=== PATIENT | male | born 1970 | race Caucasian/White ===

== ENCOUNTER 2022-03-09 10:55 | Emergency (ER) | payer OTHER, SELFPAY ==
[2022-03-09 10:55] VITALS: BP 145/85; PULSE 110; RESP 14; TEMP 36.5; O2SAT 94
--- NOTE | 2022-03-09 12:10 | EX.ED.DYSGE1 ---
HPI History of Present Illness Chief Complaint: Abn Labs Narrative Narrative: 51-year-old male presenting for yellow eyes. He states he was talking to his boss today and she noticed that his eyes were yellow. He states that she used to work in healthcare or something. She expressed to me concern that my eyes were yellow. She recommended I go home and go to the urgent care or the emergency room. The patient admits to about 5 shots a night at least. He drinks more than that sometimes. He denies other drugs. Patient has no history of liver disease that he knows of. No history of pancreatitis. Patient is denying any sort of pain anywhere. He has felt otherwise well except for climbing stairs and feels short of breath and he has some pain in the bilateral flanks which he attributes to sleeping on the couch a lot. He is not had an injury. PFSH PFSH Home Medications levofloxacin 500 mg PO DAILY #7 tab 03/09/22 [Rx Last Taken Unknown] potassium chloride 40 meq PO DAILY #2 tab 03/09/22 [Rx Last Taken Unknown] prednisone 40 mg PO DAILY 30 Days #120 tab 03/09/22 [Rx Last Taken Unknown] Allergy/AdvReac Type Severity Reaction Status Date / Time No Known Allergies Allergy Verified 03/09/22 12:23 Social History Smoking Status: Current every day smoker tobacco type: cigarettes ROS ROS ED Constitutional Constitutional ED: Denies chills or fever(s) Eyes Eyes: Reports other Details: Scleral icterus ; Denies blurry vision or change in vision ENT ENT ED: Denies rhinorrhea or sore throat Cardiovascular Cardiovascular: Denies chest pain or palpitations Respiratory/Chest Respiratory/Chest: Reports dyspnea on exertion; Denies cough Gastrointestinal Gastrointestinal: Denies abdominal pain, nausea or vomiting Genitourinary Genitourinary ED: Denies dysuria or hematuria Musculoskeletal Musculoskeletal: Reports back pain Integumentary Denies rash Neurologic Neurologic: Denies headache(s) or weakness Psychiatric Psychiatric: Denies anxiety or depression EXAM Physical Exam Const Vital Signs: 03/09/22 10:55 03/09/22 12:21 03/09/22 13:53 Temperature 97.7 F L Temperature Source Temporal Pulse Rate 110 H 72 Respiratory Rate 14 16 Respiratory Effort Normal Non-Labored Respiratory Pattern Normal Blood Pressure 145/85 H 149/74 H Blood Pressure Mean 105 Pulse Ox 94 98 Oxygen Delivery Method Room Air Positive well nourished General Appearance ED: NAD; Negative for pallor HEENT Reports moist mucous membranes Negative for trauma Eyes PERRL and EOMs intact bilaterally General Eye ED: Yes scleral icterus Neck no lymphadenopathy and supple Resp normal respiratory effort and clear to auscultation bilaterally Cardio regular rate Rate: tachycardic GI normal to inspection, nondistended, normoactive bowel sounds Palpation: soft Back/Spine no CVA tenderness Neuro oriented x3, CN's II-XII intact bilaterally and no sensory deficits noted Sensorium / Orientation: alert Motor Exam: strength 5/5 throughout Psych mental status grossly normal Skin no rashes or lesions noted, no wounds and skin turgor normal General Skin Exam: jaundice; Negative for pallor MDM MDM MDM Narrative Medical decision making narrative: Patient presenting with scleral icterus is noted he has faint jaundice on examination as well. Patient initially admitted to drinking 5 shots per day however when his alcohol level returned at 215 he admitted he meant to say 5 glasses of liquor a day. He states he does this daily. His CBC does not show any leukocytosis. Hemoglobin hematocrit are stable. Platelets within normal 1-2 23. Renal function within normal limits and the electrolytes are fairly normal with exception of a potassium of 2.9. Patient's total bilirubin is 14.00, direct bilirubin 10.2, AST 307, ALT 61, alk phosphatase 306. Lipase normal at 202. Urinalysis without signs of infection but does show bilirubin and urobilinogen. I expressed to the patient that he would need imaging because of his painless jaundice however he states because he does not have insurance he does not want to have to pay for any CAT scan or ultrasound. I spoke with Dr. Montejo regarding this and although he states some of this could be caused by alcoholic hepatitis based on his lab work he could also have something else abnormal and did recommend imaging. I did tell him that the patient is refusing imaging and he stated that the best we could do at this point would be to start him on prednisone 40 mg p.o. daily and put him on Levaquin since he would be immune deficient after that. He will be given a supplement potassium chloride. I did sit down and discussed with him at length the multiple causes of hepatitis and that likely his alcoholism is contributing. I did talk to him this was possibly an obstructing mass in this area and that we could not know that without imaging. He expressed again to me that he does not have health insurance and he doubts to think about it for about a week. I did express to him the urgency of follow-up. I also discussed my conversation with Dr. Montejo and his recommendations. He still wants to be discharged home. He was provided with the medications. A viral hepatitis panel is pending. Patient given return precautions. Impression: 1. EtOH abuse 2. EtOH intoxication 3. Jaundice 4. Scleral icterus 5. Hyperbilirubinemia 6. Transaminitis Lab Data Attestation: I reviewed the patient's lab results. Labs: Laboratory Results - last 24 hr 03/09/22 03/09/22 03/09/22 12:20 12:20 12:20 WBC 10.7 RBC 3.25 L Hgb 12.1 L Hct 34.0 L MCV 104.6 H MCH 37.2 H MCHC 35.6 RDW Std Deviation 71.5 H RDW Coeff of Moses 18.7 H Plt Count 223 MPV 11.0 Immature Gran % (Auto) 0.700 Neut % (Auto) 81.8 H Lymph % (Auto) 9.3 L [place] % (Auto) 7.3 Eos % (Auto) 0.1 Baso % (Auto) 0.8 Absolute Neuts (auto) 8.7 H Absolute Lymphs (auto) 0.99 Nucleated RBC % 0.3 Anisocytosis 1+ Sodium 138 Potassium 2.9 L Chloride 101 Carbon Dioxide 28.0 Anion Gap 9 BUN 5 L Creatinine 0.44 L Estim Creat Clear Calc 175.21 Est GFR (MDRD) Af Amer 256 Est GFR (MDRD) Non-Af 211 BUN/Creatinine Ratio 11.2 Glucose 102 Calcium 8.6 Total Bilirubin 14.00 H Direct Bilirubin 10.82 H AST 307 H ALT 61 Alkaline Phosphatase 306 H Total Protein 7.0 Albumin 2.7 L Globulin 4.3 H Lipase 202 Urine Color Urine Clarity Urine pH Ur Specific [place] Urine Protein Urine Glucose (UA) Urine Ketones Urine Occult Blood Urine Nitrite Urine Bilirubin Urine Urobilinogen Ur Leukocyte Esterase Urine RBC Urine WBC Ur Squamous Epith Cells Urine Bacteria Urine Mucus Ethyl Alcohol 215.0 03/09/22 12:25 WBC RBC Hgb Hct MCV MCH MCHC RDW Std Deviation RDW Coeff of [place] Plt Count MPV Immature Gran % (Auto) Neut % (Auto) Lymph % (Auto) [place] % (Auto) Eos % (Auto) Baso % (Auto) Absolute Neuts (auto) Absolute Lymphs (auto) Nucleated RBC % Anisocytosis Sodium Potassium Chloride Carbon Dioxide Anion Gap BUN Creatinine Estim Creat Clear Calc Est GFR (MDRD) Af Amer Est GFR (MDRD) Non-Af BUN/Creatinine Ratio Glucose Calcium Total Bilirubin Direct Bilirubin AST ALT Alkaline Phosphatase Total Protein Albumin Globulin Lipase Urine Color Giulia Urine Clarity Clear Urine pH 6.5 Ur Specific [place] 1.015 Urine Protein 30 H Urine Glucose (UA) Normal Urine Ketones 5 H Urine Occult Blood 50 H Urine Nitrite Negative Urine Bilirubin 6 H Urine Urobilinogen 12 H Ur Leukocyte Esterase 25 H Urine RBC 0 SEEN Urine WBC 0-5 SEEN Ur Squamous Epith Cells 0 SEEN Urine Bacteria 0 SEEN Urine Mucus 0 SEEN Ethyl Alcohol Discharge Plan Triage Chief Complaint: Abn Labs ED Provider: Abdullahi Jacobs Dx/Rx/DC Orders Instructions: ED Cirrhosis, ED Hepatitis Cause Unknown ..., ED Hypokalemia, ED Potassium-Rich Foods, ED Alcohol Abuse Prescriptions: New levofloxacin 500 mg tablet 500 mg PO DAILY Qty: 7 RF: 0 prednisone 10 mg tablet 40 mg PO DAILY 30 Days Qty: 120 RF: 0 potassium chloride 20 mEq tablet extended release 40 meq PO DAILY Qty: 2 RF: 0 Primary Care Provider: Anthony Rapp Referrals: Anthony Rapp MD [Primary Care Provider] - Shreyas Montejo DO [STAFF PHYSICIAN] - As soon as possible Disposition Disposition: Home, Self Care Discharge Date/Time: 03/09/22 13:53
[2022-03-09 12:28] LABS: Absolute Lymphocyte Count 0.99 X10^3/uL (0.83-4.51); Absolute Neutrophil Count 8.7 X10^3/uL (2.0-7.7); Basophil# 0.09 X10^3/uL; Basophil% 0.8 % (0-1); Eosinophil# 0.01 X10^3/uL; Eosinophils% 0.1 % (0-5); Hemoglobin 12.1 g/dL (13.0-16.5); Lymphocyte # 0.99 X10^3/ul (0.83-4.51); Lymphocyte % 9.3 % (19-41); Mean Corp Hgb Conc 35.6 g/dL (32-36); Mean Corpuscular Hgb 37.2 pg (27.0-32.0); Mean Corpuscular Volume 104.6 fL (80-94); Monocyte# 0.78 X10^3/uL; Monocyte% 7.3 % (0-10); NRBC Flagged by Analyzer 0.3 % (0-5); Neutrophil # 8.71 X10^3/uL (2.7-7.7); Neutrophil % 81.8 % (47-70); POSITIVE MORPHOLOGY YES; Platelet Count 223 K/mm3 (150-450); RBC Distribution Width CV 18.7 % (11.6-14.6); RBC Distribution Width SD 71.5 fl (35.1-43.9); Red Blood Count 3.25 M/mm3 (4.6-6.2); White Blood Count 10.7 K/mm3 (4.4-11.0)
[2022-03-09 12:30] LABS: Bacteria 0 SEEN /hpf (None Seen); Mucous, Urine 0 SEEN /hpf (<or=2+); Red Blood Cells-Urine 0 SEEN /hpf (0-5); Squamous Epithelial Cells - UA 0 SEEN /hpf (0-5)
[2022-03-09 12:32] LABS: Color, Urine Amber (Yellow); Glucose, Dipstick Normal (Normal); Ketone-Dipstick 5 mg/dl (Negative); Leukocyte Esterase-Dipstick 25 /ul (Negative); Nitrite-Dipstick Negative (Negative); Occult Blood-Urine 50 /ul (Negative); Protein-Dipstick 30 mg/dl (Negative); Specific Gravity, Urine 1.015 (1.002-1.030); Urine Clarity Clear (Clear); Urine Urobilinogen 12 mg/dl (Normal); Urine pH 6.5 (5.0 - 8.0)
[2022-03-09 12:34] LABS: Differential Indicated SCAN CRITERIA MET
[2022-03-09 12:40] VITALS: BMI 37.9
[2022-03-09 12:44] LABS: Urine Bilirubin Dipstick 6 mg/dL (Negative)
[2022-03-09 12:45] LABS: White Blood Cells 0-5 SEEN /hpf (0-5)
[2022-03-09 12:49] LABS: Anisocytosis 1+
[2022-03-09 12:52] LABS: AST(SGOT) 307 U/L (15-37); Alanine Aminotransfer ALT/SGPT 61 U/L (16-61); Albumin, Serum 2.7 g/dL (3.2-5.0); Alkaline Phosphatase 306 U/L (45-117); Anion Gap 9 (5-15); BUN 5 mg/dL (7-18); BUN/Creat Ratio 11.2 RATIO (10-20); Bilirubin, Direct 10.82 mg/dL (0.00-0.30); Calcium,Total 8.6 mg/dL (8.5-10.1); Chloride 101 mmol/L (98-107); Creatinine, Serum 0.44 mg/dL (0.70-1.30); EST Glomerular Filtration Rate 211 mL/min (>60); Est Glom Filt Rate - Afr Amer 256 mL/min (>60); Estimated Creatinine Clearance 175.21 ml/min; Globulin 4.3 g/dL (2.2-4.2); Glucose 102 mg/dL (74-106); Lipase 202 U/L (73-393); Potassium 2.9 mmol/L (3.5-5.1); Sodium Level 138 mmol/L (136-145)
[2022-03-09 13:53] VITALS: BP 149/74; PULSE 72; RESP 16; O2SAT 98
[2022-03-10 12:08] LABS: HEPATITIS B SURFACE AG Negative (Negative); Hep C Antibodies <0.1 s/co ratio (0.0-0.9); Hepatitis A IgM Antibody Negative (Negative); Hepatitis B Core AB IgM Negative (Negative)
== END 2022-03-09 13:53 | disposition home or self-care (01) ==
PROVIDERS: Emergency Provider Student in an Organized Health Care Education/Training Program; PCP Internal Medicine; Visit Provider Student in an Organized Health Care Education/Training Program
DX: F10.129 Alcohol abuse with intoxication, unspecified (principal); R74.01 Elevation of levels of liver transaminase levels; R17 Unspecified jaundice; F17.210 Nicotine dependence, cigarettes, uncomplicated; Y90.7 Blood alcohol level of 200-239 mg/100 ml
CPT/HCPCS: 80048; 80074; 80076; 81001; 82077; 83690; 85025; 99283; A4216

== ENCOUNTER 2022-03-11 10:28 | Emergency (ER) | payer OTHER, SELFPAY ==
[2022-03-11 10:31] VITALS: BP 145/107; PULSE 136; RESP 18; TEMP 35.7; O2SAT 95; BMI 26.7
--- NOTE | 2022-03-11 10:37 | EKG12_ITS ---
Test Reason : FATIGUE Blood Pressure : / mmHG Vent. Rate : 112 BPM Atrial Rate : 112 BPM P-R Int : 142 ms QRS Dur : 074 ms QT Int : 358 ms P-R-T Axes : 047 018 036 degrees QTc Int : 488 ms Sinus tachycardia Otherwise normal ECG Confirmed by JOSEPH LIZAMA, KEVAN ([id number]), continuity editor JOEY ALEX ([id number]) on 03/14/2022 10:03:59 A M Referred By: ABELINO Confirmed By:FABIO RUIZ MD
--- NOTE | 2022-03-11 10:37 | CT_ITS ---
STUDY: CT ABDOMEN AND PELVIS WITH CONTRAST REASON FOR EXAM: Male, 51 years old. Jaundice RADIATION DOSAGE (If Supplied By Facility): CTDIvol = ( 11.99 ) mGy, DLP = ( 711.87 ) mGycm TECHNIQUE: Transaxial images were obtained from the dome of the diaphragm to the symphysis pubis without oral contrast. IV 75mL Isovue-300 was administered. Sagittal and coronal images were reconstructed. Individualized dose optimization techniques were used for this CT. COMPARISON: None. FINDINGS: The visualized lung bases are unremarkable. The visualized portions of the heart are within normal limits. Hepatomegaly. Diffuse heterogeneous appearance of the liver with areas of fatty infiltration interspersed with normal parenchyma. Normal gallbladder and extrahepatic biliary system. Normal spleen. Normal pancreas. Normal bilateral adrenal glands. Scattered nonobstructive right intrarenal calculi. Scattered nonobstructive left renal calculi. The largest calculus measures 3.8 mm and is in the upper pole calyx. Normal visualized stomach. Normal small intestine. Normal colon. The appendix is visualized and appears normal. There is scattered atherosclerotic calcification of the abdominal aorta, without a demonstrated aneurysm. Normal inferior vena cava. Normal retroperitoneum. Diffuse urinary bladder thickening although the urinary bladder is not completely distended. Scattered prostatic calcification. There is a small umbilical hernia containing fat. Bilateral inguinal regions containing fat more prominent on the right side. Normal osseous structures. CT/Abdomen/Pelvis W IV Cont ONLY IMPRESSION: Hepatomegaly and diffuse fatty infiltration with multiple areas of focal fatty sparing. Nonobstructive bilateral intrarenal calculi. Small bilateral inguinal hernias containing fat. Diffuse bladder wall thickening. Electronically Signed: Jose M Richrads MD at 11:59 EDT ,
[2022-03-11] MEDS: 0.9% Normal Saline 1,000 ML 1000 ML IV (10:57)
[2022-03-11 10:58] LABS: Absolute Lymphocyte Count 0.42 X10^3/uL (0.83-4.51); Absolute Neutrophil Count 11.7 X10^3/uL (2.0-7.7); Basophil# 0.05 X10^3/uL; Basophil% 0.4 % (0-1); Eosinophil# 0.01 X10^3/uL; Eosinophils% 0.1 % (0-5); Hemoglobin 13.1 g/dL (13.0-16.5); Lymphocyte # 0.42 X10^3/ul (0.83-4.51); Lymphocyte % 3.3 % (19-41); Mean Corp Hgb Conc 34.5 g/dL (32-36); Mean Corpuscular Hgb 36.6 pg (27.0-32.0); Mean Corpuscular Volume 106.1 fL (80-94); Mean Platelet Vol. 10.9 fl (6.2-12.0); Monocyte# 0.62 X10^3/uL; Monocyte% 4.8 % (0-10); NRBC Flagged by Analyzer 0 % (0-5); Neutrophil # 11.74 X10^3/uL (2.7-7.7); Neutrophil % 90.9 % (47-70); POSITIVE DIFFERENTIAL YES; POSITIVE MORPHOLOGY YES; Platelet Count 260 K/mm3 (150-450); RBC Distribution Width CV 17.7 % (11.6-14.6); RBC Distribution Width SD 67.8 fl (35.1-43.9); Red Blood Count 3.58 M/mm3 (4.6-6.2); White Blood Count 12.9 K/mm3 (4.4-11.0)
[2022-03-11 11:00] LABS: Differential Indicated SCAN CRITERIA MET
[2022-03-11 11:23] LABS: AST(SGOT) 235 U/L (15-37); Alanine Aminotransfer ALT/SGPT 53 U/L (16-61); Albumin, Serum 2.7 g/dL (3.2-5.0); Alkaline Phosphatase 291 U/L (45-117); Anion Gap 12 (5-15); BUN 8 mg/dL (7-18); BUN/Creat Ratio 11.2 RATIO (10-20); Bilirubin, Direct 15.56 mg/dL (0.00-0.30); Calcium,Total 9.2 mg/dL (8.5-10.1); Chloride 99 mmol/L (98-107); Creatinine, Serum 0.71 mg/dL (0.70-1.30); EST Glomerular Filtration Rate 122 mL/min (>60); Est Glom Filt Rate - Afr Amer 148 mL/min (>60); Estimated Creatinine Clearance 112.49 ml/min; Globulin 4.4 g/dL (2.2-4.2); Glucose 132 mg/dL (74-106); Lipase 159 U/L (73-393); Potassium 3.6 mmol/L (3.5-5.1); Protein, Total 7.1 g/dL (6.4-8.2); Sodium Level 134 mmol/L (136-145); Troponin-I HS 3 pg/mL (3.0-78.0)
[2022-03-11 12:27] LABS: Alcohol, Blood (Medical)-Serum < 3.0 mg/dL
[2022-03-11 12:29] VITALS: BP 152/96; PULSE 105; RESP 20; O2SAT 96
--- NOTE | 2022-03-11 12:39 | EDS_ITS ---
HPI History of Present Illness Chief Complaint: Fatigue Narrative Narrative: 51-year-old male presenting for evaluation of painless jaundice. He was seen 2 days ago for similar symptoms. At that point patient had lab work which indicated his bilirubin was extremely elevated. He did not want any imaging of his abdomen at that point. I had spoken to Dr. Montejo about it and he recommended that I put him on prednisone 40 mg p.o. daily as well as Levaquin x7 days. Patient reports he has been taking this. His potassium was slightly low the other day and he did take his potassium supplements and I provided him states that he does have some increased fatigue and worsening jaundice and scleral icterus. He has not had a drink. He does not feel like he is withdrawing. He denies abdominal pain. He states he had diarrhea the last 2 days but this is resolved. No fevers or chills. PFSH PFSH Home Medications levofloxacin 500 mg PO DAILY #7 tab 03/09/22 [Rx Last Taken Unknown] potassium chloride 40 meq PO DAILY #2 tab 03/09/22 [Rx Last Taken Unknown] prednisone 40 mg PO DAILY 30 Days #120 tab 03/09/22 [Rx Last Taken Unknown] lactulose 10 g PO BID #30 packet 03/11/22 [Rx Last Taken Unknown] prednisone 80 mg PO DAILY 30 Days #48 tab 03/11/22 [Rx Last Taken Unknown] Allergy/AdvReac Type Severity Reaction Status Date / Time No Known Allergies Allergy Verified 03/11/22 10:31 Social History Smoking Status: Current every day smoker tobacco type: cigarettes ROS ROS ED Constitutional Constitutional ED: Denies chills, fever(s) or sweats Eyes Eyes: Denies blurry vision or diplopia ENT ENT ED: Denies sore throat Cardiovascular Cardiovascular: Denies chest pain or palpitations Respiratory/Chest Respiratory/Chest: Denies dyspnea Gastrointestinal Gastrointestinal: Reports diarrhea; Denies abdominal pain, nausea or vomiting Genitourinary Genitourinary ED: Denies dysuria or hematuria Musculoskeletal Musculoskeletal: Denies arthralgias or myalgias Integumentary Reports other Details: Jaundice and scleral icterus Neurologic Neurologic: Denies headache(s) or weakness Psychiatric Psychiatric: Denies anxiety or depression Endocrine Endocrinology: Denies polydipsia or polyuria EXAM Physical Exam Const Vital Signs: 03/11/22 10:31 03/11/22 11:01 03/11/22 12:29 Temperature 96.3 F L Temperature Source Temporal Pulse Rate 136 H 105 H Respiratory Rate 18 20 H Respiratory Effort Normal Non-Labored Respiratory Pattern Normal Blood Pressure 145/107 H 152/96 H Blood Pressure Mean 119 114 Pulse Ox 95 96 Oxygen Delivery Method Room Air Room Air 03/11/22 14:00 Temperature Temperature Source Pulse Rate 92 Respiratory Rate 23 H Respiratory Effort Respiratory Pattern Blood Pressure 145/96 H Blood Pressure Mean 112 Pulse Ox 96 Oxygen Delivery Method Room Air Positive well nourished General Appearance ED: NAD; Negative for pallor HEENT Reports moist mucous membranes Negative for trauma Eyes PERRL and EOMs intact bilaterally General Eye ED: Yes scleral icterus Neck no lymphadenopathy and supple Chest Wall inspection of chest normal Resp normal respiratory effort and clear to auscultation bilaterally Cardio regular rhythm Rate: tachycardic GI normal to inspection, nondistended, normoactive bowel sounds, non-tender and non-distended Palpation: soft Neuro oriented x3, CN's II-XII intact bilaterally and no sensory deficits noted Sensorium / Orientation: alert Motor Exam: strength 5/5 throughout Psych mental status grossly normal Skin no rashes or lesions noted General Skin Exam: jaundice; Negative for pallor MDM MDM MDM Narrative Medical decision making narrative: Repeat blood work today shows patient has slight leukocytosis of 12.9. This is likely from being on the prednisone. Hemoglobin hematocrit are stable. Platelets stable at 260. Renal function and electrolytes appear to be within normal limits. Total bilirubin Has gone from 14-20.4. Direct bilirubin is now 15.56 from 10.2. Alkaline phosphatase has gone down to 291. AST is gone down to 235. Patient does have an ammonia level which is slightly elevated today at 35. EtOH is negative. Lipase within normal limits. Drug abuse screen negative after speaking with. Patient given IV fluids as he is initially tachycardic. CT of the abdomen pelvis with IV contrast is obtained and shows diffuse fatty infiltration of the liver. There is no ascites noted. Patient case was discussed with Dr. Montejo who recommended an INR which was performed and is normal at 1.4. His LDH which was also requested by Dr. Montejo is slightly elevated at 338. Lactic acid was elevated at 3.2 and the patient was given an additional liter of IV fluids. And he did not feel the patient needed to be be admitted to the hospital. He recommended increasing his prednisone to 80 mg p.o. daily and giving him lactulose 10 g p.o. twice daily. According to his moderate score prednisone would be indicated. He needs repeat blood work in a week to see if his labs are improving. He was recommended him to follow-up with Dr. Montejo. I did teacher counselor him that Dr. Montejo stated that his jaundice and scleral icterus may be present for months. Patient was given return precautions in the ER. Impression: 1. Cirrhosis 2. Hyperbilirubinemia 3. Hyperammonemia 4. History of EtOH abuse 5. Lactic acidosis 6. Elevated LDH Lab Data Attestation: I reviewed the patient's lab results. Labs: Laboratory Results - last 24 hr 03/11/22 03/11/22 03/11/22 10:30 10:50 10:50 WBC 12.9 H RBC 3.58 L Hgb 13.1 Hct 38.0 L MCV 106.1 H MCH 36.6 H MCHC 34.5 RDW Std Deviation 67.8 H RDW Coeff of Moses 17.7 H Plt Count 260 MPV 10.9 Immature Gran % (Auto) 0.500 Neut % (Auto) 90.9 H Lymph % (Auto) 3.3 L [place] % (Auto) 4.8 Eos % (Auto) 0.1 Baso % (Auto) 0.4 Absolute Neuts (auto) 11.7 H Absolute Lymphs (auto) 0.42 L Nucleated RBC % 0 PT 17.1 H INR 1.4 Sodium 134 L Potassium 3.6 Chloride 99 Carbon Dioxide 23.0 Anion Gap 12 BUN 8 Creatinine 0.71 Estim Creat Clear Calc 112.49 Est GFR (MDRD) Af Amer 148 Est GFR (MDRD) Non-Af 122 BUN/Creatinine Ratio 11.2 Glucose 132 H Lactic Acid Calcium 9.2 Total Bilirubin 20.40 H* Direct Bilirubin 15.56 H AST 235 H ALT 53 Alkaline Phosphatase 291 H Ammonia Lactate Dehydrogenase Troponin I High Sens 3 Total Protein 7.1 Albumin 2.7 L Globulin 4.4 H Lipase 159 Urine Color Urine Clarity Urine pH Ur Specific [place] Urine Protein Urine Glucose (UA) Urine Ketones Urine Occult Blood Urine Nitrite Urine Bilirubin Urine Urobilinogen Ur Leukocyte Esterase Urine RBC Urine WBC Ur Squamous Epith Cells Urine Bacteria Urine Mucus Ethyl Alcohol 03/11/22 03/11/22 03/11/22 10:50 11:45 11:45 WBC RBC Hgb Hct MCV MCH MCHC RDW Std Deviation RDW Coeff of Moses Plt Count MPV Immature Gran % (Auto) Neut % (Auto) Lymph % (Auto) [place] % (Auto) Eos % (Auto) Baso % (Auto) Absolute Neuts (auto) Absolute Lymphs (auto) Nucleated RBC % PT INR Sodium Potassium Chloride Carbon Dioxide Anion Gap BUN Creatinine Estim Creat Clear Calc Est GFR (MDRD) Af Amer Est GFR (MDRD) Non-Af BUN/Creatinine Ratio Glucose Lactic Acid Calcium Total Bilirubin Direct Bilirubin AST ALT Alkaline Phosphatase Ammonia 35.0 H Lactate Dehydrogenase 338 H Troponin I High Sens Total Protein Albumin Globulin Lipase Urine Color Urine Clarity Urine pH Ur Specific [place] Urine Protein Urine Glucose (UA) Urine Ketones Urine Occult Blood Urine Nitrite Urine Bilirubin Urine Urobilinogen Ur Leukocyte Esterase Urine RBC Urine WBC Ur Squamous Epith Cells Urine Bacteria Urine Mucus Ethyl Alcohol < 3.0 03/11/22 03/11/22 13:02 13:05 WBC RBC Hgb Hct MCV MCH MCHC RDW Std Deviation RDW Coeff of Moses Plt Count MPV Immature Gran % (Auto) Neut % (Auto) Lymph % (Auto) [place] % (Auto) Eos % (Auto) Baso % (Auto) Absolute Neuts (auto) Absolute Lymphs (auto) Nucleated RBC % PT INR Sodium Potassium Chloride Carbon Dioxide Anion Gap BUN Creatinine Estim Creat Clear Calc Est GFR (MDRD) Af Amer Est GFR (MDRD) Non-Af BUN/Creatinine Ratio Glucose Lactic Acid 3.2 H* Calcium Total Bilirubin Direct Bilirubin AST ALT Alkaline Phosphatase Ammonia Lactate Dehydrogenase Troponin I High Sens Total Protein Albumin Globulin Lipase Urine Color Giulia Urine Clarity Sl. Cloudy Urine pH 8.0 Ur Specific [place] 1.010 Urine Protein 15 H Urine Glucose (UA) Normal Urine Ketones 5 H Urine Occult Blood 25 H Urine Nitrite Negative Urine Bilirubin 6 H Urine Urobilinogen 8 H Ur Leukocyte Esterase 25 H Urine RBC 0 SEEN Urine WBC 0 SEEN Ur Squamous Epith Cells 0-5 SEEN Urine Bacteria 0 SEEN Urine Mucus 0 SEEN Ethyl Alcohol Radiography Diagnostic Testing: Clinical Impression(s) from Imaging Studies Abdomen/Pelvis CT 03/11/22 10:37 IMPRESSION: Hepatomegaly and diffuse fatty infiltration with multiple areas of focal fatty sparing. Nonobstructive bilateral intrarenal calculi. Small bilateral inguinal hernias containing fat. Diffuse bladder wall thickening. Electronically Signed: Jose M Richards MD at 11:59 EDT , Discharge Plan Triage Chief Complaint: Fatigue Other Complaint: Abd Pain ED Provider: Abdullahi Jacobs Dx/Rx/DC Orders Instructions: ED Cirrhosis Prescriptions: New lactulose 10 gram packet 10 g PO BID Qty: 30 RF: 0 prednisone 50 mg tablet 80 mg PO DAILY 30 Days Qty: 48 RF: 0 No Action levofloxacin 500 mg tablet 500 mg PO DAILY Qty: 7 RF: 0 prednisone 10 mg tablet 40 mg PO DAILY 30 Days Qty: 120 RF: 0 potassium chloride 20 mEq tablet extended release 40 meq PO DAILY Qty: 2 RF: 0 Primary Care Provider: Shreyas Montejo Referrals: Shreyas Montejo, DO [Primary Care Provider] - Disposition Disposition: Home, Self Care
[2022-03-11 13:08] LABS: Bacteria 0 SEEN /hpf (None Seen); Mucous, Urine 0 SEEN /hpf (<or=2+); Red Blood Cells-Urine 0 SEEN /hpf (0-5); White Blood Cells 0 SEEN /hpf (0-5)
[2022-03-11 13:21] LABS: Color, Urine Amber (Yellow); Glucose, Dipstick Normal (Normal); Ketone-Dipstick 5 mg/dl (Negative); Leukocyte Esterase-Dipstick 25 /ul (Negative); Nitrite-Dipstick Negative (Negative); Occult Blood-Urine 25 /ul (Negative); Protein-Dipstick 15 mg/dl (Negative); Urine Clarity Sl. Cloudy (Clear); Urine Urobilinogen 8 mg/dl (Normal)
[2022-03-11 13:31] LABS: International Normalized Ratio 1.4; Prothrombin Time (Protime)PT. 17.1 SECONDS (11.7-14.9)
[2022-03-11 13:36] LABS: Urine Bilirubin Dipstick 6 mg/dL (Negative)
[2022-03-11 13:37] LABS: Squamous Epithelial Cells - UA 0-5 SEEN /hpf (0-5)
[2022-03-11 13:40] LABS: LDH 338 U/L (87-241)
[2022-03-11 13:43] LABS: Lactic Acid 3.2 mmol/L (0.4-1.9)
[2022-03-11] MEDS: 0.9% Normal Saline 1,000 ML 999 ML IV (13:47)
[2022-03-11 14:00] VITALS: BP 145/96; PULSE 92; RESP 23; O2SAT 96
[2022-03-11 16:00] VITALS: BP 158/101; PULSE 101; RESP 18; O2SAT 94
[2022-03-11 16:09] VITALS: RESP 18
[2022-03-11 17:11] LABS: Reflex Lactate? Y
== END 2022-03-11 16:10 | disposition home or self-care (01) ==
PROVIDERS: Emergency Provider Student in an Organized Health Care Education/Training Program; PCP Internal Medicine Gastroenterology; Visit Provider Student in an Organized Health Care Education/Training Program
DX: K74.60 Unspecified cirrhosis of liver (principal); K76.0 Fatty (change of) liver, not elsewhere classified; R53.83 Other fatigue; R74.02 Elevation of levels of lactic acid dehydrogenase [LDH]; E87.2 Acidosis; F17.210 Nicotine dependence, cigarettes, uncomplicated; Z79.899 Other long term (current) drug therapy; E80.7 Disorder of bilirubin metabolism, unspecified
CPT/HCPCS: 74177; 80048; 80076; 81001; 82077; 82140; 83605; 83615; 83690; 84484; 85025; 85610; 93005; 96360; 96361; 99283; J7030; Q9967; A4216

== ENCOUNTER 2022-04-11 10:27 | Emergency (ER) | payer SELFPAY ==
[2022-04-11 10:27] VITALS: BP 121/91; PULSE 114; RESP 16; TEMP 36.5; O2SAT 97; BMI 29.1
--- NOTE | 2022-04-11 11:13 | US_ITS ---
PROCEDURE: Ultrasound guided paracentesis. INDICATION: Male, 51 years old. ascites PHYSICIAN: Alexx Dewitt DO INFORMED CONSENT: The risks, benefits, and alternatives to the procedure were explained to the patient. The specific risks of bleeding, infection, and damage to bowel were detailed and accepted. Witnessed informed consent was obtained. TECHNIQUES: The abdomen was ultrasonographically surveyed. An appropriate pocket of fluid was identified at the right lower quadrant. The skin was cleaned and prepped in the usual sterile fashion. Using ultrasound guidance, the peritoneal cavity was accessed with a 5-Chinese paracentesis needle/catheter system. The trocar was removed. A total of 3100 ml of clear yellow ascites fluid was removed from the peritoneal cavity and discarded. The catheter was removed and a sterile dressing was applied. The procedure was well tolerated. The patient was discharged in stable condition. US/Paracentesis with US IMPRESSION: Ultrasound guided therapeutic paracentesis. Electronically Signed: Alexx Dewitt, at 15:01 EDT ,
[2022-04-11 11:31] LABS: Absolute Lymphocyte Count 1.64 X10^3/uL (0.83-4.51); Absolute Neutrophil Count 12.5 X10^3/uL (2.0-7.7); Basophil# 0.07 X10^3/uL; Basophil% 0.5 % (0-1); Eosinophil# 0.12 X10^3/uL; Eosinophils% 0.8 % (0-5); Hemoglobin 12.5 g/dL (13.0-16.5); Lymphocyte # 1.64 X10^3/ul (0.83-4.51); Lymphocyte % 10.8 % (19-41); Mean Corp Hgb Conc 32.9 g/dL (32-36); Mean Corpuscular Volume 112.4 fL (80-94); Mean Platelet Vol. 9.4 fl (6.2-12.0); Monocyte# 0.85 X10^3/uL; Monocyte% 5.6 % (0-10); NRBC Flagged by Analyzer 0 % (0-5); Neutrophil # 12.48 X10^3/uL (2.7-7.7); Neutrophil % 81.7 % (47-70); Platelet Count 372 K/mm3 (150-450); RBC Distribution Width CV 12.6 % (11.6-14.6); RBC Distribution Width SD 52.3 fl (35.1-43.9); Red Blood Count 3.38 M/mm3 (4.6-6.2); White Blood Count 15.3 K/mm3 (4.4-11.0)
[2022-04-11 11:40] LABS: International Normalized Ratio 1.4; Prothrombin Time (Protime)PT. 16.7 SECONDS (11.7-14.9)
[2022-04-11 11:41] LABS: Partial Thromboplast Time 35.2 Seconds (24.1-36.2)
[2022-04-11 11:53] LABS: AST(SGOT) 83 U/L (15-37); Alanine Aminotransfer ALT/SGPT 37 U/L (16-61); Albumin, Serum 2.2 g/dL (3.2-5.0); Alkaline Phosphatase 144 U/L (45-117); Anion Gap 5 (5-15); BUN 9 mg/dL (7-18); BUN/Creat Ratio 13.6 RATIO (10-20); Calcium,Total 8.6 mg/dL (8.5-10.1); Chloride 112 mmol/L (98-107); Creatinine, Serum 0.66 mg/dL (0.70-1.30); EST Glomerular Filtration Rate 134 mL/min (>60); Est Glom Filt Rate - Afr Amer 162 mL/min (>60); Estimated Creatinine Clearance 121.02 ml/min; Globulin 3.8 g/dL (2.2-4.2); Glucose 133 mg/dL (74-106); Lipase 121 U/L (73-393); Potassium 3.7 mmol/L (3.5-5.1); Sodium Level 140 mmol/L (136-145)
[2022-04-11 13:26] VITALS: BP 132/85; BP 137/86; BP 143/91; PULSE 88; PULSE 96; RESP 18; RESP 20; O2SAT 97
--- NOTE | 2022-04-11 14:03 | RAD_ITS ---
EXAM: XR CHEST, 1 VIEW CLINICAL INDICATION: dyspnea TECHNIQUE: Frontal view of the chest. This report was created using [employer] report generation technology. COMPARISON: None. FINDINGS: LUNGS AND PLEURAL SPACES: Unremarkable. No consolidation or edema. No pneumothorax. No effusion. HEART: Unremarkable. Normal heart size. MEDIASTINUM: Central airways and mediastinal contour are unremarkable. BONES/JOINTS: Unremarkable. SOFT TISSUES: Unremarkable. RAD/Chest 1 View (Portable) IMPRESSION: No acute cardiopulmonary abnormality. Electronically Signed: Luis Peterson MD at 14:21 EDT ,
--- NOTE | 2022-04-11 14:33 | EDS_ITS ---
HPI History of Present Illness Chief Complaint: Edema Informant: patient Narrative Narrative: 51-year-old male presenting to the emergency room with dyspnea. Patient states he was in the emergency department last month and was diagnosed with cirrhosis. He was placed on some prednisone and lactulose. He states he has an upcoming appointment with Dr. Montejo from gastroenterology but not until the middle of April. He states that lately his abdomen has become swollen and is now so tense that he cannot take a deep breath. He states that he has not been able to sleep because of that. He denies any confusion. He notes his jaundice is improving. Last month's bilirubin was 20. He tells me that he has now quit drinking for the past 32 days [facility] Medical History (Updated 04/11/22 @ 14:[address] Ryan Gordon DO) Abdominal ascites Cirrhosis of liver no medical history Home Medications levofloxacin 500 mg tablet 500 mg PO DAILY #7 tabs 03/09/22 [Rx Last Taken Unknown] potassium chloride 20 mEq tablet,extended release 40 meq PO DAILY #2 tabs 03/09/22 [Rx Last Taken Unknown] prednisone 10 mg tablet 40 mg PO DAILY 1 month #120 tabs 03/09/22 [Rx Last Taken Unknown] lactulose 10 gram oral packet 10 g PO BID #30 packets 03/11/22 [Rx Last Taken Unknown] prednisone 50 mg tablet 80 mg PO DAILY 30 days #48 tabs 03/11/22 [Rx Last Taken Unknown] furosemide 20 mg tablet (Lasix) 20 mg PO BID #60 tabs 04/11/22 [Rx Last Taken Unknown] lactulose 20 gram/30 mL oral solution 20 g (30 mL) PO DAILY #900 mL 04/11/22 [Rx Last Taken Unknown] spironolactone 25 mg tablet (Aldactone) 25 mg PO BID #60 tabs 04/11/22 [Rx Last Taken Unknown] Allergy/AdvReac Type Severity Reaction Status Date / Time No Known Allergies Allergy Verified 04/11/22 10:30 Social History (Updated 04/11/22 @ 14:[address] 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 [facility] ED Constitutional Constitutional ED: Denies chills, fever(s) or weight loss Eyes Eyes: Denies change in vision or diplopia ENT ENT ED: Denies ear pain, rhinorrhea or sore throat Cardiovascular Cardiovascular: Denies chest pain, orthopnea, palpitations or racing heartbeat Respiratory/Chest Respiratory/Chest: Reports dyspnea and dyspnea on exertion; Denies cough or orthopnea Gastrointestinal Gastrointestinal: Reports abdominal pain; Denies diarrhea, nausea or vomiting Genitourinary Genitourinary ED: Denies dysuria, hematuria or urinary frequency Musculoskeletal Musculoskeletal: Denies arthralgias or myalgias Integumentary Denies abscess or rash Neurologic Neurologic: Denies headache(s) or weakness Psychiatric Psychiatric: Denies anxiety, depression, suicidal ideation or suicidal thoughts Endocrine Endocrinology: Denies polydipsia, polyphagia or polyuria Allergic/Immunologic Allergic/Immunologic ED: Denies mouth swelling, tongue swelling or urticaria EXAM Physical Exam Const Vital Signs: 04/11/22 10:27 04/11/22 11:12 04/11/22 13:26 Temperature 97.7 F L Temperature Source Temporal Pulse Rate 114 H Pulse Rate [1 (Initial Baseline)] 96 Pulse Rate [2] 96 Pulse Rate [3] 88 Respiratory Rate 16 Respiratory Rate [1 (Initial Baseline)] 20 H Respiratory Rate [2] 20 H Respiratory Rate [3] 18 Respiratory Effort Normal Non-Labored Respiratory Pattern Normal Blood Pressure 121/91 H Blood Pressure [1 (Initial Baseline)] 132/85 H Blood Pressure [2] 137/86 H Blood Pressure [3] 143/91 H Blood Pressure Mean 101 Pulse Ox 97 Oxygen Delivery Method Room Air Oxygen Delivery Method [1 (Initial Baseline)] Room Air Oxygen Delivery Method [2] Room Air Oxygen Delivery Method [3] Room Air Positive well nourished and well developed General Appearance ED: well developed HEENT Reports normocephalic, head/scalp atraumatic and moist mucous membranes Eyes PERRL and EOMs intact bilaterally General Eye ED: Yes scleral icterus Neck no lymphadenopathy, supple and no JVD Resp clear to auscultation bilaterally Resp Narrative: Patient does appear dyspneic. He is only able to take shallow breaths and cannot speak in a full sentence. Cardio regular rate, regular rhythm and no murmurs GI Inspection: abdominal distention Palpation: soft Narrative: Patient has tense abdominal ascites. Back/Spine no CVA tenderness and normal ROM Extremity normal to inspection General Extremety ED: Negative for edema General Extremity: Negative for edema Neuro oriented x3 and CN's II-XII intact bilaterally Sensorium / Orientation: alert Motor Exam: strength 5/5 throughout Psych mental status grossly normal Mood & Affect: Negative for depressed or tearful Skin no rashes or lesions noted and no wounds MDM MDM MDM Narrative Medical decision making narrative: Coags showed INR 1.4. White count 15.3 with a hemoglobin 12.5 platelet count is 372. CMP demonstrated total bilirubin of 4 with a direct bilirubin of 3.4. AST of 83 ALT of 37 alk phos 144. Lipase 121. My trepidation of the chest x- ray is no acute process. Patient underwent ultrasound-guided paracentesis. 3.1 L were removed. Case was discussed with Dr. Montejo. We are going to be starting him on Lasix Aldactone and lactulose. Return if worsening or concerns Lab Data Attestation: I reviewed the patient's lab results. Labs: Laboratory Results - last 24 hr 04/11/22 04/11/22 04/11/22 11:22 11:22 11:22 WBC 15.3 H RBC 3.38 L Hgb 12.5 L Hct 38.0 L MCV 112.4 H MCH 37.0 H MCHC 32.9 RDW Std Deviation 52.3 H RDW Coeff of Moses 12.6 Plt Count 372 MPV 9.4 Immature Gran % (Auto) 0.600 Neut % (Auto) 81.7 H Lymph % (Auto) 10.8 L [place] % (Auto) 5.6 Eos % (Auto) 0.8 Baso % (Auto) 0.5 Absolute Neuts (auto) 12.5 H Absolute Lymphs (auto) 1.64 Nucleated RBC % 0 PT 16.7 H INR 1.4 APTT 35.2 Sodium 140 Potassium 3.7 Chloride 112 H Carbon Dioxide 23.0 Anion Gap 5 BUN 9 Creatinine 0.66 L Estim Creat Clear Calc 121.02 Est GFR (MDRD) Af Amer 162 Est GFR (MDRD) Non-Af 134 BUN/Creatinine Ratio 13.6 Glucose 133 H Calcium 8.6 Total Bilirubin 4.00 H Direct Bilirubin 3.40 H AST 83 H ALT 37 Alkaline Phosphatase 144 H Total Protein 6.0 L Albumin 2.2 L Globulin 3.8 Lipase 121 Radiography Diagnostic Testing: Clinical Impression(s) from Imaging Studies Chest X-Ray 04/11/22 14:03 IMPRESSION: No acute cardiopulmonary abnormality. Electronically Signed: Luis Peterson MD at 14:21 EDT , Discharge Plan Triage Chief Complaint: Edema ED Provider: Ryan Gordon Dx/Rx/DC Orders Clinical Impression: Cirrhosis of liver, Abdominal ascites, Acute dyspnea Instructions: ED Ascites Prescriptions: New furosemide [Lasix] 20 mg tablet 20 mg PO BID Qty: 60 0RF spironolactone [Aldactone] 25 mg tablet 25 mg PO BID Qty: 60 0RF lactulose 20 gram/30 mL solution 20 g PO DAILY Qty: 900 0RF No Action levofloxacin 500 mg tablet 500 mg PO DAILY Qty: 7 0RF prednisone 10 mg tablet 40 mg PO DAILY 30 Days Qty: 120 0RF potassium chloride 20 mEq tablet extended release 40 meq PO DAILY Qty: 2 0RF lactulose 10 gram packet 10 g PO BID Qty: 30 0RF prednisone 50 mg tablet 80 mg PO DAILY 30 Days Qty: 48 0RF Primary Care Provider: Shreyas Montejo Referrals: Shreyas Montejo, DO [Primary Care Provider] - As soon as possible Disposition Disposition: Home, Self Care
[2022-04-11 14:35] VITALS: PULSE 64; RESP 20; O2SAT 97
== END 2022-04-11 14:38 | disposition home or self-care (01) ==
PROVIDERS: Emergency Provider Emergency Medicine; PCP Internal Medicine Gastroenterology; Visit Provider Emergency Medicine
DX: R18.8 Other ascites (principal); K74.60 Unspecified cirrhosis of liver; R06.00 Dyspnea, unspecified; F17.210 Nicotine dependence, cigarettes, uncomplicated
CPT/HCPCS: 49083; 71045; 80048; 80076; 83690; 85025; 85610; 85730; 99283; A4216

== ENCOUNTER → 2022-05-02 | Outpatient (CLI) | payer SELFPAY ==
[2022-05-02 11:39] LABS: Absolute Lymphocyte Count 1.84 X10^3/uL (0.83-4.51); Absolute Neutrophil Count 13.5 X10^3/uL (2.0-7.7); Basophil# 0.11 X10^3/uL; Basophil% 0.7 % (0-1); Eosinophil# 0.02 X10^3/uL; Eosinophils% 0.1 % (0-5); Hematocrit 43.4 % (40-54); Hemoglobin 14.8 g/dL (13.0-16.5); Lymphocyte # 1.84 X10^3/ul (0.83-4.51); Lymphocyte % 11.1 % (19-41); Mean Corp Hgb Conc 34.1 g/dL (32-36); Mean Corpuscular Hgb 36.1 pg (27.0-32.0); Mean Corpuscular Volume 105.9 fL (80-94); Mean Platelet Vol. 9.5 fl (6.2-12.0); Monocyte# 1.02 X10^3/uL; Monocyte% 6.2 % (0-10); NRBC Flagged by Analyzer 0 % (0-5); Neutrophil # 13.52 X10^3/uL (2.7-7.7); Neutrophil % 81.5 % (47-70); Platelet Count 338 K/mm3 (150-450); RBC Distribution Width CV 12.2 % (11.6-14.6); RBC Distribution Width SD 47.8 fl (35.1-43.9); White Blood Count 16.6 K/mm3 (4.4-11.0)
[2022-05-02 11:48] LABS: International Normalized Ratio 1.3; Prothrombin Time (Protime)PT. 15.5 SECONDS (11.7-14.9)
[2022-05-02 12:09] LABS: ALB/GLOB Ratio 0.7 RATIO (0.9-2.4); AST(SGOT) 84 U/L (15-37); Alanine Aminotransfer ALT/SGPT 34 U/L (16-61); Albumin, Serum 3.3 g/dL (3.2-5.0); Alkaline Phosphatase 154 U/L (45-117); Anion Gap 9 (5-15); BUN 8 mg/dL (7-18); BUN/Creat Ratio 10.2 RATIO (10-20); Calcium,Total 9.9 mg/dL (8.5-10.1); Chloride 97 mmol/L (98-107); Creatinine, Serum 0.79 mg/dL (0.70-1.30); EST Glomerular Filtration Rate 109 mL/min (>60); Est Glom Filt Rate - Afr Amer 132 mL/min (>60); Globulin 4.8 g/dL (2.2-4.2); Glucose 117 mg/dL (74-106); Potassium 3.9 mmol/L (3.5-5.1); Protein, Total 8.1 g/dL (6.4-8.2); Sodium Level 134 mmol/L (136-145)
[2022-05-02 17:02] LABS: Hemoglobin A1c 4.8 % (3.8-5.6)
== END | disposition home or self-care (01) ==
LOC: LAB 10:45
PROVIDERS: PCP Internal Medicine Gastroenterology; Referring Provider Nurse Practitioner Adult Health; Visit Provider Nurse Practitioner Adult Health
DX: K74.60 Unspecified cirrhosis of liver (principal); K70.10 Alcoholic hepatitis without ascites
CPT/HCPCS: 36415; 80053; 83036; 85025; 85610

== ENCOUNTER → 2022-06-13 | Outpatient (CLI) | payer SELFPAY ==
[2022-06-13 11:10] LABS: Absolute Lymphocyte Count 0.46 X10^3/uL (0.83-4.51); Absolute Neutrophil Count 13.5 X10^3/uL (2.0-7.7); Basophil# 0.02 X10^3/uL; Basophil% 0.1 % (0-1); Hematocrit 48.8 % (40-54); Hemoglobin 16.9 g/dL (13.0-16.5); Lymphocyte # 0.46 X10^3/ul (0.83-4.51); Lymphocyte % 3.1 % (19-41); Mean Corp Hgb Conc 34.6 g/dL (32-36); Mean Corpuscular Hgb 36.3 pg (27.0-32.0); Mean Corpuscular Volume 104.9 fL (80-94); Monocyte# 0.57 X10^3/uL; Monocyte% 3.9 % (0-10); NRBC Flagged by Analyzer 0 % (0-5); Neutrophil # 13.46 X10^3/uL (2.7-7.7); Neutrophil % 92.1 % (47-70); POSITIVE DIFFERENTIAL YES; Platelet Count 162 K/mm3 (150-450); RBC Distribution Width CV 15.4 % (11.6-14.6); RBC Distribution Width SD 60.2 fl (35.1-43.9); Red Blood Count 4.65 M/mm3 (4.6-6.2); White Blood Count 14.6 K/mm3 (4.4-11.0)
[2022-06-13 11:16] LABS: Differential Indicated SCAN CRITERIA MET
[2022-06-13 11:47] LABS: International Normalized Ratio 1.4; Prothrombin Time (Protime)PT. 16.6 SECONDS (11.7-14.9)
[2022-06-13 11:53] LABS: ALB/GLOB Ratio 1.1 RATIO (0.9-2.4); AST(SGOT) 58 U/L (15-37); Alanine Aminotransfer ALT/SGPT 36 U/L (16-61); Albumin, Serum 3.8 g/dL (3.2-5.0); Alkaline Phosphatase 117 U/L (45-117); Anion Gap 8 (5-15); BUN 10 mg/dL (7-18); BUN/Creat Ratio 11.8 RATIO (10-20); Calcium,Total 9.2 mg/dL (8.5-10.1); Chloride 98 mmol/L (98-107); Creatinine, Serum 0.84 mg/dL (0.70-1.30); EST Glomerular Filtration Rate 101 mL/min (>60); Est Glom Filt Rate - Afr Amer 122 mL/min (>60); Globulin 3.6 g/dL (2.2-4.2); Glucose 134 mg/dL (74-106); Potassium 3.5 mmol/L (3.5-5.1); Protein, Total 7.4 g/dL (6.4-8.2); Sodium Level 137 mmol/L (136-145)
== END | disposition home or self-care (01) ==
LOC: LAB 10:46
PROVIDERS: Referring Provider Nurse Practitioner Adult Health; Visit Provider Nurse Practitioner Adult Health
DX: K70.10 Alcoholic hepatitis without ascites (principal)
CPT/HCPCS: 36415; 80053; 85025; 85610

== ENCOUNTER → 2022-07-21 | Outpatient (CLI) | payer SELFPAY ==
--- NOTE | 2022-07-21 13:05 | US_ITS ---
STUDY: ABDOMINAL ULTRASOUND - 4 quadrants. Ascites assessment. REASON FOR VISIT: Male, 51 years old ALCOHOLIC CIRRHOSIS TECHNIQUE: Ultrasound evaluation of the 4 quadrants was performed with real-time and static meyers-scale imaging. TECHNICAL QUALITY: Adequate. COMPARISON: None. FINDINGS: No evidence of ascites. US/Abdomen Limited IMPRESSION: No evidence of ascites. Electronically Signed: Jose M Richards MD at 15:14 EDT ,
== END | disposition home or self-care (01) ==
PROVIDERS: Referring Provider Internal Medicine Gastroenterology; Visit Provider Internal Medicine Gastroenterology
DX: K70.30 Alcoholic cirrhosis of liver without ascites (principal)
CPT/HCPCS: 76705

== ENCOUNTER 2022-09-02 10:05 | Emergency (ER) | payer SELFPAY ==
[2022-09-02 10:05] VITALS: BP 113/90; PULSE 113; RESP 16; TEMP 36.6; O2SAT 98; BMI 29.5
--- NOTE | 2022-09-02 10:30 | CT_ITS ---
EXAM: CT ABDOMEN AND PELVIS WITHOUT INTRAVENOUS CONTRAST CLINICAL INDICATION: Pain -- LLQ TECHNIQUE: Helically acquired images were obtained of the abdomen and pelvis without intravenous contrast. This CT exam was performed using one or more of the following dose reduction techniques: automated exposure control, adjustment of the mA and/or kV according to patient size, and/or use of iterative reconstruction technique. This report was created using [employer] report generation technology. COMPARISON: CT Abdomen Pelvis dated mar 11 2022 FINDINGS: LOWER THORAX: Normal. Lung bases are clear. No cardiomegaly. No pericardial effusion. ABDOMEN: LIVER: Enlarged fatty liver again noted. Distended umbilical vein consistent with portal hypertension related to liver cirrhosis. GALLBLADDER AND BILE DUCTS: Normal. No calcified gallstones. No gallbladder distention or wall edema. No intra- or extrahepatic biliary ductal dilation. PANCREAS: Normal. No focal cystic mass. SPLEEN: Spleen is normal size. ADRENALS: Normal. No nodules. KIDNEYS AND URETERS: Normal size kidneys. Nonobstructive renal stones noted bilaterally. STOMACH AND BOWEL: Diverticulosis of the colon noted without evidence of acute diverticulitis. PELVIS: APPENDIX: Appendix is visualized and normal in appearance. BLADDER: Urinary bladder is contracted. REPRODUCTIVE: Unremarkable as visualized. No mass. ABDOMEN and PELVIS: INTRAPERITONEAL SPACE: Small volume ascites. No free air. BONES/JOINTS: Normal. No suspicious lytic or blastic abnormality. SOFT TISSUES: Normal. No discrete abdominal or pelvic wall hernia. VASCULATURE: Normal. Abdominal aorta is non-dilated. LYMPH NODES: Normal. No enlarged lymph nodes. CT/Abdomen/Pelvis without Cont IMPRESSION: 1. Liver cirrhosis and portal hypertension. 2. Small volume ascites. 3. Diverticulosis coli. 4. Bilateral nephrolithiasis. Electronically Signed: Luis Peterson MD at 11:13 EST ,
--- NOTE | 2022-09-02 10:31 | ED.VIS.GI ---
HPI HPI - GI History of Present Illness Chief Complaint: Abd Pain Informant: patient Narrative Narrative: Waxing waning lower abdominal pain towards the left for the past 3 days. Had a fever 3 days ago. Noting blood in his urine. Denies back pain. Denies nausea or vomiting. History of alcoholic cirrhosis diagnosis past March. He is followed by Dr. Montejo. He states he slipped on alcohol couple times since then. None recently. He had a paracentesis 6 weeks ago. No abdominal surgeries in the past. No cough. No history of kidney stones. No history of diverticulitis. No colonoscopies in the past. Denies any allergies. He is having loose stools however he is on lactulose. Prior similar symptoms: No PFSH PFSH Medical History Abdominal ascites Alcoholic cirrhosis Cirrhosis of liver Home Medications lactulose 20 gram/30 mL oral solution 20 g (30 mL) PO DAILY #900 mL 05/02/22 [Rx Last Taken Unknown] furosemide 20 mg tablet (Lasix) 20 mg PO BID #180 tabs 06/13/22 [Rx Last Taken Unknown] spironolactone 25 mg tablet (Aldactone) 25 mg PO BID #180 tabs 06/13/22 [Rx Last Taken Unknown] ciprofloxacin HCl 500 mg tablet 500 mg PO BID #20 tabs 09/02/22 [Rx Last Taken Unknown] metronidazole 500 mg tablet 500 mg PO TID #30 tabs 09/02/22 [Rx Last Taken Unknown] Allergy/AdvReac Type Severity Reaction Status Date / Time No Known Allergies Allergy Verified 09/02/22 10:05 Social History Smoking Status: Current every day smoker tobacco type: cigarettes details: Patient 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 sober [facility] ED Constitutional Constitutional ED: Reports fever(s); Denies chills or sweats Eyes Eyes: Denies change in vision ENT ENT ED: Denies dysphagia or sore throat Cardiovascular Cardiovascular: Denies chest pain, leg edema, palpitations or racing heartbeat Respiratory/Chest Respiratory/Chest: Denies cough, dyspnea or dyspnea on exertion Gastrointestinal Gastrointestinal: Reports abdominal pain and diarrhea; Denies nausea or vomiting Genitourinary Genitourinary ED: Denies dysuria, hematuria or urinary frequency Musculoskeletal Musculoskeletal: Denies back pain, extremity pain or neck pain Integumentary Denies rash or wounds Neurologic Neurologic: Denies headache(s), paresthesias or weakness EXAM Physical Exam Const Vital Signs: 09/02/22 10:05 09/02/22 12:26 09/02/22 15:07 Temperature 97.9 F Temperature Source Temporal Pulse Rate 113 H 101 H Respiratory Rate 16 16 18 Blood Pressure 113/90 H 120/87 H Blood Pressure Mean 97 Pulse Ox 98 98 Oxygen Delivery Method Room Air Positive well nourished and well developed General Appearance ED: well developed and NAD HEENT Reports moist mucous membranes normocephalic and atraumatic Eyes PERRL, EOMs intact bilaterally and conjunctivae normal General Eye ED: Yes normal appearance of both eyes Neck no lymphadenopathy and supple General: Negative for tenderness Chest Wall Chest: Negative for tenderness Resp normal respiratory effort and normal air movement Effort and Inspection: symmetric chest movement; Negative for respiratory distress Cardio regular rhythm and no murmurs Rate: tachycardic Peripheral Pulses: pulses 2+ throughout GI normal to inspection, nondistended, normoactive bowel sounds GI Narrative: Lower abdominal tenderness left lower quadrant suprapubic and mild right upper quadrant. Negative McBurney's. Negative Hedrick's. Palpation: Negative for guarding or rebound tenderness present Back/Spine no CVA tenderness and no thoracic nor lumbar tenderness Extremity normal to inspection General Extremety ED: Negative for edema or tenderness General Extremity: Negative for edema Neuro oriented x3 and no sensory deficits noted Sensorium / Orientation: awake and alert Skin no rashes or lesions noted and no wounds MDM MDM MDM Narrative Medical decision making narrative: Patient slight tachycardia on arrival afebrile tender mostly suprapubic left lower quadrant. Fever 3 days ago. Work-up initiated for possible concerns for diverticulitis versus kidney stones. Urine did note signs of infection culture sent. White count 11.1 creatinine 0.62. Lipase normal slight transaminitis with total bilirubin 3.8. INR 1.3. CT scan abdomen pelvis negative for diverticulitis notes diverticulosis with mild amount of ascites. He declined any pain medicines. Reevaluation pain slightly more lower quadrants no upper quadrant tenderness. With his cirrhosis history, is at risk for potential spontaneous bacterial peritonitis. His last paracentesis however was 5 months ago. I did speak with radiologist who read the imagings, has not enough fluids to obtain for analysis. Therefore I spoke with his GI physician Dr. Montejo, discussed his history and findings. He will be covered with Cipro and Flagyl. Patient not requiring pain medicines at this time he can be follow-up as an outpatient. His appointment in 1 week. Patient agreement with this plan of care. Discussed abstaining from alcohol especially being on Flagyl. He understands this. Return precaution discussed. All questions were answered. Lab Data Attestation: I reviewed the patient's lab results. Labs: Laboratory Results - last 24 hr 09/02/22 09/02/22 09/02/22 10:14 10:14 10:14 WBC 11.1 H RBC 4.13 L Hgb 15.7 Hct 45.5 MCV 110.2 H MCH 38.0 H MCHC 34.5 RDW Std Deviation 59.4 H RDW Coeff of Moses 14.6 Plt Count 215 MPV 9.9 Immature Gran % (Auto) 0.400 Neut % (Auto) 73.2 H Lymph % (Auto) 18.7 L [place] % (Auto) 6.1 Eos % (Auto) 0.8 Baso % (Auto) 0.8 Absolute Neuts (auto) 8.1 H Absolute Lymphs (auto) 2.08 Nucleated RBC % 0 PT 15.5 H INR 1.3 APTT 33.5 Sodium 139 Potassium 3.4 L Chloride 103 Carbon Dioxide 31.0 Anion Gap 5 BUN 5 L Creatinine 0.62 L Estim Creat Clear Calc 128.82 Est GFR (MDRD) Af Amer 173 Est GFR (MDRD) Non-Af 143 BUN/Creatinine Ratio 8.0 L Glucose 124 H Calcium 9.1 Total Bilirubin 3.80 H AST 128 H ALT 44 Alkaline Phosphatase 247 H Total Protein 6.8 Albumin 2.8 L Globulin 4.0 Albumin/Globulin Ratio 0.7 L Lipase 155 Urine Color Urine Clarity Urine pH Ur Specific [place] Urine Protein Urine Glucose (UA) Urine Ketones Urine Occult Blood Urine Nitrite Urine Bilirubin Urine Urobilinogen Ur Leukocyte Esterase Urine RBC Urine WBC Ur Squamous Epith Cells Urine Bacteria Urine Mucus 09/02/22 10:38 WBC RBC Hgb Hct MCV MCH MCHC RDW Std Deviation RDW Coeff of Moses Plt Count MPV Immature Gran % (Auto) Neut % (Auto) Lymph % (Auto) [place] % (Auto) Eos % (Auto) Baso % (Auto) Absolute Neuts (auto) Absolute Lymphs (auto) Nucleated RBC % PT INR APTT Sodium Potassium Chloride Carbon Dioxide Anion Gap BUN Creatinine Estim Creat Clear Calc Est GFR (MDRD) Af Amer Est GFR (MDRD) Non-Af BUN/Creatinine Ratio Glucose Calcium Total Bilirubin AST ALT Alkaline Phosphatase Total Protein Albumin Globulin Albumin/Globulin Ratio Lipase Urine Color [place] Urine Clarity Clear Urine pH 7.0 Ur Specific [place] 1.010 Urine Protein 30 H Urine Glucose (UA) Normal Urine Ketones 5 H Urine Occult Blood 10 H Urine Nitrite Positive H Urine Bilirubin 3 H Urine Urobilinogen 12 H Ur Leukocyte Esterase 100 H Urine RBC 0-5 SEEN Urine WBC 0-5 SEEN Ur Squamous Epith Cells 0 SEEN Urine Bacteria 1+ Urine Mucus 2+ Radiography Diagnostic Testing: Clinical Impression(s) from Imaging Studies Abdomen/Pelvis CT 09/02/22 10:30 IMPRESSION: 1. Liver cirrhosis and portal hypertension. 2. Small volume ascites. 3. Diverticulosis coli. 4. Bilateral nephrolithiasis. Electronically Signed: Luis Peterson MD at 11:13 EST , Discharge Plan Triage Chief Complaint: Abd Pain ED Provider: Noe Quinn Dx/Rx/DC Orders Clinical Impression: Acute UTI, Cirrhosis of liver, Abdominal pain Instructions: Abdominal Pain, Urinary Tract Infections in Men, Cirrhosis of Liver Dc Prescriptions: New metronidazole 500 mg tablet 500 mg PO TID Qty: 30 0RF ciprofloxacin HCl [ciprofloxacin HCl] 500 mg tablet 500 mg PO BID Qty: 20 0RF No Action lactulose 20 gram/30 mL solution 20 g PO DAILY Qty: 900 0RF furosemide [Lasix] 20 mg tablet 20 mg PO BID Qty: 180 0RF spironolactone [Aldactone] 25 mg tablet 25 mg PO BID Qty: 180 0RF Primary Care Provider: Care Physician,No Primary Referrals: Shreyas Montejo DO [Med Staff - Active Staff] - Keep Antonio appointment Care Physician,No Primary [Primary Care Provider] - Activity Restrictions/Additional Instructions: Take antibiotic as prescribed. Follow-up with Dr. Montejo as scheduled in 1 week. Return if any worsening symptoms. Disposition Disposition: Home, Self Care Discharge Date/Time: 09/02/22 15:07
[2022-09-02] MEDS: 0.9% Normal Saline 1,000 ML 1000 ML IV (10:40)
[2022-09-02 10:44] LABS: Squamous Epithelial Cells - UA 0 SEEN /hpf (0-5)
[2022-09-02 10:50] LABS: Absolute Lymphocyte Count 2.08 X10^3/uL (0.83-4.51); Absolute Neutrophil Count 8.1 X10^3/uL (2.0-7.7); Basophil# 0.09 X10^3/uL; Basophil% 0.8 % (0-1); Eosinophil# 0.09 X10^3/uL; Eosinophils% 0.8 % (0-5); Hematocrit 45.5 % (40-54); Hemoglobin 15.7 g/dL (13.0-16.5); Lymphocyte # 2.08 X10^3/ul (0.83-4.51); Lymphocyte % 18.7 % (19-41); Mean Corp Hgb Conc 34.5 g/dL (32-36); Mean Corpuscular Volume 110.2 fL (80-94); Mean Platelet Vol. 9.9 fl (6.2-12.0); Monocyte# 0.68 X10^3/uL; Monocyte% 6.1 % (0-10); NRBC Flagged by Analyzer 0 % (0-5); Neutrophil # 8.13 X10^3/uL (2.7-7.7); Neutrophil % 73.2 % (47-70); Platelet Count 215 K/mm3 (150-450); RBC Distribution Width CV 14.6 % (11.6-14.6); RBC Distribution Width SD 59.4 fl (35.1-43.9); Red Blood Count 4.13 M/mm3 (4.6-6.2); White Blood Count 11.1 K/mm3 (4.4-11.0)
[2022-09-02 10:51] LABS: Color, Urine Amber (Yellow); Glucose, Dipstick Normal (Normal); Ketone-Dipstick 5 mg/dl (Negative); Leukocyte Esterase-Dipstick 100 /ul (Negative); Nitrite-Dipstick Positive (Negative); Occult Blood-Urine 10 /ul (Negative); Protein-Dipstick 30 mg/dl (Negative); Urine Bilirubin Dipstick 3 mg/dL (Negative); Urine Clarity Clear (Clear); Urine Urobilinogen 12 mg/dl (Normal)
[2022-09-02 11:01] LABS: White Blood Cells 0-5 SEEN /hpf (0-5)
[2022-09-02 11:02] LABS: Bacteria 1+ /hpf (None Seen); Mucous, Urine 2+ /hpf (<or=2+); Red Blood Cells-Urine 0-5 SEEN /hpf (0-5)
[2022-09-02 11:06] LABS: ALB/GLOB Ratio 0.7 RATIO (0.9-2.4); AST(SGOT) 128 U/L (15-37); Alanine Aminotransfer ALT/SGPT 44 U/L (16-61); Albumin, Serum 2.8 g/dL (3.2-5.0); Alkaline Phosphatase 247 U/L (45-117); Anion Gap 5 (5-15); BUN 5 mg/dL (7-18); Calcium,Total 9.1 mg/dL (8.5-10.1); Chloride 103 mmol/L (98-107); Creatinine, Serum 0.62 mg/dL (0.70-1.30); EST Glomerular Filtration Rate 143 mL/min (>60); Est Glom Filt Rate - Afr Amer 173 mL/min (>60); Estimated Creatinine Clearance 128.82 ml/min; Glucose 124 mg/dL (74-106); Lipase 155 U/L (73-393); Potassium 3.4 mmol/L (3.5-5.1); Protein, Total 6.8 g/dL (6.4-8.2); Sodium Level 139 mmol/L (136-145)
[2022-09-02 11:51] LABS: International Normalized Ratio 1.3; Prothrombin Time (Protime)PT. 15.5 SECONDS (11.7-14.9)
[2022-09-02 11:52] LABS: Partial Thromboplast Time 33.5 Seconds (24.1-36.2)
[2022-09-02 12:26] VITALS: RESP 16
[2022-09-02] MEDS: Ceftriaxone 1 GM/50 ML BAG IV (13:17)
[2022-09-02 15:07] VITALS: BP 120/87; PULSE 101; RESP 18; O2SAT 98
== END 2022-09-02 15:07 | disposition home or self-care (01) ==
PROVIDERS: Emergency Provider Emergency Medicine; Visit Provider Emergency Medicine
DX: N39.0 Urinary tract infection, site not specified (principal); K74.60 Unspecified cirrhosis of liver; F17.210 Nicotine dependence, cigarettes, uncomplicated; R31.9 Hematuria, unspecified
CPT/HCPCS: 74176; 80053; 81001; 83690; 85025; 85610; 85730; 87086; 96361; 96365; 99283; J7030; J7050; A4216

== ENCOUNTER 2022-12-29 07:13 | Emergency (ER) | payer BC, SELFPAY ==
[2022-12-29 07:14] VITALS: BP 169/101; PULSE 102; RESP 14; TEMP 36.8; O2SAT 96; BMI 29.5
[2022-12-29 07:41] LABS: Absolute Lymphocyte Count 1.53 X10^3/uL (0.83-4.51); Basophil# 0.09 X10^3/uL; Basophil% 1.1 % (0-1); Eosinophils% 1.2 % (0-5); Hematocrit 47.3 % (40-54); Hemoglobin 15.9 g/dL (13.0-16.5); Lymphocyte # 1.53 X10^3/ul (0.83-4.51); Lymphocyte % 18.4 % (19-41); Mean Corp Hgb Conc 33.6 g/dL (32-36); Mean Corpuscular Hgb 35.8 pg (27.0-32.0); Mean Corpuscular Volume 106.5 fL (80-94); Monocyte# 0.56 X10^3/uL; Monocyte% 6.7 % (0-10); NRBC Flagged by Analyzer 0 % (0-5); Neutrophil # 6.02 X10^3/uL (2.7-7.7); Neutrophil % 72.2 % (47-70); Platelet Count 176 K/mm3 (150-450); RBC Distribution Width CV 15.3 % (11.6-14.6); RBC Distribution Width SD 60.6 fl (35.1-43.9); Red Blood Count 4.44 M/mm3 (4.6-6.2); White Blood Count 8.3 K/mm3 (4.4-11.0)
--- NOTE | 2022-12-29 07:44 | RAD_ITS ---
STUDY: X-RAY CHEST REASON FOR EXAM: Male, 52 years old. Vomiting TECHNIQUE: Single AP portable view of the chest. COMPARISON: Comparison is made with prior study dated April 11, 2022. FINDINGS: EKG electrodes are seen. The lungs are clear and expanded. There is no demonstrated pleural abnormality. Normal size heart. Normal mediastinum and roland. Normal visualized pulmonary arteries. Normal visualized aortic arch and descending thoracic aorta. Normal visualized thoracic spine. Normal visualized ribs, clavicles, and shoulders. There is no demonstrated abnormality of the visualized soft tissue structures of the upper abdomen. RAD/Chest 1 View (Portable) IMPRESSION: Normal x-ray examination of the chest. Electronically Signed: Jose M Richards MD at 8:02 EST ,
--- NOTE | 2022-12-29 07:51 | CT_ITS ---
STUDY: CT ABDOMEN AND PELVIS WITH CONTRAST REASON FOR EXAM: Male, 52 years old. Vomiting, abd pain. History of cirrhosis and alcoholic hepatitis. RADIATION DOSAGE (If Supplied By Facility): CTDIvol = ( 15.74 ) mGy, DLP = ( 1114.93 ) mGycm TECHNIQUE: Transaxial images were obtained from the dome of the diaphragm to the symphysis pubis without oral contrast. IV 100mL [id number]-300 was administered. Sagittal and coronal images were reconstructed. Individualized dose optimization techniques were used for this CT. COMPARISON: Comparison is made with prior study September 02, 2022. FINDINGS: The visualized lung bases are unremarkable. The visualized portions of the heart are within normal limits. Hepatomegaly. Diffuse fatty infiltration with multiple areas of the heterogeneous attenuation. This may represent regenerating nodules. There is evidence of a 2.4 cm x 2.8 cm hypodense nodule in the anterior aspect of the right lobe of the liver at the level of the gallbladder fossa. An underlying neoplastic process should be ruled out. Recanalization of the umbilical vein. Normal gallbladder and extrahepatic biliary system. Normal spleen. Normal pancreas. Normal bilateral adrenal glands. Normal right kidney. Nonobstructive left intrarenal calculi. Normal visualized stomach. Normal small intestine. There are multiple colonic diverticula consistent with diverticulosis. The appendix is visualized and appears normal. There is diffuse atherosclerotic calcification of the abdominal aorta, without a demonstrated aneurysm. Normal inferior vena cava. There is borderline retroperitoneal lymphadenopathy with enlarged nodes no greater than 10mm in the short axis diameter. Nonspecific increased markings in the root of the mesenteric fat. Normal urinary bladder. Small amount of fluid is seen in the cul-de-sac. Normal abdominal wall. Disc space narrowing and disc degeneration at the L5-S1 level. CT/Abdomen/Pelvis W IV Cont ONLY IMPRESSION: Hepatomegaly with heterogeneous appearance of the liver parenchyma predominantly fatty infiltration. Regenerating nodules or possible superimposed hepatoma cannot be excluded. Nonobstructive left intrarenal calculi. Nonspecific increased markings in the deep mesenteric fat. This is unchanged. Sigmoid diverticulosis. Electronically Signed: Jose M Richards MD at 8:57 EST ,
[2022-12-29 07:58] LABS: AST(SGOT) 117 U/L (15-37); Alanine Aminotransfer ALT/SGPT 40 U/L (16-61); Alkaline Phosphatase 199 U/L (45-117); Anion Gap 6 (5-15); BUN 8 mg/dL (7-18); BUN/Creat Ratio 10.9 RATIO (10-20); Bilirubin, Direct 3.99 mg/dL (0.00-0.30); Calcium,Total 9.3 mg/dL (8.5-10.1); Chloride 108 mmol/L (98-107); Creatinine, Serum 0.73 mg/dL (0.70-1.30); EST Glomerular Filtration Rate 118 mL/min (>60); Est Glom Filt Rate - Afr Amer 143 mL/min (>60); Estimated Creatinine Clearance 108.15 ml/min; Globulin 4.2 g/dL (2.2-4.2); Glucose 125 mg/dL (74-106); Lipase 140 U/L (73-393); Protein, Total 7.2 g/dL (6.4-8.2); Sodium Level 139 mmol/L (136-145)
[2022-12-29] MEDS: 0.9% Normal Saline 1,000 ML 1000 ML IV (08:04)
--- NOTE | 2022-12-29 08:10 | ED.VIS.GI ---
HPI HPI - GI History of Present Illness Chief Complaint: GI Bleed Informant: patient Narrative Narrative: Patient is a 52-year-old male with history of cirrhosis of the liver secondary to alcohol abuse (states he stopped drinking March 2022 however has had a few drinks since) presenting with 5 days of nausea, vomiting, diarrhea and jaundice discoloration. This morning his stepmother noticed that he was vomiting up what looked like a mixture of dark brown/red blood. Patient notes he is also been having increased bowel movements that have been black in color. His last bowel movement this morning. Denies history of any abdominal surgeries. Does follow with Dr. Montejo's office. He is notes he has been more bloated. States he has had fluid drained from his abdomen before. He also notes that his urine has been darker. Since Monday, 4 days ago, he is only been able to eat 2 oranges. He last had 1 glass of wine 1 week ago which he states was a very rare event. [facility] Medical History Abdominal ascites Alcoholic cirrhosis Cirrhosis of liver Home Medications cephalexin 500 mg capsule 500 mg PO Q12 #14 CAPSULES 12/29/22 [Rx Last Taken Unknown] furosemide 20 mg tablet (Lasix) 20 mg PO BID fluid 12/29/22 [History Last Taken 4 Months Ago ~08/31/22] methyl salicylate-menthol topical ointment 1 ea topical QHS shoulder pain 12/29/22 [History Last Taken 12/28/22] frcocxgh-kmn-itizz acid 300 mcg-lycopene 600 mcg-lutein 300 mcg tablet (Centrum Silver Men) 1 tab PO DAILY health maintenance 12/29/22 [History Last Taken 12/29/22] ondansetron 4 mg disintegrating tablet 4 mg PO Q8H PRN PRN Nausea #10 tabs 12/29/22 [Rx Last Taken Unknown] pantoprazole 20 mg tablet,delayed release (Protonix) 20 mg PO BID #14 tabs 12/29/22 [Rx Last Taken Unknown] spironolactone 25 mg tablet (Aldactone) 25 mg PO BID blood pressure 12/29/22 [History Last Taken 4 Months Ago ~08/31/22] Allergy/AdvReac Type Severity Reaction Status Date / Time No Known Allergies Allergy Verified 12/29/22 07:14 Social History Smoking Status: Heavy Smoker (>10/day) details: Patient is 32 days sober ROS ROS ED Constitutional Constitutional ED: Denies chills or fever(s) ENT ENT ED: Denies sore throat Cardiovascular Cardiovascular: Denies chest pain Respiratory/Chest Respiratory/Chest: Denies cough or dyspnea Gastrointestinal Gastrointestinal: Reports abdominal pain, diarrhea, nausea and vomiting Musculoskeletal Musculoskeletal: Denies arthralgias or myalgias Integumentary Denies rash Neurologic Neurologic: Reports weakness; Denies headache(s) Hematologic/Lymphatic Hematologic/Lymphatic: Denies easy bleeding or easy bruising EXAM Physical Exam Const Vital Signs: 12/29/22 07:14 12/29/22 09:18 12/29/22 11:09 Temperature 98.2 F Temperature Source Temporal Pulse Rate 102 H 82 86 Respiratory Rate 14 20 H 20 H Blood Pressure 169/101 H 146/96 H 139/93 H Blood Pressure Mean 123 112 108 Pulse Ox 96 96 95 Oxygen Delivery Method Room Air Room Air Room Air 12/29/22 12:29 Temperature Temperature Source Pulse Rate 84 Respiratory Rate 18 Blood Pressure 151/93 H Blood Pressure Mean 112 Pulse Ox 95 Oxygen Delivery Method Room Air Positive well nourished and well developed General Appearance ED: well developed and NAD; Negative for pallor HEENT Reports dry mucous membranes Mouth ED: Yes dry mucous membranes Mouth: dry mucous membranes Eyes PERRL and EOMs intact bilaterally General Eye ED: Yes scleral icterus Neck supple and no JVD Resp normal respiratory effort and clear to auscultation bilaterally Cardio regular rate, regular rhythm and no murmurs GI GI Narrative: And abdomen. Diffusely tender, worse in the right upper quadrant and over the liver. No rigidity or rebound tenderness. No fluid wave appreciated. Brown stool on rectal exam Palpation: Negative for guarding or rigid Back/Spine no CVA tenderness Extremity full ROM General Extremety ED: Negative for edema or tenderness General Extremity: Negative for edema Neuro moves all extremities Sensorium / Orientation: alert, oriented to person, oriented to place and oriented to time Psych mental status grossly normal and thought process normal Skin no wounds General Skin Exam: jaundice; Negative for pallor MDM MDM MDM Narrative Medical decision making narrative: Patient is evaluated for a couple days of vomiting, diarrhea and now concern for blood in his stool. He also has had abdominal distention/bloating and generalized abdominal pain. Patient has a history significant for alcoholic cirrhosis/hepatitis and hepatomegaly. Patient appears jaundiced but does not have any melena on exam and is not vomiting at this time. Abdomen is mildly tender especially over the liver. Patient is given IV fluids, Zofran, morphine and Protonix bolus due to history of alcoholic cirrhosis and concern for possible upper GI bleed. On repeat evaluation he does feel improved. Tachycardia improved. Abdominal exam on repeat is softer more benign however he still continues to have tenderness over the liver. CT of the abdomen and pelvis obtained which does not show any acute intra-abdominal pathology. It is reviewed with Dr. Montejo, gastroenterology, who states that this presentation is highly consistent with an acute hepatitis, likely alcoholic hepatitis. Patient does admit to drinking alcohol a week ago which could have triggered this. Urinalysis is consistent with infection with positive nitrates, 25-50 red blood cells, 10-25 white blood cells and 1+ bacteria. Is given dose of Rocephin in the ER and urine culture sent. Will be sent home on Keflex. Patient will also be started on Protonix as well as Zofran. Is counseled on the importance of abstaining from alcohol. At this time he is hemodynamically stable, with no signs of an active GI bleed and a stable hemoglobin and no significant acute coagulopathy or thrombocytopenia associated with cirrhosis of the liver. I do not think he requires admission at this time. Is given return precautions as well as a work note. He verbalizes agreement understand this plan. Counseled on the importance of following up with GI. Differential diagnosis includes was not limited to upper GI bleed, gastroenteritis, acute hepatitis, ascites and small bowel obstruction. Lab Data Attestation: I reviewed the patient's lab results. Labs: Laboratory Results - last 24 hr 12/29/22 12/29/22 12/29/22 07:23 07:23 07:23 WBC 8.3 RBC 4.44 L Hgb 15.9 Hct 47.3 MCV 106.5 H MCH 35.8 H MCHC 33.6 RDW Std Deviation 60.6 H RDW Coeff of Moses 15.3 H Plt Count 176 MPV 10.0 Immature Gran % (Auto) 0.400 Neut % (Auto) 72.2 H Lymph % (Auto) 18.4 L [place] % (Auto) 6.7 Eos % (Auto) 1.2 Baso % (Auto) 1.1 H Absolute Neuts (auto) 6.0 Absolute Lymphs (auto) 1.53 Nucleated RBC % 0 PT INR APTT Sodium 139 Potassium 4.0 Chloride 108 H Carbon Dioxide 25.0 Anion Gap 6 BUN 8 Creatinine 0.73 Estim Creat Clear Calc 108.15 Est GFR (MDRD) Af Amer 143 Est GFR (MDRD) Non-Af 118 BUN/Creatinine Ratio 10.9 Glucose 125 H Lactic Acid 2.0 Calcium 9.3 Total Bilirubin 6.30 H Direct Bilirubin 3.99 H AST 117 H ALT 40 Alkaline Phosphatase 199 H Total Protein 7.2 Albumin 3.0 L Globulin 4.2 Lipase 140 Urine Color Urine Clarity Urine pH Ur Specific Brohard Urine Protein Urine Glucose (UA) Urine Ketones Urine Occult Blood Urine Nitrite Urine Bilirubin Urine Urobilinogen Ur Leukocyte Esterase Urine RBC Urine WBC Ur Squamous Epith Cells Calcium Oxalate Crystal Urine Bacteria Urine Mucus Ethyl Alcohol Blood Type Antibody Screen 12/29/22 12/29/22 12/29/22 07:23 07:23 08:40 WBC RBC Hgb Hct MCV MCH MCHC RDW Std Deviation RDW Coeff of Moses Plt Count MPV Immature Gran % (Auto) Neut % (Auto) Lymph % (Auto) [place] % (Auto) Eos % (Auto) Baso % (Auto) Absolute Neuts (auto) Absolute Lymphs (auto) Nucleated RBC % PT INR APTT Sodium Potassium Chloride Carbon Dioxide Anion Gap BUN Creatinine Estim Creat Clear Calc Est GFR (MDRD) Af Amer Est GFR (MDRD) Non-Af BUN/Creatinine Ratio Glucose Lactic Acid Calcium Total Bilirubin Direct Bilirubin AST ALT Alkaline Phosphatase Total Protein Albumin Globulin Lipase Urine Color Giulia Urine Clarity Sl. Cloudy Urine pH 6.5 Ur Specific Brohard 1.015 Urine Protein 30 H Urine Glucose (UA) Normal Urine Ketones 5 H Urine Occult Blood 250 H Urine Nitrite Positive H Urine Bilirubin 6 H Urine Urobilinogen 12 H Ur Leukocyte Esterase 100 H Urine RBC 25-50 SEEN Urine WBC 10-25 SEEN Ur Squamous Epith Cells 0-5 SEEN Calcium Oxalate Crystal 1+ Urine Bacteria 1+ Urine Mucus 2+ Ethyl Alcohol < 3.0 Blood Type A NEGATIVE Antibody Screen NEGATIVE 12/29/22 09:10 WBC RBC Hgb Hct MCV MCH MCHC RDW Std Deviation RDW Coeff of Moses Plt Count MPV Immature Gran % (Auto) Neut % (Auto) Lymph % (Auto) [place] % (Auto) Eos % (Auto) Baso % (Auto) Absolute Neuts (auto) Absolute Lymphs (auto) Nucleated RBC % PT 17.5 H INR 1.5 APTT 32.1 Sodium Potassium Chloride Carbon Dioxide Anion Gap BUN Creatinine Estim Creat Clear Calc Est GFR (MDRD) Af Amer Est GFR (MDRD) Non-Af BUN/Creatinine Ratio Glucose Lactic Acid Calcium Total Bilirubin Direct Bilirubin AST ALT Alkaline Phosphatase Total Protein Albumin Globulin Lipase Urine Color Urine Clarity Urine pH Ur Specific Brohard Urine Protein Urine Glucose (UA) Urine Ketones Urine Occult Blood Urine Nitrite Urine Bilirubin Urine Urobilinogen Ur Leukocyte Esterase Urine RBC Urine WBC Ur Squamous Epith Cells Calcium Oxalate Crystal Urine Bacteria Urine Mucus Ethyl Alcohol Blood Type Antibody Screen Radiography Chest X-Ray - ED: 1 View, Read by ED Physician, Read by Radiologist, Normal and No Acute Disease Diagnostic Testing: Clinical Impression(s) from Imaging Studies Chest X-Ray 12/29/22 07:44 IMPRESSION: Normal x-ray examination of the chest. Electronically Signed: Jose M Richards MD at 8:02 EST , Abdomen/Pelvis CT 12/29/22 07:51 IMPRESSION: Hepatomegaly with heterogeneous appearance of the liver parenchyma predominantly fatty infiltration. Regenerating nodules or possible superimposed hepatoma cannot be excluded. Nonobstructive left intrarenal calculi. Nonspecific increased markings in the deep mesenteric fat. This is unchanged. Sigmoid diverticulosis. Electronically Signed: Jose M Richards MD at 8:57 EST , Management Discussion w/another healthcare provider: [place] Reporter (rosanna Thorpe to discharge home, start on PPI. 1 dose of Rocephin in the emergency room.) Discharge Plan Triage Chief Complaint: GI Bleed ED Provider: Latrice Jurado Dx/Rx/DC Orders Clinical Impression: Abdominal pain, vomiting, and diarrhea, Alcoholic cirrhosis, Acute UTI Instructions: ED Cirrhosis, ED Diet Vomiting Diarrhea, ED Bladder Infection, Male (Adult) Prescriptions: New ondansetron 4 mg tablet,disintegrating 4 mg PO Q8H PRN PRN (Reason: Nausea) Qty: 10 0RF pantoprazole [Protonix] 20 mg tablet,delayed release (DR/EC) 20 mg PO BID Qty: 14 0RF cephalexin 500 mg capsule 500 mg PO Q12 Qty: 14 0RF No Action Centrum Silver Men 300-600-300 mcg Tablet 1 tab PO DAILY [place]ay Ointment 1 ea TOPICAL QHS spironolactone [Aldactone] 25 mg tablet 25 mg PO BID furosemide [Lasix] 20 mg tablet 20 mg PO BID Stand Alone Forms: ED Work / School Excuse Primary Care Provider: Care Physician,No Primary Referrals: Friend,Shreyas, DO [Med Staff - Active Staff] - As soon as possible Care Physician,No Primary [Primary Care Provider] - Activity Restrictions/Additional Instructions: Drink lots of fluids. Avoid alcohol at all costs. If you start throwing up andrzej blood, having dark black stools or have worsening symptoms please return to the emergency room. Disposition Disposition: Home, Self Care Discharge Date/Time: 12/29/22 12:47
[2022-12-29] MEDS: Ondansetron 4 MG/2 ML Vial IV (08:38)
[2022-12-29] MEDS: Morphine 4 MG/ML Syringe IV (08:39)
[2022-12-29 08:51] LABS: Color, Urine Amber (Yellow); Glucose, Dipstick Normal (Normal); Ketone-Dipstick 5 mg/dl (Negative); Leukocyte Esterase-Dipstick 100 /ul (Negative); Nitrite-Dipstick Positive (Negative); Occult Blood-Urine 250 /ul (Negative); Protein-Dipstick 30 mg/dl (Negative); Specific Gravity, Urine 1.015 (1.002-1.030); Urine Clarity Sl. Cloudy (Clear); Urine Urobilinogen 12 mg/dl (Normal); Urine pH 6.5 (5.0 - 8.0)
[2022-12-29 09:00] LABS: Alcohol, Blood (Medical)-Serum < 3.0 mg/dL
[2022-12-29 09:01] LABS: Urine Bilirubin Dipstick 6 mg/dL (Negative)
[2022-12-29 09:02] LABS: Bacteria 1+ /hpf (None Seen); Mucous, Urine 2+ /hpf (<or=2+); Red Blood Cells-Urine 25-50 SEEN /hpf (0-5); Squamous Epithelial Cells - UA 0-5 SEEN /hpf (0-5)
[2022-12-29 09:03] LABS: Calcium Oxalate Crystals Ur 1+ /hpf (<or=2+); White Blood Cells 10-25 SEEN /hpf (0-5)
[2022-12-29 09:18] VITALS: BP 146/96; PULSE 82; RESP 20; O2SAT 96
[2022-12-29 09:30] LABS: International Normalized Ratio 1.5; Partial Thromboplast Time 32.1 Seconds (24.1-36.2); Prothrombin Time (Protime)PT. 17.5 SECONDS (11.7-14.9)
--- NOTE | 2022-12-29 10:24 | CM.ED ---
Social Work Note Referral Source: Case Find Referral Reason: No PCP SW met with patient and introduced herself and role as [facility] Retail Asset Protection Specialist. Patient was laying in hospital bed and agreeable to speak with social media executive. SW verified patient's insurance and inquired about patient's current PCP. Patient confirmed insurance and reported being interested in a referral for a new PCP as he does not currently have one. SW provided patient with a list of local PCPs in network with patient's insurance and accepting new patients. SW explained the patient did not need a referral and could contact one of the PCPs on the list to discuss becoming a new patient. Patient voiced his appreciation and voiced no other needs or concerns. Rachel Ruiz MSW, [place]
[2022-12-29 11:09] VITALS: BP 139/93; PULSE 86; RESP 20; O2SAT 95
[2022-12-29 11:37] LABS: Reflex Lactate? Y
[2022-12-29] MEDS: Ceftriaxone 1 GM/50 ML BAG IV (12:12)
[2022-12-29 12:29] VITALS: BP 151/93; PULSE 84; RESP 18; O2SAT 95
== END 2022-12-29 12:47 | disposition home or self-care (01) ==
PROVIDERS: Emergency Provider Emergency Medicine; Visit Provider Emergency Medicine
DX: K70.30 Alcoholic cirrhosis of liver without ascites (principal); N39.0 Urinary tract infection, site not specified; F17.200 Nicotine dependence, unspecified, uncomplicated
CPT/HCPCS: 71045; 74177; 80048; 80076; 81001; 82077; 82274; 83605; 83690; 85025; 85610; 85730; 86850; 86900; 86901; 87086; 96361; 96365; 96367; 96375; 99283; J7030; Q9967; A4216; J2405; J3490

== ENCOUNTER 2023-10-24 12:19 | Emergency (ER) | payer SELFPAY ==
[2023-10-24 12:20] VITALS: BP 160/108; PULSE 109; RESP 16; TEMP 36.2; O2SAT 98; BMI 29.0
--- NOTE | 2023-10-24 13:11 | US_ITS ---
STUDY: SCROTUM ULTRASOUND REASON FOR EXAM: Male, 52 years old. mass right scrotum Other, right scrotal mass x 2 years TECHNIQUE: Ultrasound evaluation of the scrotum was performed with color Doppler and static meyers-scale imaging. COMPARISON: CT of abdomen and pelvis dated October 24, 2023 FINDINGS: RIGHT TESTICLE INTRATESTICULAR: There is a normal size of the right testicle. The right testicle measures 4.28 x 2.42 x 3.34 cm. There is a homogenous echotexture. There is normal arterial and normal venous vascularity. There is no demonstrated right testicular mass or cyst. EXTRATESTICULAR: Lobular debris-filled complex fluid mass in the anterolateral aspect of the right scrotal sac outside of the testicle corresponds to the mass seen on the CT exam. In the central aspect of this lesion is a thick walled septum and some lobular soft tissue components that demonstrates mild vascular flow. The epididymis is normal in size. The epididymis head measures 1.20 cm. There is normal vascularity of the epididymis. There is no demonstrated epididymal cystic structure. There is a small hydrocele. There is no demonstrated varicocele. LEFT TESTICLE INTRATESTICULAR: There is a normal size of the left testicle. The left testicle measures 4.58 x 2.51 x 3.01 cm. There is a homogenous echotexture. There is normal arterial and normal venous vascularity. There is no demonstrated left testicular mass or cyst. EXTRATESTICULAR: The epididymis is normal in size. The epididymis head measures 0.96 cm. There is normal vascularity of the epididymis. There is no demonstrated epididymal cystic structure. There is no demonstrated hydrocele. There is no demonstrated varicocele. There is no demonstrated extratesticular mass or cyst. US/Testicular with Arterial Flow IMPRESSION: Right scrotal mass concerning for malignancy. 1. Lobular debris-filled complex fluid mass in the anterolateral aspect of the right scrotal sac outside of the testicle corresponds to the mass seen on the CT exam. In the central aspect of this lesion is a thick walled septum and some lobular soft tissue components that demonstrates mild vascular flow. Refer to urology for further assessment and treatment options. Definitive diagnosis can be achieved through tissue sampling and pathology department evaluation. Electronically Signed: Phil Celeste MD at 14:51 EST ,
--- NOTE | 2023-10-24 13:11 | CT_ITS ---
STUDY: CT ABDOMEN AND PELVIS WITH CONTRAST REASON FOR EXAM: Male, 52 years old. RT SIDE TESTICULAR PAIN AND LUMP. PT ALSO STATES THE HE HAS URINARY URGENCY AND FREQUENCY. PT HAS HAD THIS LUMP A COUPLE OF YEARS AND NEVER FOLLWED. RECENTLY THE LUMP HAS INCREASED IN SIZE AND PAIN. CIRRHOSIS RADIATION DOSAGE (If Supplied By Facility): CTDIvol = ( 15.03 ) mGy, DLP = ( 945.87 ) mGycm TECHNIQUE: Transaxial images were obtained from the dome of the diaphragm to the symphysis pubis without oral contrast. ml of 100mL Isovue-370 contrast was administered. Sagittal and coronal images were reconstructed. Individualized dose optimization techniques were used for this CT. COMPARISON: CT of abdomen and pelvis dated December 29, 2022 FINDINGS: The visualized lung bases are unremarkable. Nodular border cirrhotic liver with diffuse fatty infiltration and intermixed areas of fatty sparing throughout the liver. No visualized parenchymal mass. A few tiny cysts are present anterior aspect of the right lobe of the liver. No ductal dilatation is present. Multiple venous varices are present consistent with portal vein hypertension. Recanalization of the umbilical vein noted. Normal gallbladder and extrahepatic biliary system. Normal spleen. Normal pancreas. Normal bilateral adrenal glands. Normal right kidney. Normal left kidney. Normal visualized stomach. Normal small intestine. There are multiple colonic diverticula consistent with diverticulosis. The appendix is visualized and appears normal. There is diffuse atherosclerotic calcification of the abdominal aorta, without a demonstrated aneurysm. Normal inferior vena cava. Normal retroperitoneum. Normal urinary bladder. There are prostatic calcifications. No prostate enlargement or focal mass is seen. Normal abdominal wall. There are diffuse degenerative changes of the visualized lumbar spine. 4.1 cm ovoid right extratesticular mass is present and can be further evaluated with testicular ultrasound and evaluation by urology, as this is concerning for a malignancy. CT/Abdomen/Pelvis W IV Cont ONLY IMPRESSION: 1. 4.1 cm ovoid right extratesticular mass is present and can be further evaluated with testicular ultrasound and evaluation by urology, as this is concerning for a malignancy. Electronically Signed: Phil Celeste MD at 14:43 EST ,
[2023-10-24] MEDS: 0.9% Normal Saline (1000mL) 1,000 ML 1000 ML IV (13:26)
[2023-10-24] MEDS: Ondansetron 4 MG/2 ML Vial IV (13:26)
[2023-10-24 13:43] LABS: Absolute Lymphocyte Count 1.65 X10^3/uL (0.83-4.51); Absolute Neutrophil Count 4.2 X10^3/uL (2.0-7.7); Basophil# 0.07 X10^3/uL; Basophil% 1.1 % (0-1); Eosinophil# 0.22 X10^3/uL; Eosinophils% 3.3 % (0-5); Hematocrit 41.1 % (40-54); Hemoglobin 13.9 g/dL (13.0-16.5); Lymphocyte # 1.65 X10^3/ul (0.83-4.51); Lymphocyte % 24.8 % (19-41); Mean Corp Hgb Conc 33.8 g/dL (32-36); Mean Corpuscular Hgb 35.3 pg (27.0-32.0); Mean Corpuscular Volume 104.3 fL (80-94); Mean Platelet Vol. 10.8 fl (6.2-12.0); Monocyte# 0.53 X10^3/uL; NRBC Flagged by Analyzer 0 % (0-5); Neutrophil # 4.15 X10^3/uL (2.7-7.7); Neutrophil % 62.3 % (47-70); Platelet Count 121 K/mm3 (150-450); RBC Distribution Width CV 13.3 % (11.6-14.6); RBC Distribution Width SD 51.4 fl (35.1-43.9); Red Blood Count 3.94 M/mm3 (4.6-6.2); White Blood Count 6.7 K/mm3 (4.4-11.0)
[2023-10-24 13:54] LABS: ALB/GLOB Ratio 0.9 RATIO (0.9-2.4); AST(SGOT) 50 U/L (15-37); Alanine Aminotransfer ALT/SGPT 28 U/L (16-61); Albumin, Serum 3.3 g/dL (3.2-5.0); Alkaline Phosphatase 101 U/L (45-117); Anion Gap 4 (5-15); BUN 7 mg/dL (7-18); BUN/Creat Ratio 10.8 RATIO (10-20); Calcium,Total 9.7 mg/dL (8.5-10.1); Chloride 110 mmol/L (98-107); Creatinine, Serum 0.65 mg/dL (0.70-1.30); EST Glomerular Filtration Rate 137 mL/min (>60); Est Glom Filt Rate - Afr Amer 165 mL/min (>60); Estimated Creatinine Clearance 121.47 ml/min; Globulin 3.7 g/dL (2.2-4.2); Glucose 131 mg/dL (74-106); Potassium 3.7 mmol/L (3.5-5.1); Sodium Level 138 mmol/L (136-145)
--- NOTE | 2023-10-24 14:17 | EX.ED.GUMALE ---
HPI History of Present Illness Chief Complaint: Male Pain/Injury Narrative Narrative: Patient comes in with a couple complaints. He has had a lump on his right scrotum for several years. But he thinks it is growing. Occasionally it hurts but not always. He has had some pain in his right lower quadrant for about 3 or 4 days but he has had it for a few years but it is now worse. He cannot think of anything that caused it. He has no history of hernia. He has had some episodes of vomiting but no diarrhea. He is urinating just normally. No odor. No change in color. No difficulty starting or stopping stream. No trauma. He denies prior abdominal surgery. Most of his complaints are at least 3 years old but they have worsened just recently. Patient also has a history of alcoholic cirrhosis. But he has not drank in several years. He has slowly weaned himself off all his medicines. He did this with consultation with Dr. Montejo. He states he has been doing very well with that. [facility] Medical History Abdominal ascites Alcoholic cirrhosis Cirrhosis of liver Home Medications cephalexin 500 mg capsule 500 mg PO Q12 #14 CAPSULES 12/29/22 [Rx Last Taken Unknown] furosemide 20 mg tablet (Lasix) 20 mg PO BID fluid 12/29/22 [History Last Taken 4 Months Ago ~08/31/22] methyl salicylate-menthol topical ointment 1 ea topical QHS shoulder pain 12/29/22 [History Last Taken 12/28/22] [id number] 300 mcg-K 60 mcg-lycop 600 mcg-lutein 300 mcg tablet (Centrum Silver Men) 1 tab PO DAILY health maintenance 12/29/22 [History Last Taken 12/29/22] ondansetron 4 mg disintegrating tablet 4 mg PO Q8H PRN PRN Nausea #10 tabs 12/29/22 [Rx Last Taken Unknown] pantoprazole 20 mg tablet,delayed release (Protonix) 20 mg PO BID #14 tabs 12/29/22 [Rx Last Taken Unknown] spironolactone 25 mg tablet (Aldactone) 25 mg PO BID blood pressure 12/29/22 [History Last Taken 4 Months Ago ~08/31/22] Allergy/AdvReac Type Severity Reaction Status Date / Time No Known Allergies Allergy Verified 10/24/23 12:20 Social History Smoking Status: Heavy Smoker (>10/day) details: Patient is 32 days sober ROS ROS ED ROS Narrative A complete review of systems was performed and is negative except as documented in the history of present illness. Some specific details below. Constitutional: No recent fevers or chills. No malaise EYE: No change in color. ENT: No difficulty swallowing. No swelling. No pain. CV: No chest pain or palpitations. Respiratory: No dyspnea. No hemoptysis. No difficulty taking breaths. GI: Please see history of present illness. : No frequency dysuria or hematuria. See history of present illness also. Musculoskeletal: No recent trauma. No pains. Skin: No rash. Nondiaphoretic. Neuro: No weakness or numbness. Endocrine: No polyuria or polydipsia. EXAM Physical Exam Narrative Exam Narrative: CONSTITUTIONAL: Patient is nontoxic in appearance. The patient looks comfortable. HEENT: No notable trauma. Mucous membranes moist. EYES: No icterus CARDIOVASCULAR: Regular rate. Regular rhythm. No notable murmur. No JVD. RESPIRATORY: No respiratory distress. Breathing is unlabored. No wheezes. No rhonchi. No rales. No pain with a deep breath. GASTROINTESTINAL: Not distended. Bowel sounds are normal. Very minimal tenderness down toward the right lower quadrant. But no rebound or guarding. I was surprised I do not feel a hernia at all. Even with standing coughing and straining. GENITOURINARY: No tenderness over the bladder. No CVA tenderness. Patient does have a swollen area on the really the scrotum on the right. It is about 1-1/2 x 2-1/2 cm. It is not red or inflamed though. It feels as though there could be a cystic structure there. He states it has grown over the last years. MUSCULOSKELETAL: Atraumatic. No tenderness. NEUROLOGICAL: Patient is alert and appropriate. No focal deficit noted. SKIN: No noted rashes. No diaphoresis. PSYCHIATRIC: Patient is calm. Mood is appropriate. Const Vital Signs: 10/24/23 12:20 Temperature 97.2 F L Temperature Source Temporal Pulse Rate 109 H Respiratory Rate 16 Blood Pressure 160/108 H Blood Pressure Mean 125 Pulse Ox 98 Oxygen Delivery Method Room Air MDM MDM MDM Narrative Medical decision making narrative: My independent interpretation patient's CT of the abdomen does not show signs of acute appendicitis or obstruction. I see no intra-abdominal mass. I can see the density in the scrotum area on the right though. Radiology does note the ovoid right extratesticular mass. There are concern for malignancy. Recommend ultrasound which is pending. Patient's CBC is overall normal. Patient's electrolytes show no marked abnormalities. Glucose is minimally up at 131. Patient's total bili is up at 2.5. But for him this is lower His urinalysis is clean. Patient's testicular ultrasound shows complex fluid filled mass. Recommend biopsy or excision. I talked with this about the patient. He will contact Dr. Pugh's office in the morning. Will let them know he was in the emergency department and he has a mass that needs evaluation. If he has further pain urinary symptoms or anything else he needs to return. If he is not able to get into the office he should return here. He can also see his private physician. Lab Data Attestation: I reviewed the patient's lab results. Labs: Laboratory Results - last 24 hr 10/24/23 10/24/23 13:27 14:10 WBC 6.7 RBC 3.94 L Hgb 13.9 Hct 41.1 MCV 104.3 H MCH 35.3 H MCHC 33.8 RDW Std Deviation 51.4 H RDW Coeff of Moses 13.3 Plt Count 121 L MPV 10.8 Immature Gran % (Auto) 0.500 Neut % (Auto) 62.3 Lymph % (Auto) 24.8 [place] % (Auto) 8.0 Eos % (Auto) 3.3 Baso % (Auto) 1.1 H Absolute Neuts (auto) 4.2 Absolute Lymphs (auto) 1.65 Nucleated RBC % 0 Sodium 138 Potassium 3.7 Chloride 110 H Carbon Dioxide 24.0 Anion Gap 4 L BUN 7 Creatinine 0.65 L Estim Creat Clear Calc 121.47 Est GFR (MDRD) Af Amer 165 Est GFR (MDRD) Non-Af 137 BUN/Creatinine Ratio 10.8 Glucose 131 H Calcium 9.7 Total Bilirubin 2.50 H AST 50 H ALT 28 Alkaline Phosphatase 101 Total Protein 7.0 Albumin 3.3 Globulin 3.7 Albumin/Globulin Ratio 0.9 Urine Color Yellow Urine Clarity Clear Urine pH 6.0 Ur Specific [place] 1.015 Urine Protein 30 H Urine Glucose (UA) Normal Urine Ketones Negative Urine Occult Blood 150 H Urine Nitrite Negative Urine Bilirubin 1 H Urine Urobilinogen 8 H Ur Leukocyte Esterase 25 H Urine RBC 0-5 SEEN Urine WBC 0 SEEN Ur Squamous Epith Cells 0 SEEN Urine Bacteria 0 SEEN Urine Mucus 0 SEEN Radiography Diagnostic Testing: Clinical Impression(s) from Imaging Studies Abdomen/Pelvis CT 10/24/23 13:11 IMPRESSION: 1. 4.1 cm ovoid right extratesticular mass is present and can be further evaluated with testicular ultrasound and evaluation by urology, as this is concerning for a malignancy. Electronically Signed: Phil Celeste MD at 14:43 EST Reading Location ID and State: [address] [place] [address] , Service support , Testicular Ultrasound 10/24/23 13:11 IMPRESSION: Right scrotal mass concerning for malignancy. 1. Lobular debris-filled complex fluid mass in the anterolateral aspect of the right scrotal sac outside of the testicle corresponds to the mass seen on the CT exam. In the central aspect of this lesion is a thick walled septum and some lobular soft tissue components that demonstrates mild vascular flow. Refer to urology for further assessment and treatment options. Definitive diagnosis can be achieved through tissue sampling and pathology department evaluation. Electronically Signed: Phil Celeste MD at 14:51 EST , Discharge Plan Triage Chief Complaint: Male Pain/Injury ED Provider: Manjit Lozano Dx/Rx/DC Orders Clinical Impression: Mass of scrotum, Abdominal pain Instructions: ED Tumor, Uncertain Cause Prescriptions: No Action Centrum Silver Men 300-600-300 mcg Tablet 1 tab PO DAILY BenGay Ointment 1 ea TOPICAL QHS spironolactone [Aldactone] 25 mg tablet 25 mg PO BID furosemide [Lasix] 20 mg tablet 20 mg PO BID ondansetron 4 mg tablet,disintegrating 4 mg PO Q8H PRN PRN (Reason: Nausea) Qty: 10 0RF pantoprazole [Protonix] 20 mg tablet,delayed release (DR/EC) 20 mg PO BID Qty: 14 0RF cephalexin 500 mg capsule 500 mg PO Q12 Qty: 14 0RF Primary Care Provider: Care Physician,No Primary Referrals: Wilber Espinoza MD [Med Staff - Active Staff] - As soon as possible (Call office in the morning for close follow-up. Tell them you are in the emergency department and have a mass that needs further evaluation.) Care Physician,No Primary [Primary Care Provider] - Disposition Disposition: Home, Self Care
[2023-10-24 14:18] LABS: Bacteria 0 SEEN /hpf (None Seen); Mucous, Urine 0 SEEN /hpf (<or=2+); Squamous Epithelial Cells - UA 0 SEEN /hpf (0-5); White Blood Cells 0 SEEN /hpf (0-5)
[2023-10-24 14:23] LABS: Color, Urine Yellow (Yellow); Glucose, Dipstick Normal (Normal); Ketone-Dipstick Negative (Negative); Leukocyte Esterase-Dipstick 25 /ul (Negative); Nitrite-Dipstick Negative (Negative); Occult Blood-Urine 150 /ul (Negative); Protein-Dipstick 30 mg/dl (Negative); Specific Gravity, Urine 1.015 (1.002-1.030); Urine Clarity Clear (Clear); Urine Urobilinogen 8 mg/dl (Normal)
[2023-10-24 14:25] LABS: Urine Bilirubin Dipstick 1 mg/dL (Negative)
[2023-10-24 14:28] LABS: Red Blood Cells-Urine 0-5 SEEN /hpf (0-5)
[2023-10-24 15:23] VITALS: PULSE 82; RESP 16; O2SAT 99
[2023-10-24 15:24] VITALS: PULSE 82
== END 2023-10-24 15:25 | disposition home or self-care (01) ==
PROVIDERS: Emergency Provider Emergency Medicine; Visit Provider Emergency Medicine
DX: N50.89 Other specified disorders of the male genital organs (principal); R11.10 Vomiting, unspecified; F17.200 Nicotine dependence, unspecified, uncomplicated
CPT/HCPCS: 74177; 76870; 80053; 81001; 85025; 87086; 93976; 96361; 96374; 99283; J7030; Q9967; A4216; J2405

== ENCOUNTER 2025-05-31 11:01 | Observation (INO) | payer MEDICAID, SELFPAY ==
[2025-05-31 11:04] VITALS: BP 149/88; PULSE 119; RESP 16; TEMP 36.9; O2SAT 92; BMI 28.5
[2025-05-31 11:41] LABS: Hematocrit 36.7 % (40-54); Hemoglobin 12.6 g/dL (13.0-16.5); Immature Granulocytes Count 0.010 X10^3/uL (0.0-0.0); Mean Corp Hgb Conc 34.3 g/dL (32-36); Mean Corpuscular Volume 104.0 fL (80-94); Mean Platelet Vol. 9.5 fl (6.2-12.0); NRBC Flagged by Analyzer 0 % (0-5); Platelet Count 130 K/mm3 (150-450); RBC Distribution Width CV 14.1 % (11.6-14.6); RBC Distribution Width SD 54.0 fl (35.1-43.9); Red Blood Count 3.53 M/mm3 (4.6-6.2); White Blood Count 4.1 K/mm3 (4.4-11.0)
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
--- NOTE | 2025-05-31 11:50 | ED.RN ---
1140- dc sitter per dr marrufo at this time
[2025-05-31 12:08] LABS: Alcohol, Blood (Medical)-Serum 96.9 mg/dL (<=10.0)
[2025-05-31 12:09] LABS: AST(SGOT) 69 U/L (<=37); Alanine Aminotransfer ALT/SGPT 23 U/L (<=46); Albumin, Serum 4.1 g/dL (3.5-5.0); Alkaline Phosphatase 85 U/L (40-129); Anion Gap 14 (5-15); BUN 5 mg/dL (4-19); BUN/Creat Ratio 9.4 RATIO (10-20); Calcium,Total 9.6 mg/dL (7.6-11.0); Carbon Dioxide 20.3 mmol/L (21.0-32.0); Chloride 106 mmol/L (98-108); Estimated Creatinine Clearance 148.91 ml/min (50-250); Globulin 2.5 g/dL (2.2-4.2); Glucose 124 mg/dL (70-99); Potassium 3.8 mmol/L (3.3-5.1)
[2025-05-31 12:11] VITALS: BP 144/99; PULSE 98; RESP 18; O2SAT 99
[2025-05-31 12:11] LABS: Barbiturate Urine NEGATIVE (< 200 ng/mL); Benzodiazepine Urine NEGATIVE (< 200 ng/mL); PCP Urine NEGATIVE (< 25 ng/mL); THC Urine PRESUMPTIVE POSITIVE (< 50 ng/mL)
--- NOTE | 2025-05-31 12:30 | CM.ED ---
Social Work Date of referral: 05/31/25 Reason for referral: Suicidal Ideation Referred by: ED physician Broiler Chef Or Cook received confirmation from registration that patient used to have [place] but no longer has it and patient is not insured at this time. Since patient is self-pay, social scientist is not permitted to complete psychiatric assessment. (12:27) Broiler Chef Or Cook notified patient's nurse; patient has been medically cleared so social scientist will reach out to Crisis to complete evaluation (12:28) Broiler Chef Or Cook made phone contact with [place] with Crisis. [place] with Crisis will complete Psychiatric evaluation in case patient is in need of funding for placement. (12:30) Dara Salinas, AIRBRUSH ARTIST TECHNICAL, MIGRATORY GAME BIRD BIOLOGIST
--- NOTE | 2025-05-31 14:05 | ED.RN ---
delivery sales worker Cady states she would like to be notified if he was to leave to floor from detox. They would like to come and re-evaluate them
--- OUTSIDE RECORDS SUMMARY | 2025-05-31 14:06 | XMS RPT_ITS | CCD ---
Author Organization [facility] Care Team Providers Care Steamer Tender Name Role Phone Friend, Dr. Pritchett Primary Care Provider Friend, Dr. Pritchett Referring Provider Miguel DORADO, LVNAgustinC Nilda Eller Attending Provider [phone] Manjit Lozano Attending Unavailable Care Physician, No Primary Primary Care Unava ilable Care Physician, No Primary Primary Care Unava ilable Latrice Jurado Attending Unavailable Medications Current Medications Medication Drug Class(es) Dates Sig (Normalized) Sig (Original) cephalexin 500 mg oral capsule (2 sources) Cephalosporin Antibacterial Start: 12-29-2022 take 500 mg by mouth every twelve hours Cephalexin Active 500 MG PO EVERY 12 HOURS December 29, 2022 12:00am ciprofloxacin 500 mg oral tablet (1 source) Quinolone Antimicrobial Start: 09-02-2022 take 500 mg by mouth twice daily Ciprofloxacin Hcl Active 500 MG PO TWICE A DAY September 02, 2022 12:00am Methyl Salicylate-Menthol (Bengay) Ointment (2 sources) Start: 12-29-2022 Methyl Salicylate-Menthol (Bengay) Ointment Active 1 EACH TOPICAL AT BEDTIME December 29, 2022 12:00am metroNIDAZOLE 500 mg oral tablet (1 source) Nitroimidazole Antimicrobial Start: 09-02-2022 take 500 mg by mouth three times daily Metronidazole Active 500 MG PO THREE TIMES A DAY September 02, 2022 12:00am Wdvstbsb-Ngm-Ik-Lyco pen-Lutein (Centrum Silver Men) 300-600-300 mcg Tablet (1 source) Start: 12-29-2022 take 300-600 tablets by mouth once daily Xkqgfosj-Zqq-Oo-Ly copen-Lutein (Centrum Silver Men) 300-600-300 mcg Tablet Active 1 TABLET PO DAILY December 29, 2022 12:00am Sx-Owt-Jqggk-K1-Lyco pen-Lutein (Centrum Silver Men) 300-600-300 mcg Tablet (1 source) Start: 12-29-2022 take 300-600 tablets by mouth once daily Ba-Vnj-Wbcus-K1-Ly copen-Lutein (Centrum Silver Men) 300-600-300 mcg Tablet Active 1 TABLET PO DAILY December 29, 2022 12:00am ondansetron 4 mg disintegrating oral tablet (2 sources) Serotonin-3 Receptor Antagonist Start: 12-29-2022 take 4 mg by mouth every eight hours as needed Ondansetron Active 4 MG PO EVERY 8 HOURS NEEDED December 29, 2022 12:00am pantoprazole 20 mg delayed release oral tablet (2 sources) Proton Pump Inhibitor Start: 12-29-2022 take 1 tablet by mouth twice daily Pantoprazole (Protonix) 20 mg tablet,delayed release (DR/EC) Active 20 MG PO TWICE A DAY December 29, 2022 12:00am Completed/Discontinued Medications Medication Drug Class(es) Dates Sig (Normalized) Sig (Original) furosemide 20 mg oral tablet (20 sources) Loop Diuretic Start: 04-11-2022 End: 12-29-2022 take 1 tablet by mouth twice daily Furosemide (Lasix) 20 mg tablet Discontinued 20 MG PO TWICE A DAY June 13, 2022 9:33am December 29, 2022 10:37am lactulose 667 mg/ml oral solution (19 sources) Osmotic Laxative Start: 04-11-2022 End: 05-02-2022 take 20 g by mouth once daily Lactulose Discontinued 20 GM PO DAILY April 10, 2022 11:00pm May 02, 2022 9:21am Start: 03-11-2022 End: 05-02-2022 take 10 g by mouth twice daily Lactulose Discontinued 10 GM PO TWICE A DAY March 10, 2022 11:00pm May 02, 2022 8:54am levoFLOXacin 500 mg oral tablet (9 sources) Quinolone Antimicrobial Start: 03-09-2022 End: 05-02-2022 take 500 mg by mouth once daily Levofloxacin Discontinued 500 MG PO DAILY March 08, 2022 11:00pm May 02, 2022 8:54am potassium chloride 20 meq extended release oral tablet (9 sources) Start: 03-09-2022 End: 05-02-2022 take 40 mEq by mouth once daily Potassium Chloride Discontinued 40 MEQ PO DAILY 2 March 08, 2022 11:00pm May 02, 2022 8:55am predniSONE 50 mg oral tablet (17 sources) Start: 03-11-2022 End: 05-02-2022 take 80 mg by mouth once daily Prednisone Discontinued 80 MG PO DAILY 48 March 10, 2022 11:00pm May 02, 2022 8:55am Start: 03-09-2022 End: 05-02-2022 take 40 mg by mouth once daily Prednisone Discontinued 40 MG PO DAILY 120 March 08, 2022 11:00pm May 02, 2022 8:55am spironolactone 25 mg oral tablet (20 sources) Aldosterone Antagonist Start: 04-11-2022 End: 12-29-2022 take 1 tablet by mouth twice daily Spironolactone (Aldactone) 25 mg tablet Discontinued 25 MG PO TWICE A DAY 180 June 13, 2022 9:33am December 29, 2022 10:37am Problems Problem Classification Problem Date Documented Da te Episodic/Chronic Abdominal pain (6 sources) Abdominal pain; Translations: [Unspecified abdominal pain] 12-29-2022 Episodic Alcohol-related disorders (19 sources) Alcoholic hepatitis; Translations: [Alcoholic hepatitis without ascites] Onset: 01-04-2023 Chronic Other gastrointestinal disorders (7 sources) Ascites; Translations: [Other ascites] 05-02-2022 Episodic Other gastrointestinal disorders (3 sources) Other ascites; Translations: [Other ascites] Episodic Other liver diseases (7 sources) Cirrhosis of liver; Translations: [Unspecified cirrhosis of liver] 09-02-2022 Chronic Other liver diseases (6 sources) Large liver; Translations: [Hepatomegaly, not elsewhere classified] 05-02-2022 Episodic Other liver diseases (3 sources) Hepatomegaly, not elsewhere classified; Translations: [Hepatomegaly] Episodic Other lower respiratory disease (7 sources) Dyspnea; Translations: [Dyspnea, unspecified] 04-19-2022 Episodic Other male genital disorders (1 source) Scrotal mass; Translations: [Other specified disorders of the male genital organs] 10-24-2023 Episodic Other male genital disorders (1 source) Other specified disorders of the male genital organs; Translations: [Other specified disorders of the male genital organs] Onset: 12-20-2023 Episodic Urinary tract infections (5 sources) Acute urinary tract infection; Translations: [Urinary tract infection, site not specified] 12-29-2022 Episodic Results Test Name Value Interpretation Reference Range Facility Urine Cultureon 10-25-2023 URC Culture exhibits no growth. Normal [facility] Comment on above: Performed By: #### M 100.2200 #### [facility] [address] [place], [address] Abdomen/Pelvis W IV Cont ONL Yon 10-24-2023 Abdomen/Pelvis W IV Cont ONLY [facility] Imaging Services [address] [place] [address] Abdomen/Pelvis W IV Cont ONLY MR#: [id number] Acct: [id number] Name: QUENTIN ALLISON Rep #: [id number] : 1970 M 52 From: Phil powell MD PCP: Care Physician,No Primary Status: REG ER Study: Abdomen/Pelvis W IV Cont ONLY Date of Exam: Exam# [id number] Ordering Dr: Manjit Lozano MD -[id number] STUDY: CT ABDOMEN AND PELVIS WITH CONTRAST REASON FOR EXAM: Male, 52 years old. RT SIDE TESTICULAR PAIN AND LUMP. PT ALSO STATES THE HE HAS URINARY URGENCY AND FREQUENCY. PT HAS HAD THIS LUMP A COUPLE OF YEARS AND NEVER FOLLWED. RECENTLY THE LUMP HAS INCREASED IN SIZE AND PAIN. CIRRHOSIS RADIATION DOSAGE (If Supplied By Facility): CTDIvol = ( 15.03 ) mGy, DLP = ( 945.87 ) mGycm TECHNIQUE: Transaxial images were obtained from the dome of the diaphragm to the symphysis pubis without oral contrast. ml of 100mL Isovue-370 contrast was administered. Sagittal and coronal images were reconstructed. Individualized dose optimization techniques were used for this CT. COMPARISON: CT of abdomen and pelvis dated December 29, 2022 FINDINGS: The visualized lung bases are unremarkable. Nodular border cirrhotic liver with diffuse fatty infiltration and intermixed areas of fatty sparing throughout the liver. No visualized parenchymal mass. A few tiny cysts are present anterior aspect of the right lobe of the liver. No ductal dilatation is present. Multiple venous varices are present consistent with portal vein hypertension. Recanalization of the umbilical vein noted. Normal gallbladder and extrahepatic biliary system. Normal spleen. Normal pancreas. Normal bilateral adrenal glands. Normal right kidney. Normal left kidney. Normal visualized stomach. Normal small intestine. There are multiple colonic diverticula consistent with diverticulosis. The appendix is visualized and appears normal. There is diffuse atherosclerotic calcification of the abdominal aorta, without a demonstrated aneurysm. Normal inferior vena cava. Normal retroperitoneum. Normal urinary bladder. There are prostatic calcifications. No prostate enlargement or focal mass is seen. Normal abdominal wall. There are diffuse degenerative changes of the visualized lumbar spine. 4.1 cm ovoid right extratesticular mass is present and can be further evaluated with testicular ultrasound and evaluation by urology, as this is concerning for a malignancy. CT/Abdomen/Pelvis W IV Cont ONLY IMPRESSION: 1. 4.1 cm ovoid right extratesticular mass is present and can be further evaluated with testicular ultrasound and evaluation by urology, as this is concerning for a malignancy. Electronically Signed: Phil Celeste MD at 14:43 EST Reading Location ID and State: [facility] / [place] , Service support , CC: Dr. Manjit Lozano MD; No Primary Care Physician Clinical Application Consultant: Signed Normal [facility] Absolute lymphocyte countOrd ered By: Manjit Lozano on 10-24-2023 Lymphocytes Auto (Unsp spec) [#/Vol] 1.65 10*3/uL 0.83-4.51 [facility] Basophil percentageOrdered B y: Manjit Lozano on 10-24-2023 Basophil percentage 0 SEEN /hpf 0-5 [facility] Basophils/100 WBC (Bld) 1.1 % 0-1 [facility] Bilirubin [Mass/Vol] 2.50 mg/dL 0.20-1.00 [facility] Comment on above: For patients on eltr ombopag therapy, use of Dimension [place] TBIL is not recommended. Chloride [Moles/Vol] 110 mmol/L 98-107 [facility] Eosinophils/100 WBC (Bld) 3.3 % 0-5 [facility] Glucose [Mass/Vol] 131 mg/dL 74-106 [facility] Comment on above: Fasting Glucose resu lt greater than or equal to 126 mg/dL suggests DIABETES MELLITUS per A.D.A. criteria. Neutrophils (Bld) [#/Vol] 4.2 10*3/uL 2.0-7.7 [facility] Neutrophils/100 WBC (Bld) 62.3 % 47-70 [facility] Potassium [Moles/Vol] 3.7 mmol/L 3.5-5.1 [place] Protein [Mass/Vol] 7.0 g/dL 6.4-8.2 [facility] Sodium [Moles/Vol] 138 mmol/L 136-145 [facility] WBC (Bld) [#/Vol] 6.7 10*3/uL 4.4-11.0 [facility] Bilirubin Test strip Ql (U)O rdered By: Manjit Lozano on 10-24-2023 Bilirubin Ql (U) 1 mg/dL Negative [facility] Comment on above: COLOR OF URINE MAY A FFECT DIPSTICK RESULTS. Blood erythrocytes count (nu mber/volume)Ordered By: Manjit Lozano on 10-24-2023 RBC (Bld) [#/Vol] 3.94 10*6/uL 4.6-6.2 [facility] Blood hemoglobin measurement (mass/volume)Ordered By: Manjit Lozano on 10-24-2023 Hemoglobin (Bld) [Mass/Vol] 13.9 g/dL 13.0-16.5 [facility] Blood lymphocytes/100 leukoc ytesOrdered By: Manjit Lozano on 10-24-2023 Lymphocytes/100 WBC (Bld) 24.8 % 19-41 [facility] Blood monocytes/100 leukocyt esOrdered By: Manjit Lozano on 10-24-2023 Monocytes/100 WBC (Bld) 8.0 % 0-10 [facility] Blood platelet mean volumeOr dered By: Manjit Lozano on 10-24-2023 Platelet mean volume (Bld) [Entitic vol] 10.8 fL 6.2-12.0 [facility] CBC W/Diff, Automatedon Absolute Lymph 1.65 X10 3/uL Normal 0.83-4.51 [facility] Comment on above: Performed By: #### M 100.2200 #### [facility] [address] [place] [place], [address] Absolute Neut 4.2 X10 3/uL Normal 2.0-7.7 [facility] Comment on above: Performed By: #### M 100.2200 #### [facility] [address] [place] [place], [address] Basophils/100 WBC (Bld) 1.1 % High 0-1 [facility] Comment on above: Performed By: #### M 100.2200 #### [facility] [address] [place], [address] Eosinophils/100 WBC (Bld) 3.3 % Normal 0-5 [facility] Comment on above: Performed By: #### M 100.2200 #### [facility] [address] [place], [address] Erythrocyte distribution width (RBC) [Ratio] 13.3 % Normal 11.6-14.6 [facility] Comment on above: Performed By: #### M 100.2200 #### [facility] [address] [place] [place], [address] Hematocrit (Bld) [Volume fraction] 41.1 % Normal 40-54 [facility] Comment on above: Performed By: #### M 100.2200 #### [facility] [address] [place], [address] Hemoglobin (Bld) [Mass/Vol] 13.9 g/dL Normal 13.0-16.5 [facility] Comment on above: Performed By: #### M 100.2200 #### [facility] [address] [place], [address] IG% 0.500 Normal 0.0-0.9 [facility] Comment on above: Result Comment: IG% - Immature Granulocytes (promyelocytes, myelocytes and metamyelocytes) > 1% indicates that a LEFT SHIFT is Present. Performed By: #### M 100.2200 #### [facility] [address] [place], [address] Lymphocytes/100 WBC (Bld) 24.8 % Normal 19-41 [facility] Comment on above: Performed By: #### M 100.2200 #### [facility] [address] [place], [address] MCH (RBC) [Entitic mass] 35.3 pg High 27.0-32.0 [facility] Comment on above: Performed By: #### M 100.2200 #### [facility] [address] [place], [address] MCHC (RBC) [Mass/Vol] 33.8 g/dL Normal 32-36 [facility] Comment on above: Performed By: #### M 100.2200 #### [facility] [address] [place], [address] MCV (RBC) [Entitic vol] 104.3 fL High 80-94 [facility] Comment on above: Performed By: #### M 100.2200 #### [facility] [address] [place], [address] Monocytes/100 WBC (Bld) 8.0 % Normal 0-10 [facility] Comment on above: Performed By: #### M 100.2200 #### [facility] [address] [place] [place], [address] Neutrophils/100 WBC (Bld) 62.3 % Normal 47-70 [facility] Comment on above: Performed By: #### M 100.2199 #### [facility] [address] [place], [address] Nucleated RBC (Bld) [#/Vol] 0 10*3/uL Normal 0-5 [facility] Comment on above: Performed By: #### M 100.2199 #### [facility] [address] [place] [place], [address] Platelet mean volume (Bld) [Entitic vol] 10.8 fL Normal 6.2-12.0 [facility] Comment on above: Performed By: #### M 100.2199 #### [facility] [address] [place], [address] Platelets (Bld) [#/Vol] 121 10*3/uL Low 150-450 [facility] Comment on above: Performed By: #### M 100.2199 #### [facility] [address] [place], [address] RBC (Bld) [#/Vol] 3.94 10*6/uL Low 4.6-6.2 [facility] Comment on above: Performed By: #### M 100.2199 #### [facility] [address] [place] [place], [address] RDW SD 51.4 fl High 35.1-43.9 [facility] Comment on above: Performed By: #### M 100.0 #### [facility] [address] [place], [address] WBC (Bld) [#/Vol] 6.7 10*3/uL Normal 4.4-11.0 [facility] Comment on above: Performed By: #### M 100.2199 #### [facility] [address] [place], [address] Comprehensive Metabolic Prof ilon 10-24-2023 Albumin [Mass/Vol] 3.3 g/dL Normal 3.2-5.0 [facility] Comment on above: Performed By: #### M 100.2200 #### [facility] [address] [place] [place], [address] Albumin/Globulin [Mass ratio] 0.9 {ratio} Normal 0.9-2.4 [facility] Comment on above: Performed By: #### M 100.2200 #### [facility] [address] [place], [address] ALK P 101 U/L Normal 45-117 [facility] Comment on above: Performed By: #### M 100.2200 #### [facility] [address] [place], [address] ALT [Catalytic activity/Vol] 28 U/L Normal 16-61 [facility] Comment on above: Performed By: #### M 100.2200 #### [facility] [address] [place], [address] AST [Catalytic activity/Vol] 50 U/L High 15-37 [facility] Comment on above: Performed By: #### M 100.2200 #### [facility] [address] [place], [address] Bilirubin [Mass/Vol] 2.50 mg/dL High 0.20-1.00 [facility] Comment on above: Result Comment: For patients on eltrombopag therapy, use of Dimension [place] TBIL is not recommended. Performed By: #### M 100.2200 #### [facility] [address] [place], [address] BUN/CRE 10.8 RATIO Normal 10-20 [facility] Comment on above: Performed By: #### M 100.2200 #### [facility] [address] [place], [address] CA,Total 9.7 mg/dL Normal 8.5-10.1 [facility] Comment on above: Performed By: #### M 100.0 #### [facility] [address] [place], [address] Chloride [Moles/Vol] 110 mmol/L High 98-107 [facility] Comment on above: Performed By: #### M 100.220 #### [facility] [address] [place], [address] CO2 [Moles/Vol] 24.0 mmol/L Normal 21.0-32.0 [facility] Comment on above: Performed By: #### M 100.2199 #### [facility] [address] [place], [address] Creatinine [Mass/Vol] 0.65 mg/dL Low 0.70-1.30 [facility] Comment on above: Result Comment: The validity of the calculated GFR GFRAA in patients over 70 years has not been determined. Clinical correlation is essential. Performed By: #### M 100.2199 #### [facility] [address] [place], [address] ECRCL 121.47 ml/min Normal [facility] Comment on above: Performed By: #### M 100.2200 #### [facility] [address] [place], [address] EST GFR - AA 165 mL/min Normal >60 [facility] Comment on above: Result Comment: Afri can Pakistani GFR Calc Performed By: #### M 100.2200 #### [facility] [address] [place], [address] GAP 4 Low 5-15 [facility] Comment on above: Performed By: #### M 100.2200 #### [facility] [address] [place], [address] GFR/1.73 sq M.predicted among non-blacks MDRD (S/P/Bld) [Vol rate/Area] 137 mL/min/{1.73_m2} Normal >60 [facility] Comment on above: Result Comment: Non- GFR Calc Performed By: #### M 100.2200 #### [facility] [address] [place], [address] Globulin (S) [Mass/Vol] 3.7 g/dL Normal 2.2-4.2 [facility] Comment on above: Performed By: #### M 100.2200 #### [facility] [address] [place], [address] Glucose [Mass/Vol] 131 mg/dL High 74-106 [facility] Comment on above: Result Comment: Fast ing Glucose result greater than or equal to 126 mg/dL suggests DIABETES MELLITUS per A.D.A. criteria. Performed By: #### M 100.2200 #### [facility] [address] [place], [address] Potassium [Moles/Vol] 3.7 mmol/L Normal 3.5-5.1 [place] Comment on above: Performed By: #### M 100.2200 #### [facility] [address] [place], [address] Sodium [Moles/Vol] 138 mmol/L Normal 136-145 [facility] Comment on above: Performed By: #### M 100.2200 #### [facility] [address] [place], [address] T PROT 7.0 g/dL Normal 6.4-8.2 [facility] Comment on above: Performed By: #### M 100.2200 #### [facility] [address] [place], [address] Urea nitrogen [Mass/Vol] 7 mg/dL Normal 7-18 [facility] Comment on above: Performed By: #### M 100.5181 #### [facility] [address] [place], [place], [address] Determination of erythrocyte mean corpuscular volume (MCV)Ordered By: Manjit Lozano on 10-24-2023 MCV (RBC) [Entitic vol] 104.3 fL 80-94 [facility] Emergency Department Summary on 10-24-2023 Emergency Department Summary [facility] Medical Records Department [address] [place] [address] Emergency Department Summary 10/24/23 MR#: [id number] Acct: [id number] Name: QUENTIN ALLISON Rep #: [id number] : [id number] 52 From: Manjit Lozano MD PCP: Care Physician,No Primary Status:REG ER Location: ED HPI History of Present Illness Chief Complaint: Male Pain/Injury Narrative Narrative: Patient comes in with a couple complaints. He has had a lump on his right scrotum for several years. But he thinks it is growing. Occasionally it hurts but not always. He has had some pain in his right lower quadrant for about 3 or 4 days but he has had it for a few years but it is now worse. He cannot think of anything that caused it. He has no history of hernia. He has had some episodes of vomiting but no diarrhea. He is urinating just normally. No odor. No change in color. No difficulty starting or stopping stream. No trauma. He denies prior abdominal surgery. Most of his complaints are at least 3 years old but they have worsened just recently. Patient also has a history of alcoholic cirrhosis. But he has not drank in several years. He has slowly weaned himself off all his medicines. He did this with consultation with Dr. Montejo. He states he has been doing very well with that. [facility] Medical History Abdominal ascites Alcoholic cirrhosis Cirrhosis of liver Home Medications cephalexin 500 mg capsule 500 mg PO Q12 #14 CAPSULES 12/29/22 [Rx Last Taken Unknown] furosemide 20 mg tablet (Lasix) 20 mg PO BID fluid 12/29/22 [History Last Taken 4 Months Ago 08/31/22] methyl salicylate-menthol topical ointment 1 ea topical QHS shoulder pain 12/29/22 [History Last Taken 12/28/22] zangbkcg-io-efwmw 300 mcg-K 60 mcg-lycop 600 mcg-lutein 300 mcg tablet (Centrum Silver Men) 1 tab PO DAILY health maintenance 12/29/22 [History Last Taken 12/29/22] ondansetron 4 mg disintegrating tablet 4 mg PO Q8H PRN PRN Nausea #10 tabs 12/29/22 [Rx Last Taken Unknown] pantoprazole 20 mg tablet,delayed release (Protonix) 20 mg PO BID #14 tabs 12/29/22 [Rx Last Taken Unknown] spironolactone 25 mg tablet (Aldactone) 25 mg PO BID blood pressure 12/29/22 [History Last Taken 4 Months Ago 08/31/22] Allergy/AdvReac Type Severity Reaction Status Date / Time No Known Allergies Allergy Verified 10/24/23 12:20 Social History Smoking Status: Heavy Smoker (>10/day) details: Patient is 32 days sober ROS ROS ED ROS Narrative A complete review of systems was performed and is negative except as documented in the history of present illness. Some specific details below. Constitutional: No recent fevers or chills. No malaise EYE: No change in color. ENT: No difficulty swallowing. No swelling. No pain. CV: No chest pain or palpitations. Respiratory: No dyspnea. No hemoptysis. No difficulty taking breaths. GI: Please see history of present illness. : No frequency dysuria or hematuria. See history of present illness also. Musculoskeletal: No recent trauma. No pains. Skin: No rash. Nondiaphoretic. Neuro: No weakness or numbness. Endocrine: No polyuria or polydipsia. EXAM Physical Exam Narrative Exam Narrative: CONSTITUTIONAL: Patient is nontoxic in appearance. The patient looks comfortable. HEENT: No notable trauma. Mucous membranes moist. EYES: No icterus CARDIOVASCULAR: Regular rate. Regular rhythm. No notable murmur. No JVD. RESPIRATORY: No respiratory distress. Breathing is unlabored. No wheezes. No rhonchi. No rales. No pain with a deep breath. GASTROINTESTINAL: Not distended. Bowel sounds are normal. Very minimal tenderness down toward the right lower quadrant. But no rebound or guarding. I was surprised I do not feel a hernia at all. Even with standing coughing and straining. GENITOURINARY: No tenderness over the bladder. No CVA tenderness. Patient does have a swollen area on the really the scrotum on the right. It is about 1-1/2 x 2-1/2 cm. It is not red or inflamed though. It feels as though there could be a cystic structure there. He states it has grown over the last years. MUSCULOSKELETAL: Atraumatic. No tenderness. NEUROLOGICAL: Patient is alert and appropriate. No focal deficit noted. SKIN: No noted rashes. No diaphoresis. PSYCHIATRIC: Patient is calm. Mood is appropriate. Const Vital Signs: 10/24/23 12:20 Temperature 97.2 F L Temperature Source Temporal Pulse Rate 109 H Respiratory Rate 16 Blood Pressure 160/108 H Blood Pressure Mean 125 Pulse Ox 98 Oxygen Delivery Method Room Air MDM MDM MDM Narrative Medical decision making narrative: My independent interpretation patient's CT of the abdomen does not show signs of acute appendicitis or obst (more content not included)... Normal [facility] Hematocrit Auto (Bld) [Volum e fraction]Ordered By: Manjit Lozano on 10-24-2023 Hematocrit (Bld) [Volume fraction] 41.1 % 40-54 [facility] Ketones Test strip Ql (U)Ord ered By: Manjit Lozano on 10-24-2023 Ketones Ql (U) Negative Negative [facility] Laboratory - Chemistry and C hemistry - challengeOrdered By: Manjit Lozano on 10-24-2023 ALP [Catalytic activity/Vol] 101 U/L 45-117 [facility] ALT [Catalytic activity/Vol] 28 U/L 16-61 [facility] CO2 [Moles/Vol] 24.0 mmol/L 21.0-32.0 [facility] Globulin (S) [Mass/Vol] 3.7 g/dL 2.2-4.2 [facility] Urea nitrogen/Creatinine [Mass ratio] 10.8 mg/mg 10-20 [facility] - Hematology and Cell countsOrdered By: Manjit Lozano on 10-24-2023 Erythrocyte distribution width (RBC) [Entitic vol] 51.4 fL 35.1-43.9 [facility] Erythrocyte distribution width (RBC) [Ratio] 13.3 % 11.6-14.6 [facility] Immature granulocytes/100 WBC (Bld) 0.500 % 0.0-0.9 [facility] Comment on above: IG% - Immature Granu locytes (promyelocytes, myelocytes and metamyelocytes) > 1% indicates that a LEFT SHIFT is Present. MCH (RBC) [Entitic mass] 35.3 pg 27.0-32.0 [facility] Nucleated RBC/100 WBC (Bld) [Ratio] 0 % 0-5 [facility] MCHC Auto (RBC) [Mass/Vol]Or dered By: Manjit Lozano on 10-24-2023 MCHC (RBC) [Mass/Vol] 33.8 g/dL 32-36 [place] Mucus LM Ql (Urine sed)Order ed By: Manjit Lozano on 10-24-2023 Mucus Ql (Urine sed) 0 SEEN /hpf [place] Nitrite Test strip Ql (U)Ord ered By: Manjit Lozano on 10-24-2023 Nitrite Ql (U) Negative Negative [facility] No Panel InformationOrdered By: Manjit Lozano on 10-24-2023 Estimated Creatinine Clearance Calc 121.47 ml/min [facility] Estimated GFR (MDRD) Amer 165 mL/min >60 [facility] Comment on above: GFR Calc Estimated GFR (MDRD) Non-Af Amer 137 mL/min >60 [facility] Comment on above: Non- GFR Calc Platelets bldOrdered By: Carol Lozano on 10-24-2023 Platelets (Bld) [#/Vol] 121 10*3/uL 150-450 [facility] Protein Test strip Ql (U)Ord ered By: Manjit Lozano on 10-24-2023 Protein Ql (U) 30 mg/dl Negative [facility] Serum or plasma albumin lori urement (mass/volume)Ordered By: Manjit Lozano on 10-24-2023 Albumin [Mass/Vol] 3.3 g/dL 3.2-5.0 [facility] Serum or plasma albumin/glob ulin mass ratioOrdered By: Manjit Lozano on 10-24-2023 Albumin/Globulin [Mass ratio] 0.9 {ratio} 0.9-2.4 [facility] Serum or plasma calcium lori urement (mass/volume)Ordered By: Manjit Lozano on 10-24-2023 Calcium [Mass/Vol] 9.7 mg/dL 8.5-10.1 [facility] Serum or plasma creatinine m easurement (mass/volume)Ordered By: Manjit Lozano on 10-24-2023 Creatinine [Mass/Vol] 0.65 mg/dL 0.70-1.30 [place] Comment on above: The validity of the calculated GFR & GFRAA in patients over 70 years has not been determined. Clinical correlation is essential. Serum or plasma urea nitroge n measurement (mass/volume)Ordered By: Manjit Lozano on 10-24-2023 Urea nitrogen [Mass/Vol] 7 mg/dL 7-18 [facility] Squamous epithelial cells de tection in urine sediment by light microscopyOrdered By: Manjit Lozano on 10-24-2023 Epithelial cells.squamous LM Ql (Urine sed) 0 SEEN /hpf 0-5 [facility] Testicular with Arterial Demetri won 10-24-2023 Testicular with Arterial Flow [facility] Imaging Services [address] [place] [address] Testicular with Arterial Flow MR#: [id number] Acct: [id number] Name: QUENTIN ALLISON Rep #: [id number] : 1970 M 52 From: Phil powell MD PCP: Care Physician,No Primary Status: REG ER Study: Testicular with Arterial Flow Date of Exam: Exam# [id number] Ordering Dr: Manjit Lozano MD -[id number] STUDY: SCROTUM ULTRASOUND REASON FOR EXAM: Male, 52 years old. mass right scrotum Other, right scrotal mass x 2 years TECHNIQUE: Ultrasound evaluation of the scrotum was performed with color Doppler and static meyers-scale imaging. COMPARISON: CT of abdomen and pelvis dated October 24, 2023 FINDINGS: RIGHT TESTICLE INTRATESTICULAR: There is a normal size of the right testicle. The right testicle measures 4.28 x 2.42 x 3.34 cm. There is a homogenous echotexture. There is normal arterial and normal venous vascularity. There is no demonstrated right testicular mass or cyst. EXTRATESTICULAR: Lobular debris-filled complex fluid mass in the anterolateral aspect of the right scrotal sac outside of the testicle corresponds to the mass seen on the CT exam. In the central aspect of this lesion is a thick walled septum and some lobular soft tissue components that demonstrates mild vascular flow. The epididymis is normal in size. The epididymis head measures 1.20 cm. There is normal vascularity of the epididymis. There is no demonstrated epididymal cystic structure. There is a small hydrocele. There is no demonstrated varicocele. LEFT TESTICLE INTRATESTICULAR: There is a normal size of the left testicle. The left testicle measures 4.58 x 2.51 x 3.01 cm. There is a homogenous echotexture. There is normal arterial and normal venous vascularity. There is no demonstrated left testicular mass or cyst. EXTRATESTICULAR: The epididymis is normal in size. The epididymis head measures 0.96 cm. There is normal vascularity of the epididymis. There is no demonstrated epididymal cystic structure. There is no demonstrated hydrocele. There is no demonstrated varicocele. There is no demonstrated extratesticular mass or cyst. US/Testicular with Arterial Flow IMPRESSION: Right scrotal mass concerning for malignancy. 1. Lobular debris-filled complex fluid mass in the anterolateral aspect of the right scrotal sac outside of the testicle corresponds to the mass seen on the CT exam. In the central aspect of this lesion is a thick walled septum and some lobular soft tissue components that demonstrates mild vascular flow. Refer to urology for further assessment and treatment options. Definitive diagnosis can be achieved through tissue sampling and pathology department evaluation. Electronically Signed: Phil Celeste MD at 14:51 EST Reading Location ID and State: [facility] / [place] , Service support , CC: Dr. Manjit Lozano MD; No Primary Care Physician Clinical Application Consultant: Signed Normal [facility] Thin prep Papanicolaou smear with manual screeningOrdered By: Manjit Lozano on 10-24-2023 Thin prep Papanicolaou smear with manual screening 50 U/L 15-37 [facility] Thin prep Papanicolaou smear with manual screening 4 5-15 [facility] Urinalysis, Completeon 10-24 RBC 0-5 SEEN Normal 0-5 [facility] Comment on above: Order Comment: CLEAN CATCH Performed By: #### M 100.2200 #### [facility] [address] [place], [address] BACTERIA 0 SEEN Normal None Seen [facility] Comment on above: Order Comment: CLEAN CATCH Performed By: #### M 100.2200 #### [facility] [address] [place], [address] EPI,SQUAMOUS 0 SEEN Normal 0-5 [facility] Comment on above: Order Comment: CLEAN CATCH Performed By: #### M 100.2200 #### [facility] [address] [place], [address] Mucus Ql (Urine sed) 0 SEEN Normal [facility] Comment on above: Order Comment: CLEAN CATCH Performed By: #### M 100.2200 #### [facility] [address] [place], [address] WBC 0 SEEN Normal 0-5 [facility] Comment on above: Order Comment: CLEAN CATCH Performed By: #### M 100.2200 #### [facility] [address] [place], [address] Urine blood detectionOrdered By: Manjit Lozano on 10-24-2023 RBC Ql (U) 150 /ul Negative [facility] RBC Ql (U) 0-5 SEEN /hpf 0-5 [facility] Urine clarityOrdered By: Carol Lozano on 10-24-2023 Clarity (U) Clear Clear [facility] Urine color determinationOrd ered By: Manjit Lozano on 10-24-2023 Color (U) Yellow Yellow [facility] Urine glucose detectionOrder ed By: Manjit Lozano on 10-24-2023 Glucose Ql (U) Normal mg/dl Normal [facility] Urine leukocyte esterase det ection by dipstickOrdered By: Manjit Lozano on 10-24-2023 Leukocyte esterase Test strip Ql (U) 25 /ul Negative [facility] Urine pHOrdered By: Manjit delacruz on 10-24-2023 pH (U) 6.0 [pH] 5.0 - 8.0 [facility] Urine sediment bacteria coun t by microscopy (number/high power field)Ordered By: Manjit Lozano on 10-24-2023 Bacteria LM.HPF (Urine sed) [#/Area] 0 /[HPF] None Seen [facility] Urine specific gravity measu rementOrdered By: Manjit Lozano on 10-24-2023 Specific gravity (U) [Rel density] 1.015 1.002-1.030 [facility] Urobilinogen Auto test strip Ql (U)Ordered By: Manjit Lozano on 10-24-2023 Urobilinogen Ql (U) 8 mg/dl Normal [facility] Urine Cultureon 12-30-2022 URC Culture exhibits no growth. Normal [facility] Comment on above: Performed By: #### M 100.7710 #### [facility] [address] [facility] [place], [address] Abdomen/Pelvis W IV Cont ONL Yon 12-29-2022 Abdomen/Pelvis W IV Cont ONLY [facility] Imaging Services [address] [place] [address] Abdomen/Pelvis W IV Cont ONLY MR#: [id number] Acct: [id number] Name: QUENTIN ALLISON Rep #: [id number] : 1970 M 52 From: Jose M rosa MD PCP: Care Physician,No Primary Status: REG ER Study: Abdomen/Pelvis W IV Cont ONLY Date of Exam: Exam# [id number] Ordering Dr: Latrice Jurado DO STUDY: CT ABDOMEN AND PELVIS WITH CONTRAST REASON FOR EXAM: Male, 52 years old. Vomiting, abd pain. History of cirrhosis and alcoholic hepatitis. RADIATION DOSAGE (If Supplied By Facility): CTDIvol = ( 15.74 ) mGy, DLP = ( 1114.93 ) mGycm TECHNIQUE: Transaxial images were obtained from the dome of the diaphragm to the symphysis pubis without oral contrast. IV 100mL [id number]-300 was administered. Sagittal and coronal images were reconstructed. Individualized dose optimization techniques were used for this CT. COMPARISON: Comparison is made with prior study September 02, 2022. FINDINGS: The visualized lung bases are unremarkable. The visualized portions of the heart are within normal limits. Hepatomegaly. Diffuse fatty infiltration with multiple areas of the heterogeneous attenuation. This may represent regenerating nodules. There is evidence of a 2.4 cm x 2.8 cm hypodense nodule in the anterior aspect of the right lobe of the liver at the level of the gallbladder fossa. An underlying neoplastic process should be ruled out. Recanalization of the umbilical vein. Normal gallbladder and extrahepatic biliary system. Normal spleen. Normal pancreas. Normal bilateral adrenal glands. Normal right kidney. Nonobstructive left intrarenal calculi. Normal visualized stomach. Normal small intestine. There are multiple colonic diverticula consistent with diverticulosis. The appendix is visualized and appears normal. There is diffuse atherosclerotic calcification of the abdominal aorta, without a demonstrated aneurysm. Normal inferior vena cava. There is borderline retroperitoneal lymphadenopathy with enlarged nodes no greater than 10mm in the short axis diameter. Nonspecific increased markings in the root of the mesenteric fat. Normal urinary bladder. Small amount of fluid is seen in the cul-de-sac. Normal abdominal wall. Disc space narrowing and disc degeneration at the L5-S1 level. CT/Abdomen/Pelvis W IV Cont ONLY IMPRESSION: Hepatomegaly with heterogeneous appearance of the liver parenchyma predominantly fatty infiltration. Regenerating nodules or possible superimposed hepatoma cannot be excluded. Nonobstructive left intrarenal calculi. Nonspecific increased markings in the deep mesenteric fat. This is unchanged. Sigmoid diverticulosis. Electronically Signed: Jose M Richards MD at 8:57 EST , CC: Dr. Latrice Jurado, DO; No Primary Care Physician Clinical Application Consultant: Signed Normal [facility] Absolute lymphocyte countOrd ered By: Dr. Jurado on 12-29-2022 Lymphocytes Auto (Unsp spec) [#/Vol] 1.53 10*3/uL 0.83-4.51 [facility] Alcohol, Blood (Medical)-Ser umon 12-29-2022 SERUM ETOH < 3.0 Normal [facility] Comment on above: Result Comment: The serum:whole blood ethanol ratio is approximately 1.14 and varies slightly with hematocrit. Medical Alcohol reference interval and critical value in non-tolerant individuals; 50 - 100 Impairment 100 Intoxication 100 - 250 Severe Poisoning 250 - 400 Deep/possible fatal coma Performed By: #### M 100.2200 #### [facility] [address] [place], [address] Basic Metabolic Profile (BMP )on 12-29-2022 BUN/CRE 10.9 RATIO Normal 10-20 [facility] Comment on above: Performed By: #### L 501.2450, L503.6005, BTS, L500.2500, L500.3400, L100.0100 #### [facility] [address] [place], [address] CA,Total 9.3 mg/dL Normal 8.5-10.1 [facility] Comment on above: Performed By: #### L 501.2450, L503.6005, BTS, L500.2500, L500.3400, L100.0100 #### [facility] [address] [place], [address] Chloride [Moles/Vol] 108 mmol/L High 98-107 [facility] Comment on above: Performed By: #### L 501.2450, L503.6005, BTS, L500.2500, L500.3400, L100.0100 #### [facility] [address] [place], [address] CO2 [Moles/Vol] 25.0 mmol/L Normal 21.0-32.0 [facility] Comment on above: Performed By: #### L 501.2450, L503.6005, BTS, L500.2500, L500.3400, L100.0100 #### [facility] [address] [place], [address] Creatinine [Mass/Vol] 0.73 mg/dL Normal 0.70-1.30 [facility] Comment on above: Result Comment: The validity of the calculated GFR GFRAA in patients over 70 years has not been determined. Clinical correlation is essential. Performed By: #### L 501.2450, L503.6005, BTS, L500.2500, L500.3400, L100.0100 #### [facility] [address] [place], [address] ECRCL 108.15 ml/min Normal [facility] Comment on above: Performed By: #### L 501.2450, L503.6005, BTS, L500.2500, L500.3400, L100.0100 #### [facility] [address] [place], [address] EST GFR - AA 143 mL/min Normal >60 [facility] Comment on above: Result Comment: Afri can Pakistani GFR Calc Performed By: #### L 501.2450, L503.6005, BTS, L500.2500, L500.3400, L100.0100 #### [facility] [address] [place], [address] GAP 6 Normal 5-15 [facility] Comment on above: Performed By: #### L 501.2450, L503.6005, BTS, L500.2500, L500.3400, L100.0100 #### [facility] [address] [place], [address] GFR/1.73 sq M.predicted among non-blacks MDRD (S/P/Bld) [Vol rate/Area] 118 mL/min/{1.73_m2} Normal >60 [facility] Comment on above: Result Comment: Non- GFR Calc Performed By: #### L 501.2450, L503.6005, BTS, L500.2500, L500.3400, L100.0100 #### [facility] [address] [place], [address] Glucose [Mass/Vol] 125 mg/dL High 74-106 [facility] Comment on above: Result Comment: Fast ing Glucose result from 100 to 125 mg/dL suggests IMPAIRED HOMEOSTASIS per A.D.A. criteria. Performed By: #### L 501.2450, L503.6005, BTS, L500.2500, L500.3400, L100.0100 #### [facility] [address] [place], [address] Potassium [Moles/Vol] 4.0 mmol/L Normal 3.5-5.1 [place] Comment on above: Performed By: #### L 501.2450, L503.6005, BTS, L500.2500, L500.3400, L100.0100 #### [facility] [address] [place], [address] Sodium [Moles/Vol] 139 mmol/L Normal 136-145 [facility] Comment on above: Performed By: #### L 501.2450, L503.6005, BTS, L500.2500, L500.3400, L100.0100 #### [facility] [address] [place], [address] Urea nitrogen [Mass/Vol] 8 mg/dL Normal 7-18 [facility] Comment on above: Performed By: #### L 501.0260, L503.6005, BTS, L500.2500, L500.3400, L100.0100 #### [facility] [address] [place], [address] Basophil percentageOrdered B y: Dr. Jurado on 12-29-2022 Basophil percentage 10-25 SEEN /hpf 0-5 [facility] Basophils/100 WBC (Bld) 1.1 % 0-1 [facility] Bilirubin [Mass/Vol] 6.30 mg/dL 0.20-1.00 [facility] Comment on above: For patients on eltr ombopag therapy, use of Dimension [place] TBIL is not recommended. Chloride [Moles/Vol] 108 mmol/L 98-107 [facility] Eosinophils/100 WBC (Bld) 1.2 % 0-5 [facility] Glucose [Mass/Vol] 125 mg/dL 74-106 [facility] Comment on above: Fasting Glucose resu lt from 100 to 125 mg/dL suggests IMPAIRED HOMEOSTASIS per A.D.A. criteria. Lactate [Moles/Vol] 2.0 mmol/L 0.4-2.0 [facility] Comment on above: Critical Result(s) C alled at: 08:24:24 12/29/2022 by: Evie Mart to Itzel. Results read back by same. Neutrophils (Bld) [#/Vol] 6.0 10*3/uL 2.0-7.7 [facility] Neutrophils/100 WBC (Bld) 72.2 % 47-70 [facility] Potassium [Moles/Vol] 4.0 mmol/L 3.5-5.1 [place] Protein [Mass/Vol] 7.2 g/dL 6.4-8.2 [facility] Sodium [Moles/Vol] 139 mmol/L 136-145 [facility] WBC (Bld) [#/Vol] 8.3 10*3/uL 4.4-11.0 [facility] Bilirubin Test strip Ql (U)O rdered By: Dr. Jurado on 12-29-2022 Bilirubin Ql (U) 6 mg/dL Negative [facility] Comment on above: COLOR OF URINE MAY A FFECT DIPSTICK RESULTS. Blood erythrocytes count (nu mber/volume)Ordered By: Dr. Jurado on 12-29-2022 RBC (Bld) [#/Vol] 4.44 10*6/uL 4.6-6.2 [facility] Blood hemoglobin measurement (mass/volume)Ordered By: Dr. Jurado on 12-29-2022 Hemoglobin (Bld) [Mass/Vol] 15.9 g/dL 13.0-16.5 [facility] Blood lymphocytes/100 leukoc ytesOrdered By: Dr. Jurado on 12-29-2022 Lymphocytes/100 WBC (Bld) 18.4 % 19-41 [facility] Blood monocytes/100 leukocyt esOrdered By: Dr. Jurado on 12-29-2022 Monocytes/100 WBC (Bld) 6.7 % 0-10 [facility] Blood platelet mean volumeOr dered By: Dr. Jurado on 12-29-2022 Platelet mean volume (Bld) [Entitic vol] 10.0 fL 6.2-12.0 [facility] CBC W/Diff, Automatedon Absolute Lymph 1.53 X10 3/uL Normal 0.83-4.51 [facility] Comment on above: Performed By: #### L 501.2450, L503.6005, BTS, L500.2500, L500.3400, L100.0100 #### [facility] [address] [place], [address] Absolute Neut 6.0 X10 3/uL Normal 2.0-7.7 [facility] Comment on above: Performed By: #### L 501.2450, L503.6005, BTS, L500.2500, L500.3400, L100.0100 #### [facility] [address] [place], [address] Basophils/100 WBC (Bld) 1.1 % High 0-1 [facility] Comment on above: Performed By: #### L 501.2450, L503.6005, BTS, L500.2500, L500.3400, L100.0100 #### [facility] [address] [place], [address] Eosinophils/100 WBC (Bld) 1.2 % Normal 0-5 [facility] Comment on above: Performed By: #### L 501.2450, L503.6005, BTS, L500.2500, L500.3400, L100.0100 #### [facility] [address] [place], [address] Erythrocyte distribution width (RBC) [Ratio] 15.3 % High 11.6-14.6 [facility] Comment on above: Performed By: #### L 501.2450, L503.6005, BTS, L500.2500, L500.3400, L100.0100 #### [facility] [address] [place], [address] Hematocrit (Bld) [Volume fraction] 47.3 % Normal 40-54 [facility] Comment on above: Performed By: #### L 501.2450, L503.6005, BTS, L500.2500, L500.3400, L100.0100 #### [facility] [address] [place], [address] Hemoglobin (Bld) [Mass/Vol] 15.9 g/dL Normal 13.0-16.5 [facility] Comment on above: Performed By: #### L 501.2450, L503.6005, BTS, L500.2500, L500.3400, L100.0100 #### [facility] [address] [place], [address] IG% 0.400 Normal 0.0-0.9 [facility] Comment on above: Result Comment: IG% - Immature Granulocytes (promyelocytes, myelocytes and metamyelocytes) > 1% indicates that a LEFT SHIFT is Present. Performed By: #### L 501.2450, L503.6005, BTS, L500.2500, L500.3400, L100.0100 #### [facility] [address] [place], [address] Lymphocytes/100 WBC (Bld) 18.4 % Low 19-41 [facility] Comment on above: Performed By: #### L 501.2450, L503.6005, BTS, L500.2500, L500.3400, L100.0100 #### [facility] [address] [place], [address] MCH (RBC) [Entitic mass] 35.8 pg High 27.0-32.0 [facility] Comment on above: Performed By: #### L 501.2450, L503.6005, BTS, L500.2500, L500.3400, L100.0100 #### [facility] [address] [place], [address] MCHC (RBC) [Mass/Vol] 33.6 g/dL Normal 32-36 [facility] Comment on above: Performed By: #### L 501.2450, L503.6005, BTS, L500.2500, L500.3400, L100.0100 #### [facility] [address] [place], [address] MCV (RBC) [Entitic vol] 106.5 fL High 80-94 [facility] Comment on above: Performed By: #### L 501.2450, L503.6005, BTS, L500.2500, L500.3400, L100.0100 #### [facility] [address] [place], [address] Monocytes/100 WBC (Bld) 6.7 % Normal 0-10 [facility] Comment on above: Performed By: #### L 501.2450, L503.6005, BTS, L500.2500, L500.3400, L100.0100 #### [facility] [address] [place], [address] Neutrophils/100 WBC (Bld) 72.2 % High 47-70 [facility] Comment on above: Performed By: #### L 501.2450, L503.6005, BTS, L500.2500, L500.3400, L100.0100 #### [facility] [address] [place], [address] Nucleated RBC (Bld) [#/Vol] 0 10*3/uL Normal 0-5 [facility] Comment on above: Performed By: #### L 501.2450, L503.6005, BTS, L500.2500, L500.3400, L100.0100 #### [facility] [address] [place], [address] Platelet mean volume (Bld) [Entitic vol] 10.0 fL Normal 6.2-12.0 [facility] Comment on above: Performed By: #### L 501.2450, L503.6005, BTS, L500.2500, L500.3400, L100.0100 #### [facility] [address] [place], [address] Platelets (Bld) [#/Vol] 176 10*3/uL Normal 150-450 [facility] Comment on above: Performed By: #### L 501.2450, L503.6005, BTS, L500.2500, L500.3400, L100.0100 #### [facility] [address] [place], [address] RBC (Bld) [#/Vol] 4.44 10*6/uL Low 4.6-6.2 [facility] Comment on above: Performed By: #### L 501.2450, L503.6005, BTS, L500.2500, L500.3400, L100.0100 #### [facility] [address] [place], [address] RDW SD 60.6 fl High 35.1-43.9 [facility] Comment on above: Performed By: #### L 501.2450, L503.6005, BTS, L500.2500, L500.3400, L100.0100 #### [facility] [address] [place], [address] WBC (Bld) [#/Vol] 8.3 10*3/uL Normal 4.4-11.0 [facility] Comment on above: Performed By: #### L 501.2450, L503.6005, BTS, L500.2500, L500.3400, L100.0100 #### [facility] [address] [place], [address] Calcium oxalate crystals det ection in urine sediment by light microscopyOrdered By: Dr. Jurado on 12-29-2022 Calcium oxalate crystals LM Ql (Urine sed) 1+ /hpf [facility] Chest 1 View (Portable)on Chest 1 View (Portable) [facility] Imaging Services [address] [place] [address] Chest 1 View (Portable) MR#: [id number] Acct: [id number] Name: QUENTIN ALLISON Rep #: [id number] : 1970 M 52 From: Jose M rosa MD PCP: Care Physician,No Primary Status: REG ER Study: Chest 1 View (Portable) Date of Exam: 12/29/22 Exam# [id number] Ordering Dr: Latrice Jurado DO STUDY: X-RAY CHEST REASON FOR EXAM: Male, 52 years old. Vomiting TECHNIQUE: Single AP portable view of the chest. COMPARISON: Comparison is made with prior study dated April 11, 2022. FINDINGS: EKG electrodes are seen. The lungs are clear and expanded. There is no demonstrated pleural abnormality. Normal size heart. Normal mediastinum and roland. Normal visualized pulmonary arteries. Normal visualized aortic arch and descending thoracic aorta. Normal visualized thoracic spine. Normal visualized ribs, clavicles, and shoulders. There is no demonstrated abnormality of the visualized soft tissue structures of the upper abdomen. RAD/Chest 1 View (Portable) IMPRESSION: Normal x-ray examination of the chest. Electronically Signed: Jose M Richards MD at 8:02 EST , CC: Dr. Latrice Jurado DO; No Primary Care Physician Clinical Application Consultant: Signed Normal [facility] Determination of erythrocyte mean corpuscular volume (MCV)Ordered By: Dr. Jurado on 12-29-2022 MCV (RBC) [Entitic vol] 106.5 fL 80-94 [facility] Direct bilirubinOrdered By: Dr. Jurado on 12-29-2022 Bilirubin.direct [Mass/Vol] 3.99 mg/dL 0.00-0.30 [facility] Emergency Department Summary on 12-29-2022 Emergency Department Summary [facility] Medical Records Department [address] [place] [address] Emergency Department Summary 12/29/22 MR#: [id number] Acct: [id number] Name: QUENTIN ALLISON Rep #: [id number] : 1970 52 From: Latrice Jurado DO PCP: Care Physician,No Primary Status:DEP ER Location: ED HPI HPI - GI History of Present Illness Chief Complaint: GI Bleed Informant: patient Narrative Narrative: Patient is a 52-year-old male with history of cirrhosis of the liver secondary to alcohol abuse (states he stopped drinking March 2022 however has had a few drinks since) presenting with 5 days of nausea, vomiting, diarrhea and jaundice discoloration. This morning his stepmother noticed that he was vomiting up what looked like a mixture of dark brown/red blood. Patient notes he is also been having increased bowel movements that have been black in color. His last bowel movement this morning. Denies history of any abdominal surgeries. Does follow with Dr. Montejo's office. He is notes he has been more bloated. States he has had fluid drained from his abdomen before. He also notes that his urine has been darker. Since Monday, 4 days ago, he is only been able to eat 2 oranges. He last had 1 glass of wine 1 week ago which he states was a very rare event. [facility] Medical History Abdominal ascites Alcoholic cirrhosis Cirrhosis of liver Home Medications cephalexin 500 mg capsule 500 mg PO Q12 #14 CAPSULES 12/29/22 [Rx Last Taken Unknown] furosemide 20 mg tablet (Lasix) 20 mg PO BID fluid 12/29/22 [History Last Taken 4 Months Ago 08/31/22] methyl salicylate-menthol topical ointment 1 ea topical QHS shoulder pain 12/29/22 [History Last Taken 12/28/22] uwdtybeg-fnz-ibcqh acid 300 mcg-lycopene 600 mcg-lutein 300 mcg tablet (Centrum Silver Men) 1 tab PO DAILY health maintenance 12/29/22 [History Last Taken 12/29/22] ondansetron 4 mg disintegrating tablet 4 mg PO Q8H PRN PRN Nausea #10 tabs 12/29/22 [Rx Last Taken Unknown] pantoprazole 20 mg tablet,delayed release (Protonix) 20 mg PO BID #14 tabs 12/29/22 [Rx Last Taken Unknown] spironolactone 25 mg tablet (Aldactone) 25 mg PO BID blood pressure 12/29/22 [History Last Taken 4 Months Ago 08/31/22] Allergy/AdvReac Type Severity Reaction Status Date / Time No Known Allergies Allergy Verified 12/29/22 07:14 Social History Smoking Status: Heavy Smoker (>10/day) details: Patient is 32 days sober [facility] ED Constitutional Constitutional ED: Denies chills or fever(s) ENT ENT ED: Denies sore throat Cardiovascular Cardiovascular: Denies chest pain Respiratory/Chest Respiratory/Chest: Denies cough or dyspnea Gastrointestinal Gastrointestinal: Reports abdominal pain, diarrhea, nausea and vomiting Musculoskeletal Musculoskeletal: Denies arthralgias or myalgias Integumentary Denies rash Neurologic Neurologic: Reports weakness; Denies headache(s) Hematologic/Lymphat ic Hematologic/Lymphat ic: Denies easy bleeding or easy bruising EXAM Physical Exam Const Vital Signs: 12/29/22 07:14 12/29/22 09:18 12/29/22 11:09 Temperature 98.2 F Temperature Source Temporal Pulse Rate 102 H 82 86 Respiratory Rate 14 20 H 20 H Blood Pressure 169/101 H 146/96 H 139/93 H Blood Pressure Mean 123 112 108 Pulse Ox 96 96 95 Oxygen Delivery Method Room Air Room Air Room Air 12/29/22 12:29 Temperature Temperature Source Pulse Rate 84 Respiratory Rate 18 Blood Pressure 151/93 H Blood Pressure Mean 112 Pulse Ox 95 Oxygen Delivery Method Room Air Positive well nourished and well developed General Appearance ED: well developed and NAD; Negative for pallor HEENT Reports dry mucous membranes Mouth ED: Yes dry mucous membranes Mouth: dry mucous membranes Eyes PERRL and EOMs intact bilaterally General Eye ED: Yes scleral icterus Neck supple and no JVD Resp normal respiratory effort and clear to auscultation bilaterally Cardio regular rate, regular rhythm and no murmurs GI GI Narrative: And abdomen. Diffusely tender, worse in the right upper quadrant and over the liver. No rigidity or rebound tenderness. No fluid wave appreciated. Brown stool on rectal exam Palpation: Negative for guarding or rigid Back/Spine no CVA tenderness Extremity full ROM General Extremety ED: Negative for edema or tenderness General Extremity: Negative for edema Neuro moves all extremities Sensorium / Orientation: alert, oriented to person, oriented to place and oriented to time Psych mental status grossly normal and thought process normal Skin no wounds General Skin Exam: jaundice; Negative for pallor MDM MDM MDM Narrative Medical decision making narrative: Patient is (more content not included)... Normal [facility] Hematocrit Auto (Bld) [Volum e fraction]Ordered By: Dr. Jurado on 12-29-2022 Hematocrit (Bld) [Volume fraction] 47.3 % 40-54 [facility] INR in Blood by Coagulation assayOrdered By: Dr. Jurado on 12-29-2022 INR Coag (Bld) [Relative time] 1.5 {INR} [facility] Ketones Test strip Ql (U)Ord ered By: Dr. Jurado on 12-29-2022 Ketones Ql (U) 5 mg/dl Negative [facility] - Chemistry and C hemistry - challengeOrdered By: Dr. Jurado on 12-29-2022 ALP [Catalytic activity/Vol] 199 U/L 45-117 [facility] ALT [Catalytic activity/Vol] 40 U/L 16-61 [facility] CO2 [Moles/Vol] 25.0 mmol/L 21.0-32.0 [facility] Globulin (S) [Mass/Vol] 4.2 g/dL 2.2-4.2 [facility] Lipase [Catalytic activity/Vol] 140 U/L 73-393 [facility] Urea nitrogen/Creatinine [Mass ratio] 10.9 mg/mg 10-20 [facility] - CoagulationOrde red By: Dr. Jurado on 12-29-2022 aPTT Coag (Bld) [Time] 32.1 s 24.1-36.2 [facility] PT Coag (PPP) [Time] 17.5 s 11.7-14.9 [facility] - Hematology and Cell countsOrdered By: Dr. Jurado on 12-29-2022 Erythrocyte distribution width (RBC) [Entitic vol] 60.6 fL 35.1-43.9 [facility] Erythrocyte distribution width (RBC) [Ratio] 15.3 % 11.6-14.6 [facility] Immature granulocytes/100 WBC (Bld) 0.400 % 0.0-0.9 [facility] Comment on above: IG% - Immature Granu locytes (promyelocytes, myelocytes and metamyelocytes) > 1% indicates that a LEFT SHIFT is Present. MCH (RBC) [Entitic mass] 35.8 pg 27.0-32.0 [facility] Nucleated RBC/100 WBC (Bld) [Ratio] 0 % 0-5 [facility] Lactic Acidon 12-29-2022 Lactate [Moles/Vol] 2.0 mmol/L Normal 0.4-1.9 [facility] Comment on above: Order Comment: Y Result Comment: Crit ical Result(s) Called at: 08:24:24 12/29/2022 by: Evie Robbins. Results read back by same. Performed By: #### M 100.2200 #### [facility] [address] [place], [address] Lipaseon 12-29-2022 Lipase [Catalytic activity/Vol] 140 U/L Normal 73-393 [facility] Comment on above: Performed By: #### L 501.2450, L503.6005, BTS, L500.2500, L500.3400, L100.0100 #### [facility] [address] [place], [address] Liver Profileon 12-29-2022 Albumin [Mass/Vol] 3.0 g/dL Low 3.2-5.0 [facility] Comment on above: Performed By: #### L 501.2450, L503.6005, BTS, L500.2500, L500.3400, L100.0100 #### [facility] [address] [place], [address] ALK P 199 U/L High 45-117 [facility] Comment on above: Performed By: #### L 501.2450, L503.6005, BTS, L500.2500, L500.3400, L100.0100 #### [facility] [address] [place], [address] ALT [Catalytic activity/Vol] 40 U/L Normal 16-61 [facility] Comment on above: Performed By: #### L 501.2450, L503.6005, BTS, L500.2500, L500.3400, L100.0100 #### [facility] [address] [place], [address] AST [Catalytic activity/Vol] 117 U/L High 15-37 [facility] Comment on above: Performed By: #### L 501.2450, L503.6005, BTS, L500.2500, L500.3400, L100.0100 #### [facility] [address] [place], [address] Bilirubin [Mass/Vol] 6.30 mg/dL High 0.20-1.00 [facility] Comment on above: Result Comment: For patients on eltrombopag therapy, use of Dimension [place] TBIL is not recommended. Performed By: #### L 501.2450, L503.6005, BTS, L500.2500, L500.3400, L100.0100 #### [facility] [address] [place], [address] Bilirubin.direct [Mass/Vol] 3.99 mg/dL High 0.00-0.30 [facility] Comment on above: Performed By: #### L 501.2450, L503.6005, BTS, L500.2500, L500.3400, L100.0100 #### [facility] [address] [place], [address] Globulin (S) [Mass/Vol] 4.2 g/dL Normal 2.2-4.2 [facility] Comment on above: Performed By: #### L 501.2450, L503.6005, BTS, L500.2500, L500.3400, L100.0100 #### [facility] [address] [place], [address] T PROT 7.2 g/dL Normal 6.4-8.2 [facility] Comment on above: Performed By: #### L 501.2450, L503.6005, BTS, L500.2500, L500.3400, L100.0100 #### [facility] [address] [place], [address] MCHC Auto (RBC) [Mass/Vol]Or dered By: Dr. Jurado on 12-29-2022 MCHC (RBC) [Mass/Vol] 33.6 g/dL 32-36 [place] Mucus LM Ql (Urine sed)Order ed By: Dr. Jurado on 12-29-2022 Mucus Ql (Urine sed) 2+ /hpf [facility] Nitrite Test strip Ql (U)Ord ered By: Dr. Jurado on 12-29-2022 Nitrite Ql (U) Positive Negative [facility] No Panel InformationOrdered By: Dr. Jurado on 12-29-2022 Estimated Creatinine Clearance Calc 108.15 ml/min [facility] Estimated GFR (MDRD) Amer 143 mL/min >60 [facility] Comment on above: GFR Calc Estimated GFR (MDRD) Non-Af Amer 118 mL/min >60 [facility] Comment on above: Non- GFR Calc Ethyl Alcohol Level < 3.0 mg/dL [facility] Comment on above: The serum:whole bloo d ethanol ratio is approximately 1.14and varies slightly with hematocrit. Medical Alcohol reference interval and critical value innon-tolerant individuals; 50 - 100 Impairment 100 Intoxication 100 - 250 Severe Poisoning 250 - 400 Deep/possible fatal coma Partial Thromboplast Timeon 12-29-2022 aPTT Coag (Bld) [Time] 32.1 s Normal 24.1-36.2 [facility] Comment on above: Performed By: #### M 100.2200 #### [facility] [address] [place], [address] Platelets bldOrdered By: Dr. Jurado on 12-29-2022 Platelets (Bld) [#/Vol] 176 10*3/uL 150-450 [facility] Protein Test strip Ql (U)Ord ered By: Dr. Jurado on 12-29-2022 Protein Ql (U) 30 mg/dl Negative [facility] Prothrombin Time w/INRon INR Coag (PPP) [Relative time] 1.5 {INR} Normal [facility] Comment on above: Performed By: #### M 100.2200 #### [facility] [address] [place], [place], [id number] PT Coag (PPP) [Time] 17.5 s High 11.7-14.9 [facility] Comment on above: Performed By: #### M 100.2200 #### [facility] [address] [place], [address] Serum or plasma albumin lori urement (mass/volume)Ordered By: Dr. Jurado on 12-29-2022 Albumin [Mass/Vol] 3.0 g/dL 3.2-5.0 [facility] Serum or plasma calcium lori urement (mass/volume)Ordered By: Dr. Jurado on 12-29-2022 Calcium [Mass/Vol] 9.3 mg/dL 8.5-10.1 [facility] Serum or plasma creatinine m easurement (mass/volume)Ordered By: Dr. Jurado on 12-29-2022 Creatinine [Mass/Vol] 0.73 mg/dL 0.70-1.30 [facility] Comment on above: The validity of the calculated GFR & GFRAA in patients over 70 years has not been determined. Clinical correlation is essential. Serum or plasma urea nitroge n measurement (mass/volume)Ordered By: Dr. Jurado on 12-29-2022 Urea nitrogen [Mass/Vol] 8 mg/dL 7-18 [facility] Squamous epithelial cells de tection in urine sediment by light microscopyOrdered By: Dr. Jurado on 12-29-2022 Epithelial cells.squamous LM Ql (Urine sed) 0-5 SEEN /hpf 0-5 [facility] Stool Occult Blood iFOBon STOB Negative Normal [facility] Comment on above: Performed By: #### M 100.7900 #### [facility] [address] [facility] [place], [address] Stool gastrointestinal hemog lobin detection by immunologic methodOrdered By: Dr. Jurado on 12-29-2022 Lower GI hemoglobin IA Ql (Stl) [facility] Thin prep Papanicolaou smear with manual screeningOrdered By: Dr. Jurado on 12-29-2022 Thin prep Papanicolaou smear with manual screening 117 U/L 15-37 [facility] Thin prep Papanicolaou smear with manual screening 6 5-15 [facility] Type AND Screenon 12-29-2022 ABO and Rh group Nom (Bld) Blood group A Rh(D) negative Normal [facility] Comment on above: Order Comment: HGI Performed By: #### M 100.2200 #### [facility] [address] [place], [address] Urinalysis, Completeon 12-29 CA OX CRYSTAL 1+ /hpf Normal [facility] Comment on above: Order Comment: COLOR OF URINE MAY AFFECT DIPSTICK RESULTS.CLEAN CATCH Performed By: #### M 100.2200 #### [facility] [address] [place], [address] WBC 10-25 SEEN Normal 0-5 [facility] Comment on above: Order Comment: COLOR OF URINE MAY AFFECT DIPSTICK RESULTS.CLEAN CATCH Performed By: #### M 100.2200 #### [facility] [address] [place], [address] BACTERIA 1+ /hpf Normal None Seen [facility] Comment on above: Order Comment: COLOR OF URINE MAY AFFECT DIPSTICK RESULTS.CLEAN CATCH Performed By: #### M 100.2200 #### [facility] [address] [place], [address] EPI,SQUAMOUS 0-5 SEEN Normal 0-5 [facility] Comment on above: Order Comment: COLOR OF URINE MAY AFFECT DIPSTICK RESULTS.CLEAN CATCH Performed By: #### M 100.2200 #### [facility] [address] [place], [address] Mucus Ql (Urine sed) 2+ /hpf Normal [facility] Comment on above: Order Comment: COLOR OF URINE MAY AFFECT DIPSTICK RESULTS.CLEAN CATCH Performed By: #### M 100.2200 #### [facility] [address] [place], [place], [id number] RBC 25-50 SEEN Normal 0-5 [facility] Comment on above: Order Comment: COLOR OF URINE MAY AFFECT DIPSTICK RESULTS.CLEAN CATCH Performed By: #### M 100.9412 #### [facility] [address] [place], [place], [id number] Urine blood detectionOrdered By: Dr. Jurado on 12-29-2022 RBC Ql (U) 250 /ul Negative [facility] RBC Ql (U) 25-50 SEEN /hpf 0-5 [facility] Urine clarityOrdered By: Dr. Jurado on 12-29-2022 Clarity (U) Sl. Cloudy Clear [facility] Urine color determinationOrd ered By: Dr. Jurado on 12-29-2022 Color (U) Giulia Yellow [facility] Urine glucose detectionOrder ed By: Dr. Jurado on 12-29-2022 Glucose Ql (U) Normal mg/dl Normal [facility] Urine leukocyte esterase det ection by dipstickOrdered By: Dr. Jurado on 12-29-2022 Leukocyte esterase Test strip Ql (U) 100 /ul Negative [facility] Urine pHOrdered By: Dr. Lianne miles on 12-29-2022 pH (U) 6.5 [pH] 5.0 - 8.0 [facility] Urine sediment bacteria coun t by microscopy (number/high power field)Ordered By: Dr. Jurado on 12-29-2022 Bacteria LM.HPF (Urine sed) [#/Area] 1 /[HPF] None Seen [facility] Urine specific gravity measu rementOrdered By: Dr. Jurado on 12-29-2022 Specific gravity (U) [Rel density] 1.015 1.002-1.030 [facility] Urobilinogen Auto test strip Ql (U)Ordered By: Dr. Jurado on 12-29-2022 Urobilinogen Ql (U) 12 mg/dl Normal [facility] Culture, urineOrdered By: Dr Dano Quinn on 09-04-2022 Bacteria identified Cx Nom (U) Culture exhibits no growth. [facility] Absolute lymphocyte countOrd ered By: Dr. Quinn on 09-02-2022 Lymphocytes Auto (Unsp spec) [#/Vol] 2.08 10*3/uL 0.83-4.51 [facility] Basophil percentageOrdered B y: Dr. Quinn on 09-02-2022 Basophil percentage 0-5 SEEN /hpf 0-5 [facility] Basophils/100 WBC (Bld) 0.8 % 0-1 [facility] Bilirubin [Mass/Vol] 3.80 mg/dL 0.20-1.00 [facility] Comment on above: For patients on eltr ombopag therapy, use of Dimension [place] TBIL is not recommended. Chloride [Moles/Vol] 103 mmol/L 98-107 [facility] Eosinophils/100 WBC (Bld) 0.8 % 0-5 [facility] Glucose [Mass/Vol] 124 mg/dL 74-106 [facility] Comment on above: Fasting Glucose resu lt from 100 to 125 mg/dL suggests IMPAIRED HOMEOSTASIS per A.D.A. criteria. Neutrophils (Bld) [#/Vol] 8.1 10*3/uL 2.0-7.7 [facility] Neutrophils/100 WBC (Bld) 73.2 % 47-70 [facility] Potassium [Moles/Vol] 3.4 mmol/L 3.5-5.1 [facility] Comment on above: Slight Hemolysis, Re sult may be falsely increased. Protein [Mass/Vol] 6.8 g/dL 6.4-8.2 [facility] Sodium [Moles/Vol] 139 mmol/L 136-145 [facility] WBC (Bld) [#/Vol] 11.1 10*3/uL 4.4-11.0 [facility] Bilirubin Test strip Ql (U)O rdered By: Dr. Quinn on 09-02-2022 Bilirubin Ql (U) 3 mg/dL Negative [facility] Comment on above: COLOR OF URINE MAY A FFECT DIPSTICK RESULTS. Blood erythrocytes count (nu mber/volume)Ordered By: Dr. Quinn on 09-02-2022 RBC (Bld) [#/Vol] 4.13 10*6/uL 4.6-6.2 [facility] Blood hemoglobin measurement (mass/volume)Ordered By: Dr. Quinn on 09-02-2022 Hemoglobin (Bld) [Mass/Vol] 15.7 g/dL 13.0-16.5 [facility] Blood lymphocytes/100 leukoc ytesOrdered By: Dr. Quinn on 09-02-2022 Lymphocytes/100 WBC (Bld) 18.7 % 19-41 [facility] Blood monocytes/100 leukocyt esOrdered By: Dr. Quinn on 09-02-2022 Monocytes/100 WBC (Bld) 6.1 % 0-10 [facility] Blood platelet mean volumeOr dered By: Dr. Quinn on 09-02-2022 Platelet mean volume (Bld) [Entitic vol] 9.9 fL 6.2-12.0 [facility] Determination of erythrocyte mean corpuscular volume (MCV)Ordered By: Dr. Quinn on 09-02-2022 MCV (RBC) [Entitic vol] 110.2 fL 80-94 [facility] Hematocrit Auto (Bld) [Volum e fraction]Ordered By: Dr. Quinn on 09-02-2022 Hematocrit (Bld) [Volume fraction] 45.5 % 40-54 [facility] INR in Blood by Coagulation assayOrdered By: Dr. Quinn on 09-02-2022 INR Coag (Bld) [Relative time] 1.3 {INR} [facility] Ketones Test strip Ql (U)Ord ered By: Dr. Quinn on 09-02-2022 Ketones Ql (U) 5 mg/dl Negative [facility] - Chemistry and C hemistry - challengeOrdered By: Dr. Quinn on 09-02-2022 ALP [Catalytic activity/Vol] 247 U/L 45-117 [facility] ALT [Catalytic activity/Vol] 44 U/L 16-61 [facility] CO2 [Moles/Vol] 31.0 mmol/L 21.0-32.0 [facility] Globulin (S) [Mass/Vol] 4.0 g/dL 2.2-4.2 [facility] Lipase [Catalytic activity/Vol] 155 U/L 73-393 [facility] Urea nitrogen/Creatinine [Mass ratio] 8.0 mg/mg 10-20 [facility] - CoagulationOrde red By: Dr. Quinn on 09-02-2022 aPTT Coag (Bld) [Time] 33.5 s 24.1-36.2 [facility] PT Coag (PPP) [Time] 15.5 s 11.7-14.9 [facility] - Hematology and Cell countsOrdered By: Dr. Quinn on 09-02-2022 Erythrocyte distribution width (RBC) [Entitic vol] 59.4 fL 35.1-43.9 [facility] Erythrocyte distribution width (RBC) [Ratio] 14.6 % 11.6-14.6 [facility] Immature granulocytes/100 WBC (Bld) 0.400 % 0.0-0.9 [facility] Comment on above: IG% - Immature Granu locytes (promyelocytes, myelocytes and metamyelocytes) > 1% indicates that a LEFT SHIFT is Present. MCH (RBC) [Entitic mass] 38.0 pg 27.0-32.0 [facility] Nucleated RBC/100 WBC (Bld) [Ratio] 0 % 0-5 [facility] MCHC Auto (RBC) [Mass/Vol]Or dered By: Dr. Quinn on 09-02-2022 MCHC (RBC) [Mass/Vol] 34.5 g/dL 32-36 [place] Mucus LM Ql (Urine sed)Order ed By: Dr. Quinn on 09-02-2022 Mucus Ql (Urine sed) 2+ /hpf [facility] Nitrite Test strip Ql (U)Ord ered By: Dr. Quinn on 09-02-2022 Nitrite Ql (U) Positive Negative [facility] No Panel InformationOrdered By: Dr. Quinn on 09-02-2022 Estimated Creatinine Clearance Calc 128.82 ml/min [facility] Estimated GFR (MDRD) Amer 173 mL/min >60 [facility] Comment on above: GFR Calc Estimated GFR (MDRD) Non-Af Amer 143 mL/min >60 [facility] Comment on above: Non- GFR Calc Platelets bldOrdered By: Dr. Quinn on 09-02-2022 Platelets (Bld) [#/Vol] 215 10*3/uL 150-450 [facility] Protein Test strip Ql (U)Ord ered By: Dr. Quinn on 09-02-2022 Protein Ql (U) 30 mg/dl Negative [facility] Serum or plasma albumin lori urement (mass/volume)Ordered By: Dr. Quinn on 09-02-2022 Albumin [Mass/Vol] 2.8 g/dL 3.2-5.0 [facility] Serum or plasma albumin/glob ulin mass ratioOrdered By: Dr. Quinn on 09-02-2022 Albumin/Globulin [Mass ratio] 0.7 {ratio} 0.9-2.4 [facility] Serum or plasma calcium lori urement (mass/volume)Ordered By: Dr. Quinn on 09-02-2022 Calcium [Mass/Vol] 9.1 mg/dL 8.5-10.1 [facility] Serum or plasma creatinine m easurement (mass/volume)Ordered By: Dr. Quinn on 09-02-2022 Creatinine [Mass/Vol] 0.62 mg/dL 0.70-1.30 [facility] Comment on above: The validity of the calculated GFR & GFRAA in patients over 70 years has not been determined. Clinical correlation is essential. Serum or plasma urea nitroge n measurement (mass/volume)Ordered By: Dr. Quinn on 09-02-2022 Urea nitrogen [Mass/Vol] 5 mg/dL 7-18 [facility] Squamous epithelial cells de tection in urine sediment by light microscopyOrdered By: Dr. Quinn on 09-02-2022 Epithelial cells.squamous LM Ql (Urine sed) 0 SEEN /hpf 0-5 [facility] Thin prep Papanicolaou smear with manual screeningOrdered By: Dr. Quinn on 09-02-2022 Thin prep Papanicolaou smear with manual screening 128 U/L 15-37 [facility] Comment on above: Slight Hemolysis, Re sult may be falsely increased. Thin prep Papanicolaou smear with manual screening 5 5-15 [facility] Urine blood detectionOrdered By: Dr. Quinn on 09-02-2022 RBC Ql (U) 10 /ul Negative [facility] RBC Ql (U) 0-5 SEEN /hpf 0-5 [facility] Urine clarityOrdered By: Dr. Quinn on 09-02-2022 Clarity (U) Clear Clear [facility] Urine color determinationOrd ered By: Dr. Quinn on 09-02-2022 Color (U) Giulia Yellow [facility] Urine glucose detectionOrder ed By: Dr. Quinn on 09-02-2022 Glucose Ql (U) Normal mg/dl Normal [facility] Urine leukocyte esterase det ection by dipstickOrdered By: Dr. Quinn on 09-02-2022 Leukocyte esterase Test strip Ql (U) 100 /ul Negative [facility] Urine pHOrdered By: Dr. Quinn o n 09-02-2022 pH (U) 7.0 [pH] 5.0 - 8.0 [facility] Urine sediment bacteria coun t by microscopy (number/high power field)Ordered By: Dr. Quinn on 09-02-2022 Bacteria LM.HPF (Urine sed) [#/Area] 1 /[HPF] None Seen [facility] Urine specific gravity measu rementOrdered By: Dr. Quinn on 09-02-2022 Specific gravity (U) [Rel density] 1.010 1.002-1.030 [facility] Urobilinogen Auto test strip Ql (U)Ordered By: Dr. Quinn on 09-02-2022 Urobilinogen Ql (U) 12 mg/dl Normal [facility] Absolute lymphocyte counton 06-13-2022 Lymphocytes Auto (Unsp spec) [#/Vol] 0.46 10*3/uL 0.83-4.51 [facility] Work Phone: Basophil percentageon 2021 Basophils/100 WBC (Bld) 0.1 % 0-1 [facility] Work Phone: Bilirubin [Mass/Vol] 3.20 mg/dL 0.20-1.00 [facility] Work Phone: Comment on above: For patients on eltr ombopag therapy, use of Dimension [place] TBIL is not recommended. Chloride [Moles/Vol] 98 mmol/L 98-107 [facility] Work Phone: Eosinophils/100 WBC (Bld) 0.0 % 0-5 [facility] Work Phone: Glucose [Mass/Vol] 134 mg/dL 74-106 [facility] Work Phone: Comment on above: Fasting Glucose resu lt greater than or equal to 126 mg/dL suggests DIABETES MELLITUS per A.D.A. criteria. Neutrophils (Bld) [#/Vol] 13.5 10*3/uL 2.0-7.7 [facility] Work Phone: Neutrophils/100 WBC (Bld) 92.1 % 47-70 [facility] Work Phone: Potassium [Moles/Vol] 3.5 mmol/L 3.5-5.1 [facility] Work Phone: [phone] Protein [Mass/Vol] 7.4 g/dL 6.4-8.2 [facility] Work Phone: [phone] Sodium [Moles/Vol] 137 mmol/L 136-145 [facility] Work Phone: [phone] WBC (Bld) [#/Vol] 14.6 10*3/uL 4.4-11.0 [facility]: Blood erythrocytes count (nu mber/volume)on 06-13-2022 RBC (Bld) [#/Vol] 4.65 10*6/uL 4.6-6.2 [facility] Work Phone: Blood hemoglobin measurement (mass/volume)on 06-13-2022 Hemoglobin (Bld) [Mass/Vol] 16.9 g/dL 13.0-16.5 [facility] Work Phone: Blood lymphocytes/100 leukoc yteson 06-13-2022 Lymphocytes/100 WBC (Bld) 3.1 % 19-41 [facility] Work Phone: [phone] Blood monocytes/100 leukocyt eson 06-13-2022 Monocytes/100 WBC (Bld) 3.9 % 0-10 [facility] Work Phone: Blood platelet mean volumeon 06-13-2022 Platelet mean volume (Bld) [Entitic vol] 9.0 fL 6.2-12.0 [facility] Work Phone: Determination of erythrocyte mean corpuscular volume (MCV)on 06-13-2022 MCV (RBC) [Entitic vol] 104.9 fL 80-94 [facility] Work Phone: Hematocrit Auto (Bld) [Volum e fraction]on 06-13-2022 Hematocrit (Bld) [Volume fraction] 48.8 % 40-54 [facility] Work Phone: INR in Blood by Coagulation assayon 06-13-2022 INR Coag (Bld) [Relative time] 1.4 {INR} [facility] Work Phone: Laboratory - Chemistry and C hemistry - challengeon 06-13-2022 ALP [Catalytic activity/Vol] 117 U/L 45-117 [facility] Work Phone: ALT [Catalytic activity/Vol] 36 U/L 16-61 [facility] Work Phone: CO2 [Moles/Vol] 31.0 mmol/L 21.0-32.0 [facility] Work Phone: Globulin (S) [Mass/Vol] 3.6 g/dL 2.2-4.2 [facility] Work Phone: Urea nitrogen/Creatinine [Mass ratio] 11.8 mg/mg 10-20 [facility] Work Phone: Laboratory - Coagulationon 0 06-13-2022 PT Coag (PPP) [Time] 16.6 s 11.7-14.9 [facility]: Laboratory - Hematology and Cell countson 06-13-2022 Erythrocyte distribution width (RBC) [Entitic vol] 60.2 fL 35.1-43.9 [facility] Work Phone: Erythrocyte distribution width (RBC) [Ratio] 15.4 % 11.6-14.6 [facility] Work Phone: Immature granulocytes/100 WBC (Bld) 0.800 % 0.0-0.9 [facility] Work Phone: Comment on above: IG% - Immature Granu locytes (promyelocytes, myelocytes and metamyelocytes) > 1% indicates that a LEFT SHIFT is Present. MCH (RBC) [Entitic mass] 36.3 pg 27.0-32.0 [facility] Work Phone: Nucleated RBC/100 WBC (Bld) [Ratio] 0 % 0-5 [facility] Work Phone: MCHC Auto (RBC) [Mass/Vol]on 06-13-2022 MCHC (RBC) [Mass/Vol] 34.6 g/dL 32-36 [place] Work Phone: No Panel Informationon 06-13 Estimated GFR (MDRD) Amer 122 mL/min >60 [facility] Work Phone: Comment on above: GFR Calc Estimated GFR (MDRD) Non-Af Amer 101 mL/min >60 [facility] Work Phone: Comment on above: Non- GFR Calc Platelets bldon 06-13-2022 Platelets (Bld) [#/Vol] 162 10*3/uL 150-450 [facility] Work Phone: Serum or plasma albumin lori urement (mass/volume)on 06-13-2022 Albumin [Mass/Vol] 3.8 g/dL 3.2-5.0 [facility] Work Phone: Serum or plasma albumin/glob ulin mass ratioon 06-13-2022 Albumin/Globulin [Mass ratio] 1.1 {ratio} 0.9-2.4 [facility] Work Phone: Serum or plasma calcium lori urement (mass/volume)on 06-13-2022 Calcium [Mass/Vol] 9.2 mg/dL 8.5-10.1 [facility] Work Phone: Serum or plasma creatinine m easurement (mass/volume)on 06-13-2022 Creatinine [Mass/Vol] 0.84 mg/dL 0.70-1.30 [place] Work Phone: Comment on above: The validity of the calculated GFR & GFRAA in patients over 70 years has not been determined. Clinical correlation is essential. Serum or plasma urea nitroge n measurement (mass/volume)on 06-13-2022 Urea nitrogen [Mass/Vol] 10 mg/dL 7-18 [facility] Work Phone: Thin prep Papanicolaou smear with manual screeningon 06-13-2022 Thin prep Papanicolaou smear with manual screening 58 U/L 15-37 [facility] Work Phone: Thin prep Papanicolaou smear with manual screening 8 5-15 [facility] Work Phone: Absolute lymphocyte counton 05-02-2022 Lymphocytes Auto (Unsp spec) [#/Vol] 1.84 10*3/uL 0.83-4.51 [facility] Work Phone: Basophil percentageon 2021 Basophils/100 WBC (Bld) 0.7 % 0-1 [facility] Work Phone: Bilirubin [Mass/Vol] 2.70 mg/dL 0.20-1.00 [facility] Work Phone: Comment on above: For patients on eltr ombopag therapy, use of Dimension [place] TBIL is not recommended. Chloride [Moles/Vol] 97 mmol/L 98-107 [facility] Work Phone: Eosinophils/100 WBC (Bld) 0.1 % 0-5 [facility] Work Phone: Glucose [Mass/Vol] 117 mg/dL 74-106 [facility] Work Phone: Comment on above: Fasting Glucose resu lt from 100 to 125 mg/dL suggests IMPAIRED HOMEOSTASIS per A.D.A. criteria. Neutrophils (Bld) [#/Vol] 13.5 10*3/uL 2.0-7.7 [facility] Work Phone: Neutrophils/100 WBC (Bld) 81.5 % 47-70 [facility] Work Phone: Potassium [Moles/Vol] 3.9 mmol/L 3.5-5.1 [facility] Work Phone: Protein [Mass/Vol] 8.1 g/dL 6.4-8.2 [facility] Work [facility]: Sodium [Moles/Vol] 134 mmol/L 136-[address] [facility] [facility] Work Phone: WBC (Bld) [#/Vol] 16.6 10*3/uL 4.4-11.0 [facility] Work [facility]: Blood erythrocytes count (nu mber/volume)on 05-02-2022 RBC (Bld) [#/Vol] 4.10 10*6/uL 4.6-6.2 [facility] Work Phone: Blood hemoglobin measurement (mass/volume)on 05-02-2022 Hemoglobin (Bld) [Mass/Vol] 14.8 g/dL 13.0-16.5 [facility] Work Phone: Blood lymphocytes/100 leukoc yteson 05-02-2022 Lymphocytes/100 WBC (Bld) 11.1 % 19-41 [facility] Work Phone: Blood monocytes/100 leukocyt eson 05-02-2022 Monocytes/100 WBC (Bld) 6.2 % 0-10 [facility] Work Phone: Blood platelet mean volumeon 05-02-2022 Platelet mean volume (Bld) [Entitic vol] 9.5 fL 6.2-12.0 [facility] Work Phone: Determination of erythrocyte mean corpuscular volume (MCV)on 05-02-2022 MCV (RBC) [Entitic vol] 105.9 fL 80-94 [facility] Work Phone: Hematocrit Auto (Bld) [Volum e fraction]on 05-02-2022 Hematocrit (Bld) [Volume fraction] 43.4 % 40-54 [facility] Work Phone: INR in Blood by Coagulation assayon 05-02-2022 INR Coag (Bld) [Relative time] 1.3 {INR} [facility] Work Phone: Laboratory - Chemistry and C hemistry - challengeon 05-02-2022 ALP [Catalytic activity/Vol] 154 U/L 45-117 [facility] Work Phone: ALT [Catalytic activity/Vol] 34 U/L 16-61 [facility] Work Phone: CO2 [Moles/Vol] 28.0 mmol/L 21.0-32.0 [facility] Work Phone: Globulin (S) [Mass/Vol] 4.8 g/dL 2.2-4.2 [facility] Work Phone: Urea nitrogen/Creatinine [Mass ratio] 10.2 mg/mg 10-20 [facility] Work Phone: Laboratory - Coagulationon 0 05-02-2022 PT Coag (PPP) [Time] 15.5 s 11.7-14.9 [facility] Work Phone: Laboratory - Hematology and Cell countson 05-02-2022 Erythrocyte distribution width (RBC) [Entitic vol] 47.8 fL 35.1-43.9 [facility] Work Phone: Erythrocyte distribution width (RBC) [Ratio] 12.2 % 11.6-14.6 [facility] Work Phone: Immature granulocytes/100 WBC (Bld) 0.400 % 0.0-0.9 [facility] Work Phone: Comment on above: IG% - Immature Granu locytes (promyelocytes, myelocytes and metamyelocytes) > 1% indicates that a LEFT SHIFT is Present. MCH (RBC) [Entitic mass] 36.1 pg 27.0-32.0 [facility] Work Phone: Nucleated RBC/100 WBC (Bld) [Ratio] 0 % 0-5 [facility] Work Phone: MCHC Auto (RBC) [Mass/Vol]on 05-02-2022 MCHC (RBC) [Mass/Vol] 34.1 g/dL 32-36 [place] Work Phone: No Panel Informationon 05-02 Estimated GFR (MDRD) Amer 132 mL/min >60 [facility] Work Phone: Comment on above: GFR Calc Estimated GFR (MDRD) Non-Af Amer 109 mL/min >60 [facility] Work Phone: Comment on above: Non- GFR Calc Platelets bldon 05-02-2022 Platelets (Bld) [#/Vol] 338 10*3/uL 150-450 [facility] Work Phone: Serum or plasma albumin lori urement (mass/volume)on 05-02-2022 Albumin [Mass/Vol] 3.3 g/dL 3.2-5.0 [facility] Work Phone: Serum or plasma albumin/glob ulin mass ratioon 05-02-2022 Albumin/Globulin [Mass ratio] 0.7 {ratio} 0.9-2.4 [facility] Work Phone: Serum or plasma calcium lori urement (mass/volume)on 05-02-2022 Calcium [Mass/Vol] 9.9 mg/dL 8.5-10.1 [facility] Work Phone: Serum or plasma creatinine m easurement (mass/volume)on 05-02-2022 Creatinine [Mass/Vol] 0.79 mg/dL 0.70-1.30 [place] Work Phone: Comment on above: The validity of the calculated GFR & GFRAA in patients over 70 years has not been determined. Clinical correlation is essential. Serum or plasma urea nitroge n measurement (mass/volume)on 05-02-2022 Urea nitrogen [Mass/Vol] 8 mg/dL 7-18 [facility] Work Phone: Thin prep Papanicolaou smear with manual screeningon 05-02-2022 Thin prep Papanicolaou smear with manual screening 84 U/L 15-37 [facility] Work Phone: Thin prep Papanicolaou smear with manual screening 9 5-15 [facility] Work Phone: Whole blood hemoglobin A1c/t otal hemoglobin ratio (mass fraction)on 05-02-2022 HbA1c (Bld) [Mass fraction] 4.8 % 3.8-5.6 [facility] Work Phone: Comment on above: Normal < 5.7 % Predi abetic 5.7 - 6.4 % Diabetic >or= 6.5 % Please note range changes. Absolute lymphocyte counton 04-11-2022 Lymphocytes Auto (Unsp spec) [#/Vol] 1.64 10*3/uL 0.83-4.51 [facility] Work Phone: Basophil percentageon 2021 Basophils/100 WBC (Bld) 0.5 % 0-1 [facility] Work Phone: Bilirubin [Mass/Vol] 4.00 mg/dL 0.20-1.00 [facility] Work Phone: Comment on above: For patients on eltr ombopag therapy, use of Dimension [place] TBIL is not recommended. Chloride [Moles/Vol] 112 mmol/L 98-107 [facility] Work Phone: Eosinophils/100 WBC (Bld) 0.8 % 0-5 [facility] Work Phone: Glucose [Mass/Vol] 133 mg/dL 74-106 [facility] Work Phone: Comment on above: Fasting Glucose resu lt greater than or equal to 126 mg/dL suggests DIABETES MELLITUS per A.D.A. criteria. Neutrophils (Bld) [#/Vol] 12.5 10*3/uL 2.0-7.7 [facility] Work Phone: Neutrophils/100 WBC (Bld) 81.7 % 47-70 [facility] Work Phone: Potassium [Moles/Vol] 3.7 mmol/L 3.5-5.1 [facility] Work Phone: Protein [Mass/Vol] 6.0 g/dL 6.4-8.2 [facility] Work Phone: Sodium [Moles/Vol] 140 mmol/L 136-145 [facility] Work Phone: WBC (Bld) [#/Vol] 15.3 10*3/uL 4.4-11.0 [facility] Work Phone: Blood erythrocytes count (nu mber/volume)on 04-11-2022 RBC (Bld) [#/Vol] 3.38 10*6/uL 4.6-6.2 [facility] Work Phone: Blood hemoglobin measurement (mass/volume)on 04-11-2022 Hemoglobin (Bld) [Mass/Vol] 12.5 g/dL 13.0-16.5 [facility] Work Phone: Blood lymphocytes/100 leukoc yteson 04-11-2022 Lymphocytes/100 WBC (Bld) 10.8 % 19-41 [facility] Work Phone: Blood monocytes/100 leukocyt eson 04-11-2022 Monocytes/100 WBC (Bld) 5.6 % 0-10 [facility] Work Phone: Blood platelet mean volumeon 04-11-2022 Platelet mean volume (Bld) [Entitic vol] 9.4 fL 6.2-12.0 [facility] Work Phone: Determination of erythrocyte mean corpuscular volume (MCV)on 04-11-2022 MCV (RBC) [Entitic vol] 112.4 fL 80-94 [facility] Work Phone: Direct bilirubinon 2 Bilirubin.direct [Mass/Vol] 3.40 mg/dL 0.00-0.30 [facility] Work Phone: Hematocrit Auto (Bld) [Volum e fraction]on 04-11-2022 Hematocrit (Bld) [Volume fraction] 38.0 % 40-54 [facility] Work Phone: INR in Blood by Coagulation assayon 04-11-2022 INR Coag (Bld) [Relative time] 1.4 {INR} [facility] Work Phone: [phone] Laboratory - Chemistry and C hemistry - challengeon 04-11-2022 ALP [Catalytic activity/Vol] 144 U/L 45-117 [facility] Work Phone: [phone] ALT [Catalytic activity/Vol] 37 U/L 16-61 [facility] Work Phone: [phone] CO2 [Moles/Vol] 23.0 mmol/L 21.0-32.0 [facility] Work Phone: [phone] Globulin (S) [Mass/Vol] 3.8 g/dL 2.2-4.2 [facility] Work Phone: [phone] Lipase [Catalytic activity/Vol] 121 U/L 73-393 [facility] Work Phone: [phone] Urea nitrogen/Creatinine [Mass ratio] 13.6 mg/mg 10-20 [facility] Work Phone: Laboratory - Coagulationon 0 04-11-2022 aPTT Coag (Bld) [Time] 35.2 s 24.1-36.2 [facility] Work Phone: PT Coag (PPP) [Time] 16.7 s 11.7-14.[address] [facility] Work Phone: Laboratory - Hematology and Cell countson 04-11-2022 Erythrocyte distribution width (RBC) [Entitic vol] 52.3 fL 35.1-43.9 [facility] Work Phone: [phone] Erythrocyte distribution width (RBC) [Ratio] 12.6 % 11.6-14.6 [facility] Work Phone: Immature granulocytes/100 WBC (Bld) 0.600 % 0.0-0.9 [facility] Work Phone: Comment on above: IG% - Immature Granu locytes (promyelocytes, myelocytes and metamyelocytes) > 1% indicates that a LEFT SHIFT is Present. MCH (RBC) [Entitic mass] 37.0 pg 27.0-32.0 [facility] Work Phone: Nucleated RBC/100 WBC (Bld) [Ratio] 0 % 0-5 [facility] Work Phone: MCHC Auto (RBC) [Mass/Vol]on 04-11-2022 MCHC (RBC) [Mass/Vol] 32.9 g/dL 32-36 [place] Work Phone: No Panel Informationon 04-11 Estimated Creatinine Clearance Calc 121.02 ml/min [facility] Work Phone: Estimated GFR (MDRD) Amer 162 mL/min >60 [facility] Work Phone: Comment on above: GFR Calc Estimated GFR (MDRD) Non-Af Amer 134 mL/min >60 [facility] Work Phone: Comment on above: Non- GFR Calc Platelets bldon 04-11-2022 Platelets (Bld) [#/Vol] 372 10*3/uL 150-450 [facility] Work Phone: Serum or plasma albumin lori urement (mass/volume)on 04-11-2022 Albumin [Mass/Vol] 2.2 g/dL 3.2-5.0 [facility] Work Phone: Serum or plasma calcium lori urement (mass/volume)on 04-11-2022 Calcium [Mass/Vol] 8.6 mg/dL 8.5-10.1 [facility] Work Phone: Serum or plasma creatinine m easurement (mass/volume)on 04-11-2022 Creatinine [Mass/Vol] 0.66 mg/dL 0.70-1.30 [place] Work Phone: Comment on above: The validity of the calculated GFR & GFRAA in patients over 70 years has not been determined. Clinical correlation is essential. Serum or plasma urea nitroge n measurement (mass/volume)on 04-11-2022 Urea nitrogen [Mass/Vol] 9 mg/dL 7-18 [facility] Work Phone: Thin prep Papanicolaou smear with manual screeningon 04-11-2022 Thin prep Papanicolaou smear with manual screening 83 U/L 15-37 [facility] Work Phone: Thin prep Papanicolaou smear with manual screening 5 5-15 [facility] Work Phone: Absolute lymphocyte counton 03-11-2022 Lymphocytes Auto (Unsp spec) [#/Vol] 0.42 10*3/uL 0.83-4.51 [facility] Work Phone: Basophil percentageon 2021 Lactate [Moles/Vol] 3.2 mmol/L 0.4-2.0 [facility] Work Phone: Comment on above: Critical Result(s) C alled at: 13:48:41 03/11/2022 by: Amadeo Ramsey RN (ER). Results read back by same. Basophil percentage 0 SEEN /hpf 0-5 [facility] Work Phone: Ammonia (P) [Moles/Vol] 35.0 umol/L 11-32 [facility] Work Phone: Basophils/100 WBC (Bld) 0.4 % 0-1 [facility] Work Phone: Bilirubin [Mass/Vol] 20.40 mg/dL 0.20-1.00 [place] Work Phone: Comment on above: Critical Result(s) C alled at: 11:27:59 03/11/2022 by: Amadeo Jones to Epifanio BRYAN (ER). Results read back by same. For patients on eltrombopag therapy, use of Dimension [place] TBIL is not recommended. Chloride [Moles/Vol] 99 mmol/L 98-107 [facility] Work Phone: Eosinophils/100 WBC (Bld) 0.1 % 0-5 [facility] Work Phone: Glucose [Mass/Vol] 132 mg/dL 74-106 [facility] Work Phone: Comment on above: Fasting Glucose resu lt greater than or equal to 126 mg/dL suggests DIABETES MELLITUS per A.D.A. criteria. Neutrophils (Bld) [#/Vol] 11.7 10*3/uL 2.0-7.7 [facility] Work Phone: Neutrophils/100 WBC (Bld) 90.9 % 47-70 [facility] Work Phone: Potassium [Moles/Vol] 3.6 mmol/L 3.5-5.1 [place] Work Phone: Comment on above: Slight Hemolysis, Re sult may be falsely increased. Protein [Mass/Vol] 7.1 g/dL 6.4-8.2 [facility] Work Phone: Comment on above: Moderate Icterus, Re sult may be falsely decreased. Sodium [Moles/Vol] 134 mmol/L 136-145 [facility] Work Phone: WBC (Bld) [#/Vol] 12.9 10*3/uL 4.4-11.0 [facility] Work Phone: Bilirubin Test strip Ql (U)o n 03-11-2022 Bilirubin Ql (U) 6 mg/dL Negative [facility] Work Phone: Comment on above: COLOR OF URINE MAY A FFECT DIPSTICK RESULTS. Blood erythrocytes count (nu mber/volume)on 03-11-2022 RBC (Bld) [#/Vol] 3.58 10*6/uL 4.6-6.2 [facility] Work [facility]: Blood hemoglobin measurement (mass/volume)on 03-11-2022 Hemoglobin (Bld) [Mass/Vol] 13.1 g/dL 13.0-16.5 [facility] Work Phone: Blood lymphocytes/100 leukoc yteson 03-11-2022 Lymphocytes/100 WBC (Bld) 3.3 % 19-41 [facility] Work Phone: Blood monocytes/100 leukocyt eson 03-11-2022 Monocytes/100 WBC (Bld) 4.8 % 0-10 [facility] Work Phone: Blood platelet mean volumeon 03-11-2022 Platelet mean volume (Bld) [Entitic vol] 10.9 fL 6.2-12.0 [facility] Work Phone: Determination of erythrocyte mean corpuscular volume (MCV)on 03-11-2022 MCV (RBC) [Entitic vol] 106.1 fL 80-94 [facility] Work Phone: Direct bilirubinon 2 Bilirubin.direct [Mass/Vol] 15.56 mg/dL 0.00-0.30 [facility] Work Phone: Hematocrit Auto (Bld) [Volum e fraction]on 03-11-2022 Hematocrit (Bld) [Volume fraction] 38.0 % 40-54 [facility] Work Phone: INR in Blood by Coagulation assayon 03-11-2022 INR Coag (Bld) [Relative time] 1.4 {INR} [facility] Work Phone: Ketones Test strip Ql (U)on 03-11-2022 Ketones Ql (U) 5 mg/dl Negative [facility] Work Phone: Laboratory - Chemistry and C hemistry - challengeon 03-11-2022 ALP [Catalytic activity/Vol] 291 U/L 45-117 [facility] Work Phone: ALT [Catalytic activity/Vol] 53 U/L 16-61 [facility] Work Phone: CO2 [Moles/Vol] 23.0 mmol/L 21.0-32.0 [facility] Work Phone: Globulin (S) [Mass/Vol] 4.4 g/dL 2.2-4.2 [facility] Work Phone: Lipase [Catalytic activity/Vol] 159 U/L 73-393 [facility] Work Phone: [phone] Urea nitrogen/Creatinine [Mass ratio] 11.2 mg/mg 10-20 [facility] Work Phone: Laboratory - Coagulationon 0 03-11-2022 PT Coag (PPP) [Time] 17.1 s 11.7-14.9 [facility] Work Phone: Laboratory - Hematology and Cell countson 03-11-2022 Erythrocyte distribution width (RBC) [Entitic vol] 67.8 fL 35.1-43.9 [facility] Work Phone: Erythrocyte distribution width (RBC) [Ratio] 17.7 % 11.6-14.6 [facility] Work Phone: Immature granulocytes/100 WBC (Bld) 0.500 % 0.0-0.9 [facility] Work Phone: Comment on above: IG% - Immature Granu locytes (promyelocytes, myelocytes and metamyelocytes) > 1% indicates that a LEFT SHIFT is Present. MCH (RBC) [Entitic mass] 36.6 pg 27.0-32.0 [facility] Work Phone: Nucleated RBC/100 WBC (Bld) [Ratio] 0 % 0-5 [facility] Work Phone: MCHC Auto (RBC) [Mass/Vol]on 03-11-2022 MCHC (RBC) [Mass/Vol] 34.5 g/dL 32-36 [facility] Work Phone: Mucus LM Ql (Urine sed)on Mucus Ql (Urine sed) 0 SEEN /hpf [place] Work Phone: Nitrite Test strip Ql (U)on 03-11-2022 Nitrite Ql (U) Negative Negative [facility] Work Phone: No Panel Informationon 03-11 Ethyl Alcohol Level < 3.0 mg/dL [facility] Work Phone: Comment on above: The serum:whole bloo d ethanol ratio is approximately 1.14and varies slightly with hematocrit. Medical Alcohol reference interval and critical value innon-tolerant individuals; 50 - 100 Impairment 100 Intoxication 100 - 250 Severe Poisoning 250 - 400 Deep/possible fatal coma Estimated Creatinine Clearance Calc 112.49 ml/min [facility] Work Phone: Estimated GFR (MDRD) Amer 148 mL/min >60 [facility] Work Phone: Comment on above: GFR Calc Estimated GFR (MDRD) Non-Af Amer 122 mL/min >60 [facility] Work Phone: Comment on above: Non- GFR Calc Troponin I High Sensitivity 3 pg/mL 3.0-78.0 [facility] Work Phone: Comment on above: Please Note: New [place] t Units and Gender Specific Reference Ranges. For more information see Policy Stat Procedure [place] High Sensitivity Troponin (TNIH) and attachments. Platelets bldon 03-11-2022 Platelets (Bld) [#/Vol] 260 10*3/uL 150-450 [facility] Work Phone: Protein Test strip Ql (U)on 03-11-2022 Protein Ql (U) 15 mg/dl Negative [facility] Work Phone: Serum or plasma albumin lori urement (mass/volume)on 03-11-2022 Albumin [Mass/Vol] 2.7 g/dL 3.2-5.0 [facility] Work Phone: Serum or plasma calcium lori urement (mass/volume)on 03-11-2022 Calcium [Mass/Vol] 9.2 mg/dL 8.5-10.1 [facility] Work Phone: Serum or plasma creatinine m easurement (mass/volume)on 03-11-2022 Creatinine [Mass/Vol] 0.71 mg/dL 0.70-1.30 [place] Work Phone: Comment on above: Moderate Icterus, Re sult may be falsely decreased.The validity of the calculated GFR & GFRAA in patients over 70 years has not been determined. Clinical correlation is essential. Serum or plasma urea nitroge n measurement (mass/volume)on 03-11-2022 Urea nitrogen [Mass/Vol] 8 mg/dL 7-18 [facility] Work Phone: Squamous epithelial cells de tection in urine sediment by light microscopyon 03-11-2022 Epithelial cells.squamous LM Ql (Urine sed) 0-5 SEEN /hpf 0-5 [facility] Work Phone: Thin prep Papanicolaou smear with manual screeningon 03-11-2022 Thin prep Papanicolaou smear with manual screening 235 U/L 15-37 [facility] Work Phone: Comment on above: Slight Hemolysis, Re sult may be falsely increased. Thin prep Papanicolaou smear with manual screening 12 5-15 [facility] Work Phone: Thin prep Papanicolaou smear with manual screening 338 U/L 87-241 [facility] Work Phone: Comment on above: Slight Hemolysis, Re sult may be falsely increased. Urine blood detectionon - RBC Ql (U) 25 /ul Negative [facility] Work Phone: RBC Ql (U) 0 SEEN /hpf 0-5 [facility] Work Phone: Urine clarityon 03-11-2022 Clarity (U) Sl. Cloudy Clear [facility] Work Phone: Urine color determinationon 03-11-2022 Color (U) Giulia Yellow [facility] Work Phone: Urine glucose detectionon Glucose Ql (U) Normal mg/dl Normal [facility] Work Phone: Urine leukocyte esterase det ection by dipstickon 03-11-2022 Leukocyte esterase Test strip Ql (U) 25 /ul Negative [facility] Work Phone: Urine pHon 03-11-2022 pH (U) 8.0 [pH] 5.0 - 8.0 [facility] Work Phone: Urine sediment bacteria coun t by microscopy (number/high power field)on 03-11-2022 Bacteria LM.HPF (Urine sed) [#/Area] 0 /[HPF] None Seen [facility] Work Phone: Urine specific gravity measu rementon 03-11-2022 Specific gravity (U) [Rel density] 1.010 1.002-1.030 [facility] Work Phone: Urobilinogen Auto test strip Ql (U)on 03-11-2022 Urobilinogen Ql (U) 8 mg/dl Normal [facility] Work Phone: Absolute lymphocyte counton 03-09-2022 Lymphocytes Auto (Unsp spec) [#/Vol] 0.99 10*3/uL 0.83-4.51 [facility] Work Phone: Basophil percentageon 2021 Basophil percentage 0-5 SEEN /hpf 0-5 [facility] Work Phone: Basophils/100 WBC (Bld) 0.8 % 0-1 [facility] Work Phone: Bilirubin [Mass/Vol] 14.00 mg/dL 0.20-1.00 [place] Work Phone: Comment on above: For patients on eltr ombopag therapy, use of Dimension [place] TBIL is not recommended. Chloride [Moles/Vol] 101 mmol/L 98-107 [facility] Work Phone: Eosinophils/100 WBC (Bld) 0.1 % 0-5 [facility] Work Phone: Glucose [Mass/Vol] 102 mg/dL 74-106 [facility] Work Phone: Comment on above: Fasting Glucose resu lt from 100 to 125 mg/dL suggests IMPAIRED HOMEOSTASIS per A.D.A. criteria. Neutrophils (Bld) [#/Vol] 8.7 10*3/uL 2.0-7.7 [facility] Work Phone: Neutrophils/100 WBC (Bld) 81.8 % 47-70 [facility] Work Phone: Potassium [Moles/Vol] 2.9 mmol/L 3.5-5.1 [place] Work Phone: Protein [Mass/Vol] 7.0 g/dL 6.4-8.2 [facility] Work Phone: Comment on above: Moderate Icterus, Re sult may be falsely decreased. Sodium [Moles/Vol] 138 mmol/L 136-145 [facility] Work Phone: WBC (Bld) [#/Vol] 10.7 10*3/uL 4.4-11.0 [facility] Work Phone: Bilirubin Test strip Ql (U)o n 03-09-2022 Bilirubin Ql (U) 6 mg/dL Negative [facility] Work Phone: Comment on above: COLOR OF URINE MAY A FFECT DIPSTICK RESULTS. Blood erythrocytes count (nu mber/volume)on 03-09-2022 RBC (Bld) [#/Vol] 3.25 10*6/uL 4.6-6.2 [facility] Work Phone: Blood hemoglobin measurement (mass/volume)on 03-09-2022 Hemoglobin (Bld) [Mass/Vol] 12.1 g/dL 13.0-16.5 [facility] Work Phone: Blood lymphocytes/100 leukoc yteson 03-09-2022 Lymphocytes/100 WBC (Bld) 9.3 % 19-41 [facility] Work Phone: Blood monocytes/100 leukocyt eson 03-09-2022 Monocytes/100 WBC (Bld) 7.3 % 0-10 [facility] Work Phone: Blood platelet mean volumeon 03-09-2022 Platelet mean volume (Bld) [Entitic vol] 11.0 fL 6.2-12.0 [facility] Work Phone: Determination of erythrocyte mean corpuscular volume (MCV)on 03-09-2022 MCV (RBC) [Entitic vol] 104.6 fL 80-94 [facility] Work Phone: Direct bilirubinon 2 Bilirubin.direct [Mass/Vol] 10.82 mg/dL 0.00-0.30 [facility] Work Phone: Hematocrit Auto (Bld) [Volum e fraction]on 03-09-2022 Hematocrit (Bld) [Volume fraction] 34.0 % 40-54 [facility] Work Phone: Ketones Test strip Ql (U)on 03-09-2022 Ketones Ql (U) 5 mg/dl Negative [facility] Work Phone: Laboratory - Chemistry and C hemistry - challengeon 03-09-2022 ALP [Catalytic activity/Vol] 306 U/L 45-117 [facility] Work Phone: ALT [Catalytic activity/Vol] 61 U/L 16-61 [facility] Work Phone: CO2 [Moles/Vol] 28.0 mmol/L 21.0-32.0 [facility] Work Phone: Globulin (S) [Mass/Vol] 4.3 g/dL 2.2-4.2 [facility] Work Phone: Lipase [Catalytic activity/Vol] 202 U/L 73-393 [facility] Work Phone: Urea nitrogen/Creatinine [Mass ratio] 11.2 mg/mg 10-20 [facility] Work Phone: Laboratory - Hematology and Cell countson 03-09-2022 Anisocytosis Ql (Bld) 1+ [place] Work Phone: Erythrocyte distribution width (RBC) [Entitic vol] 71.5 fL 35.1-43.9 [facility] Work Phone: Erythrocyte distribution width (RBC) [Ratio] 18.7 % 11.6-14.6 [facility] Work Phone: Immature granulocytes/100 WBC (Bld) 0.700 % 0.0-0.9 [facility] Work Phone: Comment on above: IG% - Immature Granu locytes (promyelocytes, myelocytes and metamyelocytes) > 1% indicates that a LEFT SHIFT is Present. MCH (RBC) [Entitic mass] 37.2 pg 27.0-32.0 [facility] Work Phone: Nucleated RBC/100 WBC (Bld) [Ratio] 0.3 % 0-5 [facility] Work Phone: MCHC Auto (RBC) [Mass/Vol]on 03-09-2022 MCHC (RBC) [Mass/Vol] 35.6 g/dL 32-36 [place] Work Phone: Mucus LM Ql (Urine sed)on Mucus Ql (Urine sed) 0 SEEN /hpf [place] Work Phone: Nitrite Test strip Ql (U)on 03-09-2022 Nitrite Ql (U) Negative Negative [facility] Work Phone: No Panel Informationon 03-09 Hepatitis A IgM Antibody Negative Negative [facility] Work Phone: Hepatitis B Core IgM Antibody Negative Negative [facility] Work Phone: Hepatitis C Antibody (EIA) <0.1 s/co ratio 0.0-0.9 [facility] Work Phone: Hepatitis C Antibody Comment Comment . [facility] Work Phone: Comment on above: NegativeNot infected with HCV, unless recent infection issuspected or other evidence exists to indicate HCVinfection.Performed at: [facility] [employer] [id number] Director: Remberto King PhD, Phone: [phone] Estimated Creatinine Clearance Calc 175.21 ml/min [facility] Work Phone: Estimated GFR (MDRD) Amer 256 mL/min >60 [facility] Work Phone: Comment on above: GFR Calc Estimated GFR (MDRD) Non-Af Amer 211 mL/min >60 [facility] Work Phone: Comment on above: Non- GFR Calc Ethyl Alcohol Level 215.0 mg/dL [facility] Work Phone: Comment on above: The serum:whole bloo d ethanol ratio is approximately 1.14and varies slightly with hematocrit. Medical Alcohol reference interval and critical value innon-tolerant individuals; 50 - 100 Impairment 100 Intoxication 100 - 250 Severe Poisoning 250 - 400 Deep/possible fatal coma Platelets bldon 03-09-2022 Platelets (Bld) [#/Vol] 223 10*3/uL 150-450 [facility] Work Phone: Protein Test strip Ql (U)on 03-09-2022 Protein Ql (U) 30 mg/dl Negative [facility] Work Phone: Serum or plasma albumin lori urement (mass/volume)on 03-09-2022 Albumin [Mass/Vol] 2.7 g/dL 3.2-5.0 [facility] Work Phone: Serum or plasma calcium lori urement (mass/volume)on 03-09-2022 Calcium [Mass/Vol] 8.6 mg/dL 8.5-10.1 [facility] Work Phone: Serum or plasma creatinine m easurement (mass/volume)on 03-09-2022 Creatinine [Mass/Vol] 0.44 mg/dL 0.70-1.30 [place] Work Phone: Comment on above: Moderate Icterus, Re sult may be falsely decreased.The validity of the calculated GFR & GFRAA in patients over 70 years has not been determined. Clinical correlation is essential. Serum or plasma hepatitis B virus surface antigen detection by immunoassayon 03-09-2022 HBV surface Ag IA Ql Negative Negative [facility] Work Phone: Serum or plasma urea nitroge n measurement (mass/volume)on 03-09-2022 Urea nitrogen [Mass/Vol] 5 mg/dL - [facility] Work Phone: Squamous epithelial cells de tection in urine sediment by light microscopyon 03-09-2022 Epithelial cells.squamous LM Ql (Urine sed) 0 SEEN /hpf 0-5 [facility] Work Phone: Thin prep Papanicolaou smear with manual screeningon 03-09-2022 Thin prep Papanicolaou smear with manual screening 307 U/L 15-37 [facility] Work Phone: Thin prep Papanicolaou smear with manual screening 9 5-15 [facility] Work Phone: Urine blood detectionon 02-20 RBC Ql (U) 50 /ul Negative [facility] Work Phone: RBC Ql (U) 0 SEEN /hpf 0-5 [facility] Work Phone: Urine clarityon 03-09-2022 Clarity (U) Clear Clear [facility] Work Phone: Urine color determinationon 03-09-2022 Color (U) Giulia Yellow [facility] Work Phone: Urine glucose detectionon Glucose Ql (U) Normal mg/dl Normal [facility] Work Phone: Urine leukocyte esterase det ection by dipstickon 03-09-2022 Leukocyte esterase Test strip Ql (U) 25 /ul Negative [facility] Work Phone: Urine pHon 03-09-2022 pH (U) 6.5 [pH] 5.0 - 8.0 [facility] Work Phone: Urine sediment bacteria coun t by microscopy (number/high power field)on 03-09-2022 Bacteria LM.HPF (Urine sed) [#/Area] 0 /[HPF] None Seen [facility] Work Phone: Urine specific gravity measu rementon 03-09-2022 Specific gravity (U) [Rel density] 1.015 1.002-1.030 [facility] Work Phone: Urobilinogen Auto test strip Ql (U)on 03-09-2022 Urobilinogen Ql (U) 12 mg/dl Normal [facility] Work Phone: Vital Signs Date Time Vital Sign Value Performing Clinician Faci lity 10-24-2023 15:24-0500 Heart rate 82 /min [facility] 10-24-2023 15:23-0500 Respiratory rate 16 /min [facility] 10-24-2023 15:23-0500 SaO2% (BldA) [Mass fraction] 99 % [facility] 10-24-2023 12:20-0500 Body height 170.18 cm [facility] 10-24-2023 12:20-0500 Body mass index (BMI) [Ratio] 29 kg/m2 [facility] 10-24-2023 12:20-0500 Body temperature 97.2 [degF] [facility] 10-24-2023 12:20-0500 Body weight 84.2 kg [facility] 10-24-2023 12:20-0500 Diastolic blood pressure 108 mm[Hg] [facility] 10-24-2023 12:20-0500 Systolic blood pressure 160 mm[Hg] [facility] 12-29-2022 12:29-0500 Diastolic blood pressure 93 mm[Hg] [facility] 12-29-2022 12:29-0500 Heart rate 84 /min [facility] 12-29-2022 12:29-0500 Respiratory rate 18 /min [facility] 12-29-2022 12:29-0500 SaO2% (BldA) [Mass fraction] 95 % [facility] 12-29-2022 12:29-0500 Systolic blood pressure 151 mm[Hg] [facility] 12-29-2022 07:14-0500 Body height 170.18 cm [facility] 12-29-2022 07:14-0500 Body mass index (BMI) [Ratio] 29.5 kg/m2 [facility] 12-29-2022 07:14-0500 Body temperature 98.2 [degF] [facility] 12-29-2022 07:14-0500 Body weight 85.6 kg [facility] 09-02-2022 15:07-0500 Diastolic blood pressure 87 mm[Hg] Dr. Shreyas Montejo Work Phone: [facility] 09-02-2022 15:07-0500 Heart rate 101 /min Dr. Shreyas Montejo Work Phone: [facility] 09-02-2022 15:07-0500 Respiratory rate 18 /min Dr. Shreyas Montejo Work Phone: [facility] 09-02-2022 15:07-0500 SaO2% (BldA) [Mass fraction] 98 % Dr. Pritchett Friend Work Phone: [facility] 09-02-2022 15:07-0500 Systolic blood pressure 120 mm[Hg] Dr. Shreyas Montejo Work Phone: [facility] 09-02-2022 10:05-0500 Body height 170.[address] Shreyas Montejo Work Phone: [facility] Work Phone: 09-02-2022 10:05-0500 Body mass index (BMI) [Ratio] 29.5 kg/m2 Dr. Pritchett Friend Work Phone: [facility] 09-02-2022 10:05-0500 Body temperature 97.9 [degF] Dr. Shreyas Montejo Work Phone: [facility] 09-02-2022 10:05-0500 Body weight 85.[address] Shreyas Montejo Work Phone: [facility] 06-13-2022 10:39-0400 Diastolic blood pressure 90 mm[Hg] Dr. Shreyas Montejo Work Phone: [facility] Work Phone: 06-13-2022 10:39-0400 Systolic blood pressure 160 mm[Hg] Dr. Shreyas Montejo Work Phone: [facility] Work Phone: 06-13-2022 10:13-0400 Body height 170.[address] Shreyas Montejo Work Phone: [facility] Work Phone: 06-13-2022 10:13-0400 Body mass index (BMI) [Ratio] 27.6 kg/m2 Dr. Shreyas Montejo Work Phone: [facility] Work Phone: 06-13-2022 10:13-0400 Body weight 79.[address] Shreyas Montejo Work Phone: [facility] Work Phone: 06-13-2022 10:13-0400 Heart rate 104 /min Dr. Shreyas Montejo Work Phone: [facility] Work Phone: 06-13-2022 10:13-0400 SaO2% (BldA) [Mass fraction] 93 % Dr. Shreyas Montejo Work Phone: [facility] Work Phone: 05-02-2022 09:15-0400 Body height 170.[address] Shreyas Montejo Work Phone: [facility] Work Phone: 05-02-2022 09:15-0400 Body mass index (BMI) [Ratio] 26.2 kg/m2 Dr. Shreyas Montejo Work Phone: [facility] Work Phone: 05-02-2022 09:15-0400 Body weight 75.[address] Shreyas Montejo Work Phone: [facility] Work Phone: 05-02-2022 09:15-0400 Diastolic blood pressure 98 mm[Hg] Dr. Shreyas Montejo Work Phone: [facility] Work Phone: 05-02-2022 09:15-0400 Heart rate 120 /min Dr. Shreyas Montejo Work Phone: [facility] Work Phone: 05-02-2022 09:15-0400 SaO2% (BldA) [Mass fraction] 94 % Dr. Shreyas Montejo Work Phone: [facility] Work Phone: 05-02-2022 09:15-0400 Systolic blood pressure 154 mm[Hg] Dr. Shreyas Montejo Work Phone: [facility] Work Phone: 04-11-2022 14:35-0400 Heart rate 64 /min [facility] Work Phone: 04-11-2022 14:35-0400 Respiratory rate 20 /min [facility] Work Phone: 04-11-2022 14:35-0400 SaO2% (BldA) [Mass fraction] 97 % [facility] Work Phone: 04-11-2022 13:26-0400 Diastolic blood pressure 91 mm[Hg] [facility] Work Phone: 04-11-2022 13:26-0400 Systolic blood pressure 143 mm[Hg] [facility] Work Phone: 04-11-2022 10:27-0400 Body height 170.18 cm [facility] Work Phone: 04-11-2022 10:27-0400 Body mass index (BMI) [Ratio] 29.1 kg/m2 [facility] Work Phone: 04-11-2022 10:27-0400 Body temperature 97.7 [degF] [facility] Work Phone: 04-11-2022 10:270400 Body weight 84.36 kg [facility] Work Phone: 03-11-2022 16:09-0400 Respiratory rate 18 /min [facility] Work Phone: 03-11-2022 16:00-0400 Diastolic blood pressure 101 mm[Hg] [facility] Work Phone: 03-11-2022 16:00-0400 Heart rate 101 /min [facility] Work Phone: 03-11-2022 16:00-0400 SaO2% (BldA) [Mass fraction] 94 % [facility] Work Phone: 03-11-2022 16:00-0400 Systolic blood pressure 158 mm[Hg] [facility] Work Phone: 03-11-2022 10:31-0400 Body height 170.18 cm [facility] Work Phone: 03-11-2022 10:31-0400 Body mass index (BMI) [Ratio] 26.7 kg/m2 [facility] Work Phone: 03-11-2022 10:31-0400 Body temperature 96.3 [degF] [facility] Work Phone: 03-11-2022 10:31-0400 Body weight 77.56 kg [facility] Work Phone: 03-09-2022 13:53-0400 Diastolic blood pressure 74 mm[Hg] [facility] Work Phone: 03-09-2022 13:53-0400 Heart rate 72 /min [facility] Work Phone: 03-09-2022 13:53-0400 Respiratory rate 16 /min [facility] Work Phone: 03-09-2022 13:53-0400 SaO2% (BldA) [Mass fraction] 98 % [facility] Work Phone: 03-09-2022 13:53-0400 Systolic blood pressure 149 mm[Hg] [facility] Work Phone: 03-09-2022 12:40-0400 Body height 167.64 cm [facility] Work Phone: 03-09-2022 12:40-0400 Body mass index (BMI) [Ratio] 37.9 kg/m2 [facility] Work Phone: 03-09-2022 12:40-0400 Body weight 106.59 kg [facility] Work Phone: 03-09-2022 10:55-0400 Body temperature 97.7 [degF] [facility] Work Phone: Encounters Encounter Date Encounter Type Care Provider Facility Start: 10-24-2023 End: 10-24-2023 Emergency department patient visit Manjit Lozano Facility:[facility] Start: 10-24-2023 End: 10-24-2023 Emergency department patient visit [facility] Work Phone: Start: 12-29-2022 End: 12-29-2022 Emergency department patient visit No Primary Care Physician Facility:[facility] Start: 12-29-2022 End: 12-29-2022 Emergency department patient visit [facility] Start: 09-02-2022 End: 09-02-2022 Emergency department patient visit Dr. Shreyas Montejo Work Phone: [facility] Start: 07-21-2022 End: 07-21-[address] Shreyas Montejo Work Phone: [facility] Work Phone: Start: 07-21-2022 End: 07-21-[address] Shreyas Montejo Work Phone: [facility], [facility] Start: 06-13-2022 End: 06-13-[address] Shreyas Montejo Work Phone: [facility] Work Phone: Start: 06-13-2022 End: 06-13-[address] Shreyas Montejo Work Phone: [facility] Start: 05-02-2022 End: 05-02-[address] Shreyas Montejo Work Phone: [facility] Start: 05-02-2022 End: 05-02-[address] Shreyas Montejo Work Phone: [facility] Start: 04-11-2022 End: 04-11-2022 Emergency department patient visit [facility] Start: 03-11-2022 End: 03-11-2022 Emergency department patient visit [facility] Start: 03-09-2022 End: 03-09-2022 Emergency department patient visit [facility] Procedures Date Procedure Procedure Detail Performing Clinician Start: 10-24-2023 Computed tomography of abdomen and pelvis with intravenous contrast Start: 10-24-2023 Ultrasound of scrotu m with Doppler and color flow imaging Start: 12-29-2022 Computed tomography of abdomen and pelvis with intravenous contrast Start: 12-29-2022 Plain chest X-ray Start: 09-02-2022 CT of abdomen and pe lvis without contrast Dr. Shreyas Montejo Work Phone: Start: 07-21-[address] Shreyas Montejo Work Phone: Start: 04-11-2022 Plain chest X-ray Start: 04-11-[address] Edouard garay Friend Work Phone: Start: 03-11-2022 Computed tomography of abdomen and pelvis with intravenous contrast Measurement of occul t blood in stool specimen using immunoassay Urine culture Plan of Treatment Date Care Activity Detail Author Start: 10-24-2023 [facility] Start: 10-24-2023 [facility] Start: 10-24-2023 Bacteria identified in Urine by Culture Urine Culture [facility] Start: 12-29-2022 [facility] Start: 09-02-2022 [facility] Work Phone: Start: 04-11-2022 Abdom paracentesis dx/ther w/imaging guidance ABD PARACENTESIS W/IMAGING [facility] Work Phone: Start: 04-11-2022 [facility] Work Phone: Bacteria identified in Urine by Culture Urine Culture [facility] Lactic acid measurement [facility] Patient Education [facility] Work Phone: Patient referral [facility] Work Phone: Payers Date Payer Category Payer Self-pay [id number] 2022 Unknown [id number] Unknown [id number] Unknown [id number] Social History Date Type Detail Facility Start: 03-09-2022 End: 10-24-2023 Tobacco smoking status NHIS Unknown if ever smoked [facility] Start: 1970 Sex Assigned At Male [facility] Mental Status Date Assessment Result Facility 04-11-2022 Cognitive function Level Of Cons ciousness Awake;Alert;Appropriate [facility] Work Phone: 04-11-2022 Cognitive function Level Of Cons ciousness Awake;Alert;Appropriate;Follow s Commands [facility] Work Phone: 03-11-2022 Cognitive function Level Of Cons ciousness Awake;Alert;Appropriate;Follow s Commands [facility] Work Phone: 03-09-2022 Cognitive function Level Of Cons ciousness Awake;Alert;Appropriate;Follow s Commands [facility] Work Phone: Discharge summary 10-24-2023 Note Date & Type Note Facility 10-24-2023 Discharge summary Note Date/Time October 24, 2023 2:20pm [facility] Medical Records Department [address] [place] [address] Emergency Department Summary 10/24/23 MR#: [id number] Acct: [id number] Name: QUENTIN ALLISON Rep #:[id number] : 1970 52 From: Manjit Lozano MD PCP: Care Physician,No Primary Status :REG ER Location: ED HPI History of Present Illness Chief Complaint: Male Pain/Injury Narrative Narrative: Patient comes in with a couple complaints. He has had a lump on his right scrotum for several years. But he thinks it is growing. Occasionally it hurts but not always. He has had some pain in his right lower quadrant for about 3 or4 days but he has had it for a few years but it is now worse. He cannot think of anything that caused it. He has no history of hernia. He has had some episodes of vomiting but no diarrhea. He is urinating just normally. No odor. No change in color. No difficulty starting or stopping stream. No trauma. He denies prior abdominal surgery. Most of his complaints are at least 3 years oldbut they have worsened just recently. Patient also has a history of alcoholic cirrhosis. But he has not drank in several years. He has slowly weaned himself off all his medicines. He did thiswith consultation with Dr. Montejo. He states he has been doing very well with that. [facility] Medical History Abdominal ascites Alcoholic cirrhosis Cirrhosis of liver Home Medications cephalexin 500 mg capsule 500 mg PO Q12 #14 CAPSULES 12/29/22 [Rx Last Taken Unknown] furosemide 20 mg tablet (Lasix) 20 mg PO BID fluid 12/29/22 [History Last Taken 4 Months Ago ~08/31/22] methyl salicylate-menthol topical ointment 1 ea topical QHS shoulder pain 12/29/22 [History Last Taken 12/28/22] liwkziyp-np-ahtir 300 mcg-K 60 mcg-lycop 600 mcg-lutein 300 mcg tablet (Centrum Silver Men) 1 tab PO DAILY health maintenance 12/29/22 [History Last Taken 12/29/22] ondansetron 4 mg disintegrating tablet 4 mg PO Q8H PRN PRN Nausea #10 tabs 12/29/22 [Rx Last Taken Unknown] pantoprazole 20 mg tablet,delayed release (Protonix) 20 mg PO BID #14 tabs 12/29/22 [Rx Last Taken Unknown] spironolactone 25 mg tablet (Aldactone) 25 mg PO BID blood pressure 12/29/22 [History Last Taken 4 Months Ago ~08/31/22] Allergy/AdvReac Type Severity Reaction Status Date / Time No Known Allergies Allergy Verified 10/24/23 12:20 Social History Smoking Status: Heavy Smoker (>10/day) details: Patient is 32 days sober ROS ROS ED ROS Narrative A complete review of systems was performed and is negative except as documented in the history of present illness. Some specific details below. Constitutional: No recent fevers or chills. No malaise EYE: No change in color. ENT: No difficulty swallowing. No swelling. No pain. CV: No chest pain or palpitations. Respiratory: No dyspnea. No hemoptysis. No difficulty taking breaths. GI: Please see history of present illness. : No frequency dysuria or hematuria. See history of present illness also. Musculoskeletal: No recent trauma. No pains. Skin: No rash. Nondiaphoretic. Neuro: No weakness or numbness. Endocrine: No polyuria or polydipsia. EXAM Physical Exam Narrative Exam Narrative: CONSTITUTIONAL: Patient is nontoxic in appearance. The patient looks comfortable. HEENT: No notable trauma. Mucous membranes moist. EYES: No icterus CARDIOVASCULAR: Regular rate. Regular rhythm. No notable murmur. No JVD. RESPIRATORY: No respiratory distress. Breathing is unlabored. No wheezes. No rhonchi. No rales. No pain with a deep breath. GASTROINTESTINAL: Not distended. Bowel sounds are normal. Very minimal tenderness down toward the right lower quadrant. But no rebound or guarding. Iwas surprised I do not feel a hernia at all. Even with standing coughing and straining. GENITOURINARY: No tenderness over the bladder. No CVA tenderness. Patient does have a swollen area on the really the scrotum on the right. It is about 1-1/2 x2-1/2 cm. It is not red or inflamed though. It feels as though there could be a cystic structure there. He states it has grown over the last years. MUSCULOSKELETAL: Atraumatic. No tenderness. NEUROLOGICAL: Patient is alert and appropriate. No focal deficit noted. SKIN: No noted rashes. No diaphoresis. PSYCHIATRIC: Patient is calm. Mood is appropriate. Const Vital Signs: 10/24/23 12:20 Temperature 97.2 F L Temperature Source Temporal Pulse Rate 109 H Respiratory Rate 16 Blood Pressure 160/108 H Blood Pressure Mean 125 Pulse Ox 98 Oxygen Delivery Method Room Air MDM MDM MDM Narrative Medical decision making narrative: My independent interpretation patient's CT of the abdomen does not show signs ofacute appendicitis or obstruction. I see no intra-abdominal mass. I can see the density in the scrotum area on the right though. Radiology does note the ovoid right extratesticular mass. There are concern for malignancy. Recommend ultrasound which is pending. Patient's CBC is overall normal. Patient's electrolytes show no marked abnormalities. Glucose is minimally up at131. Patient's total bili is up at 2.5. But for him this is lower His urinalysis is clean. Patient's testicular ultrasound shows complex fluid filled mass. Recommend biopsy or excision. I talked with this about the patient. He will contact Dr. Pugh's office in the morning. Will let them know he was in the emergency department and he has amass that needs evaluation. If he has further pain urinary symptoms or anythingelse he needs to return. If he is not able to get into the office he should return here. He can also see his private physician. Lab Data Attestation: I reviewed the patient's lab results. Labs: Laboratory Results - last 24 hr 10/24/23 10/24/23 13:27 14:10 WBC 6.7 RBC 3.94 L Hgb 13.9 Hct 41.1 MCV 104.3 H MCH 35.3 H MCHC 33.8 RDW Std Deviation 51.4 H RDW Coeff of Moses 13.3 Plt Count 121 L MPV 10.8 Immature Gran % (Auto) 0.500 Neut % (Auto) 62.3 Lymph % (Auto) 24.8 Walker % (Auto) 8.0 Eos % (Auto) 3.3 Baso % (Auto) 1.1 H Absolute Neuts (auto) 4.2 Absolute Lymphs (auto) 1.65 Nucleated RBC % 0 Sodium 138 Potassium 3.7 Chloride 110 H Carbon Dioxide 24.0 Anion Gap 4 L BUN 7 Creatinine 0.65 L Estim Creat Clear Calc 121.47 Est GFR (MDRD) Af Amer 165 Est GFR (MDRD) Non-Af 137 BUN/Creatinine Ratio 10.8 Glucose 131 H Calcium 9.7 Total Bilirubin 2.50 H AST 50 H ALT 28 Alkaline Phosphatase 101 Total Protein 7.0 Albumin 3.3 Globulin 3.7 Albumin/Globulin Ratio 0.9 Urine Color Yellow Urine Clarity Clear Urine pH 6.0 Ur Specific [place] 1.015 Urine Protein 30 H Urine Glucose (UA) Normal Urine Ketones Negative Urine Occult Blood 150 H Urine Nitrite Negative Urine Bilirubin 1 H Urine Urobilinogen 8 H Ur Leukocyte Esterase 25 H Urine RBC 0-5 SEEN Urine WBC 0 SEEN Ur Squamous Epith Cells 0 SEEN Urine Bacteria 0 SEEN Urine Mucus 0 SEEN Radiography Diagnostic Testing: Clinical Impression(s) from Imaging Studies Abdomen/Pelvis CT 10/24/23 13:11 IMPRESSION: 1. 4.1 cm ovoid right extratesticular mass is present and can be further evaluated with testicular ultrasound and evaluation by urology, as this is concerning for a malignancy. Electronically Signed: Phil Celeste MD at 14:43 EST Reading Location ID and State: [facility] / [place] , Service support , Testicular Ultrasound 10/24/23 13:11 IMPRESSION: Right scrotal mass concerning for malignancy. 1. Lobular debris-filled complex fluid mass in the anterolateral aspect of the right scrotal sac outside of the testicle corresponds to the mass seen on the CT exam. In the central aspect of this lesion is a thick walled septum and some lobular soft tissue components that demonstrates mild vascular flow. Refer to urology for further assessment and treatment options. Definitive diagnosis can be achieved through tissue sampling and pathology department evaluation. Electronically Signed: Phil Celeste MD at 14:51 EST Reading Location ID and State: [facility] / [place] , Service support , Discharge Plan Triage Chief Complaint: Male Pain/Injury ED Provider: Manjit Lozano Dx/Rx/DC Orders Clinical Impression: Mass of scrotum, Abdominal pain Instructions: ED Tumor, Uncertain Cause Prescriptions: No Action Centrum Silver Men 300-600-300 mcg Tablet 1 tab PO DAILY BenGay Ointment 1 ea TOPICAL QHS spironolactone [Aldactone] 25 mg tablet 25 mg PO BID furosemide [Lasix] 20 mg tablet 20 mg PO BID ondansetron 4 mg tablet,disintegrating 4 mg PO Q8H PRN PRN (Reason: Nausea) Qty: 10 0RF pantoprazole [Protonix] 20 mg tablet,delayed release (DR/EC) 20 mg PO BID Qty: 14 0RF cephalexin 500 mg capsule 500 mg PO Q12 Qty: 14 0RF Primary Care Provider: Care Physician,No Primary Referrals: Wilber Espinoza MD [Med Staff - Active Staff] - As soon as possible (Call office in the morning for close follow-up. Tell them you are in the emergency department and have a mass that needs further evaluation.) Care Physician,No Primary [Primary Care Provider] - Disposition Disposition: Home, Self Care What to do if you have Problems For any increased pain, shortness of breath, bleeding, nausea or vomiting, chestpain, or any unexpected problems, contact your Primary Care Provider. Call [facility] ([phone]) or report to the closest Emergency Room. Call 911 if necessary. 10/24/23 [id number] <Electronically signed by Manjit Lozano MD> Cosigner Signature (if applicable): CC: No Primary Care Physician ~ Signed [facility] Work Phone: Evaluation note Note Date & Type Note Facility Evaluation note No assessment information availa ble [facility] Work Phone: Evaluation note Note Date & Type Note Facility Evaluation note Diagnosis Onset Date Abdominal ascites acute Alcoholic hepatitis acute Hepatomegaly acute [facility] Work Phone: Evaluation note Note Date & Type Note Facility Evaluation note Diagnosis Onset Date Abdominal ascites acute Alcoholic hepatitis acute Hepatomegaly acute Alcoholic hepatitis acute [facility] Work Phone: Evaluation note Note Date & Type Note Facility Evaluation note Diagnosis Onset Date Alcoholic hepatitis acute [facility] Work Phone: Hospital Discharge instructions Note Date & Type Note Facility Hospital Discharge instructions Additional Instructions Take antibiotic as prescribed. Follow-up with Dr. Montejo as scheduled in 1 week. Return if any worsening symptoms. [facility] Work Phone: Hospital Discharge instructions Note Date & Type Note Facility Hospital Discharge instructions Additional Instructions Drink lots of fluids. Avoid alcohol at all costs. If you start throwing up andrzej blood, having dark black stools or have worsening symptoms please return to the emergency room. [facility] Work Phone: Advance Directives No Advanced Directives Records Found Advance Directive Response Recorded Date/ Time Living Will No March 09, 2022 1 2:21pm Power of Cable Rep[employer]r No March 09, 2022 12:21pm Advance Directive Response Recorded Date/ Time Living Will No March 11, 2022 1 0:50am Power of Cable Rep[employer] No March 11, 2022 10:50am Advance Directive Response Recorded Date/ Time Living Will No April 11, 2022 11:12am Power of Cable [employer] No April 11 11:12am Advance Directive Response Recorded Date/ Time Living Will No September 02 022 10:15am Power of Cable Rep[employer]r No September 02, 2022 10:15am Advance Directive Response Recorded Date/ Time Living Will No December 29, 2022 7:58am Power of Cable Rep[employer]r No December 29 3 7:58am Advance Directive Response Recorded Date/ Time Living Will No October 24 4 1:02pm Power of Cable Rep[employer]r No October 24 024 1:02pm Chief Complaint and Reason for Visit Chief Complaint jaundice, abd pain, fatigue Chief Complaint jaundice, abd pain, fatigue SWELLING Chief Complaint jaundice, abd pain, fatigue SWELLING ER FU LIVER E-ORDER Reason for Visit Abdominal ascites Alcoholic hepatitis Hepatomegaly Chief Complaint jaundice, abd pain, fatigue SWELLING ER FU LIVER E-ORDER 6 wk fu E ORDERS Reason for Visit Abdominal ascites Alcoholic hepatitis Hepatomegaly Alcoholic hepatitis Chief Complaint SWELLING ER FU LIVER E-ORDER 6 wk fu E ORDERS ALCHOLIC CIRRHOSIS Reason for Visit Abdominal ascites Alcoholic hepatitis Hepatomegaly Alcoholic hepatitis Chief Complaint 6 wk fu E ORDERS ALCHOLIC CIRRHOSIS ABD PAIN Reason for Visit Alcoholic hepatitis Chief Complaint ABD PAIN ABD PAIN Chief Complaint TESTICLE Summary Purpose Family History No Family History Records Found Additional Source Comments Goals (unrecognized section and content) Goals may be documented in a n alternate sectionGoals may be documented in an alternate sectionGoals may be documented in an alternate sectionGoals may be documented in an alternate sectionGoals may be documented in an alternate sectionGoals may be documented in an alternate sectionGoals may be documented in an alternate sectionGoals may be documented in an alternate sectionGoals may be documented in an alternate section Care Teams (unrecognized sec tion and content) Team Status: Active Member Role Status Dates No Primary Care Physician Primary Care Provider Active Team Status: Inactive Member Role Status Dates No Primary Care Physician Primary Care Provider Active Dr. Noe Quinn DO Attending Provider, Emergency Provide r Active Team Status: Inactive Member Role Status Dates No Primary Care Physician Primary Care Provider Active Dr. Latrice Jurado , Emergency Provider Active Team Status: Inactive Member Role Status Dates No Primary Care Physician Primary Care Provider Active Dr. Manjit Lozano MD Emergency Provider Active (unrecognized sect ion and content) No Status Records Found INFORMATION SOURCE (unrecogn ized section and content) DATE CREATED AUTHOR 12/23/2023 [facility] FOR RECORDS PERTAINING TO PATIENTS WHO ARE OR HAVE BEEN ENROLLED IN A CHEMICAL DEPENDENCY/SUBSTANCEABUSE PROGRAM, SOME INFORMATION MAY BE OMITTED. This clinical summary was aggregated from multiple sources. Caution should be exercised in using it in the provision of clinical care. This summary normalizes information from multiple sources, and as a consequence, information in this document may materially change the coding, format and clinical context of patient data. In addition, data may be omitted in some cases. CLINICAL DECISIONS SHOULD BE BASED ON THE PRIMARY CLINICAL RECORDS. [facility] [employer] [facility] provides no warranty or guarantee of the accuracy or completeness of information in this document.
--- OUTSIDE RECORDS SUMMARY | 2025-05-31 15:40 | XMS RPT_ITS | CCD ---
Author Organization [facility] Care Team Providers Care Paper Bundler Name Role Phone Friend, Dr. Pritchett Primary Care Provider Friend, Dr. Pritchett Referring Provider Miguel DORADO, SPORTS EQUIPMENT RACKERAgustinC Nilda Eller Attending Provider Manjit Lozano Attending Unavailable Care Physician, No [...] TIMES A DAY September 02, 2022 12:00am Qjacjpuf-Tzh-Za-Lyco pen-Lutein (Centrum Silver Men) 300-600-300 mcg Tablet (1 source) Start: 12-29-2022 take 300-600 tablets by mouth once daily Gwmmntwb-Qok-Dc-Ly copen-Lutein (Centrum Silver Men) 300-600-300 mcg Tablet Active 1 TABLET PO DAILY December 29, 2022 12:00am Zg-Hix-Msutn-K1-Lyco pen-Lutein (Centrum Silver Men) 300-600-300 mcg Tablet (1 source) Start: 12-29-2022 take 300-600 tablets by mouth once daily Me-Xpg-Jryzo-K1-Ly copen-Lutein (Centrum Silver Men) 300-600-300 mcg Tablet [...] 10-25-2023 [facility] Culture exhibits no growth. Normal [facility] Comment on above: Performed By: #### M 100.2200 #### [facility] [address] [place], [address] Abdomen/Pelvis W IV Cont ONL Yon 10-24-2023 Abdomen/Pelvis W IV Cont ONLY [facility] Imaging Services [address] [place] [address] Abdomen/Pelvis W IV Cont ONLY MR#: [id number] Acct: [id number] Name: QUENTIN ALLISON Rep #: [id number] : 1970 M 52 From: Phil powell MD PCP: Care Physician,No Primary Status: REG ER Study: Abdomen/Pelvis W IV Cont ONLY Date of Exam: Exam# [id number] Ordering Dr: Manjit Lozano MD -[id number] STUDY: CT ABDOMEN AND PELVIS WITH [...] 14:43 EST Reading Location ID and State: [facility] / [place] , Service support , CC: Dr. Manjit Lozano MD; No Primary Care Physician Public Transportation Inspector: Signed Normal [facility] Absolute lymphocyte countOrd ered By: Manjit Lozano on 10-24-2023 Lymphocytes Auto (Unsp spec) [#/Vol] 1.65 10*3/uL 0.83-4.51 [facility] Basophil percentageOrdered B y: Manjit Lozano on 10-24-2023 Basophil percentage 0 SEEN /hpf 0-5 [facility] Basophils/100 WBC (Bld) 1.1 % 0-1 [facility] Bilirubin [Mass/Vol] 2.50 mg/dL 0.20-1.00 [facility] Comment on above: For patients on eltr ombopag therapy, use of Dimension [place] TBIL is not recommended. Chloride [Moles/Vol] 110 mmol/L 98-107 [facility] Eosinophils/100 WBC (Bld) 3.3 % 0-5 [facility] Glucose [Mass/Vol] 131 mg/dL 74-106 [facility] Comment on above: Fasting Glucose resu lt greater than or equal to 126 mg/dL suggests DIABETES MELLITUS per A.D.A. criteria. Neutrophils (Bld) [#/Vol] 4.2 10*3/uL 2.0-7.7 [facility] Neutrophils/100 WBC (Bld) 62.3 % 47-70 [facility] Potassium [Moles/Vol] 3.7 mmol/L 3.5-5.1 [facility] Protein [Mass/Vol] 7.0 g/dL 6.4-8.2 [facility] Sodium [Moles/Vol] 138 mmol/L 136-145 [facility] WBC (Bld) [#/Vol] 6.7 10*3/uL 4.4-11.0 [facility] Bilirubin Test strip Ql (U)O rdered By: Manjit Lozano on 10-24-2023 Bilirubin Ql (U) 1 mg/dL Negative [facility] Comment on above: COLOR OF URINE MAY A FFECT DIPSTICK RESULTS. Blood erythrocytes count (nu mber/volume)Ordered By: Manjit Lozano on 10-24-2023 RBC (Bld) [#/Vol] 3.94 10*6/uL 4.6-6.2 [facility] Blood hemoglobin measurement (mass/volume)Ordered By: Manjit Lozano on 10-24-2023 Hemoglobin (Bld) [Mass/Vol] 13.9 g/dL 13.0-16.5 [facility] Blood lymphocytes/100 leukoc ytesOrdered By: Manjit Lozano on 10-24-2023 Lymphocytes/100 WBC (Bld) 24.8 % 19-41 [facility] Blood monocytes/100 leukocyt esOrdered By: Manjit Lozano on 10-24-2023 Monocytes/100 WBC (Bld) 8.0 % 0-10 [facility] Blood platelet mean volumeOr dered By: Manjit Lozano on 10-24-2023 Platelet mean volume (Bld) [Entitic vol] 10.8 fL 6.2-12.0 [facility] CBC W/Diff, Automatedon Absolute Lymph 1.65 X10 3/uL Normal 0.83-4.51 [facility] Comment on above: Performed By: #### M 100.2200 #### [facility] [address] [place], [address] Absolute Neut 4.2 X10 3/uL Normal 2.0-7.7 [facility] Comment on above: Performed By: #### M 100.2200 #### [facility] [address] [place], [address] Basophils/100 WBC (Bld) 1.1 % High 0-1 [facility] Comment on above: Performed By: #### M 100.2200 #### [facility] [address] [place], [address] Eosinophils/100 WBC (Bld) 3.3 % Normal 0-5 [facility] Comment on above: Performed By: #### M 100.2200 #### [facility] [address] [place], [address] Erythrocyte distribution width (RBC) [Ratio] 13.3 % Normal 11.6-14.6 [facility] Comment on above: Performed By: #### M 100.2200 #### [facility] [address] [place], [address] Hematocrit (Bld) [Volume fraction] 41.1 % Normal 40-54 [facility] Comment on above: Performed By: #### M 100.2200 #### [facility] [address] [place], [address] Hemoglobin (Bld) [Mass/Vol] 13.9 g/dL Normal 13.0-16.5 [facility] Comment on above: Performed By: #### M 100.2200 #### [facility] [address] [place], [address] IG% 0.500 Normal 0.0-0.9 [facility] Comment on above: Result Comment: IG% - Immature Granulocytes (promyelocytes, myelocytes and metamyelocytes) > 1% indicates that a LEFT SHIFT is Present. Performed By: #### M 100.2200 #### [facility] [address] [place], [address] Lymphocytes/100 WBC (Bld) 24.8 % Normal 19-41 [facility] Comment on above: Performed By: #### M 100.2200 #### [facility] [address] [place], [address] MCH (RBC) [Entitic mass] 35.3 pg High 27.0-32.0 [facility] Comment on above: Performed By: #### M 100.2200 #### [facility] [address] [place], [address] MCHC (RBC) [Mass/Vol] 33.8 g/dL Normal 32-36 [facility] Comment on above: Performed By: #### M 100.2200 #### [facility] [address] [place], [address] MCV (RBC) [Entitic vol] 104.3 fL High 80-94 [facility] Comment on above: Performed By: #### M 100.2200 #### [facility] [address] [place], [address] Monocytes/100 WBC (Bld) 8.0 % Normal 0-10 [facility] Comment on above: Performed By: #### M 100.2200 #### [facility] [address] [place], [address] Neutrophils/100 WBC (Bld) 62.3 % Normal 47-70 [facility] Comment on above: Performed By: #### M 100.2199 #### [facility] [address] [place] [place], [address] Nucleated RBC (Bld) [#/Vol] 0 10*3/uL Normal 0-5 [facility] Comment on above: Performed By: #### M 100.2199 #### [facility] [address] [place], [address] Platelet mean volume (Bld) [Entitic vol] 10.8 fL Normal 6.2-12.0 [facility] Comment on above: Performed By: #### M 100.2199 #### [facility] [address] [place], [address] Platelets (Bld) [#/Vol] 121 10*3/uL Low 150-450 [facility] Comment on above: Performed By: #### M 100.2199 #### [facility] [address] [place] [place], [address] RBC (Bld) [#/Vol] 3.94 10*6/uL Low 4.6-6.2 [facility] Comment on above: Performed By: #### M 100.2199 #### [facility] [address] [place] [place], [address] RDW SD 51.4 fl High 35.1-43.9 [facility] Comment on above: Performed By: #### M 100.0 #### [facility] [address] [place], [address] WBC (Bld) [#/Vol] 6.7 10*3/uL Normal 4.4-11.0 [facility] Comment on above: Performed By: #### M 100.2199 #### [facility] [address] [place], [address] Comprehensive Metabolic Prof ilon 10-24-2023 Albumin [Mass/Vol] 3.3 g/dL Normal 3.2-5.0 [facility] Comment on above: Performed By: #### M 100.2200 #### [facility] [address] [place], [address] Albumin/Globulin [Mass ratio] 0.9 {ratio} Normal 0.9-2.4 [facility] Comment on above: Performed By: #### M 100.2200 #### [facility] [address] [place] [place], [address] ALK P 101 U/L Normal 45-117 [facility] Comment on above: Performed By: #### M 100.2200 #### [facility] [address] [place], [address] ALT [Catalytic activity/Vol] 28 U/L Normal 16-61 [facility] Comment on above: Performed By: #### M 100.2200 #### [facility] [address] [place], [address] AST [Catalytic activity/Vol] 50 U/L High 15-37 [facility] Comment on above: Performed By: #### M 100.2200 #### [facility] [address] [place] [place], [address] Bilirubin [Mass/Vol] 2.50 mg/dL High 0.20-1.00 [facility] Comment on above: Result Comment: For patients on eltrombopag therapy, use of Dimension [place] TBIL is not recommended. Performed By: #### M 100.2200 #### [facility] [address] [place], [address] BUN/CRE 10.8 RATIO Normal 10-20 [facility] Comment on above: Performed By: #### M 100.2200 #### [facility] [address] [place], [address] CA,Total 9.7 mg/dL Normal 8.5-10.1 [facility] Comment on above: Performed By: #### M 100.0 #### [facility] [address] [place] [place], [address] Chloride [Moles/Vol] 110 mmol/L High 98-107 [facility] Comment on above: Performed By: #### M 100.220 #### [facility] [address] [place], [address] CO2 [Moles/Vol] 24.0 mmol/L Normal 21.0-32.0 [facility] Comment on above: Performed By: #### M 100.2199 #### [facility] [address] [place], [address] Creatinine [Mass/Vol] 0.65 mg/dL Low 0.70-1.30 [facility] Comment on above: Result Comment: The validity of the calculated GFR GFRAA in patients over 70 years has not been determined. Clinical correlation is essential. Performed By: #### M 100.2199 #### [facility] [address] [place] [place], [address] ECRCL 121.47 ml/min Normal [facility] Comment on above: Performed By: #### M 100.2200 #### [facility] [address] [place] [place], [address] EST GFR - AA 165 mL/min Normal >60 [facility] Comment on above: Result Comment: Afri can Cuban GFR Calc Performed By: #### M 100.2200 #### [facility] [address] [place], [address] GAP 4 Low 5-15 [facility] Comment on above: Performed By: #### M 100.2200 #### [facility] [address] [place], [address] GFR/1.73 sq M.predicted among non-blacks MDRD (S/P/Bld) [Vol rate/Area] 137 mL/min/{1.73_m2} Normal >60 [facility] Comment on above: Result Comment: Non- GFR Calc Performed By: #### M 100.2200 #### [facility] [address] [place], [address] Globulin (S) [Mass/Vol] 3.7 g/dL Normal 2.2-4.2 [facility] Comment on above: Performed By: #### M 100.2200 #### [facility] [address] [place] [place], [address] Glucose [Mass/Vol] 131 mg/dL High 74-106 [facility] Comment on above: Result Comment: Fast ing Glucose result greater than or equal to 126 mg/dL suggests DIABETES MELLITUS per A.D.A. criteria. Performed By: #### M 100.2200 #### [facility] [address] [place] [place], [address] Potassium [Moles/Vol] 3.7 mmol/L Normal 3.5-5.1 [facility] Comment on above: Performed By: #### M 100.2200 #### [facility] [address] [place], [address] Sodium [Moles/Vol] 138 mmol/L Normal 136-145 [facility] Comment on above: Performed By: #### M 100.2200 #### [facility] [address] [place] [place], [address] T PROT 7.0 g/dL Normal 6.4-8.2 [facility] Comment on above: Performed By: #### M 100.2200 #### [facility] [address] [place] [place], [address] Urea nitrogen [Mass/Vol] 7 mg/dL Normal 7-18 [facility] Comment on above: Performed By: #### M 100.8247 #### [facility] [address] [place], [place], [address] Determination of erythrocyte mean corpuscular volume (MCV)Ordered By: Manjit Lozano on 10-24-2023 MCV (RBC) [Entitic vol] 104.3 fL 80-94 [facility] Emergency Department Summary on 10-24-2023 Emergency Department Summary [facility] Medical Records Department [address] [place] [address] Emergency Department Summary 10/24/23 MR#: [id number] Acct: [id number] Name: QUENTIN ALLISON Rep #: [id number] : 1970 52 From: Manjit Lozano MD [...] has been doing very well with that. [facility] Medical History Abdominal ascites Alcoholic cirrhosis Cirrhosis of liver Home Medications cephalexin 500 mg capsule 500 mg PO Q12 #14 CAPSULES 12/29/22 [Rx Last Taken Unknown] furosemide 20 mg tablet (Lasix) 20 mg PO BID fluid 12/29/22 [History Last Taken 4 Months Ago 08/31/22] methyl salicylate-menthol topical ointment 1 ea topical QHS shoulder pain 12/29/22 [History Last Taken 12/28/22] cjayoifb-ct-svxzt 300 mcg-K 60 mcg-lycop 600 mcg-lutein 300 [...] or obst (more content not included)... Normal [facility] Hematocrit Auto (Bld) [Volum e fraction]Ordered By: Manjit Lozano on 10-24-2023 Hematocrit (Bld) [Volume fraction] 41.1 % 40-54 [facility] Ketones Test strip Ql (U)Ord ered By: Manjit Lozano on 10-24-2023 Ketones Ql (U) Negative Negative [facility] - Chemistry and C hemistry - challengeOrdered By: Manjit Lozano on 10-24-2023 ALP [Catalytic activity/Vol] 101 U/L 45-117 [facility] ALT [Catalytic activity/Vol] 28 U/L 16-61 [facility] CO2 [Moles/Vol] 24.0 mmol/L 21.0-32.0 [facility] Globulin (S) [Mass/Vol] 3.7 g/dL 2.2-4.2 [facility] Urea nitrogen/Creatinine [Mass ratio] 10.8 mg/mg 10-20 [facility] - Hematology and Cell countsOrdered By: Manjit Lozano on 10-24-2023 Erythrocyte distribution width (RBC) [Entitic vol] 51.4 fL 35.1-43.9 [facility] Erythrocyte distribution width (RBC) [Ratio] 13.3 % 11.6-14.6 [facility] Immature granulocytes/100 WBC (Bld) 0.500 % 0.0-0.9 [facility] Comment on above: IG% - Immature Granu locytes (promyelocytes, myelocytes and metamyelocytes) > 1% indicates that a LEFT SHIFT is Present. MCH (RBC) [Entitic mass] 35.3 pg 27.0-32.0 [facility] Nucleated RBC/100 WBC (Bld) [Ratio] 0 % 0-5 [facility] MCHC Auto (RBC) [Mass/Vol]Or dered By: Manjit Lozano on 10-24-2023 MCHC (RBC) [Mass/Vol] 33.8 g/dL 32-36 [facility] Mucus LM Ql (Urine sed)Order ed By: Manjit Lozano on 10-24-2023 Mucus Ql (Urine sed) 0 SEEN /hpf [facility] Nitrite Test strip Ql (U)Ord ered By: Manjit Lozano on 10-24-2023 Nitrite Ql (U) Negative Negative [facility] No Panel InformationOrdered By: Manjit Lozano on 10-24-2023 Estimated Creatinine Clearance Calc 121.47 ml/min [facility] Estimated GFR (MDRD) Amer 165 mL/min >60 [facility] Comment on above: GFR Calc Estimated GFR (MDRD) Non-Af Amer 137 mL/min >60 [facility] Comment on above: Non- GFR Calc Platelets bldOrdered By: Carol Lozano on 10-24-2023 Platelets (Bld) [#/Vol] 121 10*3/uL 150-450 [facility] Protein Test strip Ql (U)Ord ered By: Manjit Lozano on 10-24-2023 Protein Ql (U) 30 mg/dl Negative [facility] Serum or plasma albumin lori urement (mass/volume)Ordered By: Manjit Lozano on 10-24-2023 Albumin [Mass/Vol] 3.3 g/dL 3.2-5.0 [facility] Serum or plasma albumin/glob ulin mass ratioOrdered By: Manjit Lozano on 10-24-2023 Albumin/Globulin [Mass ratio] 0.9 {ratio} 0.9-2.4 [facility] Serum or plasma calcium lori urement (mass/volume)Ordered By: Manjit Lozano on 10-24-2023 Calcium [Mass/Vol] 9.7 mg/dL 8.5-10.1 [facility] Serum or plasma creatinine m easurement (mass/volume)Ordered By: Manjit Lozano on 10-24-2023 Creatinine [Mass/Vol] 0.65 mg/dL 0.70-1.30 [facility] Comment on above: The validity of the calculated GFR & GFRAA in patients over 70 years has not been determined. Clinical correlation is essential. Serum or plasma urea nitroge n measurement (mass/volume)Ordered By: Manjit Lozano on 10-24-2023 Urea nitrogen [Mass/Vol] 7 mg/dL 7-18 [facility] Squamous epithelial cells de tection in urine sediment by light microscopyOrdered By: Manjit Lozano on 10-24-2023 Epithelial cells.squamous LM Ql (Urine sed) 0 SEEN /hpf 0-5 [facility] Testicular with Arterial Demetri won 10-24-2023 Testicular with Arterial Flow [facility] Imaging Services [address] [place] [address] Testicular with Arterial Flow MR#: [id number] Acct: [id number] Name: QUENTIN ALLISON Rep #: [id number] : 1970 M 52 From: Phil powell MD PCP: Care Physician,No Primary Status: REG ER Study: Testicular with Arterial Flow Date of Exam: Exam# [id number] Ordering Dr: Manjit Lozano MD -[id number] STUDY: SCROTUM ULTRASOUND REASON FOR EXAM: [...] 14:51 EST Reading Location ID and State: [facility] / [place] , Service support , CC: Dr. Manjit Lozano MD; No Primary Care Physician Public Transportation Inspector: Signed Normal [facility] Thin prep Papanicolaou smear with manual screeningOrdered By: Manjit Lozano on 10-24-2023 Thin prep Papanicolaou smear with manual screening 50 U/L 15-37 [facility] Thin prep Papanicolaou smear with manual screening 4 5-15 [facility] Urinalysis, Completeon 10-24 RBC 0-5 SEEN Normal 0-5 [facility] Comment on above: Order Comment: CLEAN CATCH Performed By: #### M 100.2200 #### [facility] [address] [place], [address] BACTERIA 0 SEEN Normal None Seen [facility] Comment on above: Order Comment: CLEAN CATCH Performed By: #### M 100.2200 #### [facility] [address] [place], [address] EPI,SQUAMOUS 0 SEEN Normal 0-5 [facility] Comment on above: Order Comment: CLEAN CATCH Performed By: #### M 100.2200 #### [facility] [address] [place], [address] Mucus Ql (Urine sed) 0 SEEN Normal [facility] Comment on above: Order Comment: CLEAN CATCH Performed By: #### M 100.2200 #### [facility] [address] [place], [address] WBC 0 SEEN Normal 0-5 [facility] Comment on above: Order Comment: CLEAN CATCH Performed By: #### M 100.2200 #### [facility] [address] [place], [address] Urine blood detectionOrdered By: Manjit Lozano on 10-24-2023 RBC Ql (U) 150 /ul Negative [facility] RBC Ql (U) 0-5 SEEN /hpf 0-5 [facility] Urine clarityOrdered By: Carol Lozano on 10-24-2023 Clarity (U) Clear Clear [facility] Urine color determinationOrd ered By: Manjit Lozano on 10-24-2023 Color (U) Yellow Yellow [facility] Urine glucose detectionOrder ed By: Manjit Lozano on 10-24-2023 Glucose Ql (U) Normal mg/dl Normal [facility] Urine leukocyte esterase det ection by dipstickOrdered By: Manjit Lozano on 10-24-2023 Leukocyte esterase Test strip Ql (U) 25 /ul Negative [facility] Urine pHOrdered By: Manjit delacruz on 10-24-2023 pH (U) 6.0 [pH] 5.0 - 8.0 [facility] Urine sediment bacteria coun t by microscopy (number/high power field)Ordered By: Manjit Lozano on 10-24-2023 Bacteria LM.HPF (Urine sed) [#/Area] 0 /[HPF] None Seen [facility] Urine specific gravity measu rementOrdered By: Manjit Lozano on 10-24-2023 Specific gravity (U) [Rel density] 1.015 1.002-1.030 [facility] Urobilinogen Auto test strip Ql (U)Ordered By: Manjit Lozano on 10-24-2023 Urobilinogen Ql (U) 8 mg/dl Normal [facility] Urine Cultureon 12-30-2022 [facility] Culture exhibits no growth. Normal [facility] Comment on above: Performed By: #### M 100.1000 #### [facility] [address] [place], [address] Abdomen/Pelvis W IV Cont ONL Yon 12-29-2022 Abdomen/Pelvis W IV Cont ONLY [facility] Imaging Services [address] [address] Abdomen/Pelvis W IV Cont ONLY MR#: [id number] Acct: [id number] Name: QUENTIN ALLISON Rep #: [id number] : 1970 M 52 From: Jose M rosa MD PCP: Care Physician,No Primary Status: REG ER Study: Abdomen/Pelvis W IV Cont ONLY Date of Exam: Exam# [id number] Ordering Dr: Latrice Jurado DO STUDY: CT [...] Latrice Jurado, DO; No Primary Care Physician Public Transportation Inspector: Signed Normal [facility] Absolute lymphocyte countOrd ered By: Dr. Jurado on 12-29-2022 Lymphocytes Auto (Unsp spec) [#/Vol] 1.53 10*3/uL 0.83-4.51 [facility] Alcohol, Blood (Medical)-Ser umon 12-29-2022 SERUM ETOH < 3.0 Normal [facility] Comment on above: Result Comment: The serum:whole blood ethanol ratio is approximately 1.14 and varies slightly with hematocrit. Medical Alcohol reference interval and critical value in non-tolerant individuals; 50 - 100 Impairment 100 Intoxication 100 - 250 Severe Poisoning 250 - 400 Deep/possible fatal coma Performed By: #### M 100.2200 #### [facility] [address] [place], [address] Basic Metabolic Profile (BMP )on 12-29-2022 BUN/CRE 10.9 RATIO Normal 10-20 [facility] Comment on above: Performed By: #### L 501.2450, L503.6005, BTS, L500.2500, L500.3400, L100.0100 #### [facility] [address] [place], [address] CA,Total 9.3 mg/dL Normal 8.5-10.1 [facility] Comment on above: Performed By: #### L 501.2450, L503.6005, BTS, L500.2500, L500.3400, L100.0100 #### [facility] [address] [place], [address] Chloride [Moles/Vol] 108 mmol/L High 98-107 [facility] Comment on above: Performed By: #### L 501.2450, L503.6005, BTS, L500.2500, L500.3400, L100.0100 #### [facility] [address] [place], [address] CO2 [Moles/Vol] 25.0 mmol/L Normal 21.0-32.0 [facility] Comment on above: Performed By: #### L 501.2450, L503.6005, BTS, L500.2500, L500.3400, L100.0100 #### [facility] [address] [place], [address] Creatinine [Mass/Vol] 0.73 mg/dL Normal 0.70-1.30 [facility] Comment on above: Result Comment: The validity of the calculated GFR GFRAA in patients over 70 years has not been determined. Clinical correlation is essential. Performed By: #### L 501.2450, L503.6005, BTS, L500.2500, L500.3400, L100.0100 #### [facility] [address] [place], [address] ECRCL 108.15 ml/min Normal [facility] Comment on above: Performed By: #### L 501.2450, L503.6005, BTS, L500.2500, L500.3400, L100.0100 #### [facility] [address] [place], [address] EST GFR - AA 143 mL/min Normal >60 [facility] Comment on above: Result Comment: Afri can Cuban GFR Calc Performed By: #### L 501.2450, L503.6005, BTS, L500.2500, L500.3400, L100.0100 #### [facility] [address] [place], [address] GAP 6 Normal 5-15 [facility] Comment on above: Performed By: #### L 501.2450, L503.6005, BTS, L500.2500, L500.3400, L100.0100 #### [facility] [address] [place], [address] GFR/1.73 sq M.predicted among non-blacks MDRD (S/P/Bld) [Vol rate/Area] 118 mL/min/{1.73_m2} Normal >60 [facility] Comment on above: Result Comment: Non- GFR Calc Performed By: #### L 501.2450, L503.6005, BTS, L500.2500, L500.3400, L100.0100 #### [facility] [address] [place], [address] Glucose [Mass/Vol] 125 mg/dL High 74-106 [facility] Comment on above: Result Comment: Fast ing Glucose result from 100 to 125 mg/dL suggests IMPAIRED HOMEOSTASIS per A.D.A. criteria. Performed By: #### L 501.2450, L503.6005, BTS, L500.2500, L500.3400, L100.0100 #### [facility] [address], [address] Potassium [Moles/Vol] 4.0 mmol/L Normal 3.5-5.1 [facility] Comment on above: Performed By: #### L 501.2450, L503.6005, BTS, L500.2500, L500.3400, L100.0100 #### [facility] [address] [place], [address] Sodium [Moles/Vol] 139 mmol/L Normal 136-145 [facility] Comment on above: Performed By: #### L 501.2450, L503.6005, BTS, L500.2500, L500.3400, L100.0100 #### [facility] [address] [place], [address] Urea nitrogen [Mass/Vol] 8 mg/dL Normal 7-18 [facility] Comment on above: Performed By: #### L 501.0310, L503.6005, BTS, L500.2500, L500.3400, L100.0100 #### [facility] [address] [place], [address] Basophil percentageOrdered B y: Dr. Jurado on 12-29-2022 Basophil percentage 10-25 SEEN /hpf 0-5 [facility] Basophils/100 WBC (Bld) 1.1 % 0-1 [facility] Bilirubin [Mass/Vol] 6.30 mg/dL 0.20-1.00 [facility] Comment on above: For patients on eltr ombopag therapy, use of Dimension [place] TBIL is not recommended. Chloride [Moles/Vol] 108 mmol/L 98-107 [facility] Eosinophils/100 WBC (Bld) 1.2 % 0-5 [facility] Glucose [Mass/Vol] 125 mg/dL 74-106 [facility] Comment on above: Fasting Glucose resu lt from 100 to 125 mg/dL suggests IMPAIRED HOMEOSTASIS per A.D.A. criteria. Lactate [Moles/Vol] 2.0 mmol/L 0.4-2.0 [facility] Comment on above: Critical Result(s) C alled at: 08:24:24 12/29/2022 by: Evie Mart to Itzel. Results read back by same. Neutrophils (Bld) [#/Vol] 6.0 10*3/uL 2.0-7.7 [facility] Neutrophils/100 WBC (Bld) 72.2 % 47-70 [facility] Potassium [Moles/Vol] 4.0 mmol/L 3.5-5.1 [facility] Protein [Mass/Vol] 7.2 g/dL 6.4-8.2 [facility] Sodium [Moles/Vol] 139 mmol/L 136-145 [facility] WBC (Bld) [#/Vol] 8.3 10*3/uL 4.4-11.0 [facility] Bilirubin Test strip Ql (U)O rdered By: Dr. Jurado on 12-29-2022 Bilirubin Ql (U) 6 mg/dL Negative [facility] Comment on above: COLOR OF URINE MAY A FFECT DIPSTICK RESULTS. Blood erythrocytes count (nu mber/volume)Ordered By: Dr. Jurado on 12-29-2022 RBC (Bld) [#/Vol] 4.44 10*6/uL 4.6-6.2 [facility] Blood hemoglobin measurement (mass/volume)Ordered By: Dr. Jurado on 12-29-2022 Hemoglobin (Bld) [Mass/Vol] 15.9 g/dL 13.0-16.5 [facility] Blood lymphocytes/100 leukoc ytesOrdered By: Dr. Jurado on 12-29-2022 Lymphocytes/100 WBC (Bld) 18.4 % 19-41 [facility] Blood monocytes/100 leukocyt esOrdered By: Dr. Jurado on 12-29-2022 Monocytes/100 WBC (Bld) 6.7 % 0-10 [facility] Blood platelet mean volumeOr dered By: Dr. Jurado on 12-29-2022 Platelet mean volume (Bld) [Entitic vol] 10.0 fL 6.2-12.0 [facility] CBC W/Diff, Automatedon Absolute Lymph 1.53 X10 3/uL Normal 0.83-4.51 [facility] Comment on above: Performed By: #### L 501.2450, L503.6005, BTS, L500.2500, L500.3400, L100.0100 #### [facility] [address] [place], [address] Absolute Neut 6.0 X10 3/uL Normal 2.0-7.7 [facility] Comment on above: Performed By: #### L 501.2450, L503.6005, BTS, L500.2500, L500.3400, L100.0100 #### [facility] [address] [place], [address] Basophils/100 WBC (Bld) 1.1 % High 0-1 [facility] Comment on above: Performed By: #### L 501.2450, L503.6005, BTS, L500.2500, L500.3400, L100.0100 #### [facility] [address], [address] Eosinophils/100 WBC (Bld) 1.2 % Normal 0-5 [facility] Comment on above: Performed By: #### L 501.2450, L503.6005, BTS, L500.2500, L500.3400, L100.0100 #### [facility] [address] [place], [address] Erythrocyte distribution width (RBC) [Ratio] 15.3 % High 11.6-14.6 [facility] Comment on above: Performed By: #### L 501.2450, L503.6005, BTS, L500.2500, L500.3400, L100.0100 #### [facility] [address] [place], [address] Hematocrit (Bld) [Volume fraction] 47.3 % Normal 40-54 [facility] Comment on above: Performed By: #### L 501.2450, L503.6005, BTS, L500.2500, L500.3400, L100.0100 #### [facility] [address] [place], [address] Hemoglobin (Bld) [Mass/Vol] 15.9 g/dL Normal 13.0-16.5 [facility] Comment on above: Performed By: #### L 501.2450, L503.6005, BTS, L500.2500, L500.3400, L100.0100 #### [facility] [address] [place], [address] IG% 0.400 Normal 0.0-0.9 [facility] Comment on above: Result Comment: IG% - Immature Granulocytes (promyelocytes, myelocytes and metamyelocytes) > 1% indicates that a LEFT SHIFT is Present. Performed By: #### L 501.2450, L503.6005, BTS, L500.2500, L500.3400, L100.0100 #### [facility] [address] [place], [address] Lymphocytes/100 WBC (Bld) 18.4 % Low 19-41 [facility] Comment on above: Performed By: #### L 501.2450, L503.6005, BTS, L500.2500, L500.3400, L100.0100 #### [facility] [address] [place], [address] MCH (RBC) [Entitic mass] 35.8 pg High 27.0-32.0 [facility] Comment on above: Performed By: #### L 501.2450, L503.6005, BTS, L500.2500, L500.3400, L100.0100 #### [facility] [address] [place], [address] MCHC (RBC) [Mass/Vol] 33.6 g/dL Normal 32-36 [facility] Comment on above: Performed By: #### L 501.2450, L503.6005, BTS, L500.2500, L500.3400, L100.0100 #### [facility] [address] [place], [address] MCV (RBC) [Entitic vol] 106.5 fL High 80-94 [facility] Comment on above: Performed By: #### L 501.2450, L503.6005, BTS, L500.2500, L500.3400, L100.0100 #### [facility] [address] [place], [address] Monocytes/100 WBC (Bld) 6.7 % Normal 0-10 [facility] Comment on above: Performed By: #### L 501.2450, L503.6005, BTS, L500.2500, L500.3400, L100.0100 #### [facility] [address] [place], [address] Neutrophils/100 WBC (Bld) 72.2 % High 47-70 [facility] Comment on above: Performed By: #### L 501.2450, L503.6005, BTS, L500.2500, L500.3400, L100.0100 #### [facility] [address] [place], [address] Nucleated RBC (Bld) [#/Vol] 0 10*3/uL Normal 0-5 [facility] Comment on above: Performed By: #### L 501.2450, L503.6005, BTS, L500.2500, L500.3400, L100.0100 #### [facility] [address] [place], [address] Platelet mean volume (Bld) [Entitic vol] 10.0 fL Normal 6.2-12.0 [facility] Comment on above: Performed By: #### L 501.2450, L503.6005, BTS, L500.2500, L500.3400, L100.0100 #### [facility] [address] [place], [address] Platelets (Bld) [#/Vol] 176 10*3/uL Normal 150-450 [facility] Comment on above: Performed By: #### L 501.2450, L503.6005, BTS, L500.2500, L500.3400, L100.0100 #### [facility] [address] [place], [address] RBC (Bld) [#/Vol] 4.44 10*6/uL Low 4.6-6.2 [facility] Comment on above: Performed By: #### L 501.2450, L503.6005, BTS, L500.2500, L500.3400, L100.0100 #### [facility] [address] [place], [address] RDW SD 60.6 fl High 35.1-43.9 [facility] Comment on above: Performed By: #### L 501.2450, L503.6005, BTS, L500.2500, L500.3400, L100.0100 #### [facility] [address] [place], [address] WBC (Bld) [#/Vol] 8.3 10*3/uL Normal 4.4-11.0 [facility] Comment on above: Performed By: #### L 501.2450, L503.6005, BTS, L500.2500, L500.3400, L100.0100 #### [facility] [address] [place], [address] Calcium oxalate crystals det ection in urine sediment by light microscopyOrdered By: Dr. Jurado on 12-29-2022 Calcium oxalate crystals LM Ql (Urine sed) 1+ /hpf [facility] Chest 1 View (Portable)on Chest 1 View (Portable) [facility] Imaging Services [address] [place] [address] Chest 1 View (Portable) MR#: [id number] Acct: [id number] Name: QUENTIN ALLISON Rep #: [id number] : 1970 M 52 From: Jose M rosa MD PCP: Care Physician,No Primary Status: REG ER Study: Chest 1 View (Portable) Date of Exam: 12/29/22 Exam# [id number] Ordering Dr: Latrice Jurado DO STUDY: X-RAY [...] Latrice Jurado DO; No Primary Care Physician Public Transportation Inspector: Signed Normal [facility] Determination of erythrocyte mean corpuscular volume (MCV)Ordered By: Dr. Jurado on 12-29-2022 MCV (RBC) [Entitic vol] 106.5 fL 80-94 [facility] Direct bilirubinOrdered By: Dr. Jurado on 12-29-2022 Bilirubin.direct [Mass/Vol] 3.99 mg/dL 0.00-0.30 [facility] Emergency Department Summary on 12-29-2022 Emergency Department Summary [facility] Medical Records Department [address] [place] [address] Emergency Department Summary 12/29/22 MR#: [id number] Acct: [id number] Name: QUENTIN ALLISON Rep #: [id number] : 1970 52 From: Latrice Jurado DO [...] he states was a very rare event. 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 Normal [facility] Hematocrit Auto (Bld) [Volum e fraction]Ordered By: Dr. Jurado on 12-29-2022 Hematocrit (Bld) [Volume fraction] 47.3 % 40-54 [facility] INR in Blood by Coagulation assayOrdered By: Dr. Jurado on 12-29-2022 INR Coag (Bld) [Relative time] 1.5 {INR} [facility] Ketones Test strip Ql (U)Ord ered By: Dr. Jurado on 12-29-2022 Ketones Ql (U) 5 mg/dl Negative [facility] - Chemistry and C hemistry - challengeOrdered By: Dr. Jurado on 12-29-2022 ALP [Catalytic activity/Vol] 199 U/L 45-117 [facility] ALT [Catalytic activity/Vol] 40 U/L 16-61 [facility] CO2 [Moles/Vol] 25.0 mmol/L 21.0-32.0 [facility] Globulin (S) [Mass/Vol] 4.2 g/dL 2.2-4.2 [facility] Lipase [Catalytic activity/Vol] 140 U/L 73-393 [facility] Urea nitrogen/Creatinine [Mass ratio] 10.9 mg/mg 10-20 [facility] - CoagulationOrde red By: Dr. Jurado on 12-29-2022 aPTT Coag (Bld) [Time] 32.1 s 24.1-36.2 [facility] PT Coag (PPP) [Time] 17.5 s 11.7-14.9 [facility] Laboratory - Hematology and Cell countsOrdered By: Dr. Jurado on 12-29-2022 Erythrocyte distribution width (RBC) [Entitic vol] 60.6 fL 35.1-43.9 [facility] Erythrocyte distribution width (RBC) [Ratio] 15.3 % 11.6-14.6 [facility] Immature granulocytes/100 WBC (Bld) 0.400 % 0.0-0.9 [facility] Comment on above: IG% - Immature Granu locytes (promyelocytes, myelocytes and metamyelocytes) > 1% indicates that a LEFT SHIFT is Present. MCH (RBC) [Entitic mass] 35.8 pg 27.0-32.0 [facility] Nucleated RBC/100 WBC (Bld) [Ratio] 0 % 0-5 [facility] Lactic Acidon 12-29-2022 Lactate [Moles/Vol] 2.0 mmol/L Normal 0.4-1.9 [facility] Comment on above: Order Comment: Y Result Comment: Crit ical Result(s) Called at: 08:24:24 12/29/2022 by: Evie Robbins. Results read back by same. Performed By: #### M 100.2200 #### [facility] [address] [place], [address] Lipaseon 12-29-2022 Lipase [Catalytic activity/Vol] 140 U/L Normal 73-393 [facility] Comment on above: Performed By: #### L 501.2450, L503.6005, BTS, L500.2500, L500.3400, L100.0100 #### [facility] [address] [place], [address] Liver Profileon 12-29-2022 Albumin [Mass/Vol] 3.0 g/dL Low 3.2-5.0 [facility] Comment on above: Performed By: #### L 501.2450, L503.6005, BTS, L500.2500, L500.3400, L100.0100 #### [facility] [address] [place], [address] ALK P 199 U/L High 45-117 [facility] Comment on above: Performed By: #### L 501.2450, L503.6005, BTS, L500.2500, L500.3400, L100.0100 #### [facility] [address] [place], [address] ALT [Catalytic activity/Vol] 40 U/L Normal 16-61 [facility] Comment on above: Performed By: #### L 501.2450, L503.6005, BTS, L500.2500, L500.3400, L100.0100 #### [facility] [address] [place], [address] AST [Catalytic activity/Vol] 117 U/L High 15-37 [facility] Comment on above: Performed By: #### L 501.2450, L503.6005, BTS, L500.2500, L500.3400, L100.0100 #### [facility] [address] [place], [address] Bilirubin [Mass/Vol] 6.30 mg/dL High 0.20-1.00 [facility] Comment on above: Result Comment: For patients on eltrombopag therapy, use of Dimension [place] TBIL is not recommended. Performed By: #### L 501.2450, L503.6005, BTS, L500.2500, L500.3400, L100.0100 #### [facility] [address] [place], [address] Bilirubin.direct [Mass/Vol] 3.99 mg/dL High 0.00-0.30 [facility] Comment on above: Performed By: #### L 501.2450, L503.6005, BTS, L500.2500, L500.3400, L100.0100 #### [facility] [address] [place], [address] Globulin (S) [Mass/Vol] 4.2 g/dL Normal 2.2-4.2 [facility] Comment on above: Performed By: #### L 501.2450, L503.6005, BTS, L500.2500, L500.3400, L100.0100 #### [facility] [address] [place], [address] T PROT 7.2 g/dL Normal 6.4-8.2 [facility] Comment on above: Performed By: #### L 501.2450, L503.6005, BTS, L500.2500, L500.3400, L100.0100 #### [facility] [address] [place], [address] MCHC Auto (RBC) [Mass/Vol]Or dered By: Dr. Jurado on 12-29-2022 MCHC (RBC) [Mass/Vol] 33.6 g/dL 32-36 [facility] Mucus LM Ql (Urine sed)Order ed By: Dr. Jurado on 12-29-2022 Mucus Ql (Urine sed) 2+ /hpf [facility] Nitrite Test strip Ql (U)Ord ered By: Dr. Jurado on 12-29-2022 Nitrite Ql (U) Positive Negative [facility] No Panel InformationOrdered By: Dr. Jurado on 12-29-2022 Estimated Creatinine Clearance Calc 108.15 ml/min [facility] Estimated GFR (MDRD) Amer 143 mL/min >60 [facility] Comment on above: GFR Calc Estimated GFR (MDRD) Non-Af Amer 118 mL/min >60 [facility] Comment on above: Non- GFR Calc Ethyl Alcohol Level < 3.0 mg/dL [facility] Comment on above: The serum:whole bloo d ethanol ratio is approximately 1.14and varies slightly with hematocrit. Medical Alcohol reference interval and critical value innon-tolerant individuals; 50 - 100 Impairment 100 Intoxication 100 - 250 Severe Poisoning 250 - 400 Deep/possible fatal coma Partial Thromboplast Timeon 12-29-2022 aPTT Coag (Bld) [Time] 32.1 s Normal 24.1-36.2 [facility] Comment on above: Performed By: #### M 100.2200 #### [facility] [address] [place], [address] Platelets bldOrdered By: Dr. Jurado on 12-29-2022 Platelets (Bld) [#/Vol] 176 10*3/uL 150-450 [facility] Protein Test strip Ql (U)Ord ered By: Dr. Jurado on 12-29-2022 Protein Ql (U) 30 mg/dl Negative [facility] Prothrombin Time w/INRon INR Coag (PPP) [Relative time] 1.5 {INR} Normal [facility] Comment on above: Performed By: #### M 100.2200 #### [facility] [address] [place], [place], [address] PT Coag (PPP) [Time] 17.5 s High 11.7-14.9 [facility] Comment on above: Performed By: #### M 100.2200 #### [facility] [address] [place], [address] Serum or plasma albumin lori urement (mass/volume)Ordered By: Dr. Jurado on 12-29-2022 Albumin [Mass/Vol] 3.0 g/dL 3.2-5.0 [facility] Serum or plasma calcium lori urement (mass/volume)Ordered By: Dr. Jurado on 12-29-2022 Calcium [Mass/Vol] 9.3 mg/dL 8.5-10.1 [facility] Serum or plasma creatinine m easurement (mass/volume)Ordered By: Dr. Jurado on 12-29-2022 Creatinine [Mass/Vol] 0.73 mg/dL 0.70-1.30 [facility] Comment on above: The validity of the calculated GFR & GFRAA in patients over 70 years has not been determined. Clinical correlation is essential. Serum or plasma urea nitroge n measurement (mass/volume)Ordered By: Dr. Jurado on 12-29-2022 Urea nitrogen [Mass/Vol] 8 mg/dL 7-18 [facility] Squamous epithelial cells de tection in urine sediment by light microscopyOrdered By: Dr. Jurado on 12-29-2022 Epithelial cells.squamous LM Ql (Urine sed) 0-5 SEEN /hpf 0-5 [facility] Stool Occult Blood iFOBon STOB Negative Normal [facility] Comment on above: Performed By: #### M 100.7900 #### [facility] [address] [facility] [place], [address] Stool gastrointestinal hemog lobin detection by immunologic methodOrdered By: Dr. Jurado on 12-29-2022 Lower GI hemoglobin IA Ql (Stl) [facility] Thin prep Papanicolaou smear with manual screeningOrdered By: Dr. Jurado on 12-29-2022 Thin prep Papanicolaou smear with manual screening 117 U/L 15-37 [facility] Thin prep Papanicolaou smear with manual screening 6 5-15 [facility] Type AND Screenon 12-29-2022 ABO and Rh group Nom (Bld) Blood group A Rh(D) negative Normal [facility] Comment on above: Order Comment: HGI Performed By: #### M 100.2200 #### [facility] [address] [place], [address] Urinalysis, Completeon 12-29 CA OX CRYSTAL 1+ /hpf Normal [facility] Comment on above: Order Comment: COLOR OF URINE MAY AFFECT DIPSTICK RESULTS.CLEAN CATCH Performed By: #### M 100.2200 #### [facility] [address] [place], [address] WBC 10-25 SEEN Normal 0-5 [facility] Comment on above: Order Comment: COLOR OF URINE MAY AFFECT DIPSTICK RESULTS.CLEAN CATCH Performed By: #### M 100.2200 #### [facility] [address] [place], [address] BACTERIA 1+ /hpf Normal None Seen [facility] Comment on above: Order Comment: COLOR OF URINE MAY AFFECT DIPSTICK RESULTS.CLEAN CATCH Performed By: #### M 100.2200 #### [facility] [address] [place], [address] EPI,SQUAMOUS 0-5 SEEN Normal 0-5 [facility] Comment on above: Order Comment: COLOR OF URINE MAY AFFECT DIPSTICK RESULTS.CLEAN CATCH Performed By: #### M 100.2200 #### [facility] [address] [place], [address] Mucus Ql (Urine sed) 2+ /hpf Normal [facility] Comment on above: Order Comment: COLOR OF URINE MAY AFFECT DIPSTICK RESULTS.CLEAN CATCH Performed By: #### M 100.2200 #### [facility] [address] [place], [place], [id number] RBC 25-50 SEEN Normal 0-5 [facility] Comment on above: Order Comment: COLOR OF URINE MAY AFFECT DIPSTICK RESULTS.CLEAN CATCH Performed By: #### M 100.2234 #### [facility] [address] [place], [place], [address] Urine blood detectionOrdered By: Dr. Jurado on 12-29-2022 RBC Ql (U) 250 /ul Negative [facility] RBC Ql (U) 25-50 SEEN /hpf 0-5 [facility] Urine clarityOrdered By: Dr. Jurado on 12-29-2022 Clarity (U) Sl. Cloudy Clear [facility] Urine color determinationOrd ered By: Dr. Jurado on 12-29-2022 Color (U) Giulia Yellow [facility] Urine glucose detectionOrder ed By: Dr. Jurado on 12-29-2022 Glucose Ql (U) Normal mg/dl Normal [facility] Urine leukocyte esterase det ection by dipstickOrdered By: Dr. Jurado on 12-29-2022 Leukocyte esterase Test strip Ql (U) 100 /ul Negative [facility] Urine pHOrdered By: Dr. Lianne miles on 12-29-2022 pH (U) 6.5 [pH] 5.0 - 8.0 [facility] Urine sediment bacteria coun t by microscopy (number/high power field)Ordered By: Dr. Jurado on 12-29-2022 Bacteria LM.HPF (Urine sed) [#/Area] 1 /[HPF] None Seen [facility] Urine specific gravity measu rementOrdered By: Dr. Jurado on 12-29-2022 Specific gravity (U) [Rel density] 1.015 1.002-1.030 [facility] Urobilinogen Auto test strip Ql (U)Ordered By: Dr. Jurado on 12-29-2022 Urobilinogen Ql (U) 12 mg/dl Normal [facility] Culture, urineOrdered By: Dr Dano Quinn on 09-04-2022 Bacteria identified Cx Nom (U) Culture exhibits no growth. [facility] Absolute lymphocyte countOrd ered By: Dr. Quinn on 09-02-2022 Lymphocytes Auto (Unsp spec) [#/Vol] 2.08 10*3/uL 0.83-4.51 [facility] Basophil percentageOrdered B y: Dr. Quinn on 09-02-2022 Basophil percentage 0-5 SEEN /hpf 0-5 [facility] Basophils/100 WBC (Bld) 0.8 % 0-1 [facility] Bilirubin [Mass/Vol] 3.80 mg/dL 0.20-1.00 [facility] Comment on above: For patients on eltr ombopag therapy, use of Dimension [place] TBIL is not recommended. Chloride [Moles/Vol] 103 mmol/L 98-107 [facility] Eosinophils/100 WBC (Bld) 0.8 % 0-5 [facility] Glucose [Mass/Vol] 124 mg/dL 74-106 [facility] Comment on above: Fasting Glucose resu lt from 100 to 125 mg/dL suggests IMPAIRED HOMEOSTASIS per A.D.A. criteria. Neutrophils (Bld) [#/Vol] 8.1 10*3/uL 2.0-7.7 [facility] Neutrophils/100 WBC (Bld) 73.2 % 47-70 [facility] Potassium [Moles/Vol] 3.4 mmol/L 3.5-5.1 [facility] Comment on above: Slight Hemolysis, Re sult may be falsely increased. Protein [Mass/Vol] 6.8 g/dL 6.4-8.2 [facility] Sodium [Moles/Vol] 139 mmol/L 136-145 [facility] WBC (Bld) [#/Vol] 11.1 10*3/uL 4.4-11.0 [facility] Bilirubin Test strip Ql (U)O rdered By: Dr. Quinn on 09-02-2022 Bilirubin Ql (U) 3 mg/dL Negative [facility] Comment on above: COLOR OF URINE MAY A FFECT DIPSTICK RESULTS. Blood erythrocytes count (nu mber/volume)Ordered By: Dr. Quinn on 09-02-2022 RBC (Bld) [#/Vol] 4.13 10*6/uL 4.6-6.2 [facility] [facility] Blood hemoglobin measurement (mass/volume)Ordered By: Dr. Quinn on 09-02-2022 Hemoglobin (Bld) [Mass/Vol] 15.7 g/dL 13.0-16.5 [facility] Blood lymphocytes/100 leukoc ytesOrdered By: Dr. Quinn on 09-02-2022 Lymphocytes/100 WBC (Bld) 18.7 % 19-41 [facility] Blood monocytes/100 leukocyt esOrdered By: Dr. Quinn on 09-02-2022 Monocytes/100 WBC (Bld) 6.1 % 0-10 [facility] Blood platelet mean volumeOr dered By: Dr. Quinn on 09-02-2022 Platelet mean volume (Bld) [Entitic vol] 9.9 fL 6.2-12.0 [facility] Determination of erythrocyte mean corpuscular volume (MCV)Ordered By: Dr. Quinn on 09-02-2022 MCV (RBC) [Entitic vol] 110.2 fL 80-94 [facility] Hematocrit Auto (Bld) [Volum e fraction]Ordered By: Dr. Quinn on 09-02-2022 Hematocrit (Bld) [Volume fraction] 45.5 % 40-54 [facility] INR in Blood by Coagulation assayOrdered By: Dr. Quinn on 09-02-2022 INR Coag (Bld) [Relative time] 1.3 {INR} [facility] Ketones Test strip Ql (U)Ord ered By: Dr. Quinn on 09-02-2022 Ketones Ql (U) 5 mg/dl Negative [facility] Laboratory - Chemistry and C hemistry - challengeOrdered By: Dr. Quinn on 09-02-2022 ALP [Catalytic activity/Vol] 247 U/L 45-117 [facility] ALT [Catalytic activity/Vol] 44 U/L 16-61 [facility] CO2 [Moles/Vol] 31.0 mmol/L 21.0-32.0 [facility] Globulin (S) [Mass/Vol] 4.0 g/dL 2.2-4.2 [facility] Lipase [Catalytic activity/Vol] 155 U/L 73-393 [facility] Urea nitrogen/Creatinine [Mass ratio] 8.0 mg/mg 10-20 [facility] Laboratory - CoagulationOrde red By: Dr. Quinn on 09-02-2022 aPTT Coag (Bld) [Time] 33.5 s 24.1-36.2 [facility] PT Coag (PPP) [Time] 15.5 s 11.7-14.9 [facility] Laboratory - Hematology and Cell countsOrdered By: Dr. Quinn on 09-02-2022 Erythrocyte distribution width (RBC) [Entitic vol] 59.4 fL 35.1-43.9 [facility] Erythrocyte distribution width (RBC) [Ratio] 14.6 % 11.6-14.6 [facility] Immature granulocytes/100 WBC (Bld) 0.400 % 0.0-0.9 [facility] Comment on above: IG% - Immature Granu locytes (promyelocytes, myelocytes and metamyelocytes) > 1% indicates that a LEFT SHIFT is Present. MCH (RBC) [Entitic mass] 38.0 pg 27.0-32.0 [facility] Nucleated RBC/100 WBC (Bld) [Ratio] 0 % 0-5 [facility] MCHC Auto (RBC) [Mass/Vol]Or dered By: Dr. Quinn on 09-02-2022 MCHC (RBC) [Mass/Vol] 34.5 g/dL 32-36 [facility] Mucus LM Ql (Urine sed)Order ed By: Dr. Quinn on 09-02-2022 Mucus Ql (Urine sed) 2+ /hpf [facility] Nitrite Test strip Ql (U)Ord ered By: Dr. Quinn on 09-02-2022 Nitrite Ql (U) Positive Negative [facility] No Panel InformationOrdered By: Dr. Qiunn on 09-02-2022 Estimated Creatinine Clearance Calc 128.82 ml/min [facility] Estimated GFR (MDRD) Amer 173 mL/min >60 [facility] Comment on above: GFR Calc Estimated GFR (MDRD) Non-Af Amer 143 mL/min >60 [facility] Comment on above: Non- GFR Calc Platelets bldOrdered By: Dr. Quinn on 09-02-2022 Platelets (Bld) [#/Vol] 215 10*3/uL 150-450 [facility] Protein Test strip Ql (U)Ord ered By: Dr. Quinn on 09-02-2022 Protein Ql (U) 30 mg/dl Negative [facility] Serum or plasma albumin lori urement (mass/volume)Ordered By: Dr. Quinn on 09-02-2022 Albumin [Mass/Vol] 2.8 g/dL 3.2-5.0 [facility] Serum or plasma albumin/glob ulin mass ratioOrdered By: Dr. Quinn on 09-02-2022 Albumin/Globulin [Mass ratio] 0.7 {ratio} 0.9-2.4 [facility] Serum or plasma calcium lori urement (mass/volume)Ordered By: Dr. Quinn on 09-02-2022 Calcium [Mass/Vol] 9.1 mg/dL 8.5-10.1 [facility] Serum or plasma creatinine m easurement (mass/volume)Ordered By: Dr. Quinn on 09-02-2022 Creatinine [Mass/Vol] 0.62 mg/dL 0.70-1.30 [facility] Comment on above: The validity of the calculated GFR & GFRAA in patients over 70 years has not been determined. Clinical correlation is essential. Serum or plasma urea nitroge n measurement (mass/volume)Ordered By: Dr. Quinn on 09-02-2022 Urea nitrogen [Mass/Vol] 5 mg/dL 7-18 [facility] Squamous epithelial cells de tection in urine sediment by light microscopyOrdered By: Dr. Quinn on 09-02-2022 Epithelial cells.squamous LM Ql (Urine sed) 0 SEEN /hpf 0-5 [facility] Thin prep Papanicolaou smear with manual screeningOrdered By: Dr. Quinn on 09-02-2022 Thin prep Papanicolaou smear with manual screening 128 U/L 15-37 [facility] Comment on above: Slight Hemolysis, Re sult may be falsely increased. Thin prep Papanicolaou smear with manual screening 5 5-15 [facility] Urine blood detectionOrdered By: Dr. Quinn on 09-02-2022 RBC Ql (U) 10 /ul Negative [facility] RBC Ql (U) 0-5 SEEN /hpf 0-5 [facility] Urine clarityOrdered By: Dr. Quinn on 09-02-2022 Clarity (U) Clear Clear [facility] Urine color determinationOrd ered By: Dr. Quinn on 09-02-2022 Color (U) Giulia Yellow [facility] Urine glucose detectionOrder ed By: Dr. Quinn on 09-02-2022 Glucose Ql (U) Normal mg/dl Normal [facility] Urine leukocyte esterase det ection by dipstickOrdered By: Dr. Quinn on 09-02-2022 Leukocyte esterase Test strip Ql (U) 100 /ul Negative [facility] Urine pHOrdered By: Dr. Quinn o n 09-02-2022 pH (U) 7.0 [pH] 5.0 - 8.0 [facility] Urine sediment bacteria coun t by microscopy (number/high power field)Ordered By: Dr. Quinn on 09-02-2022 Bacteria LM.HPF (Urine sed) [#/Area] 1 /[HPF] None Seen [facility] Urine specific gravity measu rementOrdered By: Dr. Quinn on 09-02-2022 Specific gravity (U) [Rel density] 1.010 1.002-1.030 [facility] Urobilinogen Auto test strip Ql (U)Ordered By: Dr. Quinn on 09-02-2022 Urobilinogen Ql (U) 12 mg/dl Normal [facility] Absolute lymphocyte counton 06-13-2022 Lymphocytes Auto (Unsp spec) [#/Vol] 0.46 10*3/uL 0.83-4.51 [facility] Work Phone: Basophil percentageon 2021 Basophils/100 WBC (Bld) 0.1 % 0-1 [facility] Work Phone: Bilirubin [Mass/Vol] 3.20 mg/dL 0.20-1.00 [facility] Work Phone: Comment on above: For patients on eltr ombopag therapy, use of Dimension [place] TBIL is not recommended. Chloride [Moles/Vol] 98 mmol/L 98-107 [facility] Work Phone: Eosinophils/100 WBC (Bld) 0.0 % 0-5 [facility] Work Phone: Glucose [Mass/Vol] 134 mg/dL 74-106 [facility] Work Phone: Comment on above: Fasting Glucose resu lt greater than or equal to 126 mg/dL suggests DIABETES MELLITUS per A.D.A. criteria. Neutrophils (Bld) [#/Vol] 13.5 10*3/uL 2.0-7.7 [facility] Work Phone: Neutrophils/100 WBC (Bld) 92.1 % 47-70 [facility] Work Phone: Potassium [Moles/Vol] 3.5 mmol/L 3.5-5.1 [facility] Work Phone: [phone] Protein [Mass/Vol] 7.4 g/dL 6.4-8.2 [facility] Work Phone: [phone] Sodium [Moles/Vol] 137 mmol/L 136-145 [facility] Work Phone: [phone] WBC (Bld) [#/Vol] 14.6 10*3/uL 4.4-11.0 [facility] Work Phone: Blood erythrocytes count (nu mber/volume)on 06-13-2022 RBC (Bld) [#/Vol] 4.65 10*6/uL 4.6-6.2 [facility] Work Phone: Blood hemoglobin measurement (mass/volume)on 06-13-2022 Hemoglobin (Bld) [Mass/Vol] 16.9 g/dL 13.0-16.5 [facility] Work Phone: Blood lymphocytes/100 leukoc yteson 06-13-2022 Lymphocytes/100 WBC (Bld) 3.1 % 19-41 [facility] Work Phone: [phone] Blood monocytes/100 leukocyt eson 06-13-2022 Monocytes/100 WBC (Bld) 3.9 % 0-10 [facility] Work Phone: Blood platelet mean volumeon 06-13-2022 Platelet mean volume (Bld) [Entitic vol] 9.0 fL 6.2-12.0 [facility] Work Phone: Determination of erythrocyte mean corpuscular volume (MCV)on 06-13-2022 MCV (RBC) [Entitic vol] 104.9 fL 80-94 [facility] Work Phone: Hematocrit Auto (Bld) [Volum e fraction]on 06-13-2022 Hematocrit (Bld) [Volume fraction] 48.8 % 40-54 [facility] Work Phone: INR in Blood by Coagulation assayon 06-13-2022 INR Coag (Bld) [Relative time] 1.4 {INR} [facility] Work Phone: Laboratory - Chemistry and C hemistry - challengeon 06-13-2022 ALP [Catalytic activity/Vol] 117 U/L 45-117 [facility] Work Phone: ALT [Catalytic activity/Vol] 36 U/L 16-61 [facility] Work Phone: CO2 [Moles/Vol] 31.0 mmol/L 21.0-32.0 [facility] Work Phone: Globulin (S) [Mass/Vol] 3.6 g/dL 2.2-4.2 [facility] Work Phone: Urea nitrogen/Creatinine [Mass ratio] 11.8 mg/mg 10-20 [facility] Work Phone: Laboratory - Coagulationon 0 06-13-2022 PT Coag (PPP) [Time] 16.6 s 11.7-14.9 [facility] Work Phone: Laboratory - Hematology and Cell countson 06-13-2022 Erythrocyte distribution width (RBC) [Entitic vol] 60.2 fL 35.1-43.9 [facility] Work Phone: Erythrocyte distribution width (RBC) [Ratio] 15.4 % 11.6-14.6 [facility] Work Phone: Immature granulocytes/100 WBC (Bld) 0.800 % 0.0-0.9 [facility] Work Phone: Comment on above: IG% - Immature Granu locytes (promyelocytes, myelocytes and metamyelocytes) > 1% indicates that a LEFT SHIFT is Present. MCH (RBC) [Entitic mass] 36.3 pg 27.0-32.0 [facility] Work Phone: Nucleated RBC/100 WBC (Bld) [Ratio] 0 % 0-5 [facility] Work Phone: MCHC Auto (RBC) [Mass/Vol]on 06-13-2022 MCHC (RBC) [Mass/Vol] 34.6 g/dL 32-36 [facility] Work Phone: No Panel Informationon 06-13 Estimated GFR (MDRD) Amer 122 mL/min >60 [facility] Work Phone: Comment on above: GFR Calc Estimated GFR (MDRD) Non-Af Amer 101 mL/min >60 [facility] Work Phone: Comment on above: Non- GFR Calc Platelets bldon 06-13-2022 Platelets (Bld) [#/Vol] 162 10*3/uL 150-450 [facility] Work Phone: Serum or plasma albumin lori urement (mass/volume)on 06-13-2022 Albumin [Mass/Vol] 3.8 g/dL 3.2-5.0 [facility] Work Phone: Serum or plasma albumin/glob ulin mass ratioon 06-13-2022 Albumin/Globulin [Mass ratio] 1.1 {ratio} 0.9-2.4 [facility] Work Phone: Serum or plasma calcium lori urement (mass/volume)on 06-13-2022 Calcium [Mass/Vol] 9.2 mg/dL 8.5-10.1 [facility] Work Phone: Serum or plasma creatinine m easurement (mass/volume)on 06-13-2022 Creatinine [Mass/Vol] 0.84 mg/dL 0.70-1.30 [facility] Work Phone: Comment on above: The validity of the calculated GFR & GFRAA in patients over 70 years has not been determined. Clinical correlation is essential. Serum or plasma urea nitroge n measurement (mass/volume)on 06-13-2022 Urea nitrogen [Mass/Vol] 10 mg/dL 7-18 [facility] Work Phone: Thin prep Papanicolaou smear with manual screeningon 06-13-2022 Thin prep Papanicolaou smear with manual screening 58 U/L 15-37 [facility] Work Phone: Thin prep Papanicolaou smear with manual screening 8 5-15 [facility] Work Phone: Absolute lymphocyte counton 05-02-2022 Lymphocytes Auto (Unsp spec) [#/Vol] 1.84 10*3/uL 0.83-4.51 [facility] Work Phone: Basophil percentageon 2021 Basophils/100 WBC (Bld) 0.7 % 0-1 [facility] Work Phone: Bilirubin [Mass/Vol] 2.70 mg/dL 0.20-1.00 [facility] Work Phone: Comment on above: For patients on eltr ombopag therapy, use of Dimension [place] TBIL is not recommended. Chloride [Moles/Vol] 97 mmol/L 98-107 [facility] Work Phone: Eosinophils/100 WBC (Bld) 0.1 % 0-5 [facility] Work Phone: Glucose [Mass/Vol] 117 mg/dL 74-106 [facility] Work Phone: Comment on above: Fasting Glucose resu lt from 100 to 125 mg/dL suggests IMPAIRED HOMEOSTASIS per A.D.A. criteria. Neutrophils (Bld) [#/Vol] 13.5 10*3/uL 2.0-7.7 [facility] Work Phone: Neutrophils/100 WBC (Bld) 81.5 % 47-70 [facility] Work Phone: Potassium [Moles/Vol] 3.9 mmol/L 3.5-5.1 [facility] Work Phone: Protein [Mass/Vol] 8.1 g/dL 6.4-8.2 [facility] Work Phone: Sodium [Moles/Vol] 134 mmol/L 136-145 [facility] Work Phone: WBC (Bld) [#/Vol] 16.6 10*3/uL 4.4-11.0 [facility] Work Phone: Blood erythrocytes count (nu mber/volume)on 05-02-2022 RBC (Bld) [#/Vol] 4.10 10*6/uL 4.6-6.2 [facility] Work Phone: Blood hemoglobin measurement (mass/volume)on 05-02-2022 Hemoglobin (Bld) [Mass/Vol] 14.8 g/dL 13.0-16.5 [facility] Work Phone: Blood lymphocytes/100 leukoc yteson 05-02-2022 Lymphocytes/100 WBC (Bld) 11.1 % 19-41 [facility] Work Phone: Blood monocytes/100 leukocyt eson 05-02-2022 Monocytes/100 WBC (Bld) 6.2 % 0-10 [facility] Work Phone: Blood platelet mean volumeon 05-02-2022 Platelet mean volume (Bld) [Entitic vol] 9.5 fL 6.2-12.0 [facility] Work Phone: Determination of erythrocyte mean corpuscular volume (MCV)on 05-02-2022 MCV (RBC) [Entitic vol] 105.9 fL 80-94 [facility] Work Phone: Hematocrit Auto (Bld) [Volum e fraction]on 05-02-2022 Hematocrit (Bld) [Volume fraction] 43.4 % 40-54 [facility] Work Phone: INR in Blood by Coagulation assayon 05-02-2022 INR Coag (Bld) [Relative time] 1.3 {INR} [facility] Work Phone: Laboratory - Chemistry and C hemistry - challengeon 05-02-2022 ALP [Catalytic activity/Vol] 154 U/L 45-117 [facility] Work Phone: ALT [Catalytic activity/Vol] 34 U/L 16-61 [facility] Work Phone: CO2 [Moles/Vol] 28.0 mmol/L 21.0-32.0 [facility] Work Phone: Globulin (S) [Mass/Vol] 4.8 g/dL 2.2-4.2 [facility] Work Phone: Urea nitrogen/Creatinine [Mass ratio] 10.2 mg/mg 10-20 [facility] Work Phone: Laboratory - Coagulationon 0 05-02-2022 PT Coag (PPP) [Time] 15.5 s 11.7-14.9 [facility] Work Phone: Laboratory - Hematology and Cell countson 05-02-2022 Erythrocyte distribution width (RBC) [Entitic vol] 47.8 fL 35.1-43.9 [facility] Work Phone: Erythrocyte distribution width (RBC) [Ratio] 12.2 % 11.6-14.6 [facility] Work Phone: Immature granulocytes/100 WBC (Bld) 0.400 % 0.0-0.9 [facility] Work Phone: Comment on above: IG% - Immature Granu locytes (promyelocytes, myelocytes and metamyelocytes) > 1% indicates that a LEFT SHIFT is Present. MCH (RBC) [Entitic mass] 36.1 pg 27.0-32.0 [facility] Work Phone: Nucleated RBC/100 WBC (Bld) [Ratio] 0 % 0-5 [facility] Work Phone: MCHC Auto (RBC) [Mass/Vol]on 05-02-2022 MCHC (RBC) [Mass/Vol] 34.1 g/dL 32-36 [facility] Work Phone: No Panel Informationon 05-02 Estimated GFR (MDRD) Amer 132 mL/min >60 [facility] Work Phone: Comment on above: GFR Calc Estimated GFR (MDRD) Non-Af Amer 109 mL/min >60 [facility] Work Phone: Comment on above: Non- GFR Calc Platelets bldon 05-02-2022 Platelets (Bld) [#/Vol] 338 10*3/uL 150-450 [facility] Work Phone: Serum or plasma albumin lori urement (mass/volume)on 05-02-2022 Albumin [Mass/Vol] 3.3 g/dL 3.2-5.0 [facility] Work Phone: Serum or plasma albumin/glob ulin mass ratioon 05-02-2022 Albumin/Globulin [Mass ratio] 0.7 {ratio} 0.9-2.4 [facility] Work Phone: Serum or plasma calcium lori urement (mass/volume)on 05-02-2022 Calcium [Mass/Vol] 9.9 mg/dL 8.5-10.1 [facility] Work Phone: Serum or plasma creatinine m easurement (mass/volume)on 05-02-2022 Creatinine [Mass/Vol] 0.79 mg/dL 0.70-1.30 [facility] Work Phone: Comment on above: The validity of the calculated GFR & GFRAA in patients over 70 years has not been determined. Clinical correlation is essential. Serum or plasma urea nitroge n measurement (mass/volume)on 05-02-2022 Urea nitrogen [Mass/Vol] 8 mg/dL 7-18 [facility] Work Phone: Thin prep Papanicolaou smear with manual screeningon 05-02-2022 Thin prep Papanicolaou smear with manual screening 84 U/L 15-37 [facility] Work Phone: Thin prep Papanicolaou smear with manual screening 9 5-15 [facility] Work Phone: Whole blood hemoglobin A1c/t otal hemoglobin ratio (mass fraction)on 05-02-2022 HbA1c (Bld) [Mass fraction] 4.8 % 3.8-5.6 [facility] Work Phone: Comment on above: Normal < 5.7 % Predi abetic 5.7 - 6.4 % Diabetic >or= 6.5 % Please note range changes. Absolute lymphocyte counton 04-11-2022 Lymphocytes Auto (Unsp spec) [#/Vol] 1.64 10*3/uL 0.83-4.51 [facility] Work Phone: Basophil percentageon 2021 Basophils/100 WBC (Bld) 0.5 % 0-1 [facility] Work Phone: Bilirubin [Mass/Vol] 4.00 mg/dL 0.20-1.00 [facility] Work Phone: Comment on above: For patients on eltr ombopag therapy, use of Dimension [place] TBIL is not recommended. Chloride [Moles/Vol] 112 mmol/L 98-107 [facility] Work Phone: Eosinophils/100 WBC (Bld) 0.8 % 0-5 [facility] Work Phone: Glucose [Mass/Vol] 133 mg/dL 74-106 [facility] Work Phone: Comment on above: Fasting Glucose resu lt greater than or equal to 126 mg/dL suggests DIABETES MELLITUS per A.D.A. criteria. Neutrophils (Bld) [#/Vol] 12.5 10*3/uL 2.0-7.7 [facility] Work Phone: Neutrophils/100 WBC (Bld) 81.7 % 47-70 [facility] Work Phone: Potassium [Moles/Vol] 3.7 mmol/L 3.5-5.1 [facility] Work Phone: Protein [Mass/Vol] 6.0 g/dL 6.4-8.2 [facility] Work Phone: Sodium [Moles/Vol] 140 mmol/L 136-145 [facility] Work Phone: WBC (Bld) [#/Vol] 15.3 10*3/uL 4.4-11.0 [facility] Work Phone: Blood erythrocytes count (nu mber/volume)on 04-11-2022 RBC (Bld) [#/Vol] 3.38 10*6/uL 4.6-6.2 [facility] Work Phone: Blood hemoglobin measurement (mass/volume)on 04-11-2022 Hemoglobin (Bld) [Mass/Vol] 12.5 g/dL 13.0-16.5 [facility] Work Phone: Blood lymphocytes/100 leukoc yteson 04-11-2022 Lymphocytes/100 WBC (Bld) 10.8 % 19-41 [facility] Work Phone: Blood monocytes/100 leukocyt eson 04-11-2022 Monocytes/100 WBC (Bld) 5.6 % 0-10 [facility] Work Phone: Blood platelet mean volumeon 04-11-2022 Platelet mean volume (Bld) [Entitic vol] 9.4 fL 6.2-12.0 [facility] Work Phone: Determination of erythrocyte mean corpuscular volume (MCV)on 04-11-2022 MCV (RBC) [Entitic vol] 112.4 fL 80-94 [facility] Work Phone: Direct bilirubinon 2 Bilirubin.direct [Mass/Vol] 3.40 mg/dL 0.00-0.30 [facility] Work Phone: Hematocrit Auto (Bld) [Volum e fraction]on 04-11-2022 Hematocrit (Bld) [Volume fraction] 38.0 % 40-54 [facility] Work Phone: INR in Blood by Coagulation assayon 04-11-2022 INR Coag (Bld) [Relative time] 1.4 {INR} [facility] Work Phone: [phone] Laboratory - Chemistry and C hemistry - challengeon 04-11-2022 ALP [Catalytic activity/Vol] 144 U/L 45-117 [facility] Work Phone: [phone] ALT [Catalytic activity/Vol] 37 U/L 16-61 [facility] Work Phone: [phone] CO2 [Moles/Vol] 23.0 mmol/L 21.0-32.0 [facility] Work Phone: [phone] Globulin (S) [Mass/Vol] 3.8 g/dL 2.2-4.2 [facility] Work Phone: [phone] Lipase [Catalytic activity/Vol] 121 U/L 73-393 [facility] Work Phone: [phone] Urea nitrogen/Creatinine [Mass ratio] 13.6 mg/mg 10-20 [facility] Work Phone: Laboratory - Coagulationon 0 04-11-2022 aPTT Coag (Bld) [Time] 35.2 s 24.1-36.2 [facility] Work Phone: PT Coag (PPP) [Time] 16.7 s 11.7-14.[address] [facility] Work Phone: Laboratory - Hematology and Cell countson 04-11-2022 Erythrocyte distribution width (RBC) [Entitic vol] 52.3 fL 35.1-43.9 oste [address] [facility] Work Phone: [phone] Erythrocyte distribution width (RBC) [Ratio] 12.6 % 11.6-14.6 [facility] Work Phone: Immature granulocytes/100 WBC (Bld) 0.600 % 0.0-0.9 [facility] Work Phone: Comment on above: IG% - Immature Granu locytes (promyelocytes, myelocytes and metamyelocytes) > 1% indicates that a LEFT SHIFT is Present. MCH (RBC) [Entitic mass] 37.0 pg 27.0-32.0 [facility] Work Phone: Nucleated RBC/100 WBC (Bld) [Ratio] 0 % 0-5 [facility] Work Phone: MCHC Auto (RBC) [Mass/Vol]on 04-11-2022 MCHC (RBC) [Mass/Vol] 32.9 g/dL 32-36 [facility] Work Phone: No Panel Informationon 04-11 Estimated Creatinine Clearance Calc 121.02 ml/min [facility] Work Phone: Estimated GFR (MDRD) Amer 162 mL/min >60 [facility] Work Phone: Comment on above: GFR Calc Estimated GFR (MDRD) Non-Af Amer 134 mL/min >60 [facility] Work Phone: Comment on above: Non- GFR Calc Platelets bldon 04-11-2022 Platelets (Bld) [#/Vol] 372 10*3/uL 150-450 [facility] Work Phone: Serum or plasma albumin lori urement (mass/volume)on 04-11-2022 Albumin [Mass/Vol] 2.2 g/dL 3.2-5.0 [facility] Work Phone: Serum or plasma calcium lori urement (mass/volume)on 04-11-2022 Calcium [Mass/Vol] 8.6 mg/dL 8.5-10.1 [facility] Work Phone: Serum or plasma creatinine m easurement (mass/volume)on 04-11-2022 Creatinine [Mass/Vol] 0.66 mg/dL 0.70-1.30 [facility] Work Phone: Comment on above: The validity of the calculated GFR & GFRAA in patients over 70 years has not been determined. Clinical correlation is essential. Serum or plasma urea nitroge n measurement (mass/volume)on 04-11-2022 Urea nitrogen [Mass/Vol] 9 mg/dL 7-18 [facility] Work Phone: Thin prep Papanicolaou smear with manual screeningon 04-11-2022 Thin prep Papanicolaou smear with manual screening 83 U/L 15-37 [facility] Work Phone: Thin prep Papanicolaou smear with manual screening 5 5-15 [facility] Work Phone: Absolute lymphocyte counton 03-11-2022 Lymphocytes Auto (Unsp spec) [#/Vol] 0.42 10*3/uL 0.83-4.51 [facility] Work Phone: Basophil percentageon 2021 Lactate [Moles/Vol] 3.2 mmol/L 0.4-2.0 [facility] Work Phone: Comment on above: Critical Result(s) C alled at: 13:48:41 03/11/2022 by: Amadeo Ramsey RN (ER). Results read back by same. Basophil percentage 0 SEEN /hpf 0-5 [facility] Work Phone: Ammonia (P) [Moles/Vol] 35.0 umol/L 11-32 [facility] Work Phone: Basophils/100 WBC (Bld) 0.4 % 0-1 [facility] Work Phone: Bilirubin [Mass/Vol] 20.40 mg/dL 0.20-1.00 [facility] Work Phone: Comment on above: Critical Result(s) C alled at: 11:27:59 03/11/2022 by: Amadeo Jones to Epifanio BRYAN (ER). Results read back by same. For patients on eltrombopag therapy, use of Dimension [place] TBIL is not recommended. Chloride [Moles/Vol] 99 mmol/L 98-107 [facility] Work Phone: Eosinophils/100 WBC (Bld) 0.1 % 0-5 [facility] Work Phone: Glucose [Mass/Vol] 132 mg/dL 74-106 [facility] Work Phone: Comment on above: Fasting Glucose resu lt greater than or equal to 126 mg/dL suggests DIABETES MELLITUS per A.D.A. criteria. Neutrophils (Bld) [#/Vol] 11.7 10*3/uL 2.0-7.7 [facility] Work Phone: Neutrophils/100 WBC (Bld) 90.9 % 47-70 [facility] Work Phone: Potassium [Moles/Vol] 3.6 mmol/L 3.5-5.1 [facility] Work Phone: Comment on above: Slight Hemolysis, Re sult may be falsely increased. Protein [Mass/Vol] 7.1 g/dL 6.4-8.2 [facility] Work Phone: Comment on above: Moderate Icterus, Re sult may be falsely decreased. Sodium [Moles/Vol] 134 mmol/L 136-145 [facility] Work Phone: WBC (Bld) [#/Vol] 12.9 10*3/uL 4.4-11.0 [facility] Work Phone: Bilirubin Test strip Ql (U)o n 03-11-2022 Bilirubin Ql (U) 6 mg/dL Negative [facility] Work Phone: Comment on above: COLOR OF URINE MAY A FFECT DIPSTICK RESULTS. Blood erythrocytes count (nu mber/volume)on 03-11-2022 RBC (Bld) [#/Vol] 3.58 10*6/uL 4.6-6.2 [facility] Blood hemoglobin measurement (mass/volume)on 03-11-2022 Hemoglobin (Bld) [Mass/Vol] 13.1 g/dL 13.0-16.5 [facility] Work Phone: Blood lymphocytes/100 leukoc yteson 03-11-2022 Lymphocytes/100 WBC (Bld) 3.3 % 19-41 [facility] Work Phone: Blood monocytes/100 leukocyt eson 03-11-2022 Monocytes/100 WBC (Bld) 4.8 % 0-10 [facility] Work Phone: Blood platelet mean volumeon 03-11-2022 Platelet mean volume (Bld) [Entitic vol] 10.9 fL 6.2-12.0 [facility] Work Phone: Determination of erythrocyte mean corpuscular volume (MCV)on 03-11-2022 MCV (RBC) [Entitic vol] 106.1 fL 80-94 [facility] Work Phone: Direct bilirubinon 2 Bilirubin.direct [Mass/Vol] 15.56 mg/dL 0.00-0.30 [facility] Work Phone: Hematocrit Auto (Bld) [Volum e fraction]on 03-11-2022 Hematocrit (Bld) [Volume fraction] 38.0 % 40-54 [facility] Work Phone: INR in Blood by Coagulation assayon 03-11-2022 INR Coag (Bld) [Relative time] 1.4 {INR} [facility] Work Phone: Ketones Test strip Ql (U)on 03-11-2022 Ketones Ql (U) 5 mg/dl Negative [facility] Work Phone: Laboratory - Chemistry and C hemistry - challengeon 03-11-2022 ALP [Catalytic activity/Vol] 291 U/L 45-117 [facility] Work Phone: ALT [Catalytic activity/Vol] 53 U/L 16-61 [facility] Work Phone: CO2 [Moles/Vol] 23.0 mmol/L 21.0-32.0 [facility] Work Phone: Globulin (S) [Mass/Vol] 4.4 g/dL 2.2-4.2 [facility] Work Phone: Lipase [Catalytic activity/Vol] 159 U/L 73-393 [facility] Work Phone: [phone] Urea nitrogen/Creatinine [Mass ratio] 11.2 mg/mg 10-20 [facility] Work Phone: Laboratory - Coagulationon 0 03-11-2022 PT Coag (PPP) [Time] 17.1 s 11.7-14.9 [facility] Work Phone: Laboratory - Hematology and Cell countson 03-11-2022 Erythrocyte distribution width (RBC) [Entitic vol] 67.8 fL 35.1-43.9 [facility] Work Phone: Erythrocyte distribution width (RBC) [Ratio] 17.7 % 11.6-14.6 [facility] Work Phone: Immature granulocytes/100 WBC (Bld) 0.500 % 0.0-0.9 [facility] Work Phone: Comment on above: IG% - Immature Granu locytes (promyelocytes, myelocytes and metamyelocytes) > 1% indicates that a LEFT SHIFT is Present. MCH (RBC) [Entitic mass] 36.6 pg 27.0-32.0 [facility] Work Phone: Nucleated RBC/100 WBC (Bld) [Ratio] 0 % 0-5 [facility] Work Phone: MCHC Auto (RBC) [Mass/Vol]on 03-11-2022 MCHC (RBC) [Mass/Vol] 34.5 g/dL 32-36 [facility] Work Phone: Mucus LM Ql (Urine sed)on Mucus Ql (Urine sed) 0 SEEN /hpf [facility] Work Phone: Nitrite Test strip Ql (U)on 03-11-2022 Nitrite Ql (U) Negative Negative [facility] Work Phone: No Panel Informationon 03-11 Ethyl Alcohol Level < 3.0 mg/dL [facility] Work Phone: Comment on above: The serum:whole bloo d ethanol ratio is approximately 1.14and varies slightly with hematocrit. Medical Alcohol reference interval and critical value innon-tolerant individuals; 50 - 100 Impairment 100 Intoxication 100 - 250 Severe Poisoning 250 - 400 Deep/possible fatal coma Estimated Creatinine Clearance Calc 112.49 ml/min [facility] Work Phone: Estimated GFR (MDRD) Amer 148 mL/min >60 [facility] Work Phone: Comment on above: GFR Calc Estimated GFR (MDRD) Non-Af Amer 122 mL/min >60 [facility] Work Phone: Comment on above: Non- GFR Calc Troponin I High Sensitivity 3 pg/mL 3.0-78.0 [facility] Work Phone: Comment on above: Please Note: New [place] t Units and Gender Specific Reference Ranges. For more information see Policy Stat Procedure [place] High Sensitivity Troponin (TNIH) and attachments. Platelets bldon 03-11-2022 Platelets (Bld) [#/Vol] 260 10*3/uL 150-450 [facility] Work Phone: Protein Test strip Ql (U)on 03-11-2022 Protein Ql (U) 15 mg/dl Negative [facility] Work Phone: Serum or plasma albumin lori urement (mass/volume)on 03-11-2022 Albumin [Mass/Vol] 2.7 g/dL 3.2-5.0 [facility] Work Phone: Serum or plasma calcium lori urement (mass/volume)on 03-11-2022 Calcium [Mass/Vol] 9.2 mg/dL 8.5-10.1 [facility] Work Phone: Serum or plasma creatinine m easurement (mass/volume)on 03-11-2022 Creatinine [Mass/Vol] 0.71 mg/dL 0.70-1.30 [facility] Work Phone: Comment on above: Moderate Icterus, Re sult may be falsely decreased.The validity of the calculated GFR & GFRAA in patients over 70 years has not been determined. Clinical correlation is essential. Serum or plasma urea nitroge n measurement (mass/volume)on 03-11-2022 Urea nitrogen [Mass/Vol] 8 mg/dL 7-18 [facility] Work Phone: Squamous epithelial cells de tection in urine sediment by light microscopyon 03-11-2022 Epithelial cells.squamous LM Ql (Urine sed) 0-5 SEEN /hpf 0-5 [facility] Work Phone: Thin prep Papanicolaou smear with manual screeningon 03-11-2022 Thin prep Papanicolaou smear with manual screening 235 U/L 15-37 [facility] Work Phone: Comment on above: Slight Hemolysis, Re sult may be falsely increased. Thin prep Papanicolaou smear with manual screening 12 5-15 [facility] Work Phone: Thin prep Papanicolaou smear with manual screening 338 U/L 87-241 [facility] Work Phone: Comment on above: Slight Hemolysis, Re sult may be falsely increased. Urine blood detectionon - RBC Ql (U) 25 /ul Negative [facility] Work Phone: RBC Ql (U) 0 SEEN /hpf 0-5 [facility] Work Phone: Urine clarityon 03-11-2022 Clarity (U) Sl. Cloudy Clear [facility] Work Phone: Urine color determinationon 03-11-2022 Color (U) Giulia Yellow [facility] Work Phone: Urine glucose detectionon Glucose Ql (U) Normal mg/dl Normal [facility] Work Phone: Urine leukocyte esterase det ection by dipstickon 03-11-2022 Leukocyte esterase Test strip Ql (U) 25 /ul Negative [facility] Work Phone: Urine pHon 03-11-2022 pH (U) 8.0 [pH] 5.0 - 8.0 [facility] Work Phone: Urine sediment bacteria coun t by microscopy (number/high power field)on 03-11-2022 Bacteria LM.HPF (Urine sed) [#/Area] 0 /[HPF] None Seen [facility] Work Phone: Urine specific gravity measu rementon 03-11-2022 Specific gravity (U) [Rel density] 1.010 1.002-1.030 [facility] Work Phone: Urobilinogen Auto test strip Ql (U)on 03-11-2022 Urobilinogen Ql (U) 8 mg/dl Normal [facility] Work Phone: Absolute lymphocyte counton 03-09-2022 Lymphocytes Auto (Unsp spec) [#/Vol] 0.99 10*3/uL 0.83-4.51 [facility] Work Phone: Basophil percentageon 2021 Basophil percentage 0-5 SEEN /hpf 0-5 [facility] Work Phone: Basophils/100 WBC (Bld) 0.8 % 0-1 [facility] Work Phone: Bilirubin [Mass/Vol] 14.00 mg/dL 0.20-1.00 [facility] Work Phone: Comment on above: For patients on eltr ombopag therapy, use of Dimension [place] TBIL is not recommended. Chloride [Moles/Vol] 101 mmol/L 98-107 [facility] Work Phone: Eosinophils/100 WBC (Bld) 0.1 % 0-5 [facility] Work Phone: Glucose [Mass/Vol] 102 mg/dL 74-106 [facility] Work Phone: Comment on above: Fasting Glucose resu lt from 100 to 125 mg/dL suggests IMPAIRED HOMEOSTASIS per A.D.A. criteria. Neutrophils (Bld) [#/Vol] 8.7 10*3/uL 2.0-7.7 [facility] Work Phone: Neutrophils/100 WBC (Bld) 81.8 % 47-70 [facility] Work Phone: Potassium [Moles/Vol] 2.9 mmol/L 3.5-5.1 [facility] Work Phone: Protein [Mass/Vol] 7.0 g/dL 6.4-8.2 [facility] Work Phone: Comment on above: Moderate Icterus, Re sult may be falsely decreased. Sodium [Moles/Vol] 138 mmol/L 136-145 [facility] Work Phone: WBC (Bld) [#/Vol] 10.7 10*3/uL 4.4-11.0 [facility] Work Phone: Bilirubin Test strip Ql (U)o n 03-09-2022 Bilirubin Ql (U) 6 mg/dL Negative [facility] Work Phone: Comment on above: COLOR OF URINE MAY A FFECT DIPSTICK RESULTS. Blood erythrocytes count (nu mber/volume)on 03-09-2022 RBC (Bld) [#/Vol] 3.25 10*6/uL 4.6-6.2 [facility] Work Phone: Blood hemoglobin measurement (mass/volume)on 03-09-2022 Hemoglobin (Bld) [Mass/Vol] 12.1 g/dL 13.0-16.5 [facility] Work Phone: Blood lymphocytes/100 leukoc yteson 03-09-2022 Lymphocytes/100 WBC (Bld) 9.3 % 19-41 [facility] Work Phone: Blood monocytes/100 leukocyt eson 03-09-2022 Monocytes/100 WBC (Bld) 7.3 % 0-10 [facility] Work Phone: Blood platelet mean volumeon 03-09-2022 Platelet mean volume (Bld) [Entitic vol] 11.0 fL 6.2-12.0 [facility] Work Phone: Determination of erythrocyte mean corpuscular volume (MCV)on 03-09-2022 MCV (RBC) [Entitic vol] 104.6 fL 80-94 [facility] Work Phone: Direct bilirubinon 2 Bilirubin.direct [Mass/Vol] 10.82 mg/dL 0.00-0.30 [facility] Work Phone: Hematocrit Auto (Bld) [Volum e fraction]on 03-09-2022 Hematocrit (Bld) [Volume fraction] 34.0 % 40-54 [facility] Work Phone: Ketones Test strip Ql (U)on 03-09-2022 Ketones Ql (U) 5 mg/dl Negative [facility] Work Phone: Laboratory - Chemistry and C hemistry - challengeon 03-09-2022 ALP [Catalytic activity/Vol] 306 U/L 45-117 [facility] Work Phone: ALT [Catalytic activity/Vol] 61 U/L 16-61 [facility] Work Phone: CO2 [Moles/Vol] 28.0 mmol/L 21.0-32.0 [facility] Work Phone: Globulin (S) [Mass/Vol] 4.3 g/dL 2.2-4.2 [facility] Work Phone: Lipase [Catalytic activity/Vol] 202 U/L 73-393 [facility] Work Phone: Urea nitrogen/Creatinine [Mass ratio] 11.2 mg/mg 10-20 [facility] Work Phone: Laboratory - Hematology and Cell countson 03-09-2022 Anisocytosis Ql (Bld) 1+ [facility] Work Phone: Erythrocyte distribution width (RBC) [Entitic vol] 71.5 fL 35.1-43.9 [facility] Work Phone: Erythrocyte distribution width (RBC) [Ratio] 18.7 % 11.6-14.6 [facility] Work Phone: Immature granulocytes/100 WBC (Bld) 0.700 % 0.0-0.9 [facility] Work Phone: Comment on above: IG% - Immature Granu locytes (promyelocytes, myelocytes and metamyelocytes) > 1% indicates that a LEFT SHIFT is Present. MCH (RBC) [Entitic mass] 37.2 pg 27.0-32.0 [facility] Work Phone: Nucleated RBC/100 WBC (Bld) [Ratio] 0.3 % 0-5 [facility] Work Phone: MCHC Auto (RBC) [Mass/Vol]on 03-09-2022 MCHC (RBC) [Mass/Vol] 35.6 g/dL 32-36 [facility] Work Phone: Mucus LM Ql (Urine sed)on Mucus Ql (Urine sed) 0 SEEN /hpf [facility] Work Phone: Nitrite Test strip Ql (U)on 03-09-2022 Nitrite Ql (U) Negative Negative [facility] Work Phone: No Panel Informationon 03-09 Hepatitis A IgM Antibody Negative Negative [facility] Work Phone: Hepatitis B Core IgM Antibody Negative Negative [facility] Work Phone: Hepatitis C Antibody (EIA) <0.1 s/co ratio 0.0-0.9 [facility] Work Phone: Hepatitis C Antibody Comment Comment . [facility] Work Phone: Comment on above: NegativeNot infected with HCV, unless recent infection issuspected or other evidence exists to indicate HCVinfection.Performed at: [facility] [employer] [id number] Director: Remberto King PhD, Phone: [phone] Estimated Creatinine Clearance Calc 175.21 ml/min [facility] Work Phone: Estimated GFR (MDRD) Amer 256 mL/min >60 [facility] Work Phone: Comment on above: GFR Calc Estimated GFR (MDRD) Non-Af Amer 211 mL/min >60 [facility] Work Phone: Comment on above: Non- GFR Calc Ethyl Alcohol Level 215.0 mg/dL [facility] Work Phone: Comment on above: The serum:whole bloo d ethanol ratio is approximately 1.14and varies slightly with hematocrit. Medical Alcohol reference interval and critical value innon-tolerant individuals; 50 - 100 Impairment 100 Intoxication 100 - 250 Severe Poisoning 250 - 400 Deep/possible fatal coma Platelets bldon 03-09-2022 Platelets (Bld) [#/Vol] 223 10*3/uL 150-450 [facility] Work Phone: Protein Test strip Ql (U)on 03-09-2022 Protein Ql (U) 30 mg/dl Negative [facility] Work Phone: Serum or plasma albumin lori urement (mass/volume)on 03-09-2022 Albumin [Mass/Vol] 2.7 g/dL 3.2-5.0 [facility] Work Phone: Serum or plasma calcium lori urement (mass/volume)on 03-09-2022 Calcium [Mass/Vol] 8.6 mg/dL 8.5-10.1 [facility] Work Phone: Serum or plasma creatinine m easurement (mass/volume)on 03-09-2022 Creatinine [Mass/Vol] 0.44 mg/dL 0.70-1.30 [facility] Work Phone: Comment on above: Moderate Icterus, Re sult may be falsely decreased.The validity of the calculated GFR & GFRAA in patients over 70 years has not been determined. Clinical correlation is essential. Serum or plasma hepatitis B virus surface antigen detection by immunoassayon 03-09-2022 HBV surface Ag IA Ql Negative Negative [facility] Work Phone: Serum or plasma urea nitroge n measurement (mass/volume)on 03-09-2022 Urea nitrogen [Mass/Vol] 5 mg/dL - [facility] Work Phone: Squamous epithelial cells de tection in urine sediment by light microscopyon 03-09-2022 Epithelial cells.squamous LM Ql (Urine sed) 0 SEEN /hpf 0-5 [facility] Work Phone: Thin prep Papanicolaou smear with manual screeningon 03-09-2022 Thin prep Papanicolaou smear with manual screening 307 U/L 15-37 [facility] Work Phone: Thin prep Papanicolaou smear with manual screening 9 5-15 [facility] Work Phone: Urine blood detectionon 02-20 RBC Ql (U) 50 /ul Negative [facility] Work Phone: RBC Ql (U) 0 SEEN /hpf 0-5 [facility] Work Phone: Urine clarityon 03-09-2022 Clarity (U) Clear Clear [facility] Work Phone: Urine color determinationon 03-09-2022 Color (U) Giulia Yellow [facility] Work Phone: Urine glucose detectionon Glucose Ql (U) Normal mg/dl Normal [facility] Work Phone: Urine leukocyte esterase det ection by dipstickon 03-09-2022 Leukocyte esterase Test strip Ql (U) 25 /ul Negative [facility] Work Phone: Urine pHon 03-09-2022 pH (U) 6.5 [pH] 5.0 - 8.0 [facility] Work Phone: Urine sediment bacteria coun t by microscopy (number/high power field)on 03-09-2022 Bacteria LM.HPF (Urine sed) [#/Area] 0 /[HPF] None Seen [facility] Work Phone: Urine specific gravity measu rementon 03-09-2022 Specific gravity (U) [Rel density] 1.015 1.002-1.030 [facility] Work Phone: Urobilinogen Auto test strip Ql (U)on 03-09-2022 Urobilinogen Ql (U) 12 mg/dl Normal [facility] Work Phone: Vital Signs Date Time Vital Sign Value Performing Clinician Faci lity 10-24-2023 15:24-0500 Heart rate 82 /min [facility] 10-24-2023 15:23-0500 Respiratory rate 16 /min [facility] 10-24-2023 15:23-0500 SaO2% (BldA) [Mass fraction] 99 % [facility] 10-24-2023 12:20-0500 Body height 170.18 cm [facility] 10-24-2023 12:20-0500 Body mass index (BMI) [Ratio] 29 kg/m2 [facility] 10-24-2023 12:20-0500 Body temperature 97.2 [degF] [facility] 10-24-2023 12:20-0500 Body weight 84.2 kg [facility] 10-24-2023 12:20-0500 Diastolic blood pressure 108 mm[Hg] [facility] 10-24-2023 12:20-0500 Systolic blood pressure 160 mm[Hg] [facility] 12-29-2022 12:29-0500 Diastolic blood pressure 93 mm[Hg] [facility] 12-29-2022 12:29-0500 Heart rate 84 /min [facility] 12-29-2022 12:29-0500 Respiratory rate 18 /min [facility] 12-29-2022 12:29-0500 SaO2% (BldA) [Mass fraction] 95 % [facility] 12-29-2022 12:29-0500 Systolic blood pressure 151 mm[Hg] [facility] 12-29-2022 07:14-0500 Body height 170.18 cm [facility] 12-29-2022 07:14-0500 Body mass index (BMI) [Ratio] 29.5 kg/m2 [facility] 12-29-2022 07:14-0500 Body temperature 98.2 [degF] [facility] 12-29-2022 07:14-0500 Body weight 85.6 kg [facility] 09-02-2022 15:07-0500 Diastolic blood pressure 87 mm[Hg] Dr. Shreyas Montejo Work Phone: [facility] 09-02-2022 15:07-0500 Heart rate 101 /min Dr. Shreyas Montejo Work Phone: [facility] 09-02-2022 15:07-0500 Respiratory rate 18 /min Dr. Shreyas Montejo Work Phone: [facility] 09-02-2022 15:07-0500 SaO2% (BldA) [Mass fraction] 98 % Dr. Pritchett Friend Work Phone: [facility] 09-02-2022 15:07-0500 Systolic blood pressure 120 mm[Hg] Dr. Shreyas Montejo Work Phone: [facility] 09-02-2022 10:05-0500 Body height 170.[address] Shreyas Montejo Work Phone: [facility] Work Phone: 09-02-2022 10:05-0500 Body mass index (BMI) [Ratio] 29.5 kg/m2 Dr. Pritchett Friend Work Phone: [facility] 09-02-2022 10:05-0500 Body temperature 97.9 [degF] Dr. Shreyas Montejo Work Phone: [facility] 09-02-2022 10:05-0500 Body weight 85.[address] Shreyas Montejo Work Phone: [facility] 06-13-2022 10:39-0400 Diastolic blood pressure 90 mm[Hg] Dr. Shreays Montejo Work Phone: [facility] Work Phone: 06-13-2022 10:39-0400 Systolic blood pressure 160 mm[Hg] Dr. Shreyas Montejo Work Phone: [facility] Work Phone: 06-13-2022 10:13-0400 Body height 170.[address] Shreyas Montejo Work Phone: [facility] Work Phone: 06-13-2022 10:13-0400 Body mass index (BMI) [Ratio] 27.6 kg/m2 Dr. Shreyas Montejo Work Phone: [facility] Work Phone: 06-13-2022 10:13-0400 Body weight 79.[address] Shreyas Montejo Work Phone: [facility] Work Phone: 06-13-2022 10:13-0400 Heart rate 104 /min Dr. Shreyas Montejo Work Phone: [facility] Work Phone: 06-13-2022 10:13-0400 SaO2% (BldA) [Mass fraction] 93 % Dr. Shreyas Montejo Work Phone: [facility] Work Phone: 05-02-2022 09:15-0400 Body height 170.[address] Shreyas Montejo Work Phone: [facility] Work Phone: 05-02-2022 09:15-0400 Body mass index (BMI) [Ratio] 26.2 kg/m2 Dr. Shreyas Montejo Work Phone: [facility] Work Phone: 05-02-2022 09:15-0400 Body weight 75.[address] Shreyas Monteoj Work Phone: [facility] Work Phone: 05-02-2022 09:15-0400 Diastolic blood pressure 98 mm[Hg] Dr. Shreyas Montejo Work Phone: [facility] Work Phone: 05-02-2022 09:15-0400 Heart rate 120 /min Dr. Shreyas Montejo Work Phone: [facility] Work Phone: 05-02-2022 09:15-0400 SaO2% (BldA) [Mass fraction] 94 % Dr. Shreyas Montejo Work Phone: [facility] Work Phone: 05-02-2022 09:15-0400 Systolic blood pressure 154 mm[Hg] Dr. Shreyas Montejo Work Phone: [facility] Work Phone: 04-11-2022 14:35-0400 Heart rate 64 /min [facility] Work Phone: 04-11-2022 14:35-0400 Respiratory rate 20 /min [facility] Work Phone: 04-11-2022 14:35-0400 SaO2% (BldA) [Mass fraction] 97 % [facility] Work Phone: 04-11-2022 13:26-0400 Diastolic blood pressure 91 mm[Hg] [facility] Work Phone: 04-11-2022 13:26-0400 Systolic blood pressure 143 mm[Hg] [facility] Work Phone: 04-11-2022 10:27-0400 Body height 170.18 cm [facility] Work Phone: 04-11-2022 10:27-0400 Body mass index (BMI) [Ratio] 29.1 kg/m2 [facility] Work Phone: 04-11-2022 10:27-0400 Body temperature 97.7 [degF] [facility] Work Phone: 04-11-2022 10:270400 Body weight 84.36 kg [facility] Work Phone: 03-11-2022 16:09-0400 Respiratory rate 18 /min [facility] Work Phone: 03-11-2022 16:00-0400 Diastolic blood pressure 101 mm[Hg] [facility] Work Phone: 03-11-2022 16:00-0400 Heart rate 101 /min [facility] Work Phone: 03-11-2022 16:00-0400 SaO2% (BldA) [Mass fraction] 94 % [facility] Work Phone: 03-11-2022 16:00-0400 Systolic blood pressure 158 mm[Hg] [facility] Work Phone: 03-11-2022 10:31-0400 Body height 170.18 cm [facility] Work Phone: 03-11-2022 10:31-0400 Body mass index (BMI) [Ratio] 26.7 kg/m2 [facility] Work Phone: 03-11-2022 10:31-0400 Body temperature 96.3 [degF] [facility] Work Phone: 03-11-2022 10:31-0400 Body weight 77.56 kg [facility] Work Phone: 03-09-2022 13:53-0400 Diastolic blood pressure 74 mm[Hg] [facility] Work Phone: 03-09-2022 13:53-0400 Heart rate 72 /min [facility] Work Phone: 03-09-2022 13:53-0400 Respiratory rate 16 /min [facility] Work Phone: 03-09-2022 13:53-0400 SaO2% (BldA) [Mass fraction] 98 % [facility] Work Phone: 03-09-2022 13:53-0400 Systolic blood pressure 149 mm[Hg] [facility] Work Phone: 03-09-2022 12:40-0400 Body height 167.64 cm [facility] Work Phone: 03-09-2022 12:40-0400 Body mass index (BMI) [Ratio] 37.9 kg/m2 [facility] Work Phone: 03-09-2022 12:40-0400 Body weight 106.59 kg [facility] Work Phone: 03-09-2022 10:55-0400 Body temperature 97.7 [degF] [facility] Work Phone: Encounters Encounter Date Encounter Type Care Provider Facility Start: 10-24-2023 End: 10-24-2023 Emergency department patient visit Manjit Lozano Facility:[facility] Start: 10-24-2023 End: 10-24-2023 Emergency department patient visit [facility] Work Phone: Start: 12-29-2022 End: 12-29-2022 Emergency department patient visit No Primary Care Physician Facility:[facility] Start: 12-29-2022 End: 12-29-2022 Emergency department patient visit [facility] Start: 09-02-2022 End: 09-02-2022 Emergency department patient visit Dr. Shreyas Montejo Work Phone: [facility] Start: 07-21-2022 End: 07-21-[address] Shreyas Montejo Work Phone: [facility] Work Phone: Start: 07-21-2022 End: 07-21-[address] Shreyas Montejo Work Phone: [facility], [facility] Start: 06-13-2022 End: 06-13-[address] Shreyas Montejo Work Phone: [facility] Work Phone: Start: 06-13-2022 End: 06-13-[address] Shreyas Montejo Work Phone: [facility] Start: 05-02-2022 End: 05-02-[address] Shreyas Montejo Work Phone: [facility] Start: 05-02-2022 End: 05-02-2022 Patient encounter procedure Dr. Shreyas Montejo Work Phone: [facility] Start: 04-11-2022 End: 04-11-2022 Emergency department patient visit [facility] Start: 03-11-2022 End: 03-11-2022 Emergency department patient visit [facility] Start: 03-09-2022 End: 03-09-2022 Emergency department patient visit [facility] Procedures Date Procedure Procedure Detail Performing [...] Date Care Activity Detail Author Start: 10-24-2023 [facility] Start: 10-24-2023 [facility] Start: 10-24-2023 Bacteria identified in Urine by Culture Urine Culture [facility] Start: 12-29-2022 [facility] Start: 09-02-2022 [facility] Work Phone: Start: 04-11-2022 Abdom paracentesis dx/ther w/imaging guidance ABD PARACENTESIS W/IMAGING [facility] Work Phone: Start: 04-11-2022 Centesis [facility] Work Phone: Bacteria identified in Urine by Culture Urine Culture [facility] Lactic acid measurement [facility] Patient Education [facility] Work Phone: Patient referral [facility] Work Phone: Payers Date Payer Category Payer Self-pay [id number] 2022 Unknown [id number] Unknown [id number] Unknown [id number] Social History Date Type Detail Facility Start: 03-09-2022 End: 10-24-2023 Tobacco smoking status NHIS Unknown if ever smoked [facility] Start: 1970 Sex Assigned At Male W [facility] Mental Status Date Assessment Result Facility 04-11-2022 Cognitive function Level Of Cons ciousness Awake;Alert;Appropriate [facility] Work Phone: 04-11-2022 Cognitive function Level Of Cons ciousness Awake;Alert;Appropriate;Follow s Commands [facility] Work Phone: 03-11-2022 Cognitive function Level Of Cons ciousness Awake;Alert;Appropriate;Follow s Commands [facility] Work Phone: 03-09-2022 Cognitive function Level Of Cons ciousness Awake;Alert;Appropriate;Follow s Commands [facility] Work Phone: Discharge summary 10-24-2023 Note Date & Type Note Facility 10-24-2023 Discharge summary Note Date/Time October 24, 2023 2:20pm [facility] Medical Records Department [address] [place] [address] Emergency Department Summary 10/24/23 MR#: [id number] Acct: [id number] Name: QUENTIN ALLISON Rep #:[id number] : 1970 52 From: Manjit Lozano MD [...] has been doing very well with that. [facility] Medical History Abdominal ascites Alcoholic cirrhosis Cirrhosis of liver Home Medications cephalexin 500 mg capsule 500 mg PO Q12 #14 CAPSULES 12/29/22 [Rx Last Taken Unknown] furosemide 20 mg tablet (Lasix) 20 mg PO BID fluid 12/29/22 [History Last Taken 4 Months Ago ~08/31/22] methyl salicylate-menthol topical ointment 1 ea topical QHS shoulder pain 12/29/22 [History Last Taken 12/28/22] rrjawobj-dn-eocdy 300 mcg-K 60 mcg-lycop 600 mcg-lutein 300 [...] % (Auto) 62.3 Lymph % (Auto) 24.8 [place] % (Auto) 8.0 Eos % (Auto) 3.3 [...] Clarity Clear Urine pH 6.0 Ur Specific Ogema 1.015 Urine Protein 30 H Urine Glucose [...] 14:43 EST Reading Location ID and State: [facility] / [place] , Service support , Testicular Ultrasound 10/24/23 [...] 14:51 EST Reading Location ID and State: [facility] / [place] , Service support , Discharge Plan Triage [...] your Primary Care Provider. Call [facility] ([phone]) or report to the closest Emergency Room. Call 911 if necessary. 10/24/23 2694 <Electronically signed by Manjit Lozano MD> Cosigner Signature (if applicable): CC: No Primary Care Physician ~ Signed [facility] Work Phone: Evaluation note Note Date & Type Note Facility Evaluation note No assessment information availa ble [facility] Work Phone: Evaluation note Note Date & Type Note Facility Evaluation note Diagnosis Onset Date Abdominal ascites acute Alcoholic hepatitis acute Hepatomegaly acute [facility] Work Phone: Evaluation note Note Date & Type Note Facility Evaluation note Diagnosis Onset Date Abdominal ascites acute Alcoholic hepatitis acute Hepatomegaly acute Alcoholic hepatitis acute [facility] Work Phone: Evaluation note Note Date & Type Note Facility Evaluation note Diagnosis Onset Date Alcoholic hepatitis acute [facility] Work Phone: Hospital Discharge instructions Note Date & Type Note Facility Hospital Discharge instructions Additional Instructions Take antibiotic as prescribed. Follow-up with Dr. Montejo as scheduled in 1 week. Return if any worsening symptoms. [facility] Work Phone: Hospital Discharge instructions Note Date & Type Note Facility Hospital Discharge instructions Additional Instructions Drink lots of fluids. Avoid alcohol at all costs. If you start throwing up andrzej blood, having dark black stools or have worsening symptoms please return to the emergency room. [facility] Work Phone: Advance Directives No Advanced Directives Records Found Advance Directive Response Recorded Date/ Time Living Will No March 09, 2022 1 2:21pm Power of Riverboat Master No March 09, 2022 12:21pm Advance Directive Response Recorded Date/ Time Living Will No March 11, 2022 1 0:50am Power of Riverboat Master No March 11, 2022 10:50am Advance Directive Response Recorded Date/ Time Living Will No April 11, 2022 11:12am Power of Riverboat Master No April 11 11:12am Advance Directive Response Recorded Date/ Time Living Will No September 02 022 10:15am Power of Riverboat Master No September 02, 2022 10:15am Advance Directive Response Recorded Date/ Time Living Will No December 29, 2022 7:58am Power of Riverboat Master No December 29 3 7:58am Advance Directive Response Recorded Date/ Time Living Will No October 24 4 1:02pm Power of Riverboat Master No October 24 024 1:02pm Chief Complaint [...] section and content) DATE CREATED AUTHOR 12/23/2023 [facility] FOR RECORDS PERTAINING TO PATIENTS WHO ARE [...] BE BASED ON THE PRIMARY CLINICAL RECORDS. [employer] [facility]. provides no warranty or guarantee of the accuracy or completeness of information in this document.
--- NOTE | 2025-05-31 15:41 | ED.RN ---
per Cady from Crisis pt will be safety planned.
[2025-05-31 15:46] VITALS: BP 176/91; PULSE 104; RESP 18; TEMP 36.6; O2SAT 95
--- NOTE | 2025-05-31 15:59 | HP.PCM.HOS_ITS ---
HPI - General General Date of Admission: 05/31/25 Date of Service: 05/31/25 Chief Complaint: alcohol withdrawal. HPI Narrative QUENTIN ALLISON, is a 54 M who presents seeking treatment for alcohol abuse. This is a 54-year-old male who drinks about a liter and a half of low proof of vodka daily. Last night had liquor with higher proof alcohol use and events occurred which she does not recall but he essentially put a loaded gun to his head. Was sent to emergency room and had a workup which was unremarkable. Patient was actually evaluated by crisis who felt the patient was not a threat to suicide and did not recommend sitter for him. Does express voluntarily wanting to go through the ramp program for his alcohol abuse. He has never had a plan of killing himself or others in the past. And he states that the event that occurred last night is well out of character for him. He does state that he has quit alcohol on his own before and typically begins with nausea then progresses the tremors. He denies ever having had hallucinations previously. He has never been through a formal program for his alcohol abuse REPLACED BY [facility] Medical History Alcoholic cirrhosis Abdominal ascites Cirrhosis of liver Home Medications ?Medication ?Instructions ?Recorded ?Last Taken ?Type NK 05/31/25 Unknown History Allergy/AdvReac Type Severity Reaction Status Date / Time No Known Allergies Allergy Verified 05/31/25 11:09 Family History (Updated 05/31/25 @ 16:[address] Geremias Rios DO) Other Alcohol abuse Social History Smoking Status: Heavy Smoker (>10/day) details: Patient is 32 days sober ROS ROS Narrative He is nauseated and having some subtle tremors. All review of systems were negative except as mentioned above in the history of present illness and the other review of systems. Vital Signs Vital Signs Vital Signs: 05/31/25 11:04 05/31/25 12:11 05/31/25 15:46 Temperature 36.9 C 36.6 C Temperature Source Oral Pulse Rate 119 H 98 104 H Respiratory Rate 16 18 18 Blood Pressure 149/88 H 144/99 H 176/91 H Blood Pressure Mean 108 114 119 Pulse Ox 92 99 95 Oxygen Delivery Method Room Air Weight Weight: 82.735 kg Body Mass Index (BMI) 28.5 Physical Exam Narrative - Physical Exam General: Alert, Oriented x3, Cooperative HEENT: Atraumatic, PERRLA, EOMI, Normocephalic Oral: Moist Mucosa, No Gingival or Mucosal Lesions/ Ulcerations Neck: Supple, No JVD, Negative Carotid Bruits Lungs: Clear to auscultation, Normal air movement Cardiovascular: Regular rate, Normal S1, Normal S2, No murmurs Abdomen: Bowel Sounds Present, Soft, Non Tender, Non-Distended, No Hepato- splenomegaly Extremities: No clubbing, No cyanosis, No edema, Capillary Refill Less than 3 Seconds Skin: No rashes, No breakdown Musculoskeletal: No Tenderness to Palpation of Joints or Extremities Neurological: Neuro grossly intact. Subtle bilateral tremors. Psych/Mental Status: Normal Affect, Appropriate Results Lab / Micro Data 05/31/25 11:32 05/31/25 11:32 Labs: Laboratory Results - last 24 hr 05/31/25 11:25: Urine Opiates Screen NEGATIVE, U Buprenorphine Qual NEGATIVE, Ur Oxycodone Screen NEGATIVE, Urine Methadone Screen NEGATIVE, Urine Fentanyl Screen NEGATIVE, Ur Barbiturates Screen NEGATIVE, Ur Phencyclidine Scrn NEGATIVE, Ur Amphetamines Screen NEGATIVE, U Benzodiazepines Scrn NEGATIVE, Urine Cocaine Screen NEGATIVE, U Cannabinoids Screen PRESUMPTIVE POSITIVE 05/31/25 11:32: WBC 4.1 L, RBC 3.53 L, Hgb 12.6 L, Hct 36.7 L, MCV 104.0 H, MCH 35.7 H, MCHC 34.3, RDW Std Deviation 54.0 H, RDW Coeff of Moses 14.1, Plt Count 130 L, MPV 9.5, Immature Gran % (Auto) 0.200, Neut % (Auto) 63.4, Lymph % (Auto) 21.0, [place] % (Auto) 12.8 H, Eos % (Auto) 0.7, Baso % (Auto) 1.9 H, Absolute Neuts (auto) 2.6, Absolute Lymphs (auto) 0.87, Nucleated RBC % 0, Sodium 140, Potassium 3.8, Chloride 106, Carbon Dioxide 20.3 L, Anion Gap 14, BUN 5, C reatinine 0.57 L, Estim Creat Clear Calc 148.91, Est GFR (MDRD) Non-Af 115, B UN/Creatinine Ratio 9.4 L, Glucose 124 H, Calcium 9.6, Total Bilirubin 1.19, AST 69 H, ALT 23, Alkaline Phosphatase 85, Total Protein 6.6, Albumin 4.1, Globulin 2.5, Albumin/Globulin Ratio 1.6, Ethyl Alcohol 96.9 H Assessment & Plan Assessment/Plan (1) Alcohol abuse: PLAN: With impending withdrawal. Unclear of the potential severity. Patient drinks a liter and a half of low proof vodka daily. Patient will be ordered phenobarbital taper as well as other as needed medications to help with the somatic plaints with his withdrawal. Crisis to see and to facilitate outpatient program for him upon discharge. PLAN: Plan Depression: Patient put a loaded gun to his head. Patient does not have any recollection of this event but he states it is out of character for him. He attributes it to him being very intoxicated due to hyper alcohol that he was drinking last night. He denies any suicidal ideation currently or in the past. Patient was evaluated by crisis who does not feel that he is a suicide threat and does not recommend a transfer to a psychiatric unit or even the need for a bedside sitter. Cirrhosis per history. Is a quitting consumption of alcohol is of utmost importance. May follow-up with gastroenterology upon discharge. VTE prophylaxis low risk not indicated at this time. Charges/Coding Visit Charges Inpatient E&M: 61990 Init Hosp L2
[2025-05-31 16:27] VITALS: BP 170/91; PULSE 89; RESP 14; TEMP 36.7; O2SAT 93; BMI 27.7
--- OUTSIDE RECORDS SUMMARY | 2025-05-31 16:29 | XMS RPT_ITS | CCD ---
Author Organization [facility] Care Team Providers Care Advertising Account Representative Name Role Phone Friend, Dr. Pritchett Primary Care Provider FriendDr. Pritchett Referring Provider [phone] Miguel DORADO, LIME PULLER-C Nilda Eller Attending Provider [phone] Manjit Lozano Attending Unavailable Care Physician, No Primary Primary Care Unava ilable Care Physician, No Primary Primary Care Unava ilable Latrice Jurado Attending Unavailable Billy LIZAMA, Dr. Hendrickson Emergency Provider Friend Dr. Shreyas GRAHAM Primary Care Provider [phone] Dr. Geremias Rios DO Admit Provider Dr. Geremias Rios DO Attending Provider [phone] Dr. Geremias Rios DO Other Provider [phone] Medications Current Medications Medication Drug Class(es) Dates Sig (Normalized) Sig (Original) ciprofloxacin 500 mg oral tablet (1 source) Quinolone Antimicrobial Start: 09-02-2022 take 500 mg by mouth twice daily Ciprofloxacin Hcl Active 500 MG PO TWICE A DAY September 02, 2022 12:00am metroNIDAZOLE 500 mg oral tablet (1 source) Nitroimidazole Antimicrobial Start: 09-02-2022 take 500 mg by mouth three times daily Metronidazole Active 500 MG PO THREE TIMES A DAY September 02, 2022 12:00am Tajtooez-Xkd-Wt-Lyc open-Lutein (Centrum Silver Men) 300-600-300 mcg Tablet (1 source) Start: 12-29-2022 take 300-600 tablets by mouth once daily Tbwgbmem-Oqm-Ap-Ly copen-Lutein (Centrum Silver Men) 300-600-300 mcg Tablet Active 1 TABLET PO DAILY December 29, 2022 12:00am Holdrege (Nk) (1 source) Start: 05-31-2025 Holdrege (Nk) Active May 31, 2025 12:00am Completed/Discontinued Medications Medication Drug Class(es) Dates Sig (Normalized) Sig (Original) cephalexin 500 mg oral capsule (3 sources) Cephalosporin Antibacterial Start: 12-29-2022 End: 05-31-2025 take 1 capsule by mouth every twelve hours Cephalexin 500 mg capsule Discontinued 500 mg PO EVERY 12 HOURS 14 0 December 29, 2022 1:00am May 31, 2025 3:45pm furosemide 20 mg oral tablet (20 sources) Loop Diuretic Start: 04-11-2022 End: 05-31-2025 take 1 tablet by mouth twice daily Furosemide (Lasix) 20 mg tablet Discontinued 20 mg PO TWICE A DAY December 29, 2022 11:36am May 31, 2025 3:45pm fluid lactulose 667 mg/ml oral solution (20 sources) Osmotic Laxative Start: 04-11-2022 End: 05-02-2022 take 20 g by mouth once daily Lactulose 20 gram/30 mL solution Discontinued 20 g PO DAILY 900 0 April 11, 2022 12:00am May 02, 2022 10:21am Start: 03-11-2022 End: 05-02-2022 take 10 g by mouth twice daily Lactulose 10 gram packe t Discontinued 10 g PO TWICE A DAY 30 0 March 11, 2022 12:00am May 02, 2022 9:54am levoFLOXacin 500 mg oral tablet (10 sources) Quinolone Antimicrobial Start: 03-09-2022 End: 05-02-2022 take 1 tablet by mouth once daily Levofloxacin 500 mg tablet Discontinued 500 mg PO DAILY 7 0 March 09, 2022 12:00am May 02, 2022 9:54am Methyl Salicylate-Menthol (Bengay) Ointment (3 sources) Start: 12-29-2022 End: 05-31-2025 Methyl Salicylate-Menthol (Bengay) Ointment Discontinued 1 NMA TOPICAL AT BEDTIME December 29, 2022 1:00am May 31, 2025 3:45pm shoulder pain Start: 12-29-2022 Methyl Salicyl ate-Menthol (Bengay) Ointment Active 1 EACH TOPICAL AT BEDTIME December 29, 2022 12:00am Hb-Fbj-Shbed-A8-Mjjwiea-Uxyx in (Centrum Silver Men) 300-600-300 mcg Tablet (2 sources) Start: 12-29-2022 End: 05-31-2025 Pn-Wmq-Zezes-O0-Vzekptw-Tapd in (Centrum Silver Men) 300-600-300 mcg Tablet Discontinued 1 {tbl} PO DAILY December 29, 2022 1:00am May 31, 2025 3:45pm health maintenance Start: 12-29-2022 take 300-600 tablets by mouth once daily Mn-Sjo-Uifbq-I3-Jybtapw-Cdkztt (Centrum Silver Men) 300-600-300 mcg Tablet Active 1 TABLET PO DAILY December 29, 2022 12:00am ondansetron 4 mg disintegrating oral tablet (3 sources) Serotonin-3 Receptor Antagonist Start: 12-29-2022 End: 05-31-2025 take 1 tablet by mouth every eight hours as needed for nausea Ondansetron 4 mg tablet,disintegrating Discontinued 4 mg PO EVERY 8 HOURS NEEDED as needed for Nausea 10 0 December 29, 2022 1:00am May 31, 2025 3:46pm pantoprazole 20 mg delayed release oral tablet (3 sources) Proton Pump Inhibitor Start: 12-29-2022 End: 05-31-2025 take 1 tablet by mouth twice daily Pantoprazole (Protonix) 20 mg tablet,delayed release (DR/EC) Discontinued 20 mg PO TWICE A DAY 14 0 December 29, 2022 1:00am May 31, 2025 3:45pm potassium chloride 20 meq extended release oral tablet (10 sources) Start: 03-09-2022 End: 05-02-2022 take 2 tablets by mouth once daily Potassium Chloride 20 mEq tablet extended release Discontinued 40 meq PO DAILY 2 March 09, 2022 12:00am May 02, 2022 9:55am Start: 03-09-2022 End: 05-02-2022 take 40 mEq by mouth once daily Potassium Chloride Discontinued 40 MEQ PO DAILY March 08, 2022 11:00pm May 02, 2022 8:55am predniSONE 50 mg oral tablet (19 sources) Start: 03-11-2022 End: 05-02-2022 Prednisone 50 mg tablet Discontinued 80 mg PO DAILY 48 30 0 March 11, 2022 12:00am May 02, 2022 9:55am Start: 03-11-2022 End: 05-02-2022 take 80 mg by mouth once daily Prednisone Discontinued 80 MG PO DAILY 48 30 March 10, 2022 11:00pm May 02, 2022 8:55am Start: 03-09-2022 End: 05-02-2022 take 4 tablets by mouth once daily Prednisone 10 mg tablet Discontinued 40 mg PO DAILY 120 30 0 March 09, 2022 12:00am May 02, 2022 9:55am Start: 03-09-2022 End: 05-02-2022 take 40 mg by mouth once daily Prednisone Discontinued 40 MG PO DAILY 120 30 March 08, 2022 11:00pm May 02, 2022 8:55am spironolactone 25 mg oral tablet (20 sources) Aldosterone Antagonist Start: 04-11-2022 End: 05-31-2025 take 1 tablet by mouth twice daily Spironolactone (Aldactone) 25 mg tablet Discontinued 25 mg PO TWICE A DAY December 29, 2022 11:36am May 31, 2025 3:46pm blood pressure Problems Problem Classification Problem Date Documented Da te Episodic/Chronic Abdominal pain (9 sources) Abdominal pain; Translations: [Unspecified abdominal pain] 12-29-2022 Episodic Alcohol-related disorders (20 sources) Alcoholic hepatitis; Translations: [Alcoholic hepatitis without ascites] Onset: 01-04-2023 Chronic Alcohol-related disorders (1 source) Alcohol use, unspecified with intoxication, unspecified; Translations: [Acute alcoholic intoxication] 05-31-2025 Episodic Mood disorders (1 source) Depressive disorder; Translations: [Depression] 05-31-2025 Chronic Other gastrointestinal disorders (8 sources) Ascites; Translations: [Other ascites] 05-02-2022 Episodic Other gastrointestinal disorders (3 sources) Other ascites; Translations: [Other ascites] Episodic Other liver diseases (8 sources) Cirrhosis of liver; Translations: [Unspecified cirrhosis of liver] 09-02-2022 Chronic Other liver diseases (7 sources) Large liver; Translations: [Hepatomegaly, not elsewhere classified] 05-02-2022 Episodic Other liver diseases (3 sources) Hepatomegaly, not elsewhere classified; Translations: [Hepatomegaly] Episodic Other lower respiratory disease (8 sources) Dyspnea; Translations: [Dyspnea, unspecified] 04-19-2022 Episodic Other male genital disorders (2 sources) Scrotal mass; Translations: [Other specified disorders of the male genital organs] 10-24-2023 Episodic Other male genital disorders (1 source) Other specified disorders of the male genital organs; Translations: [Other specified disorders of the male genital organs] Onset: 12-20-2023 Episodic Urinary tract infections (7 sources) Acute urinary tract infection; Translations: [Urinary tract infection, site not specified] 12-29-2022 Episodic Results Test Name Value Interpretation Reference Range Facility Absolute lymphocyte countOrd ered By: Emeka Cervantes on 05-31-2025 Lymphocytes Auto (Unsp spec) [#/Vol] 0.87 10*3/uL 0.83-4.51 [facility] Absolute neutrophil countOrd ered By: Emeka Cervantes on 05-31-2025 Neutrophils (Bld) [#/Vol] 2.6 10*3/uL 2.0-7.7 [facility] Amphetamine detection with 1 000 ng/mL as cutoffOrdered By: Emeka Cervantes on 05-31-2025 Amphetamines Screen method >1000 ng/mL Ql (U) Negative < 200 ng/mL [facility] Anion gap in Serum or Plasma Ordered By: Emeka Cervantes on 05-31-2025 Anion gap [Moles/Vol] 14 mmol/L 5-[address] [facility] Automated lymphocyte count a s percentage of total leukocytesOrdered By: Emeka Cervantes on 05-31-2025 Lymphocytes/100 WBC Auto (Unsp spec) 21.0 % 19-41 [facility] BUN/creatinine ratioOrdered By: Emeka Cervantes on 05-31-2025 Urea nitrogen/Creatinine [Mass ratio] 9.4 mg/mg Low 10-20 [facility] Basophil percentageOrdered B y: Emeka Cervantes on 05-31-2025 Basophils/100 WBC (Bld) 1.9 % High 0-1 [facility] Bilirubin, totalOrdered By: Emeka Cervantes on 05-31-2025 Bilirubin [Mass/Vol] 1.19 mg/dL 0.00-1.30 [facility] Carbon dioxide, total [Moles /volume] in Central venous bloodOrdered By: Emeka Cervantes on 05-31-2025 CO2 [Moles/Vol] 20.3 mmol/L Low 21.0-32.0 [facility] Chloride assayOrdered By: Hubert Cervantes on 05-31-2025 Chloride [Moles/Vol] 106 mmol/L 98-108 [facility] Eosinophil percentageOrdered By: Emeka Cervantes on 05-31-2025 Eosinophils/100 WBC (Bld) 0.7 % 0-5 [facility] Erythrocyte distribution wid th ratioOrdered By: Emeka Cervantes on 05-31-2025 Erythrocyte distribution width (RBC) [Ratio] 14.1 % 11.6-14.6 [facility] Erythrocyte distribution wid th standard deviationOrdered By: Emeka Cervantes on 05-31-2025 Erythrocyte distribution width (RBC) [Ratio] 54.0 fl High 35.1-43.9 [facility] Glomerular filtration rate ( GFR) estimation/1.73 sq m using serum, plasma, or whole bOrdered By: Emeka Cervantes on 05-31-2025 GFR/1.73 sq M.predicted among non-blacks MDRD (S/P/Bld) [Vol rate/Area] 115 mL/min/{1.73_m2} >60 [facility] Comment on above: mL/min/1.73m2 CKD-EP I Creatinine Equation (2020) Hematocrit Auto (Bld) [Volum e fraction]Ordered By: Emeka Cervantes on 05-31-2025 Hematocrit (Bld) [Volume fraction] 36.7 % Low 40-54 [facility] Hemoglobin measurementOrdere d By: Emeka Cervantes on 05-31-2025 Hemoglobin (Bld) [Mass/Vol] 12.6 g/dL Low 13.0-16.5 [facility] Immature granulocytes/100 WB C Auto (Bld)Ordered By: Emeka Cervantes on 05-31-2025 Immature granulocytes/100 WBC (Bld) 0.200 % 0.0-0.9 [facility] Comment on above: IG% - Immature Granu locytes (promyelocytes, myelocytes and metamyelocytes) > 1% indicates that a LEFT SHIFT is Present. Laboratory - Chemistry and C hemistry - challengeOrdered By: Emeka Cervantes on 05-31-2025 AST [Catalytic activity/Vol] 69 U/L High <38 [facility] MCV (mean corpuscular volume ) determinationOrdered By: Emeka Cervantes on 05-31-2025 MCV (RBC) [Entitic vol] 104.0 fL High 80-94 [facility] Mean corpuscular hemoglobin (MCH) determinationOrdered By: Emeka Cervantes on 05-31-2025 MCH (RBC) [Entitic mass] 35.7 pg High 27.0-32.0 [facility] Mean corpuscular hemoglobin concentration (MCHC) determinationOrdered By: Emeka Cervantes on 05-31-2025 MCHC (RBC) [Mass/Vol] 34.3 g/dL 32-[address] [facility] Mean platelet volume determi nationOrdered By: Emeka Cervantes on 05-31-2025 Platelet mean volume (Bld) [Entitic vol] 9.5 fL 6.2-12.0 [facility] Monocyte percentageOrdered B y: Emeka Cervantes on 05-31-2025 Monocytes/100 WBC (Bld) 12.8 % High 0-10 [facility] Neutrophil percentageOrdered By: Emeka Cervantes on 05-31-2025 Neutrophils/100 WBC (Bld) 63.4 % 47-70 [facility] No Panel InformationOrdered By: Emeka Cervantes on 05-31-2025 Urine Buprenorphine Qualitative Negative < 200 ng/mL [facility] Urine Oxycodone Screen Negative < 100 ng/mL [facility] Nucleated red blood cell per centageOrdered By: Emeka Cervantes on 05-31-2025 Nucleated RBC/100 WBC (Bld) [Ratio] 0 % 0-5 [facility] Platelet countOrdered By: Hubert Cervantes on 05-31-2025 Platelets (Bld) [#/Vol] 130 10*3/uL Low 150-450 [facility] Potassium measurement (mass/ volume)Ordered By: Emeka Cervantes on 05-31-2025 Potassium (Unsp spec) [Mass/Vol] 3.8 mmol/L 3.3-5.1 [facility] Quantitative urine opiates m easurementOrdered By: Emeka Cervantes on 05-31-2025 Opiates Ql (U) Negative < 300 ng/mL [facility] RBC Auto (Bld) [#/Vol]Ordere d By: Emeka Cervantes on 05-31-2025 RBC (Bld) [#/Vol] 3.53 10*6/uL Low 4.6-6.2 [facility] Screening urine fentanyl jessica surementOrdered By: Emeka Cervantes on 05-31-2025 fentaNYL Screen Ql (U) Negative [facility] Serum creatinine measurement (mass/volume)Ordered By: Emeka Cervantes on 05-31-2025 Creatinine [Mass/Vol] 0.57 mg/dL Low 0.70-1.[address] [facility] Serum globulin measurementOr dered By: Emeka Cervantes on 05-31-2025 Globulin (S) [Mass/Vol] 2.5 g/dL 2.2-4.2 [facility] Serum glucose measurement (m ass/volume)Ordered By: Emeka Cervantes on 05-31-2025 Glucose [Mass/Vol] 124 mg/dL High 70-99 [facility] Serum or plasma alanine still otransferase (ALT) measurementOrdered By: Emeka Cervantes on 05-31-2025 ALT [Catalytic activity/Vol] 23 U/L <47 [facility] Serum or plasma albumin lori urement (mass/volume)Ordered By: Emeka Cervantes on 05-31-2025 Albumin [Mass/Vol] 4.1 g/dL 3.5-5.0 [facility] Serum or plasma albumin/glob ulin mass ratioOrdered By: Emeka Cervantes on 05-31-2025 Albumin/Globulin [Mass ratio] 1.6 {ratio} 0.9-2.4 [facility] Serum or plasma alkaline carlos sphatase measurementOrdered By: Emeka Cervantes on 05-31-2025 ALP [Catalytic activity/Vol] 85 U/L 40-129 [facility] Serum or plasma calcium lori urement (mass/volume)Ordered By: Emeka Cervantes on 05-31-2025 Calcium [Mass/Vol] 9.6 mg/dL 7.6-11.0 [facility] Serum or plasma ethanol lori urement (mass/volume)Ordered By: Emeka Cervantes on 05-31-2025 Ethanol [Mass/Vol] 96.9 mg/dL High <10.1 [facility] Comment on above: This test is for med ical purposes only. The legal definition of intoxication varies according to local law. Serum or plasma urea nitroge n measurement (mass/volume)Ordered By: Emeka Cervantes on 05-31-2025 Urea nitrogen [Mass/Vol] 5 mg/dL 4-19 [facility] Sodium levelOrdered By: Emeka Cervantes on 05-31-2025 Sodium [Moles/Vol] 140 mmol/L 133-145 [facility] Total proteinOrdered By: Tristan santos Billy on 05-31-2025 Protein [Mass/Vol] 6.6 g/dL 5.9-8.4 [facility] Urine benzodiazepine levelOr dered By: Emeka Cervantes on 05-31-2025 Benzodiazepines Ql (U) Negative < 200 ng/mL [facility] Urine cocaine levelOrdered B y: Emeka Cervantes on 05-31-2025 Cocaine Ql (U) Negative < 300 ng/mL [facility] Urine uzbqo-9-spxuhgvwgxaylg abinol (THC) measurementOrdered By: Emeka Cervantes on 05-31-2025 Cannabinoids Screen Ql (U) Positive < 50 ng/mL [facility] Comment on above: If confirmation test ing is needed, a separate order will be required to send out testing to the reference laboratory. Urine phencyclidine (PCP) de tectionOrdered By: Emeka Cervantes on 05-31-2025 Phencyclidine Ql (U) Negative < 25 ng/mL [facility] White blood cell (WBC) count Ordered By: Emeka Cervantes on 05-31-2025 WBC (Bld) [#/Vol] 4.1 10*3/uL Low 4.4-11.0 [facility] Urine Cultureon 10-25-2023 [facility] Culture exhibits no growth. Normal [facility] Comment on above: Performed By: #### M 100.3644 #### [facility] Laboratory [address] [place], [address] Abdomen/Pelvis W IV Cont ONL Yon 10-24-2023 Abdomen/Pelvis W IV Cont ONLY [facility] [address] [place] [address] Abdomen/Pelvis W IV Cont ONLY MR#: [id number] Acct: [id number] Name: QUENTIN ALLISON Rep #: [id number] : 1970 M 52 From: Phil powell MD PCP: Care Physician,No Primary Status: REG ER Study: Abdomen/Pelvis W IV Cont ONLY Date of Exam: Exam# [id number] Ordering Dr: Manjit Lozano MD -[id number] STUDY: CT ABDOMEN AND PELVIS WITH [...] 14:43 EST Reading Location ID and State: [facility] / [place] , Service support , CC: Dr. Manjit Lozano MD; No Primary Care Physician Tunnel Worker: Signed Normal [facility] Absolute lymphocyte countOrd ered By: Manjit Lozano on 10-24-2023 Lymphocytes Auto (Unsp spec) [#/Vol] 1.65 10*3/uL 0.83-4.51 [facility] Basophil percentageOrdered B y: Manjit Lozano on 10-24-2023 Basophil percentage 0 SEEN /hpf 0-5 [facility] Basophils/100 WBC (Bld) 1.1 % 0-1 [facility] Bilirubin [Mass/Vol] 2.50 mg/dL 0.20-1.00 [facility] Comment on above: For patients on eltr ombopag therapy, use of Dimension [place] TBIL is not recommended. Chloride [Moles/Vol] 110 mmol/L 98-107 [facility] Eosinophils/100 WBC (Bld) 3.3 % 0-5 [facility] Glucose [Mass/Vol] 131 mg/dL 74-106 [facility] Comment on above: Fasting Glucose resu lt greater than or equal to 126 mg/dL suggests DIABETES MELLITUS per A.D.A. criteria. Neutrophils (Bld) [#/Vol] 4.2 10*3/uL 2.0-7.7 [facility] Neutrophils/100 WBC (Bld) 62.3 % 47-70 [facility] Potassium [Moles/Vol] 3.7 mmol/L 3.5-5.[address] [facility] Protein [Mass/Vol] 7.0 g/dL 6.4-8.2 [facility] Sodium [Moles/Vol] 138 mmol/L 136-145 [facility] WBC (Bld) [#/Vol] 6.7 10*3/uL 4.4-11.0 [facility] Bilirubin Test strip Ql (U)O rdered By: Manjit Lozano on 10-24-2023 Bilirubin Ql (U) 1 mg/dL Negative [facility] Comment on above: COLOR OF URINE MAY A FFECT DIPSTICK RESULTS. Blood erythrocytes count (nu mber/volume)Ordered By: Manjit Lozano on 10-24-2023 RBC (Bld) [#/Vol] 3.94 10*6/uL 4.6-6.2 [facility] Blood hemoglobin measurement (mass/volume)Ordered By: Manjit Lozano on 10-24-2023 Hemoglobin (Bld) [Mass/Vol] 13.9 g/dL 13.0-16.5 [facility] Blood lymphocytes/100 leukoc ytesOrdered By: Manjit Lozano on 10-24-2023 Lymphocytes/100 WBC (Bld) 24.8 % 19-41 [facility] Blood monocytes/100 leukocyt esOrdered By: Manjit Lozano on 10-24-2023 Monocytes/100 WBC (Bld) 8.0 % 0-10 [facility] Blood platelet mean volumeOr dered By: Manjit Lozano on 10-24-2023 Platelet mean volume (Bld) [Entitic vol] 10.8 fL 6.2-12.0 [facility] CBC W/Diff, Automatedon Absolute Lymph 1.65 X10 3/uL Normal 0.83-4.51 [facility] Comment on above: Performed By: #### M 100.2200 #### [facility] [address] [place], [address] Absolute Neut 4.2 X10 3/uL Normal 2.0-7.7 [facility] Comment on above: Performed By: #### M 100.2200 #### [facility] [address] [place], [address] Basophils/100 WBC (Bld) 1.1 % High 0-1 [facility] Comment on above: Performed By: #### M 100.2200 #### [facility] [address] [place], [address] Eosinophils/100 WBC (Bld) 3.3 % Normal 0-5 [facility] Comment on above: Performed By: #### M 100.2200 #### [facility] [address] [place], [address] Erythrocyte distribution width (RBC) [Ratio] 13.3 % Normal 11.6-14.6 [facility] Comment on above: Performed By: #### M 100.2200 #### [facility] [address] [place], [address] Hematocrit (Bld) [Volume fraction] 41.1 % Normal 40-54 [facility] Comment on above: Performed By: #### M 100.2200 #### [facility] [address] [place], [address] Hemoglobin (Bld) [Mass/Vol] 13.9 g/dL Normal 13.0-16.5 [facility] Comment on above: Performed By: #### M 100.2200 #### [facility] [address] [place], [address] IG% 0.500 Normal 0.0-0.9 [facility] Comment on above: Result Comment: IG% - Immature Granulocytes (promyelocytes, myelocytes and metamyelocytes) > 1% indicates that a LEFT SHIFT is Present. Performed By: #### M 100.2200 #### [facility] [address] [place], [address] Lymphocytes/100 WBC (Bld) 24.8 % Normal 19-41 [facility] Comment on above: Performed By: #### M 100.2200 #### [facility] [address] [place], [address] MCH (RBC) [Entitic mass] 35.3 pg High 27.0-32.0 [facility] Comment on above: Performed By: #### M 100.2200 #### [facility] [address] [place], [address] MCHC (RBC) [Mass/Vol] 33.8 g/dL Normal 32-[address] [facility] Comment on above: Performed By: #### M 100.2200 #### [facility] [address] [place], [address] MCV (RBC) [Entitic vol] 104.3 fL High 80-94 [facility] Comment on above: Performed By: #### M 100.2200 #### [facility] [address] [place], [address] Monocytes/100 WBC (Bld) 8.0 % Normal 0-10 [facility] Comment on above: Performed By: #### M 100.2200 #### [facility] [address] [place], [address] Neutrophils/100 WBC (Bld) 62.3 % Normal 47-70 [facility] Comment on above: Performed By: #### M 100.2200 #### [facility] [address] [place] [place], [address] Nucleated RBC (Bld) [#/Vol] 0 10*3/uL Normal 0-5 [facility] Comment on above: Performed By: #### M 100.2200 #### [facility] [address] [place], [address] Platelet mean volume (Bld) [Entitic vol] 10.8 fL Normal 6.2-12.0 [facility] Comment on above: Performed By: #### M 100.2200 #### [facility] [address] [place], [address] Platelets (Bld) [#/Vol] 121 10*3/uL Low 150-450 [facility] Comment on above: Performed By: #### M 100.2200 #### [facility] [address] [place], [address] RBC (Bld) [#/Vol] 3.94 10*6/uL Low 4.6-6.2 [facility] Comment on above: Performed By: #### M 100.2200 #### [facility] [address] [place] [place], [address] RDW SD 51.4 fl High 35.1-43.9 [facility] Comment on above: Performed By: #### M 100.2200 #### [facility] [address] [place], [address] WBC (Bld) [#/Vol] 6.7 10*3/uL Normal 4.4-11.0 [facility] Comment on above: Performed By: #### M 100.2200 #### [facility] [address] [place] [place], [address] Comprehensive Metabolic Prof ilon 10-24-2023 Albumin [Mass/Vol] 3.3 g/dL Normal 3.2-5.0 [facility] Comment on above: Performed By: #### M 100.2200 #### [facility] [address] [place], [address] Albumin/Globulin [Mass ratio] 0.9 {ratio} Normal 0.9-2.4 [facility] Comment on above: Performed By: #### M 100.2200 #### [facility] [address] [place], [address] ALK P 101 U/L Normal 45-117 [facility] Comment on above: Performed By: #### M 100.2200 #### [facility] [address] [place], [address] ALT [Catalytic activity/Vol] 28 U/L Normal 16-61 [facility] Comment on above: Performed By: #### M 100.2200 #### [facility] [address] [place], [address] AST [Catalytic activity/Vol] 50 U/L High 15-37 [facility] Comment on above: Performed By: #### M 100.2200 #### [facility] [address] [place], [address] Bilirubin [Mass/Vol] 2.50 mg/dL High 0.20-1.00 [facility] Comment on above: Result Comment: For patients on eltrombopag therapy, use of Dimension [place] TBIL is not recommended. Performed By: #### M 100.2200 #### [facility] [address] [place], [address] BUN/CRE 10.8 RATIO Normal 10-20 [facility] Comment on above: Performed By: #### M 100.2200 #### [facility] [address] [place], [address] CA,Total 9.7 mg/dL Normal 8.5-10.1 [facility] Comment on above: Performed By: #### M 100.2200 #### [facility] [address] [place], [address] Chloride [Moles/Vol] 110 mmol/L High 98-107 [facility] Comment on above: Performed By: #### M 100.2200 #### [facility] [address] [place], [address] CO2 [Moles/Vol] 24.0 mmol/L Normal 21.0-32.0 [facility] Comment on above: Performed By: #### M 100.2200 #### [facility] [address] [place], [address] Creatinine [Mass/Vol] 0.65 mg/dL Low 0.70-1.[address] [facility] Comment on above: Result Comment: The validity of the calculated GFR GFRAA in patients over 70 years has not been determined. Clinical correlation is essential. Performed By: #### M 100.2200 #### [facility] [address] [place], [address] ECRCL 121.47 ml/min Normal [facility] Comment on above: Performed By: #### M 100.2200 #### [facility] [address] [place], [address] EST GFR - AA 165 mL/min Normal >60 [facility] Comment on above: Result Comment: Afri can [place] GFR Calc Performed By: #### M 100.2200 #### [facility] [address] [place], [address] GAP 4 Low 5-15 [facility] Comment on above: Performed By: #### M 100.2200 #### [facility] [address] [place], [address] GFR/1.73 sq M.predicted among non-blacks MDRD (S/P/Bld) [Vol rate/Area] 137 mL/min/{1.73_m2} Normal >60 [facility] Comment on above: Result Comment: Non- GFR Calc Performed By: #### M 100.2200 #### [facility] [address] [place], [address] Globulin (S) [Mass/Vol] 3.7 g/dL Normal 2.2-4.2 [facility] Comment on above: Performed By: #### M 100.2200 #### [facility] [address] [place], [address] Glucose [Mass/Vol] 131 mg/dL High 74-106 [facility] Comment on above: Result Comment: Fast ing Glucose result greater than or equal to 126 mg/dL suggests DIABETES MELLITUS per A.D.A. criteria. Performed By: #### M 100.2200 #### [facility] [address] [place], [address] Potassium [Moles/Vol] 3.7 mmol/L Normal 3.5-5.[address] [facility] Comment on above: Performed By: #### M 100.2200 #### [facility] [address] [place], [address] Sodium [Moles/Vol] 138 mmol/L Normal 136-145 [facility] Comment on above: Performed By: #### M 100.2200 #### [facility] [address] [place], [address] T PROT 7.0 g/dL Normal 6.4-8.2 [facility] Comment on above: Performed By: #### M 100.2200 #### [facility] [address], [address] Urea nitrogen [Mass/Vol] 7 mg/dL Normal 7-18 [facility] Comment on above: Performed By: #### M 100.2200 #### [facility] [address] [place], [address] Determination of erythrocyte mean corpuscular volume (MCV)Ordered By: Manjit Lozano on 10-24-2023 MCV (RBC) [Entitic vol] 104.3 fL 80-94 [facility] Emergency Department Summary on 10-24-2023 Emergency Department Summary [facility] Medical Records Department [address] [place] [address] Emergency Department Summary 10/24/23 MR#: [id number] Acct: [id number] Name: QUENTIN ALLISON Rep #: [id number] : 1970 52 From: Manjit Lozano MD [...] has been doing very well with that. [facility] Medical History Abdominal ascites Alcoholic cirrhosis Cirrhosis of liver Home Medications cephalexin 500 mg capsule 500 mg PO Q12 #14 CAPSULES 12/29/22 [Rx Last Taken Unknown] furosemide 20 mg tablet (Lasix) 20 mg PO BID fluid 12/29/22 [History Last Taken 4 Months Ago 08/31/22] methyl salicylate-menthol topical ointment 1 ea topical QHS shoulder pain 12/29/22 [History Last Taken 12/28/22] fsmjwgcr-ww-[id number] 300 mcg-K 60 mcg-lycop 600 mcg-lutein 300 [...] or obst (more content not included)... Normal [facility] Hematocrit Auto (Bld) [Volum e fraction]Ordered By: Manjit Lozano on 10-24-2023 Hematocrit (Bld) [Volume fraction] 41.1 % 40-54 [facility] Ketones Test strip Ql (U)Ord ered By: Manjit Lozano on 10-24-2023 Ketones Ql (U) Negative Negative [facility] - Chemistry and C hemistry - challengeOrdered By: Manjit Lozano on 10-24-2023 ALP [Catalytic activity/Vol] 101 U/L 45-117 [facility] ALT [Catalytic activity/Vol] 28 U/L 16-61 [facility] CO2 [Moles/Vol] 24.0 mmol/L 21.0-32.0 [facility] Globulin (S) [Mass/Vol] 3.7 g/dL 2.2-4.2 [facility] Urea nitrogen/Creatinine [Mass ratio] 10.8 mg/mg 10-20 [facility] - Hematology and Cell countsOrdered By: Manjit Lozano on 10-24-2023 Erythrocyte distribution width (RBC) [Entitic vol] 51.4 fL 35.1-43.9 [facility] Erythrocyte distribution width (RBC) [Ratio] 13.3 % 11.6-14.6 [facility] Immature granulocytes/100 WBC (Bld) 0.500 % 0.0-0.9 [facility] Comment on above: IG% - Immature Granu locytes (promyelocytes, myelocytes and metamyelocytes) > 1% indicates that a LEFT SHIFT is Present. MCH (RBC) [Entitic mass] 35.3 pg 27.0-32.0 [facility] Nucleated RBC/100 WBC (Bld) [Ratio] 0 % 0-5 [facility] MCHC Auto (RBC) [Mass/Vol]Or dered By: Manjit Lozano on 10-24-2023 MCHC (RBC) [Mass/Vol] 33.8 g/dL 32-[address] [facility] Mucus LM Ql (Urine sed)Order ed By: Manjit Lozano on 10-24-2023 Mucus Ql (Urine sed) 0 SEEN /hpf [facility] Nitrite Test strip Ql (U)Ord ered By: Manjit Lozano on 10-24-2023 Nitrite Ql (U) Negative Negative [facility] No Panel InformationOrdered By: Manjit Lozano on 10-24-2023 Estimated Creatinine Clearance Calc 121.47 ml/min [facility] Estimated GFR (MDRD) Amer 165 mL/min >60 [facility] Comment on above: GFR Calc Estimated GFR (MDRD) Non-Af Amer 137 mL/min >60 [facility] Comment on above: Non- GFR Calc Platelets bldOrdered By: Carol Lozano on 10-24-2023 Platelets (Bld) [#/Vol] 121 10*3/uL 150-450 [facility] Protein Test strip Ql (U)Ord ered By: Manjit Lozano on 10-24-2023 Protein Ql (U) 30 mg/dl Negative [facility] Serum or plasma albumin lori urement (mass/volume)Ordered By: Manjit Lozano on 10-24-2023 Albumin [Mass/Vol] 3.3 g/dL 3.2-5.0 [facility] Serum or plasma albumin/glob ulin mass ratioOrdered By: Manjit Lozano on 10-24-2023 Albumin/Globulin [Mass ratio] 0.9 {ratio} 0.9-2.4 [facility] Serum or plasma calcium lori urement (mass/volume)Ordered By: Manjit Lozano on 10-24-2023 Calcium [Mass/Vol] 9.7 mg/dL 8.5-10.1 [facility] Serum or plasma creatinine m easurement (mass/volume)Ordered By: Manjit Lozano on 10-24-2023 Creatinine [Mass/Vol] 0.65 mg/dL 0.70-1.[address] [facility] Comment on above: The validity of the calculated GFR & GFRAA in patients over 70 years has not been determined. Clinical correlation is essential. Serum or plasma urea nitroge n measurement (mass/volume)Ordered By: Manjit Lozano on 10-24-2023 Urea nitrogen [Mass/Vol] 7 mg/dL 7-18 [facility] Squamous epithelial cells de tection in urine sediment by light microscopyOrdered By: Manjit Lozano on 10-24-2023 Epithelial cells.squamous LM Ql (Urine sed) 0 SEEN /hpf 0-5 [facility] Testicular with Arterial Demetri won 10-24-2023 Testicular with Arterial Flow [facility] [address] [address] Testicular with Arterial Flow MR#: [id number] Acct: [id number] Name: QUENTIN ALLISON Rep #: [id number] : 1970 M 52 From: Phil powell MD PCP: Care Physician,No Primary Status: REG ER Study: Testicular with Arterial Flow Date of Exam: Exam# [id number] Ordering Dr: Manjit Lozano MD -[id number] STUDY: SCROTUM ULTRASOUND REASON FOR EXAM: [...] 14:51 EST Reading Location ID and State: [address] [place] [address] , Service support , CC: Dr. Manjit Lozano MD; No Primary Care Physician Tunnel Worker: Signed Normal [facility] Thin prep Papanicolaou smear with manual screeningOrdered By: Manjit Lozano on 10-24-2023 Thin prep Papanicolaou smear with manual screening 50 U/L 15-37 [facility] Thin prep Papanicolaou smear with manual screening 4 5-15 [facility] Urinalysis, Completeon 10-24 RBC 0-5 SEEN Normal 0-5 [facility] Comment on above: Order Comment: CLEAN CATCH Performed By: #### M 100.2200 #### [facility] [address] [place], [place], [address] BACTERIA 0 SEEN Normal None Seen [facility] Comment on above: Order Comment: CLEAN CATCH Performed By: #### M 100.2200 #### [facility] [address] [place], [address] EPI,SQUAMOUS 0 SEEN Normal 0-5 [facility] Comment on above: Order Comment: CLEAN CATCH Performed By: #### M 100.2200 #### [facility] [address] [place], [address] Mucus Ql (Urine sed) [address] [facility] Comment on above: Order Comment: CLEAN CATCH Performed By: #### M 100.2200 #### [facility] [address] [place], [address] WBC 0 SEEN Normal 0-5 [facility] Comment on above: Order Comment: CLEAN CATCH Performed By: #### M 100.2200 #### [facility] [address] [place], [place], [address] Urine blood detectionOrdered By: Manjit Lozano on 10-24-2023 RBC Ql (U) 150 /ul Negative [facility] RBC Ql (U) 0-5 SEEN /hpf 0-5 [facility] Urine clarityOrdered By: Carol Lozano on 10-24-2023 Clarity (U) Clear Clear [facility] Urine color determinationOrd ered By: Manjit Lozano on 10-24-2023 Color (U) Yellow Yellow [facility] Urine glucose detectionOrder ed By: Manjit Lozano on 10-24-2023 Glucose Ql (U) Normal mg/dl Normal [facility] Urine leukocyte esterase det ection by dipstickOrdered By: Manjit Lozano on 10-24-2023 Leukocyte esterase Test strip Ql (U) 25 /ul Negative [facility] Urine pHOrdered By: Manjit delacruz on 10-24-2023 pH (U) 6.0 [pH] 5.0 - 8.0 [facility] Urine sediment bacteria coun t by microscopy (number/high power field)Ordered By: Manjit Lozano on 10-24-2023 Bacteria LM.HPF (Urine sed) [#/Area] 0 /[HPF] None Seen [facility] Urine specific gravity measu rementOrdered By: Manjit Lozano on 10-24-2023 Specific gravity (U) [Rel density] 1.015 1.002-1.030 [facility] Urobilinogen Auto test strip Ql (U)Ordered By: Manjit Lozano on 10-24-2023 Urobilinogen Ql (U) 8 mg/dl Normal [facility] Urine Cultureon 12-30-2022 URC Culture exhibits no growth. Normal [facility] Comment on above: Performed By: #### M 100.2200 #### [facility] [address] [place], [address] Abdomen/Pelvis W IV Cont ONL Yon 12-29-2022 Abdomen/Pelvis W IV Cont ONLY [facility] [address] [place] [address] Abdomen/Pelvis W IV Cont ONLY MR#: [id number] Acct: [id number] Name: QUENTIN ALLISON Rep #: [id number] : 1970 M 52 From: Jose M rosa MD PCP: Care Physician,No Primary Status: [facility] ER Study: Abdomen/Pelvis W IV Cont ONLY Date of Exam: Exam# [id number] Ordering Dr: Latrice Jurado DO STUDY: CT [...] Latrice Jurado, DO; No Primary Care Physician Tunnel Worker: Signed Normal [facility] Absolute lymphocyte countOrd ered By: Dr. Jurado on 12-29-2022 Lymphocytes Auto (Unsp spec) [#/Vol] 1.53 10*3/uL 0.83-4.51 [facility] Alcohol, Blood (Medical)-Ser umon 12-29-2022 SERUM ETOH < 3.0 Normal [facility] Comment on above: Result Comment: The serum:whole blood ethanol ratio is approximately 1.14 and varies slightly with hematocrit. Medical Alcohol reference interval and critical value in non-tolerant individuals; 50 - 100 Impairment 100 Intoxication 100 - 250 Severe Poisoning 250 - 400 Deep/possible fatal coma Performed By: #### M 100.2200 #### [facility] [address] [place], [address] Basic Metabolic Profile (BMP )on 12-29-2022 BUN/CRE 10.9 RATIO Normal 10-20 [facility] Comment on above: Performed By: #### L 501.2450, L503.6005, BTS, L500.2500, L500.3400, L100.0100 #### [facility] [address] [place], [address] CA,Total 9.3 mg/dL Normal 8.5-10.1 [facility] Comment on above: Performed By: #### L 501.2450, L503.6005, BTS, L500.2500, L500.3400, L100.0100 #### [facility] [address] [place], [address] Chloride [Moles/Vol] 108 mmol/L High 98-107 [facility] Comment on above: Performed By: #### L 501.2450, L503.6005, BTS, L500.2500, L500.3400, L100.0100 #### [facility] [address] [place], [address] CO2 [Moles/Vol] 25.0 mmol/L Normal 21.0-32.0 [facility] Comment on above: Performed By: #### L 501.2450, L503.6005, BTS, L500.2500, L500.3400, L100.0100 #### [facility] [address] [place], [address] Creatinine [Mass/Vol] 0.73 mg/dL Normal 0.70-1.[address] [facility] Comment on above: Result Comment: The validity of the calculated GFR GFRAA in patients over 70 years has not been determined. Clinical correlation is essential. Performed By: #### L 501.2450, L503.6005, BTS, L500.2500, L500.3400, L100.0100 #### [facility] [address] [place], [address] ECRCL 108.15 ml/min Normal [facility] Comment on above: Performed By: #### L 501.2450, L503.6005, BTS, L500.2500, L500.3400, L100.0100 #### [facility] [address] [place], [address] EST GFR - AA 143 mL/min Normal >60 [facility] Comment on above: Result Comment: Afri can [place] GFR Calc Performed By: #### L 501.2450, L503.6005, BTS, L500.2500, L500.3400, L100.0100 #### [facility] [address] [place], [address] GAP 6 Normal 5-15 [facility] Comment on above: Performed By: #### L 501.2450, L503.6005, BTS, L500.2500, L500.3400, L100.0100 #### [facility] [address] [place], [address] GFR/1.73 sq M.predicted among non-blacks MDRD (S/P/Bld) [Vol rate/Area] 118 mL/min/{1.73_m2} Normal >60 [facility] Comment on above: Result Comment: Non- GFR Calc Performed By: #### L 501.2450, L503.6005, BTS, L500.2500, L500.3400, L100.0100 #### [facility] [address] [place], [address] Glucose [Mass/Vol] 125 mg/dL High 74-106 [facility] Comment on above: Result Comment: Fast ing Glucose result from 100 to 125 mg/dL suggests IMPAIRED HOMEOSTASIS per A.D.A. criteria. Performed By: #### L 501.2450, L503.6005, BTS, L500.2500, L500.3400, L100.0100 #### [facility] [address] [place], [address] Potassium [Moles/Vol] 4.0 mmol/L Normal 3.5-5.[address] [facility] Comment on above: Performed By: #### L 501.2450, L503.6005, BTS, L500.2500, L500.3400, L100.0100 #### [facility] [address] [place], [address] Sodium [Moles/Vol] 139 mmol/L Normal 136-145 [facility] Comment on above: Performed By: #### L 501.2450, L503.6005, BTS, L500.2500, L500.3400, L100.0100 #### [facility] [address] [place], [address] Urea nitrogen [Mass/Vol] 8 mg/dL Normal 7-18 [facility] Comment on above: Performed By: #### L 501.2450, L503.6005, BTS, L500.2500, L500.3400, L100.0100 #### [facility] [address] [place], [address] Basophil percentageOrdered B y: Dr. Jurado on 12-29-2022 Basophil percentage 10-25 SEEN /hpf 0-5 [facility] Basophils/100 WBC (Bld) 1.1 % 0-1 [facility] Bilirubin [Mass/Vol] 6.30 mg/dL 0.20-1.00 [facility] Comment on above: For patients on eltr ombopag therapy, use of Dimension [place] TBIL is not recommended. Chloride [Moles/Vol] 108 mmol/L 98-107 [facility] Eosinophils/100 WBC (Bld) 1.2 % 0-5 [facility] Glucose [Mass/Vol] 125 mg/dL 74-106 [facility] Comment on above: Fasting Glucose resu lt from 100 to 125 mg/dL suggests IMPAIRED HOMEOSTASIS per A.D.A. criteria. Lactate [Moles/Vol] 2.0 mmol/L 0.4-2.0 [facility] Comment on above: Critical Result(s) C alled at: 08:24:24 12/29/2022 by: Evie Robbins. Results read back by same. Neutrophils (Bld) [#/Vol] 6.0 10*3/uL 2.0-7.7 [facility] Neutrophils/100 WBC (Bld) 72.2 % 47-70 [facility] Potassium [Moles/Vol] 4.0 mmol/L 3.5-5.[address] [facility] Protein [Mass/Vol] 7.2 g/dL 6.4-8.2 [facility] Sodium [Moles/Vol] 139 mmol/L 136-145 [facility] WBC (Bld) [#/Vol] 8.3 10*3/uL 4.4-11.0 [facility] Bilirubin Test strip Ql (U)O rdered By: Dr. Jurado on 12-29-2022 Bilirubin Ql (U) 6 mg/dL Negative [facility] Comment on above: COLOR OF URINE MAY A FFECT DIPSTICK RESULTS. Blood erythrocytes count (nu mber/volume)Ordered By: Dr. Jurado on 12-29-2022 RBC (Bld) [#/Vol] 4.44 10*6/uL 4.6-6.2 [facility] Blood hemoglobin measurement (mass/volume)Ordered By: Dr. Jurado on 12-29-2022 Hemoglobin (Bld) [Mass/Vol] 15.9 g/dL 13.0-16.5 [facility] Blood lymphocytes/100 leukoc ytesOrdered By: Dr. Jurado on 12-29-2022 Lymphocytes/100 WBC (Bld) 18.4 % 19-41 [facility] Blood monocytes/100 leukocyt esOrdered By: Dr. Jurado on 12-29-2022 Monocytes/100 WBC (Bld) 6.7 % 0-10 [facility] Blood platelet mean volumeOr dered By: Dr. Jurado on 12-29-2022 Platelet mean volume (Bld) [Entitic vol] 10.0 fL 6.2-12.0 [facility] CBC W/Diff, Automatedon 03-0 9-2022 Absolute Lymph 1.53 X10 3/uL Normal 0.83-4.51 [facility] Comment on above: Performed By: #### L 501.2450, L503.6005, BTS, L500.2500, L500.3400, L100.0100 #### [facility] [address] [place], [address] Absolute Neut 6.0 X10 3/uL Normal 2.0-7.7 [facility] Comment on above: Performed By: #### L 501.2450, L503.6005, BTS, L500.2500, L500.3400, L100.0100 #### [facility] [address] [place], [address] Basophils/100 WBC (Bld) 1.1 % High 0-1 [facility] Comment on above: Performed By: #### L 501.2450, L503.6005, BTS, L500.2500, L500.3400, L100.0100 #### [facility] [address] [place], [address] Eosinophils/100 WBC (Bld) 1.2 % Normal 0-5 [facility] Comment on above: Performed By: #### L 501.2450, L503.6005, BTS, L500.2500, L500.3400, L100.0100 #### [facility] [address] [place], [address] Erythrocyte distribution width (RBC) [Ratio] 15.3 % High 11.6-14.6 [facility] Comment on above: Performed By: #### L 501.2450, L503.6005, BTS, L500.2500, L500.3400, L100.0100 #### [facility] [address] [place], [address] Hematocrit (Bld) [Volume fraction] 47.3 % Normal 40-54 [facility] Comment on above: Performed By: #### L 501.2450, L503.6005, BTS, L500.2500, L500.3400, L100.0100 #### [facility] [address] [place], [address] Hemoglobin (Bld) [Mass/Vol] 15.9 g/dL Normal 13.0-16.5 [facility] Comment on above: Performed By: #### L 501.2450, L503.6005, BTS, L500.2500, L500.3400, L100.0100 #### [facility] [address] [place], [address] IG% 0.400 Normal 0.0-0.9 [facility] Comment on above: Result Comment: IG% - Immature Granulocytes (promyelocytes, myelocytes and metamyelocytes) > 1% indicates that a LEFT SHIFT is Present. Performed By: #### L 501.2450, L503.6005, BTS, L500.2500, L500.3400, L100.0100 #### [facility] [address] [place], [address] Lymphocytes/100 WBC (Bld) 18.4 % Low 19-41 [facility] Comment on above: Performed By: #### L 501.2450, L503.6005, BTS, L500.2500, L500.3400, L100.0100 #### [facility] [address] [place], [address] MCH (RBC) [Entitic mass] 35.8 pg High 27.0-32.0 [facility] Comment on above: Performed By: #### L 501.2450, L503.6005, BTS, L500.2500, L500.3400, L100.0100 #### [facility] [address] [place], [address] MCHC (RBC) [Mass/Vol] 33.6 g/dL Normal 32-[address] [facility] Comment on above: Performed By: #### L 501.2450, L503.6005, BTS, L500.2500, L500.3400, L100.0100 #### [facility] [address] [place], [address] MCV (RBC) [Entitic vol] 106.5 fL High 80-94 [facility] Comment on above: Performed By: #### L 501.2450, L503.6005, BTS, L500.2500, L500.3400, L100.0100 #### [facility] [address] [place], [address] Monocytes/100 WBC (Bld) 6.7 % Normal 0-10 [facility] Comment on above: Performed By: #### L 501.2450, L503.6005, BTS, L500.2500, L500.3400, L100.0100 #### [facility] [address] [place], [address] Neutrophils/100 WBC (Bld) 72.2 % High 47-70 [facility] Comment on above: Performed By: #### L 501.2450, L503.6005, BTS, L500.2500, L500.3400, L100.0100 #### [facility] [address] [place], [address] Nucleated RBC (Bld) [#/Vol] 0 10*3/uL Normal 0-5 [facility] Comment on above: Performed By: #### L 501.2450, L503.6005, BTS, L500.2500, L500.3400, L100.0100 #### [facility] [address] [place], [address] Platelet mean volume (Bld) [Entitic vol] 10.0 fL Normal 6.2-12.0 [facility] Comment on above: Performed By: #### L 501.2450, L503.6005, BTS, L500.2500, L500.3400, L100.0100 #### [facility] [address] [place], [address] Platelets (Bld) [#/Vol] 176 10*3/uL Normal 150-450 [facility] Comment on above: Performed By: #### L 501.2450, L503.6005, BTS, L500.2500, L500.3400, L100.0100 #### [facility] [address] [place], [address] RBC (Bld) [#/Vol] 4.44 10*6/uL Low 4.6-6.2 [facility] Comment on above: Performed By: #### L 501.2450, L503.6005, BTS, L500.2500, L500.3400, L100.0100 #### [facility] [address] [place], [address] RDW SD 60.6 fl High 35.1-43.9 [facility] Comment on above: Performed By: #### L 501.2450, L503.6005, BTS, L500.2500, L500.3400, L100.0100 #### [facility] [address] [place], [address] WBC (Bld) [#/Vol] 8.3 10*3/uL Normal 4.4-11.0 [facility] Comment on above: Performed By: #### L 501.2450, L503.6005, BTS, L500.2500, L500.3400, L100.0100 #### [facility] [address] [place], [address] Calcium oxalate crystals det ection in urine sediment by light microscopyOrdered By: Dr. Jurado on 12-29-2022 Calcium oxalate crystals LM Ql (Urine sed) 1+ /hpf [facility] Chest 1 View (Portable)on Chest 1 View (Portable) [facility] Imaging Services [address] [address] Chest 1 View (Portable) MR#: [id number] Acct: [id number] Name: QUENTIN ALLISON Rep #: [id number] : 1970 M 52 From: Jose M rosa MD PCP: Care Physician,No Primary Status: REG ER Study: Chest 1 View (Portable) Date of Exam: 12/29/22 Exam# [id number] Ordering Dr: Latrice Jurado DO STUDY: X-RAY [...] at 8:02 EST , CC: Dr. Latrice Jurado, ; No Primary Care Physician Tunnel Worker: Signed Normal [facility] Determination of erythrocyte mean corpuscular volume (MCV)Ordered By: Dr. Jurado on 12-29-2022 MCV (RBC) [Entitic vol] 106.5 fL 80-94 [facility] Direct bilirubinOrdered By: Dr. Jurado on 12-29-2022 Bilirubin.direct [Mass/Vol] 3.99 mg/dL 0.00-0.30 [facility] Emergency Department Summary on 12-29-2022 Emergency Department Summary [facility] Medical Records Department [address] [place] [address] Emergency Department Summary 12/29/22 MR#: [id number] Acct: [id number] Name: QUENTIN ALLISON Rep #: [id number] : 1970 52 From: Latrice Jurado DO [...] he states was a very rare event. 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 Normal [facility] Hematocrit Auto (Bld) [Volum e fraction]Ordered By: Dr. Jurado on 12-29-2022 Hematocrit (Bld) [Volume fraction] 47.3 % 40-54 [facility] INR in Blood by Coagulation assayOrdered By: Dr. Jurado on 12-29-2022 INR Coag (Bld) [Relative time] 1.5 {INR} [facility] Ketones Test strip Ql (U)Ord ered By: Dr. Jurado on 12-29-2022 Ketones Ql (U) 5 mg/dl Negative [facility] - Chemistry and C hemistry - challengeOrdered By: Dr. Jurado on 12-29-2022 ALP [Catalytic activity/Vol] 199 U/L 45-117 [facility] ALT [Catalytic activity/Vol] 40 U/L 16-61 [facility] CO2 [Moles/Vol] 25.0 mmol/L 21.0-32.0 [facility] Globulin (S) [Mass/Vol] 4.2 g/dL 2.2-4.2 [facility] Lipase [Catalytic activity/Vol] 140 U/L 73-393 [facility] Urea nitrogen/Creatinine [Mass ratio] 10.9 mg/mg 10-20 [facility] - CoagulationOrde red By: Dr. Jurado on 12-29-2022 aPTT Coag (Bld) [Time] 32.1 s 24.1-36.2 [facility] PT Coag (PPP) [Time] 17.5 s 11.7-14.9 [facility] - Hematology and Cell countsOrdered By: Dr. Jurado on 12-29-2022 Erythrocyte distribution width (RBC) [Entitic vol] 60.6 fL 35.1-43.9 [facility] Erythrocyte distribution width (RBC) [Ratio] 15.3 % 11.6-14.6 [facility] Immature granulocytes/100 WBC (Bld) 0.400 % 0.0-0.9 [facility] Comment on above: IG% - Immature Granu locytes (promyelocytes, myelocytes and metamyelocytes) > 1% indicates that a LEFT SHIFT is Present. MCH (RBC) [Entitic mass] 35.8 pg 27.0-32.0 [facility] Nucleated RBC/100 WBC (Bld) [Ratio] 0 % 0-5 [facility] Lactic Acidon 12-29-2022 Lactate [Moles/Vol] 2.0 mmol/L Normal 0.4-1.9 [facility] Comment on above: Order Comment: Y Result Comment: Crit ical Result(s) Called at: 08:24:24 12/29/2022 by: Evie Robbins. Results read back by same. Performed By: #### M 100.2200 #### [facility] [address] [place], [place], [address] Lipaseon 12-29-2022 Lipase [Catalytic activity/Vol] 140 U/L Normal 73-393 [facility] Comment on above: Performed By: #### L 501.2450, L503.6005, BTS, L500.2500, L500.3400, L100.0100 #### [facility] [address] [place], [address] Liver Profileon 12-29-2022 Albumin [Mass/Vol] 3.0 g/dL Low 3.2-5.0 [facility] Comment on above: Performed By: #### L 501.2450, L503.6005, BTS, L500.2500, L500.3400, L100.0100 #### [facility] [address] [place], [address] ALK P 199 U/L High 45-117 [facility] Comment on above: Performed By: #### L 501.2450, L503.6005, BTS, L500.2500, L500.3400, L100.0100 #### [facility] [address] [place], [address] ALT [Catalytic activity/Vol] 40 U/L Normal 16-61 [facility] Comment on above: Performed By: #### L 501.2450, L503.6005, BTS, L500.2500, L500.3400, L100.0100 #### [facility] [address] [place], [address] AST [Catalytic activity/Vol] 117 U/L High 15-37 [facility] Comment on above: Performed By: #### L 501.2450, L503.6005, BTS, L500.2500, L500.3400, L100.0100 #### [facility] [address] [place], [address] Bilirubin [Mass/Vol] 6.30 mg/dL High 0.20-1.00 [facility] Comment on above: Result Comment: For patients on eltrombopag therapy, use of Dimension [place] TBIL is not recommended. Performed By: #### L 501.2450, L503.6005, BTS, L500.2500, L500.3400, L100.0100 #### [facility] [address] [place], [address] Bilirubin.direct [Mass/Vol] 3.99 mg/dL High 0.00-0.30 [facility] Comment on above: Performed By: #### L 501.2450, L503.6005, BTS, L500.2500, L500.3400, L100.0100 #### [facility] [address] [place], [address] Globulin (S) [Mass/Vol] 4.2 g/dL Normal 2.2-4.2 [facility] Comment on above: Performed By: #### L 501.2450, L503.6005, BTS, L500.2500, L500.3400, L100.0100 #### [facility] [address] [place], [address] T PROT 7.2 g/dL Normal 6.4-8.2 [facility] Comment on above: Performed By: #### L 501.2450, L503.6005, BTS, L500.2500, L500.3400, L100.0100 #### [facility] [address] [place], [address] MCHC Auto (RBC) [Mass/Vol]Or dered By: Dr. Jurado on 12-29-2022 MCHC (RBC) [Mass/Vol] 33.6 g/dL 32-[address] [facility] Mucus LM Ql (Urine sed)Order ed By: Dr. Jurado on 12-29-2022 Mucus Ql (Urine sed) 2+ /hpf [facility] Nitrite Test strip Ql (U)Ord ered By: Dr. Jurado on 12-29-2022 Nitrite Ql (U) Positive Negative [facility] No Panel InformationOrdered By: Dr. Jurado on 12-29-2022 Estimated Creatinine Clearance Calc 108.15 ml/min [facility] Estimated GFR (MDRD) Amer 143 mL/min >60 [facility] Comment on above: GFR Calc Estimated GFR (MDRD) Non-Af Amer 118 mL/min >60 [facility] Comment on above: Non- GFR Calc Ethyl Alcohol Level < 3.0 mg/dL [facility] Comment on above: The serum:whole bloo d ethanol ratio is approximately 1.14and varies slightly with hematocrit. Medical Alcohol reference interval and critical value innon-tolerant individuals; 50 - 100 Impairment 100 Intoxication 100 - 250 Severe Poisoning 250 - 400 Deep/possible fatal coma Partial Thromboplast Timeon 12-29-2022 aPTT Coag (Bld) [Time] 32.1 s Normal 24.1-36.2 [facility] Comment on above: Performed By: #### M 100.2200 #### [facility] [address] [place], [address] Platelets bldOrdered By: Dr. Jurado on 12-29-2022 Platelets (Bld) [#/Vol] 176 10*3/uL 150-450 [facility] Protein Test strip Ql (U)Ord ered By: Dr. Jurado on 12-29-2022 Protein Ql (U) 30 mg/dl Negative [facility] Prothrombin Time w/INRon INR Coag (PPP) [Relative time] 1.5 {INR} Normal [facility] Comment on above: Performed By: #### M 100.2200 #### [facility] [address] [place], [address] PT Coag (PPP) [Time] 17.5 s High 11.7-14.9 [facility] Comment on above: Performed By: #### M 100.2200 #### [facility] [address] [place], [address] Serum or plasma albumin lori urement (mass/volume)Ordered By: Dr. Jurado on 12-29-2022 Albumin [Mass/Vol] 3.0 g/dL 3.2-5.0 [facility] Serum or plasma calcium lori urement (mass/volume)Ordered By: Dr. Jurado on 12-29-2022 Calcium [Mass/Vol] 9.3 mg/dL 8.5-10.1 [facility] Serum or plasma creatinine m easurement (mass/volume)Ordered By: Dr. Jurado on 12-29-2022 Creatinine [Mass/Vol] 0.73 mg/dL 0.70-1.[address] [facility] Comment on above: The validity of the calculated GFR & GFRAA in patients over 70 years has not been determined. Clinical correlation is essential. Serum or plasma urea nitroge n measurement (mass/volume)Ordered By: Dr. Jurado on 12-29-2022 Urea nitrogen [Mass/Vol] 8 mg/dL 7-18 [facility] Squamous epithelial cells de tection in urine sediment by light microscopyOrdered By: Dr. Jurado on 12-29-2022 Epithelial cells.squamous LM Ql (Urine sed) 0-5 SEEN /hpf 0-5 [facility] Stool Occult Blood iFOBon STOB Negative Normal [facility] Comment on above: Performed By: #### M 100.7900 #### [facility] [address] [place], [place], [address] Stool gastrointestinal hemog lobin detection by immunologic methodOrdered By: Dr. Jurado on 12-29-2022 Lower GI hemoglobin IA Ql (Stl) [facility] Thin prep Papanicolaou smear with manual screeningOrdered By: Dr. Jurado on 12-29-2022 Thin prep Papanicolaou smear with manual screening 117 U/L 15-37 [facility] Thin prep Papanicolaou smear with manual screening 6 5-15 [facility] Type AND Screenon 12-29-2022 ABO and Rh group Nom (Bld) Blood group A Rh(D) negative Normal [facility] Comment on above: Order Comment: HGI Performed By: #### M 100.2200 #### [facility] [address] [place], [place], [address] Urinalysis, Completeon 12-29 CA OX CRYSTAL 1+ /hpf Normal [facility] Comment on above: Order Comment: COLOR OF URINE MAY AFFECT DIPSTICK RESULTS.CLEAN CATCH Performed By: #### M 100.2200 #### [facility] [address] [place], [place], [address] WBC 10-25 SEEN Normal 0-5 [facility] Comment on above: Order Comment: COLOR OF URINE MAY AFFECT DIPSTICK RESULTS.CLEAN CATCH Performed By: #### M 100.2200 #### [facility] [address] [place], [address] BACTERIA 1+ /hpf Normal None Seen [facility] Comment on above: Order Comment: COLOR OF URINE MAY AFFECT DIPSTICK RESULTS.CLEAN CATCH Performed By: #### M 100.2200 #### [facility] [address] [place], [address] EPI,SQUAMOUS 0-5 SEEN Normal 0-5 [facility] Comment on above: Order Comment: COLOR OF URINE MAY AFFECT DIPSTICK RESULTS.CLEAN CATCH Performed By: #### M 100.2200 #### [facility] [address] [place], [address] Mucus Ql (Urine sed) 2+ /hpf Normal [facility] Comment on above: Order Comment: COLOR OF URINE MAY AFFECT DIPSTICK RESULTS.CLEAN CATCH Performed By: #### M 100.2200 #### [facility] [address] [place], [address] RBC 25-50 SEEN Normal 0-5 [facility] Comment on above: Order Comment: COLOR OF URINE MAY AFFECT DIPSTICK RESULTS.CLEAN CATCH Performed By: #### M 100.2200 #### [facility] [address] [place], [address] Urine blood detectionOrdered By: Dr. Jurado on 12-29-2022 RBC Ql (U) 250 /ul Negative [facility] RBC Ql (U) 25-50 SEEN /hpf 0-5 [facility] Urine clarityOrdered By: Dr. Jurado on 12-29-2022 Clarity (U) Sl. Cloudy Clear [facility] Urine color determinationOrd ered By: Dr. Jurado on 12-29-2022 Color (U) Giulia Yellow [facility] Urine glucose detectionOrder ed By: Dr. Jurado on 12-29-2022 Glucose Ql (U) Normal mg/dl Normal [facility] Urine leukocyte esterase det ection by dipstickOrdered By: Dr. Jurado on 12-29-2022 Leukocyte esterase Test strip Ql (U) 100 /ul Negative [facility] Urine pHOrdered By: Dr. Lianne miles on 12-29-2022 pH (U) 6.5 [pH] 5.0 - 8.0 [facility] Urine sediment bacteria coun t by microscopy (number/high power field)Ordered By: Dr. Jurado on 12-29-2022 Bacteria LM.HPF (Urine sed) [#/Area] 1 /[HPF] None Seen [facility] Urine specific gravity measu rementOrdered By: Dr. Jurado on 12-29-2022 Specific gravity (U) [Rel density] 1.015 1.002-1.030 [facility] Urobilinogen Auto test strip Ql (U)Ordered By: Dr. Jurado on 12-29-2022 Urobilinogen Ql (U) 12 mg/dl Normal [facility] Culture, urineOrdered By: Dr Dano Quinn on 09-04-2022 Bacteria identified Cx Nom (U) Culture exhibits no growth. [facility] Absolute lymphocyte countOrd ered By: Dr. Quinn on 09-02-2022 Lymphocytes Auto (Unsp spec) [#/Vol] 2.08 10*3/uL 0.83-4.51 [facility] Basophil percentageOrdered B y: Dr. Quinn on 09-02-2022 Basophil percentage 0-5 SEEN /hpf 0-5 [facility] Basophils/100 WBC (Bld) 0.8 % 0-1 [facility] Bilirubin [Mass/Vol] 3.80 mg/dL 0.20-1.00 [facility] Comment on above: For patients on eltr ombopag therapy, use of Dimension [place] TBIL is not recommended. Chloride [Moles/Vol] 103 mmol/L 98-107 [facility] Eosinophils/100 WBC (Bld) 0.8 % 0-5 [facility] Glucose [Mass/Vol] 124 mg/dL 74-106 [facility] Comment on above: Fasting Glucose resu lt from 100 to 125 mg/dL suggests IMPAIRED HOMEOSTASIS per A.D.A. criteria. Neutrophils (Bld) [#/Vol] 8.1 10*3/uL 2.0-7.7 [facility] Neutrophils/100 WBC (Bld) 73.2 % 47-70 [facility] Potassium [Moles/Vol] 3.4 mmol/L 3.5-5.[address] [facility] Comment on above: Slight Hemolysis, Re sult may be falsely increased. Protein [Mass/Vol] 6.8 g/dL 6.4-8.2 [facility] Sodium [Moles/Vol] 139 mmol/L 136-145 [facility] WBC (Bld) [#/Vol] 11.1 10*3/uL 4.4-11.0 [facility] Bilirubin Test strip Ql (U)O rdered By: Dr. Quinn on 09-02-2022 Bilirubin Ql (U) 3 mg/dL Negative [facility] Comment on above: COLOR OF URINE MAY A FFECT DIPSTICK RESULTS. Blood erythrocytes count (nu mber/volume)Ordered By: Dr. Quinn on 09-02-2022 RBC (Bld) [#/Vol] 4.13 10*6/uL 4.6-6.2 [facility] Blood hemoglobin measurement (mass/volume)Ordered By: Dr. Quinn on 09-02-2022 Hemoglobin (Bld) [Mass/Vol] 15.7 g/dL 13.0-16.5 [facility] Blood lymphocytes/100 leukoc ytesOrdered By: Dr. Quinn on 09-02-2022 Lymphocytes/100 WBC (Bld) 18.7 % 19-41 [facility] Blood monocytes/100 leukocyt esOrdered By: Dr. Quinn on 09-02-2022 Monocytes/100 WBC (Bld) 6.1 % 0-10 [facility] Blood platelet mean volumeOr dered By: Dr. Quinn on 09-02-2022 Platelet mean volume (Bld) [Entitic vol] 9.9 fL 6.2-12.0 [facility] Determination of erythrocyte mean corpuscular volume (MCV)Ordered By: Dr. Quinn on 09-02-2022 MCV (RBC) [Entitic vol] 110.2 fL 80-94 [facility] Hematocrit Auto (Bld) [Volum e fraction]Ordered By: Dr. Quinn on 09-02-2022 Hematocrit (Bld) [Volume fraction] 45.5 % 40-54 [facility] INR in Blood by Coagulation assayOrdered By: Dr. Quinn on 09-02-2022 INR Coag (Bld) [Relative time] 1.3 {INR} [facility] Ketones Test strip Ql (U)Ord ered By: Dr. Quinn on 09-02-2022 Ketones Ql (U) 5 mg/dl Negative [facility] - Chemistry and C hemistry - challengeOrdered By: Dr. Quinn on 09-02-2022 ALP [Catalytic activity/Vol] 247 U/L 45-117 [facility] ALT [Catalytic activity/Vol] 44 U/L 16-61 [facility] CO2 [Moles/Vol] 31.0 mmol/L 21.0-32.0 [facility] Globulin (S) [Mass/Vol] 4.0 g/dL 2.2-4.2 [facility] Lipase [Catalytic activity/Vol] 155 U/L 73-393 [facility] Urea nitrogen/Creatinine [Mass ratio] 8.0 mg/mg 10-20 [facility] - CoagulationOrde red By: Dr. Quinn on 09-02-2022 aPTT Coag (Bld) [Time] 33.5 s 24.1-36.2 [facility] PT Coag (PPP) [Time] 15.5 s 11.7-14.9 [facility] - Hematology and Cell countsOrdered By: Dr. Quinn on 09-02-2022 Erythrocyte distribution width (RBC) [Entitic vol] 59.4 fL 35.1-43.9 [facility] Erythrocyte distribution width (RBC) [Ratio] 14.6 % 11.6-14.6 [facility] Immature granulocytes/100 WBC (Bld) 0.400 % 0.0-0.9 [facility] Comment on above: IG% - Immature Granu locytes (promyelocytes, myelocytes and metamyelocytes) > 1% indicates that a LEFT SHIFT is Present. MCH (RBC) [Entitic mass] 38.0 pg 27.0-32.0 [facility] Nucleated RBC/100 WBC (Bld) [Ratio] 0 % 0-5 [facility] MCHC Auto (RBC) [Mass/Vol]Or dered By: Dr. Quinn on 09-02-2022 MCHC (RBC) [Mass/Vol] 34.5 g/dL 32-[address] [facility] Mucus LM Ql (Urine sed)Order ed By: Dr. Quinn on 09-02-2022 Mucus Ql (Urine sed) 2+ /hpf [facility] Nitrite Test strip Ql (U)Ord ered By: Dr. Quinn on 09-02-2022 Nitrite Ql (U) Positive Negative [facility] No Panel InformationOrdered By: Dr. Quinn on 09-02-2022 Estimated Creatinine Clearance Calc 128.82 ml/min [facility] Estimated GFR (MDRD) Amer 173 mL/min >60 [facility] Comment on above: GFR Calc Estimated GFR (MDRD) Non-Af Amer 143 mL/min >60 [facility] Comment on above: Non- GFR Calc Platelets bldOrdered By: Dr. Quinn on 09-02-2022 Platelets (Bld) [#/Vol] 215 10*3/uL 150-450 [facility] Protein Test strip Ql (U)Ord ered By: Dr. Quinn on 09-02-2022 Protein Ql (U) 30 mg/dl Negative [facility] Serum or plasma albumin lori urement (mass/volume)Ordered By: Dr. Quinn on 09-02-2022 Albumin [Mass/Vol] 2.8 g/dL 3.2-5.0 [facility] Serum or plasma albumin/glob ulin mass ratioOrdered By: Dr. Quinn on 09-02-2022 Albumin/Globulin [Mass ratio] 0.7 {ratio} 0.9-2.4 [facility] Serum or plasma calcium lori urement (mass/volume)Ordered By: Dr. Quinn on 09-02-2022 Calcium [Mass/Vol] 9.1 mg/dL 8.5-10.1 [facility] Serum or plasma creatinine m easurement (mass/volume)Ordered By: Dr. Quinn on 09-02-2022 Creatinine [Mass/Vol] 0.62 mg/dL 0.70-1.[address] [facility] Comment on above: The validity of the calculated GFR & GFRAA in patients over 70 years has not been determined. Clinical correlation is essential. Serum or plasma urea nitroge n measurement (mass/volume)Ordered By: Dr. Quinn on 09-02-2022 Urea nitrogen [Mass/Vol] 5 mg/dL 7-18 [facility] Squamous epithelial cells de tection in urine sediment by light microscopyOrdered By: Dr. Quinn on 09-02-2022 Epithelial cells.squamous LM Ql (Urine sed) 0 SEEN /hpf 0-5 [facility] Thin prep Papanicolaou smear with manual screeningOrdered By: Dr. Quinn on 09-02-2022 Thin prep Papanicolaou smear with manual screening 128 U/L 15-37 [facility] Comment on above: Slight Hemolysis, Re sult may be falsely increased. Thin prep Papanicolaou smear with manual screening 5 5-15 [facility] Urine blood detectionOrdered By: Dr. Quinn on 09-02-2022 RBC Ql (U) 10 /ul Negative [facility] RBC Ql (U) 0-5 SEEN /hpf 0-5 [facility] Urine clarityOrdered By: Dr. Quinn on 09-02-2022 Clarity (U) Clear Clear [facility] Urine color determinationOrd ered By: Dr. Quinn on 09-02-2022 Color (U) Giulia Yellow [facility] Urine glucose detectionOrder ed By: Dr. Quinn on 09-02-2022 Glucose Ql (U) Normal mg/dl Normal [facility] Urine leukocyte esterase det ection by dipstickOrdered By: Dr. Quinn on 09-02-2022 Leukocyte esterase Test strip Ql (U) 100 /ul Negative [facility] Urine pHOrdered By: Dr. Quinn o n 09-02-2022 pH (U) 7.0 [pH] 5.0 - 8.0 [facility] Urine sediment bacteria coun t by microscopy (number/high power field)Ordered By: Dr. Quinn on 09-02-2022 Bacteria LM.HPF (Urine sed) [#/Area] 1 /[HPF] None Seen [facility] Urine specific gravity measu rementOrdered By: Dr. Quinn on 09-02-2022 Specific gravity (U) [Rel density] 1.010 1.002-1.030 [facility] Urobilinogen Auto test strip Ql (U)Ordered By: Dr. Quinn on 09-02-2022 Urobilinogen Ql (U) 12 mg/dl Normal [facility] Absolute lymphocyte counton 06-13-2022 Lymphocytes Auto (Unsp spec) [#/Vol] 0.46 10*3/uL 0.83-4.51 [facility] Work Phone: Basophil percentageon 2021 Basophils/100 WBC (Bld) 0.1 % 0-1 [facility] Work Phone: Bilirubin [Mass/Vol] 3.20 mg/dL 0.20-1.00 [facility] Work Phone: Comment on above: For patients on eltr ombopag therapy, use of Dimension [place] TBIL is not recommended. Chloride [Moles/Vol] 98 mmol/L 98-107 [facility] Work Phone: Eosinophils/100 WBC (Bld) 0.0 % 0-5 [facility] Work Phone: Glucose [Mass/Vol] 134 mg/dL 74-106 [facility] Work Phone: Comment on above: Fasting Glucose resu lt greater than or equal to 126 mg/dL suggests DIABETES MELLITUS per A.D.A. criteria. Neutrophils (Bld) [#/Vol] 13.5 10*3/uL 2.0-7.7 [facility] Work Phone: Neutrophils/100 WBC (Bld) 92.1 % 47-70 [facility] Work Phone: Potassium [Moles/Vol] 3.5 mmol/L 3.5-5.[address] [facility] Work Phone: Protein [Mass/Vol] 7.4 g/dL 6.4-8.2 [facility] Work Phone: [phone] Sodium [Moles/Vol] 137 mmol/L 136-145 [facility] Work Phone: WBC (Bld) [#/Vol] 14.6 10*3/uL 4.4-11.0 [facility] Work Phone: Blood erythrocytes count (nu mber/volume)on 06-13-2022 RBC (Bld) [#/Vol] 4.65 10*6/uL 4.6-6.2 [facility] Work Phone: Blood hemoglobin measurement (mass/volume)on 06-13-2022 Hemoglobin (Bld) [Mass/Vol] 16.9 g/dL 13.0-16.5 [facility] Work Phone: Blood lymphocytes/100 leukoc yteson 06-13-2022 Lymphocytes/100 WBC (Bld) 3.1 % 19-41 [facility] Work Phone: Blood monocytes/100 leukocyt eson 06-13-2022 Monocytes/100 WBC (Bld) 3.9 % 0-10 [facility] Work Phone: Blood platelet mean volumeon 06-13-2022 Platelet mean volume (Bld) [Entitic vol] 9.0 fL 6.2-12.0 [facility] Work Phone: Determination of erythrocyte mean corpuscular volume (MCV)on 06-13-2022 MCV (RBC) [Entitic vol] 104.9 fL 80-94 [facility] Work Phone: Hematocrit Auto (Bld) [Volum e fraction]on 06-13-2022 Hematocrit (Bld) [Volume fraction] 48.8 % 40-54 [facility] Work Phone: INR in Blood by Coagulation assayon 06-13-2022 INR Coag (Bld) [Relative time] 1.4 {INR} [facility] Work Phone: Laboratory - Chemistry and C hemistry - challengeon 06-13-2022 ALP [Catalytic activity/Vol] 117 U/L 45-117 [facility] Work Phone: ALT [Catalytic activity/Vol] 36 U/L 16-61 [facility] Work Phone: CO2 [Moles/Vol] 31.0 mmol/L 21.0-32.0 [facility] Work Phone: Globulin (S) [Mass/Vol] 3.6 g/dL 2.2-4.2 [facility] Work Phone: Urea nitrogen/Creatinine [Mass ratio] 11.8 mg/mg 10-20 [facility] Work Phone: Laboratory - Coagulationon 0 06-13-2022 PT Coag (PPP) [Time] 16.6 s 11.7-14.9 [facility] Work Phone: Laboratory - Hematology and Cell countson 06-13-2022 Erythrocyte distribution width (RBC) [Entitic vol] 60.2 fL 35.1-43.9 [facility] Work Phone: Erythrocyte distribution width (RBC) [Ratio] 15.4 % 11.6-14.6 [facility] Work Phone: Immature granulocytes/100 WBC (Bld) 0.800 % 0.0-0.9 [facility] Work Phone: Comment on above: IG% - Immature Granu locytes (promyelocytes, myelocytes and metamyelocytes) > 1% indicates that a LEFT SHIFT is Present. MCH (RBC) [Entitic mass] 36.3 pg 27.0-32.0 [facility] Work Phone: Nucleated RBC/100 WBC (Bld) [Ratio] 0 % 0-5 [facility] Work Phone: MCHC Auto (RBC) [Mass/Vol]on 06-13-2022 MCHC (RBC) [Mass/Vol] 34.6 g/dL 32-[address] [facility] Work Phone: No Panel Informationon 06-13 Estimated GFR (MDRD) Amer 122 mL/min >60 [facility] Work Phone: Comment on above: GFR Calc Estimated GFR (MDRD) Non-Af Amer 101 mL/min >60 [facility] Work Phone: Comment on above: Non- GFR Calc Platelets bldon 06-13-2022 Platelets (Bld) [#/Vol] 162 10*3/uL 150-450 [facility] Work Phone: Serum or plasma albumin lori urement (mass/volume)on 06-13-2022 Albumin [Mass/Vol] 3.8 g/dL 3.2-5.0 [facility] Work Phone: Serum or plasma albumin/glob ulin mass ratioon 06-13-2022 Albumin/Globulin [Mass ratio] 1.1 {ratio} 0.9-2.4 [facility] Work Phone: Serum or plasma calcium lori urement (mass/volume)on 06-13-2022 Calcium [Mass/Vol] 9.2 mg/dL 8.5-10.1 [facility] Work Phone: Serum or plasma creatinine m easurement (mass/volume)on 06-13-2022 Creatinine [Mass/Vol] 0.84 mg/dL 0.70-1.[address] [facility] Work Phone: Comment on above: The validity of the calculated GFR & GFRAA in patients over 70 years has not been determined. Clinical correlation is essential. Serum or plasma urea nitroge n measurement (mass/volume)on 06-13-2022 Urea nitrogen [Mass/Vol] 10 mg/dL 7-18 [facility] Work Phone: Thin prep Papanicolaou smear with manual screeningon 06-13-2022 Thin prep Papanicolaou smear with manual screening 58 U/L 15-37 [facility] Work Phone: Thin prep Papanicolaou smear with manual screening 8 5-15 [facility] Work Phone: Absolute lymphocyte counton 05-02-2022 Lymphocytes Auto (Unsp spec) [#/Vol] 1.84 10*3/uL 0.83-4.51 [facility] Work Phone: Basophil percentageon 2021 Basophils/100 WBC (Bld) 0.7 % 0-1 [facility] Work Phone: Bilirubin [Mass/Vol] 2.70 mg/dL 0.20-1.00 [facility] Work Phone: Comment on above: For patients on eltr ombopag therapy, use of Dimension [place] TBIL is not recommended. Chloride [Moles/Vol] 97 mmol/L 98-107 [facility] Work Phone: Eosinophils/100 WBC (Bld) 0.1 % 0-5 [facility] Work Phone: [phone] Glucose [Mass/Vol] 117 mg/dL 74-106 [facility] Work Phone: Comment on above: Fasting Glucose resu lt from 100 to 125 mg/dL suggests IMPAIRED HOMEOSTASIS per A.D.A. criteria. Neutrophils (Bld) [#/Vol] 13.5 10*3/uL 2.0-7.7 [facility] Work Phone: Neutrophils/100 WBC (Bld) 81.5 % 47-70 [facility] Work Phone: Potassium [Moles/Vol] 3.9 mmol/L 3.5-5.[address] [facility] Work Phone: Protein [Mass/Vol] 8.1 g/dL 6.4-8.2 [facility] Work Phone: Sodium [Moles/Vol] 134 mmol/L 136-145 [facility] Work Phone: WBC (Bld) [#/Vol] 16.6 10*3/uL 4.4-11.0 [facility] Work Phone: Blood erythrocytes count (nu mber/volume)on 05-02-2022 RBC (Bld) [#/Vol] 4.10 10*6/uL 4.6-6.2 [facility] Work Phone: Blood hemoglobin measurement (mass/volume)on 05-02-2022 Hemoglobin (Bld) [Mass/Vol] 14.8 g/dL 13.0-16.5 [facility] Work Phone: Blood lymphocytes/100 leukoc yteson 05-02-2022 Lymphocytes/100 WBC (Bld) 11.1 % 19-41 [facility] Work Phone: Blood monocytes/100 leukocyt eson 05-02-2022 Monocytes/100 WBC (Bld) 6.2 % 0-10 [facility] Work Phone: Blood platelet mean volumeon 05-02-2022 Platelet mean volume (Bld) [Entitic vol] 9.5 fL 6.2-12.0 [facility] Work Phone: [phone] Determination of erythrocyte mean corpuscular volume (MCV)on 05-02-2022 MCV (RBC) [Entitic vol] 105.9 fL 80-94 [facility] Work Phone: Hematocrit Auto (Bld) [Volum e fraction]on 05-02-2022 Hematocrit (Bld) [Volume fraction] 43.4 % 40-54 [facility] Work Phone: INR in Blood by Coagulation assayon 05-02-2022 INR Coag (Bld) [Relative time] 1.3 {INR} [facility] Work Phone: Laboratory - Chemistry and C hemistry - challengeon 05-02-2022 ALP [Catalytic activity/Vol] 154 U/L 45-117 [facility] Work Phone: ALT [Catalytic activity/Vol] 34 U/L 16-61 [facility] Work Phone: CO2 [Moles/Vol] 28.0 mmol/L 21.0-32.0 [facility] Work Phone: Globulin (S) [Mass/Vol] 4.8 g/dL 2.2-4.2 [facility] Work Phone: Urea nitrogen/Creatinine [Mass ratio] 10.2 mg/mg 10-20 [facility] Work Phone: [phone] Laboratory - Coagulationon 0 05-02-2022 PT Coag (PPP) [Time] 15.5 s 11.7-14.9 [facility] Work Phone: Laboratory - Hematology and Cell countson 05-02-2022 Erythrocyte distribution width (RBC) [Entitic vol] 47.8 fL 35.1-43.9 [facility] Work Phone: Erythrocyte distribution width (RBC) [Ratio] 12.2 % 11.6-14.6 [facility] Work Phone: Immature granulocytes/100 WBC (Bld) 0.400 % 0.0-0.9 [facility] Work Phone: Comment on above: IG% - Immature Granu locytes (promyelocytes, myelocytes and metamyelocytes) > 1% indicates that a LEFT SHIFT is Present. MCH (RBC) [Entitic mass] 36.1 pg 27.0-32.0 [facility] Work Phone: Nucleated RBC/100 WBC (Bld) [Ratio] 0 % 0-5 [facility] Work Phone: MCHC Auto (RBC) [Mass/Vol]on 05-02-2022 MCHC (RBC) [Mass/Vol] 34.1 g/dL 32-[address] [facility] Work Phone: No Panel Informationon 05-02 Estimated GFR (MDRD) Amer 132 mL/min >60 [facility] Work Phone: Comment on above: GFR Calc Estimated GFR (MDRD) Non-Af Amer 109 mL/min >60 [facility] Work Phone: Comment on above: Non- GFR Calc Platelets bldon 05-02-2022 Platelets (Bld) [#/Vol] 338 10*3/uL 150-450 [facility] Work Phone: Serum or plasma albumin lori urement (mass/volume)on 05-02-2022 Albumin [Mass/Vol] 3.3 g/dL 3.2-5.0 [facility] Work Phone: Serum or plasma albumin/glob ulin mass ratioon 05-02-2022 Albumin/Globulin [Mass ratio] 0.7 {ratio} 0.9-2.4 [facility] Work Phone: Serum or plasma calcium lori urement (mass/volume)on 05-02-2022 Calcium [Mass/Vol] 9.9 mg/dL 8.5-10.1 [facility] Work Phone: Serum or plasma creatinine m easurement (mass/volume)on 05-02-2022 Creatinine [Mass/Vol] 0.79 mg/dL 0.70-1.[address] [facility] Work Phone: Comment on above: The validity of the calculated GFR & GFRAA in patients over 70 years has not been determined. Clinical correlation is essential. Serum or plasma urea nitroge n measurement (mass/volume)on 05-02-2022 Urea nitrogen [Mass/Vol] 8 mg/dL 7-18 [facility] Work Phone: Thin prep Papanicolaou smear with manual screeningon 05-02-2022 Thin prep Papanicolaou smear with manual screening 84 U/L 15-37 [facility] Work Phone: Thin prep Papanicolaou smear with manual screening 9 5-15 [facility] Work Phone: Whole blood hemoglobin A1c/t otal hemoglobin ratio (mass fraction)on 05-02-2022 HbA1c (Bld) [Mass fraction] 4.8 % 3.8-5.6 [facility] Work Phone: Comment on above: Normal < 5.7 % Predi abetic 5.7 - 6.4 % Diabetic >or= 6.5 % Please note range changes. Absolute lymphocyte counton 04-11-2022 Lymphocytes Auto (Unsp spec) [#/Vol] 1.64 10*3/uL 0.83-4.51 [facility] Work Phone: Basophil percentageon 2021 Basophils/100 WBC (Bld) 0.5 % 0-1 [facility] Work Phone: Bilirubin [Mass/Vol] 4.00 mg/dL 0.20-1.00 [facility] Work Phone: Comment on above: For patients on eltr ombopag therapy, use of [place] TBIL is not recommended. Chloride [Moles/Vol] 112 mmol/L 98-107 [facility] Work Phone: Eosinophils/100 WBC (Bld) 0.8 % 0-5 [facility] Work Phone: Glucose [Mass/Vol] 133 mg/dL 74-106 [facility] Work Phone: Comment on above: Fasting Glucose resu lt greater than or equal to 126 mg/dL suggests DIABETES MELLITUS per A.D.A. criteria. Neutrophils (Bld) [#/Vol] 12.5 10*3/uL 2.0-7.7 [facility] Work Phone: Neutrophils/100 WBC (Bld) 81.7 % 47-70 [facility] Work Phone: Potassium [Moles/Vol] 3.7 mmol/L 3.5-5.[address] [facility] Work Phone: Protein [Mass/Vol] 6.0 g/dL 6.4-8.2 [facility] Work Phone: Sodium [Moles/Vol] 140 mmol/L 136-145 [facility] Work Phone: WBC (Bld) [#/Vol] 15.3 10*3/uL 4.4-11.0 [facility] Work Phone: Blood erythrocytes count (nu mber/volume)on 04-11-2022 RBC (Bld) [#/Vol] 3.38 10*6/uL 4.6-6.2 [facility] Work Phone: Blood hemoglobin measurement (mass/volume)on 06-20-2022 Hemoglobin (Bld) [Mass/Vol] 12.5 g/dL 13.0-16.5 [facility] Work Phone: Blood lymphocytes/100 leukoc yteson 04-11-2022 Lymphocytes/100 WBC (Bld) 10.8 % 19-41 [facility] Work Phone: Blood monocytes/100 leukocyt eson 04-11-2022 Monocytes/100 WBC (Bld) 5.6 % 0-10 [facility] Work Phone: Blood platelet mean volumeon 04-11-2022 Platelet mean volume (Bld) [Entitic vol] 9.4 fL 6.2-12.0 [facility] Work Phone: Determination of erythrocyte mean corpuscular volume (MCV)on 04-11-2022 MCV (RBC) [Entitic vol] 112.4 fL 80-94 [facility] Work Phone: Direct bilirubinon 2 Bilirubin.direct [Mass/Vol] 3.40 mg/dL 0.00-0.30 [facility] Work Phone: Hematocrit Auto (Bld) [Volum e fraction]on 04-11-2022 Hematocrit (Bld) [Volume fraction] 38.0 % 40-54 [facility] Work Phone: INR in Blood by Coagulation assayon 04-11-2022 INR Coag (Bld) [Relative time] 1.4 {INR} [facility] Work Phone: Laboratory - Chemistry and C hemistry - challengeon 04-11-2022 ALP [Catalytic activity/Vol] 144 U/L 45-117 [facility] Work Phone: ALT [Catalytic activity/Vol] 37 U/L 16-61 [facility] Work Phone: CO2 [Moles/Vol] 23.0 mmol/L 21.0-32.0 [facility] Work Phone: Globulin (S) [Mass/Vol] 3.8 g/dL 2.2-4.2 [facility] Work Phone: Lipase [Catalytic activity/Vol] 121 U/L 73-393 [facility] Work Phone: Urea nitrogen/Creatinine [Mass ratio] 13.6 mg/mg 10-20 [facility] Work Phone: Laboratory - Coagulationon 0 04-11-2022 aPTT Coag (Bld) [Time] 35.2 s 24.1-36.2 [facility] Work Phone: PT Coag (PPP) [Time] 16.7 s 11.7-14.[address] [facility] [facility] Work Phone: Laboratory - Hematology and Cell countson 04-11-2022 Erythrocyte distribution width (RBC) [Entitic vol] 52.3 fL 35.1-43.9 [facility] Work Phone: Erythrocyte distribution width (RBC) [Ratio] 12.6 % 11.6-14.6 [facility] Work Phone: [phone] Immature granulocytes/100 WBC (Bld) 0.600 % 0.0-0.9 [facility] Work Phone: Comment on above: IG% - Immature Granu locytes (promyelocytes, myelocytes and metamyelocytes) > 1% indicates that a LEFT SHIFT is Present. MCH (RBC) [Entitic mass] 37.0 pg 27.0-32.0 [facility] Work Phone: Nucleated RBC/100 WBC (Bld) [Ratio] 0 % 0-5 [facility] Work Phone: MCHC Auto (RBC) [Mass/Vol]on 04-11-2022 MCHC (RBC) [Mass/Vol] 32.9 g/dL 32-[address] [facility] Work Phone: No Panel Informationon 04-11 Estimated Creatinine Clearance Calc 121.02 ml/min [facility] Work Phone: Estimated GFR (MDRD) Amer 162 mL/min >60 [facility] Work Phone: Comment on above: GFR Calc Estimated GFR (MDRD) Non-Af Amer 134 mL/min >60 [facility] Work Phone: Comment on above: Non- GFR Calc Platelets bldon 04-11-2022 Platelets (Bld) [#/Vol] 372 10*3/uL 150-450 [facility] Work Phone: Serum or plasma albumin lori urement (mass/volume)on 04-11-2022 Albumin [Mass/Vol] 2.2 g/dL 3.2-5.0 [facility] Work Phone: Serum or plasma calcium lori urement (mass/volume)on 04-11-2022 Calcium [Mass/Vol] 8.6 mg/dL 8.5-10.1 [facility] Work Phone: Serum or plasma creatinine m easurement (mass/volume)on 04-11-2022 Creatinine [Mass/Vol] 0.66 mg/dL 0.70-1.[address] [facility] Work Phone: Comment on above: The validity of the calculated GFR & GFRAA in patients over 70 years has not been determined. Clinical correlation is essential. Serum or plasma urea nitroge n measurement (mass/volume)on 04-11-2022 Urea nitrogen [Mass/Vol] 9 mg/dL 7-18 [facility] Work Phone: Thin prep Papanicolaou smear with manual screeningon 04-11-2022 Thin prep Papanicolaou smear with manual screening 83 U/L 15-37 [facility] Work Phone: Thin prep Papanicolaou smear with manual screening 5 5-15 [facility] Work Phone: Absolute lymphocyte counton 03-11-2022 Lymphocytes Auto (Unsp spec) [#/Vol] 0.42 10*3/uL 0.83-4.51 [facility] Work Phone: Basophil percentageon 2021 Lactate [Moles/Vol] 3.2 mmol/L 0.4-2.0 [facility] Work Phone: Comment on above: Critical Result(s) C alled at: 13:48:41 03/11/2022 by: Amadeo Ramsey RN (ER). Results read back by same. Basophil percentage 0 SEEN /hpf 0-5 [facility] Work Phone: Ammonia (P) [Moles/Vol] 35.0 umol/L 11-32 [facility] Work Phone: Basophils/100 WBC (Bld) 0.4 % 0-1 [facility] Work Phone: Bilirubin [Mass/Vol] 20.40 mg/dL 0.20-1.[address] [facility] Work Phone: Comment on above: Critical Result(s) C alled at: 11:27:59 03/11/2022 by: Amadeo Godfrey RN (ER). Results read back by same. For patients on eltrombopag therapy, use of Dim[place] TBIL is not recommended. Chloride [Moles/Vol] 99 mmol/L 98-107 [facility] Work Phone: Eosinophils/100 WBC (Bld) 0.1 % 0-5 [facility] Work Phone: Glucose [Mass/Vol] 132 mg/dL 74-106 [facility] Work Phone: Comment on above: Fasting Glucose resu lt greater than or equal to 126 mg/dL suggests DIABETES MELLITUS per A.D.A. criteria. Neutrophils (Bld) [#/Vol] 11.7 10*3/uL 2.0-7.7 [facility] Work Phone: Neutrophils/100 WBC (Bld) 90.9 % 47-70 [facility] Work Phone: Potassium [Moles/Vol] 3.6 mmol/L 3.5-5.[address] [facility] Work Phone: Comment on above: Slight Hemolysis, Re sult may be falsely increased. Protein [Mass/Vol] 7.1 g/dL 6.4-8.2 [facility] Work Phone: Comment on above: Moderate Icterus, Re sult may be falsely decreased. Sodium [Moles/Vol] 134 mmol/L 136-145 [facility] Work Phone: WBC (Bld) [#/Vol] 12.9 10*3/uL 4.4-11.0 [facility] Work Phone: Bilirubin Test strip Ql (U)o n 03-11-2022 Bilirubin Ql (U) 6 mg/dL Negative [facility] Work Phone: Comment on above: COLOR OF URINE MAY A FFECT DIPSTICK RESULTS. Blood erythrocytes count (nu mber/volume)on 03-11-2022 RBC (Bld) [#/Vol] 3.58 10*6/uL 4.6-6.2 [facility] Work Phone: Blood hemoglobin measurement (mass/volume)on 03-11-2022 Hemoglobin (Bld) [Mass/Vol] 13.1 g/dL 13.0-16.5 [facility] Work Phone: Blood lymphocytes/100 leukoc yteson 03-11-2022 Lymphocytes/100 WBC (Bld) 3.3 % 19-41 [facility] Work Phone: Blood monocytes/100 leukocyt eson 03-11-2022 Monocytes/100 WBC (Bld) 4.8 % 0-10 [facility] Work Phone: Blood platelet mean volumeon 03-11-2022 Platelet mean volume (Bld) [Entitic vol] 10.9 fL 6.2-12.0 [facility] Work Phone: Determination of erythrocyte mean corpuscular volume (MCV)on 03-11-2022 MCV (RBC) [Entitic vol] 106.1 fL 80-94 [facility] Work Phone: Direct bilirubinon 2 Bilirubin.direct [Mass/Vol] 15.56 mg/dL 0.00-0.30 [facility] Work Phone: Hematocrit Auto (Bld) [Volum e fraction]on 03-11-2022 Hematocrit (Bld) [Volume fraction] 38.0 % 40-54 [facility] Work Phone: INR in Blood by Coagulation assayon 03-11-2022 INR Coag (Bld) [Relative time] 1.4 {INR} [facility] Work Phone: Ketones Test strip Ql (U)on 03-11-2022 Ketones Ql (U) 5 mg/dl Negative [facility] Work Phone: Laboratory - Chemistry and C hemistry - challengeon 03-11-2022 ALP [Catalytic activity/Vol] 291 U/L 45-117 [facility] Work Phone: ALT [Catalytic activity/Vol] 53 U/L 16-61 [facility] Work Phone: CO2 [Moles/Vol] 23.0 mmol/L 21.0-32.0 [facility] Work Phone: Globulin (S) [Mass/Vol] 4.4 g/dL 2.2-4.2 [facility] Work Phone: Lipase [Catalytic activity/Vol] 159 U/L 73-393 [facility] Work Phone: Urea nitrogen/Creatinine [Mass ratio] 11.2 mg/mg 10-20 [facility] Work Phone: [phone] Laboratory - Coagulationon 0 03-11-2022 PT Coag (PPP) [Time] 17.1 s 11.7-14.9 [facility] Work Phone: Laboratory - Hematology and Cell countson 03-11-2022 Erythrocyte distribution width (RBC) [Entitic vol] 67.8 fL 35.1-43.9 [facility] Work Phone: Erythrocyte distribution width (RBC) [Ratio] 17.7 % 11.6-14.6 [facility] Work Phone: Immature granulocytes/100 WBC (Bld) 0.500 % 0.0-0.9 [facility] Work Phone: Comment on above: IG% - Immature Granu locytes (promyelocytes, myelocytes and metamyelocytes) > 1% indicates that a LEFT SHIFT is Present. MCH (RBC) [Entitic mass] 36.6 pg 27.0-32.0 [facility] Work Phone: Nucleated RBC/100 WBC (Bld) [Ratio] 0 % 0-5 [facility] Work Phone: MCHC Auto (RBC) [Mass/Vol]on 03-11-2022 MCHC (RBC) [Mass/Vol] 34.5 g/dL 32-[address] [facility] Work Phone: Mucus LM Ql (Urine sed)on Mucus Ql (Urine sed) 0 SEEN /hpf [facility] Work Phone: Nitrite Test strip Ql (U)on 03-11-2022 Nitrite Ql (U) Negative Negative [facility] Work Phone: No Panel Informationon 03-11 Ethyl Alcohol Level < 3.0 mg/dL [facility] Work Phone: Comment on above: The serum:whole bloo d ethanol ratio is approximately 1.14and varies slightly with hematocrit. Medical Alcohol reference interval and critical value innon-tolerant individuals; 50 - 100 Impairment 100 Intoxication 100 - 250 Severe Poisoning 250 - 400 Deep/possible fatal coma Estimated Creatinine Clearance Calc 112.49 ml/min [facility] Work Phone: Estimated GFR (MDRD) Amer 148 mL/min >60 [facility] Work Phone: Comment on above: GFR Calc Estimated GFR (MDRD) Non-Af Amer 122 mL/min >60 [facility] Work Phone: Comment on above: Non- GFR Calc Troponin I High Sensitivity 3 pg/mL 3.0-78.0 [facility] Work Phone: Comment on above: Please Note: New Bell t Units and Gender Specific Reference Ranges. For more information see Policy Stat Procedure [place] High Sensitivity Troponin (TNIH) and attachments. Platelets bldon 03-11-2022 Platelets (Bld) [#/Vol] 260 10*3/uL 150-450 [facility] Work Phone: Protein Test strip Ql (U)on 03-11-2022 Protein Ql (U) 15 mg/dl Negative [facility] Work Phone: Serum or plasma albumin lori urement (mass/volume)on 03-11-2022 Albumin [Mass/Vol] 2.7 g/dL 3.2-5.0 [facility] Work Phone: Serum or plasma calcium lori urement (mass/volume)on 03-11-2022 Calcium [Mass/Vol] 9.2 mg/dL 8.5-10.1 [facility] Work Phone: Serum or plasma creatinine m easurement (mass/volume)on 03-11-2022 Creatinine [Mass/Vol] 0.71 mg/dL 0.70-1.[address] [facility] Work Phone: Comment on above: Moderate Icterus, Re sult may be falsely decreased.The validity of the calculated GFR & GFRAA in patients over 70 years has not been determined. Clinical correlation is essential. Serum or plasma urea nitroge n measurement (mass/volume)on 03-11-2022 Urea nitrogen [Mass/Vol] 8 mg/dL 7-18 [facility] Work Phone: Squamous epithelial cells de tection in urine sediment by light microscopyon 03-11-2022 Epithelial cells.squamous LM Ql (Urine sed) 0-5 SEEN /hpf 0-5 [facility] Work Phone: Thin prep Papanicolaou smear with manual screeningon 03-11-2022 Thin prep Papanicolaou smear with manual screening 235 U/L 15-37 [facility] Work Phone: Comment on above: Slight Hemolysis, Re sult may be falsely increased. Thin prep Papanicolaou smear with manual screening 12 5-15 [facility] Work Phone: Thin prep Papanicolaou smear with manual screening 338 U/L 87-241 [facility] Work Phone: Comment on above: Slight Hemolysis, Re sult may be falsely increased. Urine blood detectionon --2021 RBC Ql (U) 25 /ul Negative [facility] Work Phone: RBC Ql (U) 0 SEEN /hpf 0-5 [facility] Work Phone: Urine clarityon 03-11-2022 Clarity (U) Sl. Cloudy Clear [facility] Work Phone: Urine color determinationon 03-11-2022 Color (U) Giulia Yellow [facility] Work Phone: Urine glucose detectionon Glucose Ql (U) Normal mg/dl Normal [facility] Work Phone: Urine leukocyte esterase det ection by dipstickon 03-11-2022 Leukocyte esterase Test strip Ql (U) 25 /ul Negative [facility] Work Phone: Urine pHon 03-11-2022 pH (U) 8.0 [pH] 5.0 - 8.0 [facility] Work Phone: Urine sediment bacteria coun t by microscopy (number/high power field)on 03-11-2022 Bacteria LM.HPF (Urine sed) [#/Area] 0 /[HPF] None Seen [facility] Work Phone: Urine specific gravity measu rementon 03-11-2022 Specific gravity (U) [Rel density] 1.010 1.002-1.030 [facility] Work Phone: Urobilinogen Auto test strip Ql (U)on 03-11-2022 Urobilinogen Ql (U) 8 mg/dl [facility] Work Phone: Absolute lymphocyte counton 03-09-2022 Lymphocytes Auto (Unsp spec) [#/Vol] 0.99 10*3/uL 0.83-4.51 [facility] Work Phone: Basophil percentageon 2021 Basophil percentage 0-5 SEEN /hpf 0-5 [facility] Work Phone: [phone] Basophils/100 WBC (Bld) 0.8 % 0-1 [facility] Work Phone: Bilirubin [Mass/Vol] 14.00 mg/dL 0.20-1.[address] [facility] Work Phone: Comment on above: For patients on eltr ombopag therapy, use of Dimension [place] TBIL is not recommended. Chloride [Moles/Vol] 101 mmol/L 98-107 [facility] Work Phone: Eosinophils/100 WBC (Bld) 0.1 % 0-5 [facility] Work Phone: Glucose [Mass/Vol] 102 mg/dL 74-106 [facility] Work Phone: Comment on above: Fasting Glucose resu lt from 100 to 125 mg/dL suggests IMPAIRED HOMEOSTASIS per A.D.A. criteria. Neutrophils (Bld) [#/Vol] 8.7 10*3/uL 2.0-7.7 [facility] Work Phone: Neutrophils/100 WBC (Bld) 81.8 % 47-70 [facility] Work Phone: [phone] Potassium [Moles/Vol] 2.9 mmol/L 3.5-5.[address] [facility] Work Phone: Protein [Mass/Vol] 7.0 g/dL 6.4-8.2 [facility] Work Phone: Comment on above: Moderate Icterus, Re sult may be falsely decreased. Sodium [Moles/Vol] 138 mmol/L 136-145 [facility] Work Phone: WBC (Bld) [#/Vol] 10.7 10*3/uL 4.4-11.0 [facility] Work Phone: Bilirubin Test strip Ql (U)o n 03-09-2022 Bilirubin Ql (U) 6 mg/dL Negative [facility] Work Phone: Comment on above: COLOR OF URINE MAY A FFECT DIPSTICK RESULTS. Blood erythrocytes count (nu mber/volume)on 03-09-2022 RBC (Bld) [#/Vol] 3.25 10*6/uL 4.6-6.2 [facility] Work Phone: Blood hemoglobin measurement (mass/volume)on 03-09-2022 Hemoglobin (Bld) [Mass/Vol] 12.1 g/dL 13.0-16.5 [facility] Work Phone: Blood lymphocytes/100 leukoc yteson 03-09-2022 Lymphocytes/100 WBC (Bld) 9.3 % 19-41 [facility] Work Phone: Blood monocytes/100 leukocyt eson 03-09-2022 Monocytes/100 WBC (Bld) 7.3 % 0-10 [facility] Work Phone: Blood platelet mean volumeon 03-09-2022 Platelet mean volume (Bld) [Entitic vol] 11.0 fL 6.2-12.0 [facility] Work Phone: Determination of erythrocyte mean corpuscular volume (MCV)on 03-09-2022 MCV (RBC) [Entitic vol] 104.6 fL 80-94 [facility] Work Phone: Direct bilirubinon 2 Bilirubin.direct [Mass/Vol] 10.82 mg/dL 0.00-0.30 [facility] Work Phone: Hematocrit Auto (Bld) [Volum e fraction]on 03-09-2022 Hematocrit (Bld) [Volume fraction] 34.0 % 40-54 [facility] Work Phone: Ketones Test strip Ql (U)on 03-09-2022 Ketones Ql (U) 5 mg/dl Negative [facility] Work Phone: Laboratory - Chemistry and C hemistry - challengeon 03-09-2022 ALP [Catalytic activity/Vol] 306 U/L 45-117 [facility] Work Phone: [phone] ALT [Catalytic activity/Vol] 61 U/L 16-61 [facility] Work Phone: CO2 [Moles/Vol] 28.0 mmol/L 21.0-32.0 [facility] Work Phone: Globulin (S) [Mass/Vol] 4.3 g/dL 2.2-4.2 [facility] Work Phone: Lipase [Catalytic activity/Vol] 202 U/L 73-393 [facility] Work Phone: Urea nitrogen/Creatinine [Mass ratio] 11.2 mg/mg 10-20 [facility] Work Phone: Laboratory - Hematology and Cell countson 03-09-2022 Anisocytosis Ql (Bld) 1+ [facility] Work Phone: Erythrocyte distribution width (RBC) [Entitic vol] 71.5 fL 35.1-43.9 [facility] Work Phone: Erythrocyte distribution width (RBC) [Ratio] 18.7 % 11.6-14.6 [facility] Work Phone: Immature granulocytes/100 WBC (Bld) 0.700 % 0.0-0.9 [facility] Work Phone: Comment on above: IG% - Immature Granu locytes (promyelocytes, myelocytes and metamyelocytes) > 1% indicates that a LEFT SHIFT is Present. MCH (RBC) [Entitic mass] 37.2 pg 27.0-32.0 [facility] Work Phone: Nucleated RBC/100 WBC (Bld) [Ratio] 0.3 % 0-5 [facility] Work Phone: MCHC Auto (RBC) [Mass/Vol]on 03-09-2022 MCHC (RBC) [Mass/Vol] 35.6 g/dL 32-[address] [facility] Work Phone: Mucus LM Ql (Urine sed)on Mucus Ql (Urine sed) 0 SEEN /hpf [facility] Work Phone: Nitrite Test strip Ql (U)on 03-09-2022 Nitrite Ql (U) Negative Negative [facility] Work Phone: No Panel Informationon 03-09 Hepatitis A IgM Antibody Negative Negative [facility] Work Phone: Hepatitis B Core IgM Antibody Negative Negative [facility] Work Phone: Hepatitis C Antibody (EIA) <0.1 s/co ratio 0.0-0.9 [facility] Work Phone: Hepatitis C Antibody Comment Comment . [facility] Work Phone: Comment on above: NegativeNot infected with HCV, unless recent infection issuspected or other evidence exists to indicate HCVinfection.Performed at: [facility] [address] [id number] Director: Remberto King PhD, Phone: [phone] Estimated Creatinine Clearance Calc 175.21 ml/min [facility] Work Phone: Estimated GFR (MDRD) Amer 256 mL/min >60 [facility] Work Phone: Comment on above: GFR Calc Estimated GFR (MDRD) Non-Af Amer 211 mL/min >60 [facility] Work Phone: Comment on above: Non- GFR Calc Ethyl Alcohol Level 215.0 mg/dL [facility] Work Phone: Comment on above: The serum:whole bloo d ethanol ratio is approximately 1.14and varies slightly with hematocrit. Medical Alcohol reference interval and critical value innon-tolerant individuals; 50 - 100 Impairment 100 Intoxication 100 - 250 Severe Poisoning 250 - 400 Deep/possible fatal coma Platelets bldon 03-09-2022 Platelets (Bld) [#/Vol] 223 10*3/uL 150-450 [facility] Work Phone: Protein Test strip Ql (U)on 03-09-2022 Protein Ql (U) 30 mg/dl Negative [facility] Work Phone: Serum or plasma albumin lori urement (mass/volume)on 03-09-2022 Albumin [Mass/Vol] 2.7 g/dL 3.2-5.0 [facility] Work Phone: Serum or plasma calcium lori urement (mass/volume)on 03-09-2022 Calcium [Mass/Vol] 8.6 mg/dL 8.5-10.1 [facility] Work Phone: Serum or plasma creatinine m easurement (mass/volume)on 03-09-2022 Creatinine [Mass/Vol] 0.44 mg/dL 0.70-1.[address] [facility] Work Phone: Comment on above: Moderate Icterus, Re sult may be falsely decreased.The validity of the calculated GFR & GFRAA in patients over 70 years has not been determined. Clinical correlation is essential. Serum or plasma hepatitis B virus surface antigen detection by immunoassayon 03-09-2022 HBV surface Ag IA Ql Negative Negative [facility] Work Phone: Serum or plasma urea nitroge n measurement (mass/volume)on 03-09-2022 Urea nitrogen [Mass/Vol] 5 mg/dL 7-18 [facility] Work Phone: Squamous epithelial cells de tection in urine sediment by light microscopyon 03-09-2022 Epithelial cells.squamous LM Ql (Urine sed) 0 SEEN /hpf 0-5 [facility] Work Phone: Thin prep Papanicolaou smear with manual screeningon 03-09-2022 Thin prep Papanicolaou smear with manual screening 307 U/L 15-37 [facility] Work Phone: Thin prep Papanicolaou smear with manual screening 9 5-15 [facility] Work Phone: Urine blood detectionon 02-20 RBC Ql (U) 50 /ul Negative [facility] Work Phone: RBC Ql (U) 0 SEEN /hpf 0-5 [facility] Work Phone: Urine clarityon 03-09-2022 Clarity (U) Clear Clear [facility] Work Phone: Urine color determinationon 03-09-2022 Color (U) Giulia Yellow [facility] Work Phone: Urine glucose detectionon Glucose Ql (U) Normal mg/dl Normal [facility] Work Phone: Urine leukocyte esterase det ection by dipstickon 03-09-2022 Leukocyte esterase Test strip Ql (U) 25 /ul Negative [facility] Work Phone: Urine pHon 03-09-2022 pH (U) 6.5 [pH] 5.0 - 8.0 [facility] Work Phone: Urine sediment bacteria coun t by microscopy (number/high power field)on 03-09-2022 Bacteria LM.HPF (Urine sed) [#/Area] 0 /[HPF] None Seen [facility] Work Phone: Urine specific gravity measu rementon 03-09-2022 Specific gravity (U) [Rel density] 1.015 1.002-1.030 [facility] Work Phone: Urobilinogen Auto test strip Ql (U)on 03-09-2022 Urobilinogen Ql (U) 12 mg/dl Normal [facility] Work Phone: Vital Signs Date Time Vital Sign Value Performing Clinician Faci lity 05-31-2025 15:46-0400 Body temperature 98 [degF] Dr. Emeka Crevantes MD Work Phone: [phone] [place] [address] 05-31-2025 15:46-0400 Diastolic blood pressure 91 mm[Hg] Dr. Emeka Cervantes MD Work Phone: [phone])[phone] [place] [address] 05-31-2025 15:46-0400 Heart rate 104 /min Dr. Emeka Cervantes MD Work Phone: [phone] [place] [address] 05-31-2025 15:46-0400 Respiratory rate 18 /min Dr. Emeka Cervantes MD Work Phone: [phone] [place] [address] 05-31-2025 15:46-0400 SaO2% (BldA) [Mass fraction] 95 % Dr. Emeka Cervantes MD Work Phone: [phone] [place] [address] 05-31-2025 15:46-0400 Systolic blood pressure 176 mm[Hg] Dr. Emeka Cervantes MD Work Phone: [phone] [place] [address] 05-31-2025 11:04-0400 Body height 170.[address] Emeka Cervantes MD Work Phone: [phone] [place] [address] 05-31-2025 11:04-0400 Body mass index (BMI) [Ratio] 28.5 kg/m2 Dr. Emeka Cervantes MD Work Phone: [phone] [place] [address] 05-31-2025 11:04-0400 Body weight 82.[address] Emeka Cervantes MD Work Phone: [phone] [place] [address] 10-24-2023 15:24-0500 Heart rate 82 /min [facility] 10-24-2023 15:23-0500 Respiratory rate 16 /min [facility] 10-24-2023 15:23-0500 SaO2% (BldA) [Mass fraction] 99 % [facility] 10-24-2023 12:20-0500 Body height 170.18 cm [facility] 10-24-2023 12:20-0500 Body mass index (BMI) [Ratio] 29 kg/m2 [facility] 10-24-2023 12:20-0500 Body temperature 97.2 [degF] [facility] 10-24-2023 12:20-0500 Body weight 84.2 kg [facility] 10-24-2023 12:20-0500 Diastolic blood pressure 108 mm[Hg] [facility] 10-24-2023 12:20-0500 Systolic blood pressure 160 mm[Hg] [facility] 12-29-2022 12:29-0500 Diastolic blood pressure 93 mm[Hg] [facility] 12-29-2022 12:29-0500 Heart rate 84 /min [facility] 12-29-2022 12:29-0500 Respiratory rate 18 /min [facility] 12-29-2022 12:29-0500 SaO2% (BldA) [Mass fraction] 95 % [facility] 12-29-2022 12:29-0500 Systolic blood pressure 151 mm[Hg] [facility] 12-29-2022 07:14-0500 Body height 170.18 cm [facility] 12-29-2022 07:14-0500 Body mass index (BMI) [Ratio] 29.5 kg/m2 [facility] 12-29-2022 07:14-0500 Body temperature 98.2 [degF] [facility] 12-29-2022 07:14-0500 Body weight 85.6 kg [facility] 09-02-2022 15:07-0500 Diastolic blood pressure 87 mm[Hg] Dr. Pritchett Friend Work Phone: [facility] 09-02-2022 15:07-0500 Heart rate 101 /min Dr. Pritchett Friend Work Phone: [facility] 09-02-2022 15:07-0500 Respiratory rate 18 /min Dr. Pritchett Friend Work Phone: [facility] 09-02-2022 15:07-0500 SaO2% (BldA) [Mass fraction] 98 % Dr. Pritchett Friend Work Phone: [facility] 09-02-2022 15:07-0500 Systolic blood pressure 120 mm[Hg] Dr. Pritchett Friend Work Phone: [facility] 09-02-2022 10:05-0500 Body height 170.[address] Shreyas Montejo Work Phone: [facility] Work Phone: 09-02-2022 10:05-0500 Body mass index (BMI) [Ratio] 29.5 kg/m2 Dr. Shreyas Montejo Work Phone: [phone] [place] [address] 09-02-2022 10:05-0500 Body temperature 97.9 [degF] Dr. Shreyas Montejo Work Phone: [phone] [place] [address] 09-02-2022 10:05-0500 Body weight 85.[address] Shreyas Montejo Work Phone: [phone] [place] [address] 06-13-2022 10:39-0400 Diastolic blood pressure 90 mm[Hg] Dr. Shreyas Montejo Work Phone: [facility] Work Phone: 06-13-2022 10:39-0400 Systolic blood pressure 160 mm[Hg] Dr. Shreyas Montejo Work Phone: [facility] Work Phone: 06-13-2022 10:13-0400 Body height 170.[address] Shreyas Montejo Work Phone: [facility] Work Phone: 06-13-2022 10:13-0400 Body mass index (BMI) [Ratio] 27.6 kg/m2 Dr. Shreyas Montejo Work Phone: [facility] Work Phone: 06-13-2022 10:13-0400 Body weight 79.[address] Shreyas Montejo Work Phone: [facility] Work Phone: 06-13-2022 10:13-0400 Heart rate 104 /min Dr. Shreyas Montejo Work Phone: [facility] Work Phone: 06-13-2022 10:13-0400 SaO2% (BldA) [Mass fraction] 93 % Dr. Shreyas Montejo Work Phone: [facility] Work Phone: 05-02-2022 09:15-0400 Body height 170.[address] Shreyas Montejo Work Phone: [facility] Work Phone: 05-02-2022 09:15-0400 Body mass index (BMI) [Ratio] 26.2 kg/m2 Dr. Shreyas Montejo Work Phone: [facility] Work Phone: 05-02-2022 09:15-0400 Body weight 75.[address] Shreyas Montejo Work Phone: [facility] Work Phone: 05-02-2022 09:15-0400 Diastolic blood pressure 98 mm[Hg] Dr. Shreyas Montejo Work Phone: [facility] Work Phone: 05-02-2022 09:15-0400 Heart rate 120 /min Dr. Shreyas Montejo Work Phone: [facility] Work Phone: 05-02-2022 09:15-0400 SaO2% (BldA) [Mass fraction] 94 % Dr. Shreyas Montejo Work Phone: [facility] Work Phone: 05-02-2022 09:15-0400 Systolic blood pressure 154 mm[Hg] Dr. Shreyas Montejo Work Phone: [facility] Work Phone: 04-11-2022 14:35-0400 Heart rate 64 /min [facility] Work Phone: 04-11-2022 14:35-0400 Respiratory rate 20 /min [facility] Work Phone: 04-11-2022 14:35-0400 SaO2% (BldA) [Mass fraction] 97 % [facility] Work Phone: 04-11-2022 13:26-0400 Diastolic blood pressure 91 mm[Hg] [facility] Work Phone: 04-11-2022 13:26-0400 Systolic blood pressure 143 mm[Hg] [facility] Work Phone: 04-11-2022 10:27-0400 Body height 170.18 cm [facility] Work Phone: 04-11-2022 10:27-0400 Body mass index (BMI) [Ratio] 29.1 kg/m2 [facility] Work Phone: 04-11-2022 10:27-0400 Body temperature 97.7 [degF] [facility] Work Phone: 04-11-2022 10:27-0400 Body weight 84.36 kg [facility] Work Phone: 03-11-2022 16:09-0400 Respiratory rate 18 /min [facility] Work Phone: 03-11-2022 16:00-0400 Diastolic blood pressure 101 mm[Hg] [facility] Work Phone: 03-11-2022 16:00-0400 Heart rate 101 /min [facility] Work Phone: 03-11-2022 16:00-0400 SaO2% (BldA) [Mass fraction] 94 % [facility] Work Phone: 03-11-2022 16:00-0400 Systolic blood pressure 158 mm[Hg] [facility] Work Phone: 03-11-2022 10:31-0400 Body height 170.18 cm [facility] Work Phone: 03-11-2022 10:31-0400 Body mass index (BMI) [Ratio] 26.7 kg/m2 [facility] Work Phone: 03-11-2022 10:31-0400 Body temperature 96.3 [degF] [facility] Work Phone: 03-11-2022 10:31-0400 Body weight 77.56 kg [facility] Work Phone: 03-09-2022 13:53-0400 Diastolic blood pressure 74 mm[Hg] [facility] Work Phone: 03-09-2022 13:53-0400 Heart rate 72 /min [facility] Work Phone: 03-09-2022 13:53-0400 Respiratory rate 16 /min [facility] Work Phone: 03-09-2022 13:53-0400 SaO2% (BldA) [Mass fraction] 98 % [facility] Work Phone: 03-09-2022 13:53-0400 Systolic blood pressure 149 mm[Hg] [facility] Work Phone: 03-09-2022 12:40-0400 Body height 167.64 cm [facility] Work Phone: 03-09-2022 12:40-0400 Body mass index (BMI) [Ratio] 37.9 kg/m2 [facility] Work Phone: 03-09-2022 12:40-0400 Body weight 106.59 kg [facility] Work Phone: 03-09-2022 10:55-0400 Body temperature 97.7 [degF] [facility] Work Phone: Encounters Encounter Date Encounter Type Care Provider Facility Start: 05-31-2025 Non-patient / Non-visit Dr. Geremias Rios DO -[facility] Work Phone: Start: 05-31-2025 Evaluation and management of inpatient Dr. Geremias Jopperi DO -[facility] Work Phone: Start: 10-24-2023 End: 10-24-2023 Emergency department patient visit Manjit Lozano Facility:[facility] Start: 10-24-2023 End: 10-24-2023 Emergency department patient visit [facility] Work Phone: Start: 12-29-2022 End: 12-29-2022 Emergency department patient visit No Primary Care Physician Facility:[facility] Start: 12-29-2022 End: 12-29-2022 Emergency department patient visit [facility] Start: 09-02-2022 End: 09-02-2022 Emergency department patient visit Dr. Shreyas Montejo Work Phone: [facility] Start: 07-21-2022 End: 07-21-[address] Shreyas Montejo Work Phone: [facility] Work Phone: Start: 07-21-2022 End: 07-21-[address] Shreyas Montejo Work Phone: [facility] Start: 06-13-2022 End: 06-13-[address] Shreyas Montejo Work Phone: [facility] Work Phone: Start: 06-13-2022 End: 06-13-[address] Shreyas Montejo Work Phone: [facility] Start: 05-02-2022 End: 05-02-[address] Shreyas Montejo Work Phone: [facility] Start: 05-02-2022 End: 05-02-[address] Shreyas Montejo Work Phone: [facility] Start: 04-11-2022 End: 04-11-2022 Emergency department patient visit [facility] Start: 03-11-2022 End: 03-11-2022 Emergency department patient visit [facility] Start: 03-09-2022 End: 03-09-2022 Emergency department patient visit [facility] Procedures Date Procedure Procedure Detail Performing Clinician Start: 05-31-[address] Emeka Cervantes MD Work Phone: Start: 05-31-2025 Methadone measurement, urine Dr. Emeka Cervantes MD Work Phone: Start: 10-24-2023 Computed tomography of abdomen and [...] chest X-ray Start: 04-11-[address] Edouard Montejo Work Phone: Start: 03-11-2022 Computed tomography of abdomen and pelvis with intravenous contrast Measurement of occul t blood in stool specimen using immunoassay Urine culture Plan of Treatment Date Care Activity Detail Author Start: 05-31-2025 Verification routine [facility] Start: 05-31-2025 Admission procedure [facility] Start: 05-31-2025 Hospital admission, emergency, from emergency room, medical nature [facility] Start: 05-31-2025 [facility] Start: 05-31-2025 Referral to service [facility] Start: 05-31-2025 Suicide precautions [facility] Start: 10-24-2023 [facility] Start: 10-24-2023 [facility] Start: 10-24-2023 Bacteria identified in Urine by Culture Urine Culture [facility] Start: 12-29-2022 [facility] Start: 09-02-2022 [facility] Work Phone: Start: 04-11-2022 Abdom paracentesis dx/ther w/imaging guidance ABD PARACENTESIS W/IMAGING [facility] Work Phone: Start: 04-11-2022 Centesis [facility] Work Phone: Bacteria identified in Urine by Culture Urine Culture [facility] Lactic acid measurement [facility] Patient Education [facility] Work Phone: Patient referral [facility] Work Phone: Payers Date Payer Category Payer Self-pay [id number] 2022 Unknown [id number] Unknown [id number] Unknown [id number] Social History Date Type Detail Facility Start: 03-09-2022 End: 10-24-2023 Tobacco smoking status NHIS Unknown if ever smoked [facility] Start: 1970 Sex Assigned At Male [facility] Start: 05-31-2025 Tobacco smoking stat us NCIS Current Heavy tobacco smoker [facility] Mental Status Date Assessment Result Facility 04-11-2022 Cognitive function Level Of Cons ciousness Awake;Alert;Appropriate [facility] Work Phone: 04-11-2022 Cognitive function Level Of Cons ciousness Awake;Alert;Appropriate;Follow s Commands [facility] Work Phone: 03-11-2022 Cognitive function Level Of Cons ciousness Awake;Alert;Appropriate;Follow s Commands [facility] Work Phone: 03-09-2022 Cognitive function Level Of Cons ciousness Awake;Alert;Appropriate;Follow s Commands [facility] Work Phone: Clinical Notes 10-24-2023 to 05-31-2025 Note Date & Type Note Facility 05-31-2025 History and physical note [facility] 05-31-2025 Discharge summary [facility] 05-31-2025 Discharge summary Note Date/Time May 31, 2025 3:23pm [facility] Medical Records Department [address] [place] [address] Emergency Department Summary 05/31/25 MR#: [id number] Acct: [id number] Name: QUENTIN ALLISON Rep #:[id number] : 1970 54 From: Emeka Cervantes MD PCP: Shreyas Montejo DO Status:REG ER Location: ED ADDENDUM by Dr. Emeka Cervantes MD on 05/31/25 at 1522 Patient be admitted I spoke to the hospitalist. I will go through detox inpatient. They are also planning on crisis follow-up for his depression and suicidal thoughts. He will be admitted and not be able to leave AGAINST MEDICALADVICE. 05/31/25 1522<Electronically signed by Emeka Cervantes MD> Cosigner Signature (if applicable): cc: Shreyas Montejo, ~* Signed HPI History of Present Illness Chief Complaint: Suicidal Informant: patient Onset/Context/Timing Onset: Today and Yesterday Current Severity: Mild Maximum Severity: Moderate Narrative Narrative: 34-year-old male history of alcohol abuse. Denies any other significant past medical history. States he drinks 1-1/2 bottles of vodka daily. Has never beenthrough detox. Yesterday escalated when he got an argument with his family and reportedly held a gun to his head. But there was talk down to that situation. Police were involved. Police came out to his house today doing well check. Andoriented. Was in the hospital for further evaluation. Currently denies being suicidal he said from time to time he has some depression. He does not have anyhistory of hallucinations. He has never had any other prior suicide attempts. He believes this all stems from his drinking knows he has an alcohol problem andwould like detox. He denies any prior psychiatric admissions or prior suicide attempts. Prior similar symptoms: Yes Recent Illness/Hospitalization: No PFSH PFSH Medical History Alcoholic cirrhosis Abdominal ascites Cirrhosis of liver Home Medications ?Medication ?Instructions ?Recorded ?Last Taken ?Type cephalexin 500 mg capsule 500 mg PO Q12 #14 CAPSULES 0 12/29/22 Unknown Rx furosemide 20 mg tablet (Lasix) 20 mg PO BID fluid 07/15 4 Months Ago History ~08/31/22 methyl salicylate-menthol topical 1 ea topical QHS rick ulder pain 12/29/22 12/28/22 History ointment [id number]-[id number] 300 mcg-K 60 1 tab PO DAILY health m aintenance 12/29/22 12/29/22 History mcg-lycop 600 mcg-lutein 300 mcg tablet (Centrum Silver Men) ondansetron 4 mg disintegrating 4 mg PO Q8H PRN PRN Na usea #10 tabs 12/29/22 Unknown Rx tablet pantoprazole 20 mg tablet,delayed 20 mg PO BID #14 tab s 12/29/22 Unknown Rx release (Protonix) spironolactone 25 mg tablet 25 mg PO BID blood pressur e 12/29/22 4 Months Ago History (Aldactone) ~08/31/22 Allergy/AdvReac Type Severity Reaction Status Date / Time No Known Allergies Allergy Verified 05/31/25 11:09 Social History Smoking Status: Heavy Smoker (>10/day) details: Patient is 32 days sober ROS ROS ED ROS Narrative Denies recent illness. Says when he stops drinking for a day or 2 he starts having withdrawal symptoms. Constitutional Constitutional ED: Denies chills or fever(s) Eyes Eyes: Denies blurry vision ENT ENT ED: Denies ear pain Cardiovascular Cardiovascular: Denies chest pain Respiratory/Chest Respiratory/Chest: Denies cough Gastrointestinal Gastrointestinal: Denies abdominal pain Genitourinary Genitourinary ED: Denies dysuria Musculoskeletal Musculoskeletal: Denies arthralgias Integumentary Denies abscess Neurologic Neurologic: Denies headache(s) Psychiatric Psychiatric: Reports anxiety and depression Endocrine Endocrinology: Denies cold intolerance Hematologic/Lymphatic Hematologic/Lymphatic: Denies easy bleeding Allergic/Immunologic Allergic/Immunologic ED: Denies mouth swelling EXAM Physical Exam Narrative Exam Narrative: 54-year-old male sitting upright in bed. Vital signs are stable afebrile. He does not look septic or toxic. He is in no distress. Currently no family present in the room. H EENT exam pupils round react light. Moist mucous membranes. No trauma to his face or scalp. Neck nontender no lymphadenopathy. Lungs clear to auscultation bilaterally. Heart regular rhythm no murmur chest wall nontender. Abdomen soft nontender. No peritoneal signs. Back nontender. Moving all 4 extremities. Nontender no deformity. Neurologically is awake alert. Answering questions following commands. He does make eye contact. He is forthcoming with information. Const Vital Signs: 05/31/25 11:04 05/31/25 12:11 Temperature 98.5 F Temperature Source Oral Pulse Rate 119 H 98 Respiratory Rate 16 18 Blood Pressure 149/88 H 144/99 H Blood Pressure Mean 108 114 Pulse Ox 92 99 Oxygen Delivery Method Room Air Positive well nourished and well developed; Negative for cachectic, contracturesor unkempt General Appearance ED: well developed and NAD; Negative for unkempt, cachectic, contractures or pallor Nutritional Appearance: Negative for cachectic HEENT Reports moist mucous membranes Negative for atraumatic, trauma or tenderness Eyes PERRL and EOMs intact bilaterally General Eye ED: Negative for pale conjunctiva or scleral icterus Neck no lymphadenopathy, supple and no JVD Lymph Lymphatic: no lymphadenopathy noted Chest Wall inspection of chest normal and palpation of chest normal Resp normal respiratory effort and clear to auscultation bilaterally Cardio regular rhythm, S1 normal heart sound, S2 normal heart sound and no murmurs; Negative for regular rate Rate: tachycardic GI soft to palpation, non-tender, non-distended and no masses Palpation: Negative for tender, guarding or rigid Back/Spine no CVA tenderness General Back: Negative for CVA tenderness Cervical Spine: Negative for cervical spine tenderness Thoracic Spine / Upper Back: Negative for thoracic spinal tenderness Lumbar Spine / Lower Back: Negative for lumbar spinal tenderness Coccyx: Negative for swelling Neuro oriented x3 and CN's II-XII intact bilaterally Sensorium / Orientation: alert, oriented to person, oriented to place and oriented to time; Negative for confused or lethargic Speech: speech normal Motor Exam: strength 5/5 throughout Psych mental status grossly normal and thought process normal Appearance: Negative for unkempt Mood & Affect: depressed and anxious Skin General Skin Exam: Negative for jaundice or pallor Lesions: no lesions Rashes: no rashes MDM MDM MDM Narrative Medical decision making narrative: 54-year-old male history of alcohol abuse. Yesterday was depressed and had suicidal thoughts with reportedly having a gun to his head. Does not have a history of mental health issues other than some occasional depression. Has never had a psychiatric admission. He is never gone through detox. He preferred to be admitted to detox today feels that his major problem which I agree I have our administrator social welfare evaluating my plan would be admitting him here for detox versus an transfer him to a mental health facility that is kind of substance abuse and depression. Patient resting comfortably at 2:44 PM. Patient been evaluated by administrator social welfare. They are comfortable SMI as is the patient's preference to be admitted here to undergo detox. I have the hospitalist on page for admission. History & Record Review Discussion w/independent historian: Patient Additional record(s) reviewed:: Prior inpatient record, Prior outpatient record,Prior ED visit and Prior labs Lab Data Attestation: I reviewed the patient's lab results. Lab results narrative: CBC shows a white count of 4.1. H&H of 12.6 and 36. Platelets 130. Chemistries show a sodium 140. Gap 14. BUN and creatinine of 5 and 0.5. Glucose 124. Liver enzymes are unremarkable. AST is 69. Urine tox is positive for cannabis. Alcohol is 96. Labs: Laboratory Results - last 24 hr 05/31/25 05/31/25 11:25 11:32 WBC 4.1 L RBC 3.53 L Hgb 12.6 L Hct 36.7 L MCV 104.0 H MCH 35.7 H MCHC 34.3 RDW Std Deviation 54.0 H RDW Coeff of Moses 14.1 Plt Count 130 L MPV 9.5 Immature Gran % (Auto) 0.200 Neut % (Auto) 63.4 Lymph % (Auto) 21.0 Lane % (Auto) 12.8 H Eos % (Auto) 0.7 Baso % (Auto) 1.9 H Absolute Neuts (auto) 2.6 Absolute Lymphs (auto) 0.87 Nucleated RBC % 0 Sodium 140 Potassium 3.8 Chloride 106 Carbon Dioxide 20.3 L Anion Gap 14 BUN 5 Creatinine 0.57 L Estim Creat Clear Calc 148.91 Est GFR (MDRD) Non-Af 115 BUN/Creatinine Ratio 9.4 L Glucose 124 H Calcium 9.6 Total Bilirubin 1.19 AST 69 H ALT 23 Alkaline Phosphatase 85 Total Protein 6.6 Albumin 4.1 Globulin 2.5 Albumin/Globulin Ratio 1.6 Urine Opiates Screen NEGATIVE U Buprenorphine Qual NEGATIVE Ur Oxycodone Screen NEGATIVE Urine Methadone Screen NEGATIVE Urine Fentanyl Screen NEGATIVE Ur Barbiturates Screen NEGATIVE Ur Phencyclidine Scrn NEGATIVE Ur Amphetamines Screen NEGATIVE U Benzodiazepines Scrn NEGATIVE Urine Cocaine Screen NEGATIVE U Cannabinoids Screen PRESUMPTIVE POSITIVE Ethyl Alcohol 96.9 H Discharge Plan Triage Chief Complaint: Suicidal Other Complaint: Substance Abuse ED Provider: Emeka Cervantes Dx/Rx/DC Orders Clinical Impression: Alcohol abuse, Acute alcohol intoxication, Depression Prescriptions: No Action Centrum Silver Men 300-600-300 [...] Q12 Qty: 14 0RF Primary Care Provider: Shreyas Montejo Referrals: Care Physician,No Primary [Non-Staff] - Print Language: Malay Disposition Disposition: Acute Care Hospital [facility] What to do if you have Problems For any increased pain, shortness of breath, bleeding, nausea or vomiting, chestpain, or any unexpected problems, contact your Primary Care Provider. Call [facility] ([phone]) or report to the closest Emergency Room. Call 911 if necessary. 05/31/25 1447 <Electronically signed by Emeka Cervantes MD> Cosigner Signature (if applicable): CC: Shreyas Montejo DO ~ Signed [facility] Work Phone: 1(674) 318-562701-02-2024 Discharge summary Author Manjit Lozano [facility] October 24, 2023 3:15pm Note Date/Time October 24, 2023 2: 20pm [facility] Medical Records Department [address] [place] [address] Emergency Department Summary 10/24/23 MR#: [id number] Acct: [id number] Name: ESTEFANYQUENTIN DAVID Rep #:[id number] : 1970 52 From: Manjit Lozano MD [...] has been doing very well with that. [facility] Medical History Abdominal ascites Alcoholic cirrhosis Cirrhosis of liver Home Medications cephalexin 500 mg capsule 500 mg PO Q12 #14 CAPSULES 12/29/22 [Rx Last Taken Unknown] furosemide 20 mg tablet (Lasix) 20 mg PO BID fluid 12/29/22 [History Last Taken 4 Months Ago ~08/31/22] methyl salicylate-menthol topical ointment 1 ea topical QHS shoulder pain 12/29/22 [History Last Taken 12/28/22] sfrdqnna-bs-dzznx 300 mcg-K 60 mcg-lycop 600 mcg-lutein 300 [...] (Aldactone) 25 mg PO BID blood pressure 03/09/23 [History Last Taken 4 Months Ago ~08/31/22] [...] % (Auto) 62.3 Lymph % (Auto) 24.8 Lane % (Auto) 8.0 Eos % (Auto) 3.3 [...] Clarity Clear Urine pH 6.0 Ur Specific [place] 1.015 Urine Protein 30 H Urine Glucose [...] 14:43 EST Reading Location ID and State: [id number] [facility] , Service support , Testicular Ultrasound 10/24/23 [...] Signed: Phil Celeste MD at 14:51 EST , Discharge Plan Triage Chief Complaint: Male [...] your Primary Care Provider. Call [facility] ([phone]) or report to the closest Emergency Room. Call 911 if necessary. 10/24/23 1515 <Electronically signed by Manjit Loznao MD> Cosigner Signature (if applicable): CC: No Primary Care Physician ~ Signed [facility] Work Phone: Evwfeation noteNo assessment information available [facility] Work Phone: Evqbvation note* Diagnosis Onset Date Resolution Status Abdominal ascites acute Alcoholic hepatitis acute Hepatomegaly acute [facility] Work Phone: Evaluation note* Diagnosis Onset Date Resolution Status Abdominal ascites acute Alcoholic hepatitis acute Hepatomegaly acute Alcoholic hepatitis acute [facility] Work Phone: Evaluation note* Diagnosis Onset Date Resolution Status Alcoholic hepatitis acute [facility] Work Phone: Evaluation note* Diagnosis Onset Date Resolution Status Admit Date Alcohol abuse acute May 31, 2025 3:37pm [facility] Work Phone: History and physical note Author Geremias Rios [facility] Note Date/Time May 31, 2025 4:0 5pm [facility] Medical Records Department [address] [place] [address] H&P Exam - Hospitalist 05/31/25 1559 MR#: [id number] Acct: [id number] Name: QUENTIN ALLISON Rep #:[id number] : 1970 54 From: Geremias Rios DO PCP: Shreyas Montejo, DO Status:ADM [facility] - General General Date of Admission: 05/31/25 Date of Service: 05/31/25 Chief Complaint: alcohol withdrawal. HPI Narrative QUENTIN ALLISON, is a 54 M who presents seeking treatment for alcohol abuse. 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 Last night had liquor with higher proof alcohol use and events occurred which she does not recall but he essentially put a loaded gun to his head. Was sent to emergency room and had a workup which was unremarkable. Patient was actually evaluated by crisis who felt the patient was not a threat to suicide and did not recommend sitter for him. Does express voluntarily wanting to go through the ramp program for his alcohol abuse. He has never had a plan of killing himself or others in the past. And he states that the event that occurred last night is well out of character for him. He does state that he has quit alcohol on his own before and typically begins with nausea then progresses the tremors. He denies ever having had hallucinations previously. He has never been through a formal program for his alcohol abuse COUNT INCLUDES THE [facility] Medical History Alcoholic cirrhosis Abdominal ascites Cirrhosis of liver Home Medications ?Medication ?Instructions ?Recorded ?Last Taken ?Type NK 05/31/25 Unknown History Allergy/AdvReac Type Severity Reaction Status Date / Time No Known Allergies Allergy Verified 05/31/25 11:09 Family History (Updated 05/31/25 @ 16:[address] Geremias Rios DO) Other Alcohol abuse Social History Smoking Status: Heavy Smoker (>10/day) details: Patient is 32 days sober ROS ROS Narrative He is nauseated and having some subtle tremors. All review of systems were negative except as mentioned above in the history of present illness and the other review of systems. Vital Signs Vital Signs Vital Signs: 05/31/25 11:04 05/31/25 12:11 05/31/25 15:46 Temperature 36.9 C 36.6 C Temperature Source Oral Pulse Rate 119 H 98 104 H Respiratory Rate 16 18 18 Blood Pressure 149/88 H 144/99 H 176/91 H Blood Pressure Mean 108 114 119 Pulse Ox 92 99 95 Oxygen Delivery Method Room Air Weight Weight: 82.735 kg Body Mass Index (BMI) 28.5 Physical Exam Narrative - Physical Exam General: Alert, Oriented x3, Cooperative HEENT: Atraumatic, PERRLA, EOMI, Normocephalic Oral: Moist Mucosa, No Gingival or Mucosal Lesions/ Ulcerations Neck: Supple, No JVD, Negative Carotid Bruits Lungs: Clear to auscultation, Normal air movement Cardiovascular: Regular rate, Normal S1, Normal S2, No murmurs Abdomen: Bowel Sounds Present, Soft, Non Tender, Non-Distended, No Hepato-splenomegaly Extremities: No clubbing, No cyanosis, No edema, Capillary Refill Less than 3 Seconds Skin: No rashes, No breakdown Musculoskeletal: No Tenderness to Palpation of Joints or Extremities Neurological: Neuro grossly intact. Subtle bilateral tremors. Psych/Mental Status: Normal Affect, Appropriate Results Lab / Micro Data 05/31/25 11:32 05/31/25 11:32 Labs: Laboratory Results - last 24 hr 05/31/25 11:25: Urine Opiates Screen NEGATIVE, U Buprenorphine Qual NEGATIVE, UrOxycodone Screen NEGATIVE, Urine Methadone Screen NEGATIVE, Urine Fentanyl Screen NEGATIVE, Ur Barbiturates Screen NEGATIVE, Ur Phencyclidine Scrn NEGATIVE, Ur Amphetamines Screen NEGATIVE, U Benzodiazepines Scrn NEGATIVE, Urine Cocaine Screen NEGATIVE, U Cannabinoids Screen PRESUMPTIVE POSITIVE 05/31/25 11:32: WBC 4.1 L, RBC 3.53 L, Hgb 12.6 L, Hct 36.7 L, MCV 104.0 H, MCH 35.7 H, MCHC 34.3, RDW Std Deviation 54.0 H, RDW Coeff of Moses 14.1, Plt Count 130 L, MPV 9.5, Immature Gran % (Auto) 0.200, Neut % (Auto) 63.4, Lymph % (Auto)21.0, Lane % (Auto) 12.8 H, Eos % (Auto) 0.7, Baso % (Auto) 1.9 H, Absolute Neuts (auto) 2.6, Absolute Lymphs (auto) 0.87, Nucleated RBC % 0, Sodium 140, Potassium 3.8, Chloride 106, Carbon Dioxide 20.3 L, Anion Gap 14, BUN 5, Creatinine 0.57 L, Estim Creat Clear Calc 148.91, Est GFR (MDRD) Non-Af 115, BUN/Creatinine Ratio 9.4 L, Glucose 124 H, Calcium 9.6, Total Bilirubin 1.19, AST69 H, ALT 23, Alkaline Phosphatase 85, Total Protein 6.6, Albumin 4.1, Globulin 2.5, Albumin/Globulin Ratio 1.6, Ethyl Alcohol 96.9 H Assessment & Plan Assessment/Plan (1) Alcohol abuse: PLAN: With impending withdrawal. Unclear of the potential severity. Patient drinks a liter and a half of low proof vodka daily. Patient will be ordered phenobarbital taper as well as other as needed medications to help with the somatic plaints with his withdrawal. Crisis to see and to facilitate outpatientprogram for him upon discharge. PLAN: Plan Depression: Patient put a loaded gun to his head. Patient does not have any recollection of this event but he states it is out of character for him. He attributes it to him being very intoxicated due to hyper alcohol that he was drinking last night. He denies any suicidal ideation currently or in the past. Patient was evaluated by crisis who does not feel that he is a suicide threat and does not recommend a transfer to a psychiatric unit or even the need for a bedside sitter. Cirrhosis per history. Is a quitting consumption of alcohol is of utmost importance. May follow-up with gastroenterology upon discharge. VTE prophylaxis low risk not indicated at this time. Charges/Coding Visit Charges Inpatient E&M: 58590 Init Hosp L2 05/31/25 7293 <Electronically signed by Geremias Rios DO> Cosigner Signature (if applicable): CC: Dr. Geremias Rios DO; Shreyas Montejo DO~ Signed [facility] Work Phone: Hospital Discharge instructions Additional Instructions Take antibiotic as prescribed. Follow-up with Dr. Montejo as scheduled in 1 week. Return if any worsening symptoms.[facility] Work Phone: Hospital Discharge instructions Additional Instructions Drink lots of fluids. Avoid alcohol at all costs. If you start throwing up andrzej blood, having dark black stools or have worsening symptoms please return to the emergency room.[facility] Work Phone: Reason for referral (narrative)No reason for referral information availableWAultman [facility] Work Phone: Advance Directives Advance Directive Response Recorded Date/ Time Living Will No March 09, 2022 1 2:21pm Power of Aboriginal Liaison Officer No March 09, 2022 12:21pm Advance Directive Response Recorded Date/ Time Living Will No March 11, 2022 1 0:50am Power of Aboriginal Liaison Officer No March 11, 2022 10:50am Advance Directive Response Recorded Date/ Time Living Will No April 11, 2022 11:12am Power of Aboriginal Liaison Officer No April 11 11:12am Advance Directive Response Recorded Date/ Time Living Will No September 02 022 10:15am Power of Aboriginal Liaison Officer No September 02, 2022 10:15am Advance Directive Response Recorded Date/ Time Living Will No December 29, 2022 7:58am Power of Aboriginal Liaison Officer No December 29 3 7:58am Advance Directive Response Recorded Date/ Time Living Will No October 24 4 1:02pm Power of Aboriginal Liaison Officer No October 24 024 1:02pm Advance Directive Response Recorded Date/ Time Do you have a [facility] Power of Aboriginal Liaison Officer? No May 31, 2025 11:02am Chief Complaint and Reason for Visit Chief [...] ABD PAIN ABD PAIN Chief Complaint TESTICLE Chief Complaint Admit Date ETOH ABUSE, INTOXICATION, DEPRESSION, ARROYO ICIDAL May 31, 2025 3:37pm ETOH ABUSE, INTOXICATION, DEPRESSION, ARROYO ICIDAL May 31, 2025 3:59pm Reason for Visit Admit Date Alcohol abuse May 31, 2025 3:3 7pm Summary Purpose Family History Relationship Condition Age at Onset Recorded Date/T laura Not Specified Alcohol abuse Unknown Additional Source Comments Goals (unrecognized section and [...] Primary Care Provider Active Dr. Latrice Jurado DO Emergency Provider Active Team Status: Inactive Member Role Status Dates No Primary Care Physician Primary Care Provider Active Dr. Manjit Lozano MD Emergency Provider Active Team Status: Active Member Role/Relationship Status Dates Dr. Shreyas Montejo DO Primary Care Provider Active Team Status: Active Member Role/Relationship Status Dates Dr. Emeka Cervantes MD Emergency Provider Active S tart: May 31, 2025 Dr. Shreyas Montejo DO Primary Care Provider Active Start: May 31, 2025 Dr. Geremias Rios DO Admit Provider Active Star t: May 31, 2025 Dr. Geremias Rios DO Attending Provider Active Start: May 31, 2025 Team Status: Active Member Role/Relationship Status Dates Dr. Emeka Cervantes MD Emergency Provider Active S tart: May 31, 2025 Dr. Shreyas Montejo DO Primary Care Provider Active Start: May 31, 2025 Dr. Geremias Rios DO Admit Provider Active Star t: May 31, 2025 Dr. Geremias Rios DO Attending Provider Active Start: May 31, 2025 Dr. Geremias Rios DO Other Provider Active Star t: May 31, 2025 (unrecognized sect ion and content) No Status Records Found INFORMATION SOURCE (unrecogn ized section and content) DATE CREATED AUTHOR 12/23/2023 [facility] FOR RECORDS PERTAINING TO PATIENTS WHO ARE [...] BE BASED ON THE PRIMARY CLINICAL RECORDS. [employer] [facility]. provides no warranty or guarantee of the accuracy or completeness of information in this document.
[2025-05-31 20:52] VITALS: BP 148/84; PULSE 86; RESP 18; TEMP 36.7; O2SAT 99
[2025-05-31] MEDS: 0.9% Saline Lock 10 ML Syringe IV (21:01)
[2025-06-01 01:08] VITALS: BP 145/83; PULSE 70; RESP 18; TEMP 36.8; O2SAT 95
[2025-06-01 05:10] VITALS: BP 151/84; PULSE 69; RESP 18; TEMP 36.7; O2SAT 95
[2025-06-01 08:00] VITALS: BP 148/84; PULSE 84; RESP 12; TEMP 36.3; O2SAT 93
[2025-06-01] MEDS: Thiamine Hydrochloride 100 MG Tablet PO (08:08)
--- NOTE | 2025-06-01 13:50 | PN_ITS ---
Subjective Subjective Patient seen and examined with his nurse by his bedside. He had no active complaints. He denied any shakes or tremors. Review of systems was otherwise negative. Objective Data Objective Data Vital Signs: Vital Signs Temp Pulse Resp BP Pulse Ox O2 Del Method 97.4 F L 84 12 148/84 H 93 Room Air 06/01/25 08:00 06/01/25 08:00 06/01/25 08:00 06/01/25 08:00 06/01/25 08:00 06/01/25 08:15 Oxygen Delivery Method Room Air Weight: 177 lb Body Mass Index (BMI) 27.7 Lab / Micro Data 05/31/25 11:32 05/31/25 11:32 Physical Exam Const alert, oriented x3, no apparent distress and well nourished General Appearance: cooperative HEENT normocephalic, head/scalp atraumatic, moist oral mucous membranes and oropharynx normal Eyes PERRL and EOMs intact bilaterally Neck supple and no JVD Lymph Lymphatic: no lymphedema noted Resp normal respiratory effort, normal air movement and clear to auscultation bilaterally Cardio regular rate, regular rhythm, S1 normal heart sound, S2 normal heart sound and no murmurs GI normal to inspection, nondistended, normoactive bowel sounds, soft to palpation, non-tender and non-distended Extremity normal capillary refill, no clubbing, cyanosis or edema and no calf tenderness General Extremity: no tenderness to palpation of joints or extremities Skin General Skin Exam: no breakdown Neuro CN's II-XII intact bilaterally, no focal motor deficits, no sensory deficits noted and deep tendon reflexes 2+ bilaterally Motor Exam: general weakness Psych thought process normal, cooperative and affect normal Appearance: appropriate Assessment & Plan Assessment/Plan (1) Acute alcohol intoxication: PLAN: Plan #Acute alcohol intoxication with risk of withdrawal * he drinks ~ 1.5L of low proof vodka daily. He apparently held a gun to his head to harm himself. However patient on admission said he had no recollection of this event and felt it was out of character for him. He attributed this to his excessive alcohol use. * Was evaluated by crisis who did not feel he was a suicide threat. * On alcohol withdrawal protocol with phenobarbital. Monitor CIWA score. * On thiamine, folic acid and Multi-Yovana. Adjunctive meds for symptomatic relief. * monitor CIWA score * #History of cirrhosis: likely due to chronic alcohol use. Follow up with gastroenterology on outpatient basis DVT prophylaxis: low risk. Encourage ambulation. Charges/Coding Visit Charges Inpatient E&M: 79837 Subs Hosp L2
[2025-06-01 16:00] VITALS: BP 155/81; PULSE 82; RESP 14; TEMP 36.7; O2SAT 95
[2025-06-01] MEDS: hydrOXYzine PAM 25 MG Capsule 50 MG PO (16:39)
[2025-06-01 20:27] VITALS: BP 153/74; PULSE 70; RESP 18; TEMP 36.8; O2SAT 94
[2025-06-01 22:00] VITALS: BP 147/74; PULSE 86; RESP 16; TEMP 36.6; O2SAT 94
[2025-06-02 05:18] VITALS: BP 118/74; PULSE 69; RESP 16; TEMP 36.6; O2SAT 92
[2025-06-02] MEDS: Thiamine Hydrochloride 100 MG Tablet PO (08:08)
[2025-06-02 10:00] VITALS: BP 133/77; PULSE 69; RESP 18; TEMP 36.7; O2SAT 93
--- NOTE | 2025-06-02 11:06 | CASEMGMT ---
Social Work- Pt was assessed and safety planned by crisis 05/31/25.Pt has a follow up mental health appointment with [facility] on 06/06 @ 4PM. Pt was seen by [facility] and is eligible for [facility]. Pt reports no other needs. JULIANA Magana
--- NOTE | 2025-06-02 11:40 | PN_ITS ---
Subjective Subjective Patient seen and examined. He had no active complaints. He denied any withdrawal symptoms. HE was seen with his nurse by his bedside. Review of systems is otherwise negative. Objective Data Objective Data Vital Signs: Vital Signs Temp Pulse Resp BP Pulse Ox O2 Del Method 98.1 F 69 18 133/77 H 93 Room Air 06/02/25 10:00 06/02/25 10:00 06/02/25 10:00 06/02/25 10:00 06/02/25 10:00 06/02/25 10:00 Oxygen Delivery Method Room Air Weight: 177 lb Body Mass Index (BMI) 27.7 Lab / Micro Data 05/31/25 11:32 05/31/25 11:32 Physical Exam Const alert, oriented x3, no apparent distress and well nourished General Appearance: cooperative HEENT normocephalic, head/scalp atraumatic, moist oral mucous membranes and oropharynx normal Eyes PERRL and EOMs intact bilaterally Neck supple and no JVD Lymph Lymphatic: no lymphedema noted Resp normal respiratory effort, normal air movement and clear to auscultation bilaterally Cardio regular rate, regular rhythm, S1 normal heart sound, S2 normal heart sound and no murmurs GI normal to inspection, nondistended, normoactive bowel sounds, soft to palpation, non-tender and non-distended Extremity normal capillary refill, no clubbing, cyanosis or edema and no calf tenderness General Extremity: no tenderness to palpation of joints or extremities Skin General Skin Exam: no breakdown Neuro CN's II-XII intact bilaterally, no focal motor deficits, no sensory deficits noted and deep tendon reflexes 2+ bilaterally Motor Exam: general weakness Psych thought process normal, cooperative and affect normal Appearance: appropriate Assessment & Plan Assessment/Plan (1) Acute alcohol intoxication: PLAN: Plan #Acute alcohol intoxication with risk of withdrawal * he drinks ~ 1.5L of low proof vodka daily. He apparently held a gun to his head to harm himself. However patient on admission said he had no recollection of this event and felt it was out of character for him. He attributed this to his excessive alcohol use. * Was evaluated by crisis who did not feel he was a suicide threat. * On alcohol withdrawal protocol with phenobarbital. Monitor CIWA score. * On thiamine, folic acid and Multi-Yovana. Adjunctive meds for symptomatic relief. * monitor CIWA score * #History of cirrhosis: likely due to chronic alcohol use. Follow up with gastroenterology on outpatient basis DVT prophylaxis: low risk. Encourage ambulation. Charges/Coding Visit Charges Inpatient E&M: 49906 Subs Hosp L2
[2025-06-02 16:00] VITALS: BP 135/69; PULSE 88; RESP 18; TEMP 37.1; O2SAT 94
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
[2025-06-02 21:01] VITALS: BP 144/71; PULSE 72; RESP 16; TEMP 37; O2SAT 96
[2025-06-02] MEDS: hydrOXYzine PAM 25 MG Capsule 50 MG PO (21:09)
[2025-06-02] MEDS: 0.9% Saline Lock 10 ML Syringe IV (21:10)
[2025-06-03 01:02] VITALS: BP 125/71; PULSE 75; RESP 16; TEMP 36.6; O2SAT 95
[2025-06-03 06:53] VITALS: BP 122/78; PULSE 78; RESP 18; TEMP 36.6; O2SAT 95
[2025-06-03] MEDS: Thiamine Hydrochloride 100 MG Tablet PO (09:08)
[2025-06-03 12:00] VITALS: BP 141/83; PULSE 86; RESP 18; TEMP 36.7; O2SAT 94
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
--- NOTE | 2025-06-03 13:20 | DCINST_ITS ---
Discharge Instructions DC O2, CPAP, BIPAP needs Home O2 Discharge instructions: No Dressing / Incision Weight Bearing Status: Weight bearing as tolerated Dressing / Incision Call your doctor if you observe: Fever of 101 or Higher, Shortness of breath, Swelling in the ankles and Chest pain Follow Up Care Test Results: Test results from this visit will be discussed in further detail at your follow- up appointment, if applicable. Discharge Plan Admission Admit Date/Time: 05/31/25 15:59 Primary Reason for Your Visit: acute alcohol withdrawal Attending Provider: Joann Kulkarni Primary Care Provider: Shreyas Montejo Consulting Providers: Geremias Rios Instructions Patient Instructions: Alcohol Withdrawal: What to Expect Discharge Orders/Prescriptions Prescriptions: No Action NK Referrals / Follow Up: Shreyas Montejo DO [Primary Care Provider] - Within 2 Weeks Care Physician,No Primary [Non-Staff] - Disposition Disposition (needs filled in before D/C Order can be placed): Home, Self Care
--- NOTE | 2025-06-03 13:33 | CASEMGMT ---
Social Work- OLYA collaborated with Vicki from [facility]. regarding pt VARUN status. Vicki looking for pending number to process application. OLYA messaged Mayda at [facility] and will follow up with Vicki. JULIANA Magana
[2025-06-03 17:27] VITALS: BP 132/75; PULSE 84; RESP 18; TEMP 36.7; O2SAT 94
--- NOTE | 2025-06-03 17:28 | PN_ITS ---
Subjective Subjective Patient seen and examined with his nurse by his bedside.. Plan was to discharge patient home today he was actually discharged after he had tolerated the 3-day detox protocol. However patient subsequently changed his mind and decided he wanted to go to an inpatient facility. Discharge therefore canceled. Objective Data Objective Data Vital Signs: Vital Signs Temp Pulse Resp BP Pulse Ox O2 Del Method 98.1 F 86 18 141/83 H 94 Room Air 06/03/25 12:00 06/03/25 12:00 06/03/25 12:00 06/03/25 12:00 06/03/25 12:00 06/03/25 12:00 Oxygen Delivery Method Room Air Weight: 177 lb Body Mass Index (BMI) 27.7 Lab / Micro Data 05/31/25 11:32 05/31/25 11:32 Physical Exam Const alert, oriented x3, no apparent distress and well nourished General Appearance: cooperative HEENT normocephalic, head/scalp atraumatic, moist oral mucous membranes and oropharynx normal Eyes EOMs intact bilaterally Neck supple Lymph Lymphatic: no lymphedema noted Resp normal respiratory effort, normal air movement and clear to auscultation bilaterally Cardio regular rate, regular rhythm, S1 normal heart sound, S2 normal heart sound and no murmurs GI normal to inspection, nondistended, normoactive bowel sounds, soft to palpation, non-tender and non-distended Extremity normal capillary refill, no clubbing, cyanosis or edema and no calf tenderness General Extremity: no tenderness to palpation of joints or extremities Skin General Skin Exam: no breakdown Neuro CN's II-XII intact bilaterally, no focal motor deficits, no sensory deficits noted and deep tendon reflexes 2+ bilaterally Motor Exam: strength 5/5 throughout and general weakness Psych thought process normal, cooperative and affect normal Appearance: appropriate Assessment & Plan Assessment/Plan (1) Acute alcohol intoxication: PLAN: Plan #Acute alcohol intoxication with risk of withdrawal * he drinks ~ 1.5L of low proof vodka daily. He apparently held a gun to his head to harm himself. However patient on admission said he had no recollection of this event and felt it was out of character for him. He attributed this to his excessive alcohol use. * Was evaluated by crisis who did not feel he was a suicide threat. * On alcohol withdrawal protocol with phenobarbital. Monitor CIWA score. * On thiamine, folic acid and Multi-Yovana. Adjunctive meds for symptomatic relief. * monitor CIWA score * #History of cirrhosis: likely due to chronic alcohol use. Follow up with gastroenterology on outpatient basis DVT prophylaxis: low risk. Encourage ambulation. Disposition: Now wants to go to an inpatient rehab facility. For likely discharge tomorrow. Charges/Coding Visit Charges Inpatient E&M: 64160 Subs Hosp L2
[2025-06-03 17:29] VITALS: BP 132/75; PULSE 84; RESP 18; TEMP 36.7; O2SAT 94
[2025-06-03] MEDS: hydrOXYzine PAM 25 MG Capsule 50 MG PO (18:08)
[2025-06-03 20:27] VITALS: BP 134/70; PULSE 87; RESP 16; TEMP 37.1; O2SAT 94
[2025-06-04 00:41] VITALS: BP 126/64; PULSE 76; RESP 18; TEMP 36.6; O2SAT 93
[2025-06-04 06:50] VITALS: BP 122/82; PULSE 72; RESP 16; TEMP 36.7; O2SAT 95
[2025-06-04] MEDS: hydrOXYzine PAM 25 MG Capsule 50 MG PO ×2 (06:52→13:32)
--- NOTE | 2025-06-04 11:46 | NURSING ---
attempt to call father with update unsucessful, no answer and mailbox is full
[2025-06-04 12:00] VITALS: BP 121/64; PULSE 80; RESP 18; TEMP 36.7; O2SAT 94
--- NOTE | 2025-06-04 15:16 | NURSING ---
pt cell phone retreived from [facility]-pt looking for sandhardy # who is is step mother-he does not have a gerardo in his contacts he did find his sisters' phone# myesha [phone] and it goes straight to voicemail-left ms to return call
--- NOTE | 2025-06-04 15:24 | NURSING ---
spoke with father Allen-he will pick him up at 6pm unless he calls back that he can not
--- NOTE | 2025-06-04 15:48 | CASEMGMT ---
Social Work- SW collaboration with Mayda/[facility]. Mayda reports that she will follow up with [facility] on presumptive number/status. SW did not hear back and left a voicemail to follow up again in the afternoon. Benita updated that no new information regarding status. Hospitalist updated. Pt will d/c today. Bedside nurse assisted pt with calling dad for d/c. Pt will d/c home with dad at 6pm. JULIANA Magana
--- NOTE | 2025-06-04 17:05 | CASEMGMT ---
Social Work- SW provided 180 hotline number and AA meetings for area. Pt has mental health appointment 06/06. JULIANA Magana
== END 2025-06-04 18:06 | disposition home or self-care (01) ==
LOC: ED 14:57 → MS3 16:27
PROVIDERS: Emergency Provider Emergency Medicine; PCP Internal Medicine Gastroenterology; Visit Provider Student in an Organized Health Care Education/Training Program
DX: F10.120 Alcohol abuse with intoxication, uncomplicated (principal); K70.30 Alcoholic cirrhosis of liver without ascites; F10.130 Alcohol abuse with withdrawal, uncomplicated; F32.A Depression, unspecified; F17.200 Nicotine dependence, unspecified, uncomplicated; Y90.4 Blood alcohol level of 80-99 mg/100 ml
CPT/HCPCS: 80053; 80307; 82077; 85025; 99221; 99285; 99406; A4216; G0378

== ENCOUNTER 2025-08-22 22:05 | Emergency (ER) | payer MEDICAID, SELFPAY ==
[2025-08-22 22:05] VITALS: BP 144/86; PULSE 113; RESP 23; TEMP 35.7; O2SAT 96; BMI 32.4
--- NOTE | 2025-08-22 22:20 | CT_ITS ---
EXAM: CT/Spine Cervical without Contras
--- NOTE | 2025-08-22 22:20 | CT_ITS ---
EXAM: CT/Brain/Head without Contrast
--- NOTE | 2025-08-22 22:20 | CT_ITS ---
PROCEDURE: CT/CT Chest, Abd, Pel w/Contrast
[2025-08-22] MEDS: 0.9% Normal Saline (500mL Bag) 500 ML 999 ML IV (22:28)
[2025-08-22 22:42] LABS: Hematocrit 37.5 % (40-54); Hemoglobin 12.7 g/dL (13.0-16.5); Immature Granulocytes Count 0.030 X10^3/uL (0.0-0.0); Mean Corp Hgb Conc 33.9 g/dL (32-36); Mean Corpuscular Volume 103.6 fL (80-94); Mean Platelet Vol. 10.3 fl (6.2-12.0); NRBC Flagged by Analyzer 0 % (0-5); Platelet Count 160 K/mm3 (150-450); RBC Distribution Width CV 16.2 % (11.6-14.6); RBC Distribution Width SD 62.2 fl (35.1-43.9); Red Blood Count 3.62 M/mm3 (4.6-6.2); White Blood Count 7.8 K/mm3 (4.4-11.0)
[2025-08-22 22:50] LABS: Prothrombin Time (Protime)PT. 16.7 SECONDS (11.7-14.9)
[2025-08-22 22:51] LABS: Partial Thromboplast Time 31.3 Seconds (24.1-36.2)
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
[2025-08-22 23:05] VITALS: BP 103/84; PULSE 107; RESP 17; O2SAT 97
[2025-08-22 23:11] LABS: AST(SGOT) 84 U/L (<=37); Alanine Aminotransfer ALT/SGPT 29 U/L (<=46); Albumin, Serum 4.2 g/dL (3.5-5.0); Alcohol, Blood (Medical)-Serum 289.0 mg/dL (<=10.0); Alkaline Phosphatase 123 U/L (40-129); Anion Gap 13 (5-15); BUN 8 mg/dL (4-19); BUN/Creat Ratio 13.0 RATIO (10-20); Calcium,Total 9.6 mg/dL (7.6-11.0); Carbon Dioxide 24.5 mmol/L (21.0-32.0); Chloride 106 mmol/L (98-108); Estimated Creatinine Clearance 143.00 ml/min (50-250); Globulin 3.1 g/dL (2.2-4.2); Glucose 96 mg/dL (70-99); Potassium 4.5 mmol/L (3.3-5.1)
[2025-08-23] VITALS: BP 135/84; PULSE 99; RESP 16; O2SAT 98
[2025-08-23 01:58] VITALS: BP 143/79; PULSE 97; RESP 20; TEMP 36.9; O2SAT 97
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
== END 2025-08-23 02:07 | disposition home or self-care (01) ==
PROVIDERS: Emergency Provider Emergency Medicine; Visit Provider Emergency Medicine
DX: S39.012A Strain of muscle, fascia and tendon of lower back, initial encounter (principal); K70.30 Alcoholic cirrhosis of liver without ascites; F10.129 Alcohol abuse with intoxication, unspecified; S30.11XA Contusion of abdominal wall, initial encounter; F17.200 Nicotine dependence, unspecified, uncomplicated; S70.11XA Contusion of right thigh, initial encounter; V48.5XXA Car driver injured in noncollision transport accident in traffic accident, initial encounter
CPT/HCPCS: 70450; 71260; 72125; 74177; 80053; 82077; 82962; 85025; 85610; 85730; 96360; 96361; 99285; Q9967; A4216